=== PATIENT | male | born 1965 | race American Indian/Alaskan Native ===

== ENCOUNTER 2019-05-17 02:42 | Inpatient (IN) | payer BC ==
[2019-05-17 03:37] LABS: Basophils % (Auto) 0.1 % (0.0-1.8); Hematocrit 25.5 % (35.5-45.6); Hemoglobin 7.9 gm/dl (11.8-15.2); Lymphocytes # (Auto) 1.7 K/mm3 (1.2-5.4); Lymphocytes % (Auto) 15.5 % (13.4-35.0); Mean Corpuscular HGB Conc 31 % (32-34); Mean Corpuscular Volume 71 fl (84-94); Monocytes # (Auto) 1.3 K/mm3 (0.0-0.8); Monocytes % (Auto) 11.9 % (0.0-7.3); Platelet Count 409 K/mm3 (140-440); Red Blood Count 3.61 M/mm3 (3.65-5.03); Red Cell Distribution Width 24.9 % (13.2-15.2)
[2019-05-17 03:46] LABS: Bilirubin,Urine NEG (Negative); Blood,Urine NEG (Negative); Color,Urine Yellow (Yellow); Mucus,Urine 1+ /HPF; Protein,Urine <15 mg/dL mg/dL (Negative); Urobilinogen,Urine < 2.0 mg/dL (<2.0)
[2019-05-17 04:12] LABS: Alanine Aminotransferase 5 units/L (7-56); Albumin 3.3 g/dL (3.9-5); BUN/Creatinine Ratio 9; Blood Urea Nitrogen 9 mg/dL (9-20); Calcium 9.6 mg/dL (8.4-10.2); Hemolysis Index 0
[2019-05-17] MEDS ORDERED: MORPHINE IV ONE (04:22)
--- NOTE | 2019-05-17 04:34 | XRay Report ---
PROCEDURE: XR ABDOMEN 2V TECHNIQUE: Supine and upright radiographs of the abdomen and pelvis were obtained. HISTORY: abd pain COMPARISONS: None FINDINGS: There are multiple small air-fluid levels on the upright view. There is mild distention of small mary lou l loops in the mid abdomen. Free air is not seen. The lung bases are clear. The bones and soft tissue s are unremarkable. IMPRESSION: Multiple small air-fluid levels with mild distention of small bowel loops. Partial mechanical small b owel obstruction cannot entirely be excluded.. This document is electronically signed by Orestes Guerrero MD., May 17 2019 04:32:41 AM ET
--- NOTE | 2019-05-17 05:50 | Cat Scan Report ---
PROCEDURE: CT ABDOMEN PELVIS W CON TECHNIQUE: Computerized axial tomography of the abdomen and pelvis was performed after the administr ation of IV iodinated nonionic contrast. CT DOSE LENGTH PRODUCT: mGycm HISTORY: Abd pain COMPARISONS: Abdominal series 05/17/2019 . FINDINGS: The lung bases reveal interstitial changes which appear to be a chronic basis. There are no localized infiltrates or effusions. There is mild atelectatic changes in the lingula. The liver is normal in size and reveals several low density foci, one in the right hepatic lobe measu ring 8.7 mm in diameter. The other one is in the left hepatic lobe measuring 1.8 cm in diameter. Thes e may represent small cysts or hemangiomas. The gallbladder and biliary tree appear normal. The appen kait, spleen and adrenal glands appear normal. The kidneys enhance normally. There is no evidence of h ydronephrosis. There is mild right-sided perinephric stranding. The bowel loops reveal irregular circumferential mucosal thickening in the ascending colon ending at approximately the level of the ileocecal valve and extending cephalad 7 cm. The maximum transverse di ameter with marked luminal narrowing is 6.5 cm x 5.5 cm. There is associated pericolonic stranding an d small lymph nodes in the pericolonic area. The findings are suspicious for a malignancy rather than a colitis. There is proximal dilatation of small bowel loops with air-fluid levels suggesting partia l obstruction. The appendix is not seen with certainty. There is trace free fluid in the pelvis. The prostate gland and bladder appear normal. There are bilateral small inguinal hernias containing oment al fat. The skeletal structures otherwise reveal moderate lytic changes in the lumbar spine. IMPRESSION: Diffuse irregular mucosal thickening in the ascending colon extending from the level of the ileocecal valve and extending 7.1 cm cephalocaudally. There is associated pericolonic stranding and adjacent m ildly enlarged lymph nodes. The finding is suspicious for a malignancy rather than a colitis. Endosco pic evaluation is strongly recommended. Mild to moderate distention of ileal bowel loops with air-fluid levels suggesting partial mechanical small bowel obstruction most likely related to this lesion. Low density foci in both hepatic lobes with measurements as described. These may represent small cyst s. Adenocarcinoma may also present with cystic metastases. Ultrasound of the liver is recommended for follow-up confirmation. Pericolonic stranding in the right perinephric space without abnormal nephrogram or hydronephrosis. T his may be related to the inflammatory process in the ascending colon. Pyelonephritis would be a less likely consideration. Appendix not definitely identified. Trace free fluid in the pelvis. Bilateral small inguinal hernias containing omental fat. This document is electronically signed by Orestes Guerrero MD., May 17 2019 05:48:18 AM ET
[2019-05-17] MEDS ORDERED: ZOSYN/NS 4.5GM/100ML 4.5 GM/100 ML VIAL IV ONE (06:06)
--- NOTE | 2019-05-17 06:10 | Emergency Department Report ---
HPI - General Chief Complaint: Abdominal Pain Time Seen by Provider: 05/17/19 03:31 - HPI HPI: 53 year-old male presents to the emergency department with complaint of generalized abdominal pain that has been going on for the past month but worsened over the past few days. He was seen by his primary care physician 2 weeks ago and had some blood work done and was told that he needs to follow-up with gastroenterology. I was able to see the lab results that showed a reactivity to hepatitis A and B, and elevated CRP level of greater than 90 and a high cancer antigen marker. He was unable to get an appointment for gastroenterology for another month. The patient says that he had increased generalized abdominal pain. He presents with a low-grade fever but denies feeling feverish. The patient has a history of diabetes, GERD, hypertension, anemia and high cholesterol. No recent travel or sick contacts at home. ED Past Medical Hx - Past Medical History Previous Medical History?: Yes Hx Hypertension: Yes Hx Diabetes: Yes Hx GERD: Yes Additional medical history: Anenia. High Cholesterol - Surgical History Past Surgical History?: No - Social History Smoking Status: Never Smoker Substance Use Type: None ED Review of Systems ROS: Stated complaint: STOMACH PAIN Other details as noted in HPI Comment: All other systems reviewed and negative Constitutional: denies: malaise, weakness Eyes: denies: eye pain, vision change ENT: denies: ear pain, throat pain Respiratory: denies: cough, shortness of breath Cardiovascular: denies: chest pain, palpitations Gastrointestinal: abdominal pain. denies: vomiting Genitourinary: denies: dysuria, discharge Musculoskeletal: back pain. denies: arthralgia Skin: denies: rash, lesions Neurological: denies: headache, weakness Physical Exam - Physical Exam Vital Signs: Vital Signs 05/17/19 05/17/19 05/17/19 03:02 03:30 04:40 Temperature 100.6 F H 99.7 F H Pulse Rate 101 H 99 H Respiratory 18 18 18 Rate Blood Pressure 186/76 Blood Pressure 163/84 [Left] O2 Sat by Pulse 92 97 Oximetry 05/17/19 05:10 Temperature Pulse Rate Respiratory 18 Rate Blood Pressure Blood Pressure [Left] O2 Sat by Pulse Oximetry Physical Exam: GENERAL: The patient is well-developed well-nourished. HENT: Normocephalic. Atraumatic. Patient has moist mucous membranes. EYES: Extraocular motions are intact. Pupils equal reactive to light bilaterally. NECK: Supple. Trachea is midline. CHEST/LUNGS: Clear to auscultation. There is no respiratory distress noted. HEART/CARDIOVASCULAR: Regular. There is no tachycardia. There is no murmur. ABDOMEN: Abdomen is soft. There is generalized tenderness to palpation of the abdomen with the lower quadrants pain worse. No guarding. Patient has normal bowel sounds. There is mild abdominal distention. SKIN: Skin is warm and dry. NEURO: The patient is awake, alert, and oriented. The patient is cooperative. The patient has no focal neurologic deficits. The patient has normal speech. MUSCULOSKELETAL: There is no tenderness or deformity. There is no evidence of acute injury. ED Course Vital Signs 05/17/19 05/17/19 05/17/19 03:02 03:30 04:40 Temperature 100.6 F H 99.7 F H Pulse Rate 101 H 99 H Respiratory 18 18 18 Rate Blood Pressure 186/76 Blood Pressure 163/84 [Left] O2 Sat by Pulse 92 97 Oximetry 05/17/19 05:10 Temperature Pulse Rate Respiratory 18 Rate Blood Pressure Blood Pressure [Left] O2 Sat by Pulse Oximetry - Consultations Consultation #1: 05/17/19 06:14 I spoke with the general surgeon on-call, Dr. Em, who will consult on this patient regarding his partial small bowel obstruction and has asked for an NG tube to be placed. ED Medical Decision Making - Lab Data Result diagrams: 05/17/19 03:19 05/17/19 03:19 - Radiology Data Radiology results: report reviewed, image reviewed interpreted by me: Abdominal x-ray shows some air-fluid levels and concern for some intestinal dilation concerning for obstruction. PROCEDURE: CT ABDOMEN PELVIS W CON TECHNIQUE: Computerized axial tomography of the abdomen and pelvis was performed after the administration of IV iodinated nonionic contrast. CT DOSE LENGTH PRODUCT: mGycm HISTORY: Abd pain COMPARISONS: Abdominal series 05/17/2019 . FINDINGS: The lung bases reveal interstitial changes which appear to be a chronic basis. There are no localized infiltrates or effusions. There is mild atelectatic changes in the lingula. The liver is normal in size and reveals several low density foci, one in the r ight hepatic lobe measuring 8.7 mm in diameter. The other one is in the left hepatic lobe measuring 1.8 cm in diameter. These may represent small cysts or hemangiomas. The gallbladder and biliary tree appear normal. The appendix, spleen and adrenal glands appear normal. The kidneys enhance normally. There is no evidence of hydronephrosis. There is mild right-sided perinephric stranding. The bowel loops reveal irregular circumferential mucosal thickening in the ascending colon ending at approximately the level of the ileocecal valve and extending cephalad 7 cm. The maximum transverse diameter with marked luminal narrowing is 6.5 cm x 5.5 cm. There is associated pericolonic stranding and small lymph nodes in the pericolonic area. The findings are suspicious for a malignancy rather than a colitis. There is proximal dilatation of small bowel loops with air-fluid levels suggesting partial obstruction. The appendix is not seen with certainty. There is trace free fluid in the pelvis. The prostate gland and bladder appear normal. There are bilateral small inguinal hernias containing omental fat. The skeletal structures otherwise reveal moderate lytic changes in the lumbar spine. IMPRESSION: Diffuse irregular mucosal thickening in the ascending colon extending from the level of the ileocecal valve and extending 7.1 cm cephalocaudally. There is associated pericolonic stranding and adjacent mildly enlarged lymph nodes. The finding is suspicious for a malignancy rather than a colitis. Endoscopic evaluation is strongly recommended. Mild to moderate distention of ileal bowel loops with air-fluid levels suggesting partial mechanical small bowel obstruction most likely related to this lesion. Low density foci in both hepatic lobes with measurements as described. These may represent small cysts. Adenocarcinoma may also present with cystic metastases. Ultrasound of the liver is recommen ded for follow-up confirmation. Pericolonic stranding in the right perinephric space without abnormal nephrogram or hydronephrosis. This may be related to the inflammatory process in the ascending colon. Pyelonephritis would be a less likely consideration. Appendix not definitely identified. Trace free fluid in the pelvis. Bilateral small inguinal hernias containing omental fat. This document is electronically signed by Orestes Guerrero MD., May 17 2019 05:48:18 AM ET Transcribed By: DOMENIC Dictated By: ORESTES GUERRERO MD Electronically Authenticated By: ORESTES GURERERO MD Signed Date/Time: 05/17/19 0550 - Medical Decision Making This patient presents with some acute on chronic abdominal pain. Patient has some laboratory results with him that show an elevated CRP, positive/reactive to hepatitis A and B, and elevated cancer antigen marker. Labs in the emergency department today show some anemia with hemoglobin 7.9. Abdominal x-rays show some concern for possible obstruction. A CT scan of the abdomen and pelvis was done that shows a partial small bowel obstruction of the ileus, some hepatic foci concerning for adenocarcinoma versus other malignancy, and mucosal thickening of the descending colon up with the ileocecal valve, along with lymph nodes, that are concerning for malignancy. Patient was given some pain medication and empirically treated with some antibiotics. Gen. surgery has been contacted and consulted and an NG tube will be placed. The patient will be admitted to the hospitalist service and I have given permission to place bridging orders to the medical surgical floor under Dr Miller. - Differential Diagnosis colitis, SBO, malignancy, Diverticulitis Critical Care Time: No Critical care attestation.: If time is entered above; I have spent that time in minutes in the direct care of this critically ill patient, excluding procedure time. ED Disposition Clinical Impression: Partial small bowel obstruction, Suspected malignant neoplasm, Colitis, Intractable abdominal pain Hypertension Qualifiers: Hypertension type: essential hypertension Qualified Code(s): I10 - Essential (primary) hypertension Disposition: OP ADMIT IP TO THIS HOSP Is pt being admited?: Yes Condition: Serious Instructions: Hypertension (ED) Referrals: ESTEFANÍA INFANTE MD [Primary Care Provider] - 3-5 Days Time of Disposition: 06:21
[2019-05-17] MEDS ORDERED: APRESOLINE IV ONE (06:20)
[2019-05-17] MEDS ORDERED: MORPHINE IV PRN (07:27)
--- NOTE | 2019-05-17 07:27 | History and Physical Report ---
History of Present Illness Date of examination: 05/17/19 Chief complaint: Abdominal pains History of present illness: Patient is a 53 yo man with a history of hypertension, DM type 2, GERD, Anemia and Dyslipidemia who presents to [facility] ED with severe constant generalize sharp diffusely radiating abdominal pains for 1 month now unbearable last night without aggravating or relieving factors. He saw his PCP about 2 weeks ago and presents with lab results showing reactivity to hepatitis A and B, and elevated CRP level of greater than 90 and a high cancer antigen marker. In ED he was found to have temp of 100.6F HR 101, WBC 11.2, hgb 7.9 with MCV 71, normal plt and potassium of 5.1 with normal Cr of 1.0. PMH: as hpi PSH: left inguinal hernia repair SH: no smoker, no etoh or drug abuse FH: no colon cancer, +hypertension and DM ROS: Constitutional: denies: fever ENT: denies: throat or neck pain Respiratory: denies: cough, shortness of breath Cardiovascular: denies: chest pain Endocrine: +unexplained weight loss Gastrointestinal: + abdominal pain, denies nausea Genitourinary: denies: dysuria Rectal: denies no incontinence, no bleeding, no itching, no discharge Musculoskeletal: denies swelling, myaglia, muscle weakness Skin: denies: rash Neurological: denies: headache Hematological/Lymphatic: denies: easy bleeding or easy bruising Allergic/Immunologic: no urticaria, no allergic rhinitis, no anaphylaxis Psych: denies sadness or hopelessness, SI/HI Medications and Allergies Allergies Allergy/AdvReac Type Severity Reaction Status Date / Time No Known Allergies Allergy Verified 09/19/16 15:05 Home Medications Medication Instructions Recorded Confirmed Last Taken Type Dicyclomine [Bentyl] 20 mg PO TID 05/17/19 05/17/19 Unknown History Ferrous Sulfate [Iron 325 MG] 325 mg PO BID 05/17/19 05/17/19 Unknown History Lisinopril/Hydrochlorothiazide 1 each PO DAILY 05/17/19 05/17/19 Unknown History [Zestoretic 20-12.5 mg] Pantoprazole [Protonix] 40 mg PO DAILY 05/17/19 05/17/19 Unknown History Simvastatin 40 mg PO QPM 05/17/19 05/17/19 Unknown History Sucralfate [Carafate] 1 gm PO BID 05/17/19 05/17/19 Unknown History hydrALAZINE [Apresoline TAB] 100 mg PO QPM 05/17/19 05/17/19 Unknown History metFORMIN XR [Glucophage XR] 500 mg PO DAILY 05/17/19 05/17/19 Unknown History Exam - Physical Exam Narrative exam: Gen: WDWN, NAD, Awake, Alert, Orientated HEENT: NCAT, EOMI, PERRL, OP Clear Neck: supple, no adenopathy, no thyromegaly, no JVD CVS/Heart: reg tachy, normal S1S2, pulses present bilaterally Chest/Lungs: CTA B, Symmetrical chest expansion, good air entry bilaterally GI/Abdomen: soft, diffuse tenderness good bowel sounds, no guarding or rebound /Bladder: no suprapubic tenderness, no CVA or paraspinal tenderness Extermity/Skin: no c/c/e, no obvious rash MSK: FROM x 4 Neuro: CN 2-12 grossly intact, no new focal deficits Psych: calm - Constitutional Vitals: Temp Pulse Resp BP Pulse Ox 98.6 F 95 H 22 206/101 97 05/17/19 06:00 05/17/19 06:50 05/17/19 06:00 05/17/19 06:50 05/17/19 06:00 Results - Labs CBC & Chem 7: 05/17/19 03:19 05/17/19 03:19 Labs: Abnormal lab results 05/17/19 05/17/19 Range/Units 03:19 03:19 WBC 11.2 H (4.5-11.0) K/mm3 RBC 3.61 L (3.65-5.03) M/mm3 Hgb 7.9 L (11.8-15.2) gm/dl Hct 25.5 L (35.5-45.6) % MCV 71 L (84-94) fl MCH 22 L (28-32) pg MCHC 31 L (32-34) % RDW 24.9 H (13.2-15.2) % [place] % (Auto) 11.9 H (0.0-7.3) % [place] # 1.3 H (0.0-0.8) K/mm3 Seg Neutrophils % 72.5 H (40.0-70.0) % Seg Neutrophils # 8.1 H (1.8-7.7) K/mm3 Potassium 5.1 H (3.6-5.0) mmol/L Glucose 140 H (75-100) mg/dL ALT 5 L (7-56) units/L Albumin 3.3 L (3.9-5) g/dL Assessment and Plan Patient is a 53 yo man with a history of hypertension, DM type 2, GERD, Anemia and Dyslipidemia who presents to [facility] ED with severe constant generalize sharp diffusely radiating abdominal pains for 1 month now unbearable last night without aggravating or relieving factors. He saw his PCP about 2 weeks ago and presents with lab results showing reactivity to hepatitis A and B, and elevated CRP level of greater than 90 and a high cancer antigen marker. In ED he was found to have temp of 100.6F HR 101, WBC 11.2, hgb 7.9 with MCV 71, normal plt and potassium of 5.1 with normal Cr of 1.0. * CT abd/pelvis with contrast IMPRESSION: Diffuse irregular mucosal thickening in the ascending colon extending from the level of the ileocecal valve and extending 7.1 cm cephalocaudally. There is associated pericolonic stranding and adjacent mildly enlarged lymph nodes. The finding is suspicious for a malignancy rather than a colitis. Endoscopic evaluation is strongly recommended. Mild to moderate distention of ileal bowel loops with air-fluid levels suggesting partial mechanical small bowel obstruction most likely related to this lesion. Low density foci in both hepatic lobes with measurements as described. These may represent small cysts. Adenocarcinoma may also present with cystic metastases. Ultrasound of the liver is recommen ded for follow-up confirmation. Pericolonic stranding in the right perinephric space without abnormal nephrogram or hydronephrosis. This may be related to the inflammatory process in the ascending colon. Pyelonephritis would be a less likely consideration. Appendix not definitely identified. Trace free fluid in the pelvis. Bilateral small inguinal hernias containing omental fat * 2v ABD Xray IMPRESSION: Multiple small air-fluid levels with mild distention of small bowel loops. Partial mechanical small bowel obstruction cannot entirely be excluded.. Abdominal pains with suspected pSBO: treat with bowel rest, iv pain meds, Gen. Surgery already consulted by ED physician and asked NGT to be placed. Suspected Colon mass: consult Surgery Sepsis due to Colitis: treat with IV abx and IVF, prn tylenol pr for fevers, get blood cultures, get CXR, EKG baseline Accelerated hypertension with Urgency: treat with iv antihypertensives Hyperkalemia, mild: supportive care, monitor levels closely Microcytic anemia: consult GI DM type 2: ssi for now GERD: iv ppi DVT prophylaxis: sq heparin full code No objection for surgery, Class II revised [facility] Cardiac Risk CCT 32 minutes
[2019-05-17] MEDS ORDERED: D50W (25GM) Syringe IV PRN (07:28)
[2019-05-17] MEDS ORDERED: TYLENOL PR PRN (07:30)
--- NOTE | 2019-05-17 07:31 | XRay Report ---
PROCEDURE: XR ABDOMEN 1V AP TECHNIQUE: Abdominal radiograph, single view. HISTORY: NG placement COMPARISONS: 05/17/2019 . FINDINGS: Bowel gas pattern: Multiple distended loops of small bowel with air-fluid levels suspicious for part ial mechanical small bowel obstruction. . Masses or calcifications: None . Bony structures: No significant abnormality . Other: The tip of the NG tube is in the upper stomach. . Excreted IV contrast is seen in the bladder . IMPRESSION: Tip of NG tube is in the upper stomach. Bowel gas pattern suspicious for partial mechani reyna small bowel obstruction.. This document is electronically signed by Orestes Guerrero MD., May 17 2019 07:29:22 AM ET
[2019-05-17] MEDS: NACL 0.45% 1000 ML 1,000 ML IV SCH (08:20)
[2019-05-17] MEDS: ZOFRAN IV PRN (08:21)
--- NOTE | 2019-05-17 08:29 | XRay Report ---
AP CHEST: HISTORY: Sepsis, fever AP view of the chest demonstrates a normal mediastinal and cardiac contour with clear lungs and normal bony and soft tissue structures. A nasogastric tube terminates in the fundus of the stomach. IMPRESSION: Unremarkable AP chest.
[2019-05-17] MEDS ORDERED: PROTONIX IV ONE (10:04)
[2019-05-17] MEDS: PROTONIX IV SCH (10:12)
--- NOTE | 2019-05-17 10:22 | Gastroenterology Consultation ---
<JOANA SANCHEZ - Last Filed: 05/17/19 10:31> History of Present Illness - Reason for Consult Consult date: 05/17/[address] Requesting physician: BRIGID CANDELARIA - History of Present Illness Patient is a 53 y/o male with PMH of HTN, DM, GERD, anemia, and dyslipidemia who presented to ED with c/o diffuse abdominal pain x ~1-2 months. Upon admission, he underwent an abd CT that showed a colon mass suspicious for malignancy with associated partial SBO to which GI has been consulted. Surgery consult pending. This morning patient was resting in bed w/o acute distress. NGT to LIS noted to be in place with no output. Reports abd pain improved with pain medication. Admits to associated recent wt loss (unable to given me estimated amount). Denies N/V or signs of bleeding. States he has had no change in bowel habits with last BM within the last couple of days but then states he was given "something" from his doctor to help him go. No prior colonoscopy. No known Fhx of colon CA. Past History Past Medical History: other (see HPI) Past Surgical History: hernia repair Social history: denies: smoking, alcohol abuse Medications and Allergies Allergies Allergy/AdvReac Type Severity Reaction Status Date / Time No Known Allergies Allergy Verified 09/19/16 15:05 Active Meds: Active Medications Acetaminophen (Tylenol) 650 mg PA Q4H PRN PRN Reason: Non Cardiac Pain or Temp>100.5 Dextrose (D50w (25gm) Syringe) 50 ml IV PRN PRN PRN Reason: Hypoglycemia Heparin Sodium (Porcine) (Heparin) 5,000 unit SUB-Q Q12HR YURIY Hydralazine HCl (Apresoline) 10 mg IV Q4HR PRN PRN Reason: Blood Pressure Sodium Chloride (Nacl 0.45% 1000 Ml) 1,000 mls @ 100 mls/hr IV DIRECT YURIY Last Admin: 05/17/19 08:20 Dose: 100 mls/hr Documented by: Piperacillin Sod/Tazobactam Sod (Zosyn/Ns 4.5gm/100ml) 4.5 gm in 100 mls @ 200 mls/hr IV Q8HR YURIY; Protocol Insulin Human Lispro (Humalog) 0 unit SUB-Q Q6HR YURIY; Protocol Morphine Sulfate (Morphine) 2 mg IV Q4H PRN PRN Reason: Pain , Severe (7-10) Last Admin: 05/17/19 08:20 Dose: 2 mg Documented by: Ondansetron HCl (Zofran) 4 mg IV Q4H PRN PRN Reason: Nausea And Vomiting Last Admin: 05/17/19 08:21 Dose: 4 mg Documented by: Pantoprazole Sodium (Protonix) 40 mg IV QDAY YURIY Last Admin: 05/17/19 10:12 Dose: 40 mg Documented by: medications reviewed/updated as required Review of Systems - Review of Systems All systems: negative Constitutional: weight loss Gastrointestinal: abdominal pain (with distention) Exam - Constitutional Vital Signs: Temp Pulse Resp BP Pulse Ox 98.6 F 95 H 22 206/101 97 05/17/19 06:00 05/17/19 06:50 05/17/19 06:00 05/17/19 06:50 05/17/19 06:00 General appearance: no acute distress - EENT ENT: other (+NGT) - Respiratory Respiratory effort: normal - Cardiovascular Rhythm: regular - Gastrointestinal General gastrointestinal: Present: soft, non-tender, distended (slightly ), hypoactive bowel sounds - Neurologic Neurological: alert and oriented x3 - Labs CBC & Chem 7: 05/17/19 03:19 05/17/19 03:19 Lab Results: Laboratory Results - last 24 hr 05/17/19 05/17/19 05/17/19 03:19 03:19 03:52 WBC 11.2 H RBC 3.61 L Hgb 7.9 L Hct 25.5 L MCV 71 L MCH 22 L MCHC 31 L RDW 24.9 H Plt Count 409 Lymph % (Auto) 15.5 Preston % (Auto) 11.9 H Eos % (Auto) 0.0 Baso % (Auto) 0.1 Lymph # 1.7 Preston # 1.3 H Eos # 0.0 Baso # 0.0 Seg Neutrophils % 72.5 H Seg Neutrophils # 8.1 H Sodium 139 Potassium 5.1 H Chloride 98.9 Carbon Dioxide 29 Anion Gap 16 BUN 9 Creatinine 1.0 Estimated GFR > 60 BUN/Creatinine Ratio 9 Glucose 140 H Calcium 9.6 Total Bilirubin 0.20 AST 17 ALT 5 L Alkaline Phosphatase 77 Total Protein 7.2 Albumin 3.3 L Albumin/Globulin Ratio 0.8 Lipase 28 Urine Color Urine Turbidity Urine pH Ur Specific [place] Urine Protein Urine Glucose (UA) Urine Ketones Urine Blood Urine Nitrite Urine Bilirubin Urine Urobilinogen Ur Leukocyte Esterase Urine WBC (Auto) Urine RBC (Auto) Urine Mucus 05/17/19 Unknown WBC RBC Hgb Hct MCV MCH MCHC RDW Plt Count Lymph % (Auto) Preston % (Auto) Eos % (Auto) Baso % (Auto) Lymph # Preston # Eos # Baso # Seg Neutrophils % Seg Neutrophils # Sodium Potassium Chloride Carbon Dioxide Anion Gap BUN Creatinine Estimated GFR BUN/Creatinine Ratio Glucose Calcium Total Bilirubin AST ALT Alkaline Phosphatase Total Protein Albumin Albumin/Globulin Ratio Lipase Urine Color Yellow Urine Turbidity Clear Urine pH 5.0 Ur Specific [place] 1.021 Urine Protein <15 mg/dl Urine Glucose (UA) Neg Urine Ketones Neg Urine Blood Neg Urine Nitrite Neg Urine Bilirubin Neg Urine Urobilinogen < 2.0 Ur Leukocyte Esterase Neg Urine WBC (Auto) 2.0 Urine RBC (Auto) 3.0 Urine Mucus 1+ Assessment and Plan 1.colon mass with pSBO seen on CT (suspicious for malignancy) 2.abdominal pain 3.anemia -WBC 11.2 -H/H 7.9/25.5-no active signs of bleeding -LFTs WNL -surgery consult and abdominal series pending for further evaluation -will have Dr. Mccullough assess patient and reviewe imaging to determine if a colonoscopy would be recommended -CEA level -Keep NPO -NGT to LIS -continue supportive care -further recommendations to follow <IVONNE MCCULLOUGH - Last Filed: 05/17/19 23:25> History of Present Illness - History of Present Illness Patient seen and examined. I agree with the advanced practitioner's assessment and plan with the following additions: patient with physical exam concerning for at least partial SBO, therefore cannot perform colonoscopy safely, he will undergo surgery first. (of note his NGT appeared to be out of position with the tip in the posterior oropharynx, I asked the nurse to reposition and get an xray to confirm correct placement) After recovery from surgery he will require outpatient colonoscopy to rule out any other lesions in the colon. As the remainder of management will be per surgery, we will sign off at this time. Please feel free to call back for any questions or concerns Medications and Allergies Active Meds: Active Medications Acetaminophen (Tylenol) 650 mg PA Q4H PRN PRN Reason: Non Cardiac Pain or Temp>100.5 Last Admin: 05/17/19 16:53 Dose: 650 mg Documented by: Cefazolin Sodium (Ancef/Sterile Water 2 Gm/20 Ml) 2 gm IV PREOP NR Stop: 05/18/19 23:00 Dextrose (D50w (25gm) Syringe) 50 ml IV PRN PRN PRN Reason: Hypoglycemia Heparin Sodium (Porcine) (Heparin) 5,000 unit SUB-Q Q12HR YURIY Hydralazine HCl (Apresoline) 10 mg IV Q4HR PRN PRN Reason: Blood Pressure Last Admin: 05/17/19 16:53 Dose: 10 mg Documented by: Sodium Chloride (Nacl 0.45% 1000 Ml) 1,000 mls @ 100 mls/hr IV DIRECT YURIY Last Admin: 05/17/19 08:20 Dose: 100 mls/hr Documented by: Piperacillin Sod/Tazobactam Sod (Zosyn/Ns 4.5gm/100ml) 4.5 gm in 100 mls @ 200 mls/hr IV Q8HR YURIY; Protocol Last Admin: 05/17/19 15:50 Dose: 200 mls/hr Documented by: Sodium Chloride (Nacl 0.9% 500 Ml) 500 mls @ 0 mls/hr IV ONCE NR Stop: 05/18/19 11:38 Last Admin: 05/17/19 16:32 Dose: 50 mls/hr Documented by: Metronidazole (Flagyl 500 Mg/100 Ml) 500 mg in 100 mls @ 200 mls/hr IV PREOP NR; Protocol Stop: 05/18/19 23:00 Insulin Human Lispro (Humalog) 0 unit SUB-Q Q6HR YURIY; Protocol Last Admin: 05/17/19 20:17 Dose: Not Given Documented by: Morphine Sulfate (Morphine) 2 mg IV Q4H PRN PRN Reason: Pain , Severe (7-10) Last Admin: 05/17/19 08:20 Dose: 2 mg Documented by: Ondansetron HCl (Zofran) 4 mg IV Q4H PRN PRN Reason: Nausea And Vomiting Last Admin: 05/17/19 08:21 Dose: 4 mg Documented by: Pantoprazole Sodium (Protonix) 40 mg IV QDAY YURIY Last Admin: 05/17/19 10:12 Dose: 40 mg Documented by: Exam - Constitutional Vital Signs: Temp Pulse Resp BP Pulse Ox 98.3 F 82 20 189/94 100 05/17/19 22:31 05/17/19 23:06 05/17/19 23:06 05/17/19 23:06 05/17/19 23:06 - Labs CBC & Chem 7: 05/17/19 03:19 05/17/19 03:19 Lab Results: Laboratory Results - last 24 hr 05/17/19 05/17/19 05/17/19 03:19 03:19 03:52 WBC 11.2 H RBC 3.61 L Hgb 7.9 L Hct 25.5 L MCV 71 L MCH 22 L MCHC 31 L RDW 24.9 H Plt Count 409 Lymph % (Auto) 15.5 Preston % (Auto) 11.9 H Eos % (Auto) 0.0 Baso % (Auto) 0.1 Lymph # 1.7 Preston # 1.3 H Eos # 0.0 Baso # 0.0 Seg Neutrophils % 72.5 H Seg Neutrophils # 8.1 H Sodium 139 Potassium 5.1 H Chloride 98.9 Carbon Dioxide 29 Anion Gap 16 BUN 9 Creatinine 1.0 Estimated GFR > 60 BUN/Creatinine Ratio 9 Glucose 140 H POC Glucose Calcium 9.6 Total Bilirubin 0.20 AST 17 ALT 5 L Alkaline Phosphatase 77 Total Protein 7.2 Albumin 3.3 L Albumin/Globulin Ratio 0.8 Lipase 28 Urine Color Urine Turbidity Urine pH Ur Specific [place] Urine Protein Urine Glucose (UA) Urine Ketones Urine Blood Urine Nitrite Urine Bilirubin Urine Urobilinogen Ur Leukocyte Esterase Urine WBC (Auto) Urine RBC (Auto) Urine Mucus Blood Type Antibody Screen Crossmatch 05/17/19 05/17/19 05/17/19 12:45 14:13 20:22 WBC RBC Hgb Hct MCV MCH MCHC RDW Plt Count Lymph % (Auto) Preston % (Auto) Eos % (Auto) Baso % (Auto) Lymph # [place] # Eos # Baso # Seg Neutrophils % Seg Neutrophils # Sodium Potassium Chloride Carbon Dioxide Anion Gap BUN Creatinine Estimated GFR BUN/Creatinine Ratio Glucose POC Glucose 159 H 105 Calcium Total Bilirubin AST ALT Alkaline Phosphatase Total Protein Albumin Albumin/Globulin Ratio Lipase Urine Color Urine Turbidity Urine pH Ur Specific [place] Urine Protein Urine Glucose (UA) Urine Ketones Urine Blood Urine Nitrite Urine Bilirubin Urine Urobilinogen Ur Leukocyte Esterase Urine WBC (Auto) Urine RBC (Auto) Urine Mucus Blood Type B POSITIVE Antibody Screen Negative Crossmatch See Detail 05/17/19 Unknown WBC RBC Hgb Hct MCV MCH MCHC RDW Plt Count Lymph % (Auto) [place] % (Auto) Eos % (Auto) Baso % (Auto) Lymph # [place] # Eos # Baso # Seg Neutrophils % Seg Neutrophils # Sodium Potassium Chloride Carbon Dioxide Anion Gap BUN Creatinine Estimated GFR BUN/Creatinine Ratio Glucose POC Glucose Calcium Total Bilirubin AST ALT Alkaline Phosphatase Total Protein Albumin Albumin/Globulin Ratio Lipase Urine Color Yellow Urine Turbidity Clear Urine pH 5.0 Ur Specific [place] 1.021 Urine Protein <15 mg/dl Urine Glucose (UA) Neg Urine Ketones Neg Urine Blood Neg Urine Nitrite Neg Urine Bilirubin Neg Urine Urobilinogen < 2.0 Ur Leukocyte Esterase Neg Urine WBC (Auto) 2.0 Urine RBC (Auto) 3.0 Urine Mucus 1+ Blood Type Antibody Screen Crossmatch
[2019-05-17] MEDS ORDERED: NACL 0.9% 500 ML 500 ML IV NR (11:39)
[2019-05-17] MEDS: APRESOLINE IV PRN ×2 (12:15→16:53)
--- NOTE | 2019-05-17 12:52 | Progress Note ---
Assessment and Plan Full consult dictated 53 y/o males large obstructing ascending colon mass with surrounding lymphadenopathy. 20 lbs wt loss over last 2 months. hemoglobin of 7.9 imp r/o obstructing malignant mass transfuse 2 units prbc's for expl lap colon resection in am risks, indications and complications reviewed with pt discussed with hosptialist and GI consent signed. Chief complaint: Abdominal pains History of present illness: Patient is a 53 yo man with a history of hypertension, DM type 2, GERD, Anemia and Dyslipidemia who presents to [facility] ED with severe constant generalize sharp diffusely radiating abdominal pains for 1 month now unbearable last night without aggravating or relieving factors. He saw his PCP about 2 weeks ago and presents with lab results showing reactivity to hepatitis A and B, and elevated CRP level of greater than 90 and a high cancer antigen marker. In ED he was found to have temp of 100.6F HR 101, WBC 11.2, hgb 7.9 with MCV 71, normal plt and potassium of 5.1 with normal Cr of 1.0. PMH: as hpi PSH: SH: FH: ROS: Constitutional: denies: fever ENT: denies: throat or neck pain Respiratory: denies: cough, shortness of breath Cardiovascular: denies: chest pain Endocrine: +unexplained weight loss Gastrointestinal: + abdominal pain, denies nausea Genitourinary: denies: dysuria Rectal: denies no incontinence, no bleeding, no itching, no discharge Musculoskeletal: denies swelling, myaglia, muscle weakness Skin: denies: rash Neurological: denies: headache Hematological/Lymphatic: denies: easy bleeding or easy bruising Allergic/Immunologic: no urticaria, no allergic rhinitis, no anaphylaxis Psych: denies sadness or hopelessness, SI/HI Laboratory Tests 05/17/19 05/17/19 05/17/19 03:19 03:19 03:52 WBC 11.2 H Hgb 7.9 L Hct 25.5 L Total Bilirubin 0.20 AST 17 ALT 5 L Alkaline Phosphatase 77 Lipase 28 Objective Vital Signs - 12hr 05/17/19 05/17/19 05/17/19 03:02 03:30 04:01 Temperature 100.6 F H 99.7 F H Pulse Rate 101 H 99 H 103 H Respiratory 18 18 21 Rate Blood Pressure 186/76 167/88 Blood Pressure 163/84 [Left] O2 Sat by Pulse 92 97 100 Oximetry 05/17/19 05/17/19 05/17/19 04:40 05:10 05:41 Temperature Pulse Rate Respiratory 18 18 Rate Blood Pressure 165/76 Blood Pressure [Left] O2 Sat by Pulse 96 Oximetry 05/17/19 05/17/19 05/17/19 06:00 06:50 07:00 Temperature 98.6 F Pulse Rate 94 H 95 H 95 H Respiratory 24 15 Rate Blood Pressure 206/101 178/84 Blood Pressure 189/83 [Left] O2 Sat by Pulse 96 94 Oximetry 05/17/19 05/17/19 05/17/19 08:00 09:01 10:00 Temperature Pulse Rate 103 H 102 H 101 H Respiratory 23 19 16 Rate Blood Pressure 165/78 165/78 Blood Pressure [Left] O2 Sat by Pulse 90 84 93 Oximetry 05/17/19 05/17/19 05/17/19 11:12 11:15 12:15 Temperature 99.1 F 99.1 F Pulse Rate 99 H 90 99 H Respiratory 20 20 Rate Blood Pressure 208/93 190/90 Blood Pressure [Left] O2 Sat by Pulse 91 95 Oximetry - Labs 05/17/19 03:19 05/17/19 03:19 Diabetes panel 05/17/19 Range/Units 03:19 Sodium 139 (137-145) mmol/L Potassium 5.1 H (3.6-5.0) mmol/L Chloride 98.9 (98-107) mmol/L Carbon Dioxide 29 (22-30) mmol/L BUN 9 (9-20) mg/dL Creatinine 1.0 (0.8-1.5) mg/dL Glucose 140 H (75-100) mg/dL Calcium 9.6 (8.4-10.2) mg/dL AST 17 (5-40) units/L ALT 5 L (7-56) units/L Alkaline Phosphatase 77 (35-129) units/L Total Protein 7.2 (6.3-8.2) g/dL Albumin 3.3 L (3.9-5) g/dL Calcium panel 05/17/19 Range/Units 03:19 Calcium 9.6 (8.4-10.2) mg/dL Albumin 3.3 L (3.9-5) g/dL Pituitary panel 05/17/19 Range/Units 03:19 Sodium 139 (137-145) mmol/L Potassium 5.1 H (3.6-5.0) mmol/L Chloride 98.9 (98-107) mmol/L Carbon Dioxide 29 (22-30) mmol/L BUN 9 (9-20) mg/dL Creatinine 1.0 (0.8-1.5) mg/dL Glucose 140 H (75-100) mg/dL Calcium 9.6 (8.4-10.2) mg/dL Adrenal panel 05/17/19 Range/Units 03:19 Sodium 139 (137-145) mmol/L Potassium 5.1 H (3.6-5.0) mmol/L Chloride 98.9 (98-107) mmol/L Carbon Dioxide 29 (22-30) mmol/L BUN 9 (9-20) mg/dL Creatinine 1.0 (0.8-1.5) mg/dL Glucose 140 H (75-100) mg/dL Calcium 9.6 (8.4-10.2) mg/dL Total Bilirubin 0.20 (0.1-1.2) mg/dL AST 17 (5-40) units/L ALT 5 L (7-56) units/L Alkaline Phosphatase 77 (35-129) units/L Total Protein 7.2 (6.3-8.2) g/dL Albumin 3.3 L (3.9-5) g/dL
[2019-05-17] MEDS: ZOSYN/NS 4.5GM/100ML 4.5 GM/100 ML VIAL IV SCH ×2 (15:50→23:58)
[2019-05-17] MEDS: HumaLOG SUB-Q SCH ×2 (15:51→20:17)
[2019-05-17] MEDS: ERY-TAB PO SCH ×3 (15:54→23:57)
[2019-05-17] MEDS: NEOMYCIN PO SCH ×3 (15:55→23:56)
--- NOTE | 2019-05-17 16:15 | XRay Report ---
PROCEDURE: XR ABDOMEN 1V AP TECHNIQUE: Abdominal radiograph, single view. HISTORY: check NG tube placement COMPARISONS: Radiographs of the abdomen performed on 05/17/2019 at an earlier time . FINDINGS: Bowel gas pattern: Decreasing distention of mid abdominal bowel loops which are still mildly dilated . Masses or calcifications: None . Bony structures: No significant abnormality . Other: Enteric tube with tip in the stomach . IMPRESSION: Enteric tube with tip in the stomach. Improved appearance of mid abdominal loops with mild residual dilatation. This document is electronically signed by Carol Davis MD., May 17 2019 04:13:15 PM ET
--- NOTE | 2019-05-18 02:29 | Consultation ---
REASON FOR CONSULTATION: Abdominal pain and large colonic mass on CT. HISTORY OF PRESENT ILLNESS: The patient is a pleasant 53-year-old gentleman who was admitted to the hospital with chief complaint of abdominal pain. PAST MEDICAL HISTORY: Pertinent for hypertension, diabetes, GERD and recently noted anemia. The patient also states he has had a 20-pound weight loss over the last 2 months. PHYSICAL EXAMINATION: At this time reveals his abdomen to be 1+ distended, just moderate to minimal tenderness at this time. Bowel sounds are hypoactive. LABORATORY DATA: Lab work at present includes a CBC, which shows a white count of 11.2, H and H is 7.9 and 25.5. Electrolytes are essentially within normal limits. LFTs are also essentially within normal limits. A CT scan of the abdomen has been performed, which I have reviewed with the radiologist. There is a large, approximately 7 cm mass involving the ascending colon. There was also surrounding lymphadenopathy noted. IMPRESSION: At this time is that of a 53-year-old gentleman with a large malignant-appearing mass in the ascending colon causing bowel obstruction, also probable cause for his anemia and weight loss. RECOMMENDATION: At this time is keep the patient. n.p.o. We will proceed with right hemicolectomy in a.m. Risks, indication, and complications have been reviewed with the patient who understands and has signed his consent. 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 JOB# [id number] TERE/LEIF
[2019-05-18] MEDS: HumaLOG SUB-Q SCH ×3 (02:58→13:05)
[2019-05-18] MEDS: ZOSYN/NS 4.5GM/100ML 4.5 GM/100 ML VIAL IV SCH ×2 (05:16→14:50)
[2019-05-18] MEDS: NACL 0.45% 1000 ML 1,000 ML IV SCH (05:21)
[2019-05-18] MEDS: APRESOLINE IV PRN ×2 (05:57→09:43)
[2019-05-18] MEDS ORDERED: ANCEF/STERILE WATER 2 GM/20 ML IV NR (06:00)
[2019-05-18] MEDS ORDERED: FLAGYL 500 MG/100 ML 500 MG/100 ML BAG IV NR (06:00)
[2019-05-18 08:52] LABS: Hematocrit 32.9 % (35.5-45.6); Hemoglobin 10.2 gm/dl (11.8-15.2); Mean Corpuscular HGB Conc 31 % (32-34); Mean Corpuscular Volume 76 fl (84-94); Platelet Count 370 K/mm3 (140-440); Red Blood Count 4.36 M/mm3 (3.65-5.03)
[2019-05-18 08:53] LABS: Red Cell Distribution Width 23.9 % (13.2-15.2)
[2019-05-18 08:54] LABS: INR 1.34 (0.87-1.13)
[2019-05-18 08:55] LABS: Partial Thromboplastin Time 36.6 Sec. (24.2-36.6)
[2019-05-18 09:10] LABS: BUN/Creatinine Ratio 11; Blood Urea Nitrogen 10 mg/dL (9-20); Calcium 8.9 mg/dL (8.4-10.2); Hemolysis Index 0
[2019-05-18] MEDS: PROTONIX IV SCH (09:44)
[2019-05-18] MEDS: HEPARIN SUB-Q SCH (09:51)
--- NOTE | 2019-05-18 14:43 | Progress Note ---
Assessment and Plan Assessment and plan: Patient is a 53 yo man with a history of hypertension, DM type 2, GERD, Anemia and Dyslipidemia who presents to [facility] ED with severe constant generalize sharp diffusely radiating abdominal pains for 1 month now unbearable last night without aggravating or relieving factors. He saw his PCP about 2 weeks ago and presents with lab results showing reactivity to hepatitis A and B, and elevated CRP level of greater than 90 and a high cancer antigen marker. In ED he was found to have temp of 100.6F HR 101, WBC 11.2, hgb 7.9 with MCV 71, normal plt and potassium of 5.1 with normal Cr of 1.0. * CT abd/pelvis with contrast IMPRESSION: Diffuse irregular mucosal thickening in the ascending colon extending from the level of the ileocecal valve and extending 7.1 cm cephalocaudally. There is associated pericolonic stranding and adjacent mildly enlarged lymph nodes. The finding is suspicious for a malignancy rather than a colitis. Endoscopic evaluation is strongly recommended. Mild to moderate distention of ileal bowel loops with air-fluid levels suggesting partial mechanical small bowel obstruction most likely related to this lesion. Low density foci in both hepatic lobes with measurements as described. These may represent small cysts. Adenocarcinoma may also present with cystic metastases. Ultrasound of the liver is recommen ded for follow-up confirmation. Pericolonic stranding in the right perinephric space without abnormal nephrogram or hydronephrosis. This may be related to the inflammatory process in the ascending colon. Pyelonephritis would be a less likely consideration. Appendix not definitely identified. Trace free fluid in the pelvis. Bilateral small inguinal hernias containing omental fat * 2v ABD Xray IMPRESSION: Multiple small air-fluid levels with mild distention of small bowel loops. Partial mechanical small bowel obstruction cannot entirely be excluded.. Abdominal pains with suspected pSBO: treat with bowel rest, iv pain meds, Gen. Surgery already consulted by ED physician and asked NGT to be placed. Suspected Colon mass: consult Surgery Sepsis due to Colitis: treat with IV abx and IVF, prn tylenol pr for fevers, get blood cultures, get CXR, EKG baseline Accelerated hypertension with Urgency: treat with iv antihypertensives Hyperkalemia, mild: supportive care, monitor levels closely Microcytic anemia: consult GI DM type 2: ssi for now GERD: iv ppi DVT prophylaxis: sq heparin full code Going for Surgery today No objection for surgery, Class II revised Cardoza Cardiac Risk History Interval history: Patient was seen and examined. Follow-up on current diagnosis of SBO. No overnight events reported to me. Patient denies any chest pain, shortness breath, nausea/vomiting or severe headaches. Imaging, nursing note, chart, labs and old chart reviewed. Discussed with patient. Hospitalist Physical - Physical exam Narrative exam: Gen: WDWN, NAD, Awake, Alert, Orientated HEENT: NCAT, EOMI, PERRL, OP Clear Neck: supple, no adenopathy, no thyromegaly, no JVD CVS/Heart: reg tachy, normal S1S2, pulses present bilaterally Chest/Lungs: CTA B, Symmetrical chest expansion, good air entry bilaterally GI/Abdomen: soft, diffuse tenderness good bowel sounds, no guarding or rebound /Bladder: no suprapubic tenderness, no CVA or paraspinal tenderness Extermity/Skin: no c/c/e, no obvious rash MSK: FROM x 4 Neuro: CN 2-12 grossly intact, no new focal deficits Psych: calm - Constitutional Vitals: Temp Pulse Resp BP Pulse Ox 98.1 F 80 100 H 182/87 96 05/18/19 07:06 05/18/19 09:43 05/18/19 07:06 05/18/19 09:43 05/18/19 05:18 Results - Labs CBC & Chem 7: 05/18/19 07:22 05/18/19 07:22 Labs: Laboratory Last Values WBC 12.9 K/mm3 (4.5-11.0) H 05/18/19 07:22 RBC 4.36 M/mm3 (3.65-5.03) 05/18/19 07:22 Hgb 10.2 gm/dl (11.8-15.2) L 05/18/19 07:22 Hct 32.9 % (35.5-45.6) L D 05/18/19 07:22 MCV 76 fl (84-94) L 05/18/19 07:22 MCH 24 pg (28-32) L 05/18/19 07:22 MCHC 31 % (32-34) L 05/18/19 07:22 RDW 23.9 % (13.2-15.2) H 05/18/19 07:22 Plt Count 370 K/mm3 (140-440) 05/18/19 07:22 Lymph % (Auto) 15.5 % (13.4-35.0) 05/17/19 03:19 [place] % (Auto) 11.9 % (0.0-7.3) H 05/17/19 03:19 Eos % (Auto) 0.0 % (0.0-4.3) 05/17/19 03:19 Baso % (Auto) 0.1 % (0.0-1.8) 05/17/19 03:19 Lymph # 1.7 K/mm3 (1.2-5.4) 05/17/19 03:19 [place] # 1.3 K/mm3 (0.0-0.8) H 05/17/19 03:19 Eos # 0.0 K/mm3 (0.0-0.4) 05/17/19 03:19 Baso # 0.0 K/mm3 (0.0-0.1) 05/17/19 03:19 Seg Neutrophils % 72.5 % (40.0-70.0) H 05/17/19 03:19 Seg Neutrophils # 8.1 K/mm3 (1.8-7.7) H 05/17/19 03:19 PT 16.2 Sec. (12.2-14.9) H 05/18/19 07:22 INR 1.34 (0.87-1.13) H 05/18/19 07:22 APTT 36.6 Sec. (24.2-36.6) 05/18/19 07:22 Sodium 138 mmol/L (137-145) 05/18/19 07:22 Potassium 4.8 mmol/L (3.6-5.0) 05/18/19 07:22 Chloride 97.8 mmol/L (98-107) L 05/18/19 07:22 Carbon Dioxide 27 mmol/L (22-30) 05/18/19 07:22 18 mmol/L 05/18/19 07:22 BUN 10 mg/dL (9-20) 05/18/19 07:22 0.9 mg/dL (0.8-1.5) 05/18/19 07:22 Estimated GFR > 60 ml/min 05/18/19 07:22 11 % 05/18/19 07:22 Glucose 80 mg/dL (75-100) 05/18/19 07:22 POC Glucose 82 (70-105) 05/18/19 12:05 Calcium 8.9 mg/dL (8.4-10.2) 05/18/19 07:22 0.20 mg/dL (0.1-1.2) 05/17/19 03:19 AST 17 units/L (5-40) 05/17/19 03:19 ALT 5 units/L (7-56) L 05/17/19 03:19 77 units/L (35-129) 05/17/19 03:19 7.2 g/dL (6.3-8.2) 05/17/19 03:19 3.3 g/dL (3.9-5) L 05/17/19 03:19 0.8 % 05/17/19 03:19 28 units/L (13-60) 05/17/19 03:52 Yellow (Yellow) 05/17/19 Unknown Clear (Clear) 05/17/19 Unknown 5.0 (5.0-7.0) 05/17/19 Unknown Ur Specific [place] 1.021 (1.003-1.030) 05/17/19 Unknown <15 mg/dl mg/dL (Negative) 05/17/19 Unknown Neg mg/dL (Negative) 05/17/19 Unknown Neg mg/dL (Negative) 05/17/19 Unknown Neg (Negative) 05/17/19 Unknown Neg (Negative) 05/17/19 Unknown Neg (Negative) 05/17/19 Unknown < 2.0 mg/dL (<2.0) 05/17/19 Unknown Ur Leukocyte Esterase Neg (Negative) 05/17/19 Unknown 2.0 /HPF (0.0-6.0) 05/17/19 Unknown 3.0 /HPF (0.0-6.0) 05/17/19 Unknown 1+ /HPF 05/17/19 Unknown Blood Type B POSITIVE 05/17/19 12:45 Antibody Screen Negative 05/17/19 12:45 Crossmatch See Detail 05/17/19 12:45 Active Medications - Current Medications Current Medications: Generic Name Dose Route Start Last Admin Trade Name Freq PRN Reason Stop Dose Admin Acetaminophen 650 mg 05/17/19 07:30 05/17/19 16:53 Tylenol GA 650 mg Q4H PRN Administration Non Cardiac Pain or Temp>100.5 Cefazolin Sodium 2 gm 05/18/19 06:00 Ancef/Sterile Water 2 Gm/20 Ml IV 05/18/19 23:00 PREOP NR Dextrose 50 ml 05/17/19 07:28 D50w (25gm) Syringe IV PRN PRN Hypoglycemia Heparin Sodium (Porcine) 5,000 unit 05/18/19 07:27 05/18/19 09:51 Heparin SUB-Q Not Given Q12HR YURIY Hydralazine HCl 10 mg 05/17/19 07:28 05/18/19 09:43 Apresoline IV 10 mg Q4HR PRN Administration Blood Pressure Sodium Chloride 1,000 mls @ 100 mls/hr 05/17/19 08:00 05/18/19 05:21 Nacl 0.45% 1000 Ml IV 100 mls/hr DIRECT YURYI Administration Piperacillin Sod/Tazobactam Sod 4.5 gm in 100 mls @ 200 mls/hr 05/17/19 14:00 05/18/19 05:16 Zosyn/Ns 4.5gm/100ml IV 200 mls/hr Q8HR YURIY Administration Protocol Metronidazole 500 mg in 100 mls @ 200 mls/hr 05/18/19 06:00 Flagyl 500 Mg/100 Ml IV 05/18/19 23:00 PREOP NR Protocol Insulin Human Lispro 0 unit 05/17/19 12:00 05/18/19 09:52 Humalog SUB-Q Not Given Q6HR YURIY Protocol Morphine Sulfate 2 mg 05/17/19 07:27 05/17/19 08:20 Morphine IV 2 mg Q4H PRN Administration Pain , Severe (7-10) Ondansetron HCl 4 mg 05/17/19 07:27 05/17/19 08:21 Zofran IV 4 mg Q4H PRN Administration Nausea And Vomiting Pantoprazole Sodium 40 mg 05/17/19 10:00 05/18/19 09:44 Protonix IV 40 mg QDAY YURIY Administration
--- NOTE | 2019-05-18 15:13 | XRay Report ---
AP ABDOMEN: HISTORY: Nasogastric tube placement. The nasogastric tube terminates in the fundus of the stomach. The abdominal gas pattern is unremarkable. No masses or organomegaly is identified and there is no gross evidence of free air or fluid. No significant soft tissue calcifications are noted. IMPRESSION: Unremarkable abdomen.
[2019-05-18] MEDS ORDERED: SUBLIMAZE IV PRN (15:51)
[2019-05-18] MEDS ORDERED: ZOFRAN IV PRN (15:51)
[2019-05-18] MEDS ORDERED: NACL 0.9% 1000 ML 1,000 ML ONE ×4 (15:54→20:15)
[2019-05-18] MEDS ORDERED: NACL 0.9% 1000 ML 1,000 ML IV SCH (16:00)
--- NOTE | 2019-05-18 16:03 | Anesthesia Day of Surgery ---
Anesthesia Day of Surgery - Day of Surgery Patient Examined: Yes Patient H&P Reviewed: Yes Patient is NPO: Yes
--- NOTE | 2019-05-18 16:09 | Anesthesia Consultation ---
Anesthesia Consult and Med Hx Date of service: 05/18/19 - Airway Anesthetic Teeth Evaluation: Good ROM Head & Neck: Adequate Mental/Hyoid Distance: Adequate Mallampati Class: Class II Intubation Access Assessment: Good - Pre-Operative Health Status Proposed Anesthetic Plan: General - Cardiovascular System Hx Hypertension: Yes - Gastrointestinal Hx Gastroesophageal Reflux Disease: Yes - Endocrine Hx Liver Disease: Yes (?HEP A and B; pt denies) - Hematic Hx Anemia: Yes (Rec'd PRBC x 2 units yesterday) - Other Systems Hx Cancer: Yes (? with SBO)
[2019-05-18] MEDS ORDERED: DIPRIVAN 10 MG/ML IV ONE (17:14)
[2019-05-18] MEDS ORDERED: SUBLIMAZE ONE (17:16)
[2019-05-18] MEDS ORDERED: XYLOCAINE CARDIAC IV ONE (17:16)
[2019-05-18] MEDS ORDERED: ZEMURON IV ONE (17:17)
[2019-05-18] MEDS ORDERED: DILAUDID ONE ×2 (18:08→20:30)
[2019-05-18] MEDS ORDERED: QUELICIN ONE (18:08)
[2019-05-18] MEDS ORDERED: ROBINUL ONE (20:02)
[2019-05-18] MEDS ORDERED: BLOXIVERZ ONE (20:02)
[2019-05-18] MEDS ORDERED: ZOFRAN ONE (20:09)
[2019-05-18] MEDS: DILAUDID IV PRN (21:10)
[2019-05-18] MEDS ORDERED: NORMODYNE IV ONE ×2 (21:29→21:31)
--- NOTE | 2019-05-18 22:19 | Post Anesthesia Evaluation ---
- Post Anesthesia Evaluation Patient Participated: Yes Airway Patent: Yes Stable Respiratory Function: Yes Nausea/Vomiting: No Temp > 96.8F: Yes Pain Manageable: Yes Adequeate Hydration: Yes Anesthesia Complications: No Block Receding Appropriately: Not Applicable Patient on Ventilator: No
[2019-05-19] MEDS: DILAUDID IV PRN ×4 (00:10→21:34)
[2019-05-19] MEDS ORDERED: DILAUDID ONE (00:24)
[2019-05-19] MEDS: ceFAZolin 2 GM in NACL 0.9% 100 ML IV SCH ×3 (00:37→17:29)
--- NOTE | 2019-05-19 00:52 | Operative Report ---
PREOPERATIVE DIAGNOSIS: Large right colonic mass highly suspicious for malignancy with subsequent large bowel obstruction. POSTOPERATIVE DIAGNOSIS: Large right colonic mass highly suspicious for malignancy with subsequent large bowel obstruction. FINDINGS: Extensive mass and induration, most likely malignant extending the entire ascending colon as well as extending to the retroperitoneum. The area of the mesenteric vessels and extending past the midline. Also, adherent to the duodenum and also involving the retroperitoneum deep into the pelvis, suspicion also for involvement of the ureter. PROCEDURE: Exploratory laparotomy, extensive right hemicolectomy with dissection through a tumor in the retroperitoneum. SURGEON: Filiberto Em MD MILL LABORER: Dr. Jordan. ANESTHESIA: General. ESTIMATED BLOOD LOSS: Minimal. DRAINS: One 19 Saqib left draining the right colonic gutter in the area of the ureter. COMPLICATIONS: No complications that can be noted at this time. DESCRIPTION OF PROCEDURE: The patient was taken to the operating room, prepped and draped in usual sterile fashion. Midline incision was made and abdomen entered. Upon entrance into the abdomen, a rock hard mass was noted involving the entire right side of the peritoneal cavity involving the entire right colon and extending as previously described into the retroperitoneum and extending past the midline and just adjacent to the duodenum. The entire right colon was slowly and tediously mobilized. We did have to cut through tumor to achieve this. The ureter itself could not be identified after extensive attempts to do so as the whole areas involved with tumor. The colon was able to be mobilized past the hepatic flexure. The CARLOTA were used to transect the distal ileum and the transverse colon just distal to the hepatic flexure. The mesentery was secured with Harmonic scalpel as well as multiple [id number] sutures and large clips as the area was full of tumor and oozing. The area was subsequently inspected and no bleeding or oozing noted and as the area had been packed with laps during the dissection. The ileocolic anastomosis was then performed using a CARLOTA and a TA-[id number]. The mesentery was approximated with interrupted 3-0 Vicryl suture. The laps were then removed and the entire area inspected. No retroperitoneal oozing was noted. Once again, the ureter could not be clearly identified and tumor is noted throughout the retroperitoneum. Some large nodes were also noted in the area of the midline. Some of these nodes had to be transected during our dissection. The duodenum also was carefully inspected as the tumor encroached into the duodenum, but was able to be dissected free of the duodenum. No iatrogenic duodenal injuries were noted. Once again, the entire area was irrigated copiously and dried. Checked for hemostasis and noted to be dry. The liver was palpated. No gross masses noted. The NG tube was also palpated and confirmed to be in the stomach. The entire abdomen was then once again irrigated with warm saline and suctioned dry. Once again checked for hemostasis and noted to be dry. Fascia was then closed with interrupted #1 Vicryl suture. Subcutaneous tissues irrigated and skin closed with olamide. Again, a 19 Saqib was left draining the right colonic gutter. The drain was brought through a separate stab incision and secured to skin with a 2-0 silk suture. The patient tolerated the procedure well and left OR in stable condition. The patient will be transferred over to ICU for further resuscitation and management. CONDITION: Prognosis is poor as this is metastatic and unresectable cancer, pending final pathology. JOB# [id number] TERE/LEIF
[2019-05-19] MEDS: MORPHINE IV PRN ×2 (01:50→05:44)
[2019-05-19] MEDS: HumaLOG SUB-Q SCH ×3 (05:16→19:00)
[2019-05-19] MEDS: NORMODYNE IV PRN ×3 (05:49→19:06)
[2019-05-19] MEDS ORDERED: DILAUDID IV PRN (07:53)
[2019-05-19] MEDS: NACL 0.45% 1000 ML 1,000 ML IV SCH ×2 (08:11→17:36)
--- NOTE | 2019-05-19 08:38 | Progress Note ---
Assessment and Plan POD # 1 RN called that pt c/o abd pain not well controlled with IV Morphine. Abd 1+ distended. mildly tender but no guarding or rebound. dressings dry. urine clear. EROS 60 cc serous drainage. had requested transfer to ICU post op secondary to the magnitude of pts surgery but transfer was denied. ordered CBC and CMP for 4 am today but labs not yet drawn. appears stable again would prefer monitoring in ICU or step down setting change MS to Dilaudid await labs. will order IVP to assure patency of R ureter will need onc eval in next few days. also consider TPN Selected Entries 05/19/19 05/19/19 05/19/19 05:11 05:49 05:55 Temperature 98.4 F Pulse Rate 105 H Respiratory 18 Rate Blood Pressure 159/80 Objective Vital Signs - 12hr 05/18/19 05/18/19 05/18/19 20:35 20:45 20:50 Temperature 98.6 F Pulse Rate 105 H 105 H 107 H Respiratory 15 14 17 Rate Respiratory Rate [Abdomen] Blood Pressure 196/49 178/70 161/78 O2 Sat by Pulse 100 96 98 Oximetry 05/18/19 05/18/19 05/18/19 20:55 21:00 21:10 Temperature Pulse Rate 108 H 108 H Respiratory 16 16 16 Rate Respiratory Rate [Abdomen] Blood Pressure 165/76 165/76 O2 Sat by Pulse 98 100 Oximetry 05/18/19 05/18/19 05/18/19 21:15 21:30 21:40 Temperature 100.2 F H Pulse Rate 108 H 94 H Respiratory 18 13 18 Rate Respiratory Rate [Abdomen] Blood Pressure 166/74 120/58 O2 Sat by Pulse 99 100 Oximetry 05/18/19 05/18/19 05/18/19 21:45 22:00 22:30 Temperature Pulse Rate 93 H 95 H 97 H Respiratory 15 13 16 Rate Respiratory Rate [Abdomen] Blood Pressure 118/63 128/66 124/65 O2 Sat by Pulse 100 100 100 Oximetry 05/18/19 05/19/19 05/19/19 23:00 00:00 00:10 Temperature 98.1 F Pulse Rate 99 H 100 H Respiratory 14 17 18 Rate Respiratory Rate [Abdomen] Blood Pressure 130/71 160/83 O2 Sat by Pulse 100 100 Oximetry 05/19/19 05/19/19 05/19/19 01:00 01:02 01:50 Temperature 99.3 F Pulse Rate 94 H Respiratory 16 20 20 Rate Respiratory Rate [Abdomen] Blood Pressure 145/85 169/73 O2 Sat by Pulse 100 Oximetry 05/19/19 05/19/19 05/19/19 02:00 05:11 05:44 Temperature 98.4 F Pulse Rate 113 H Respiratory 18 24 Rate Respiratory 20 Rate [Abdomen] Blood Pressure 225/110 O2 Sat by Pulse 100 Oximetry 05/19/19 05/19/19 05:49 05:55 Temperature Pulse Rate 105 H 89 Respiratory 18 Rate Respiratory Rate [Abdomen] Blood Pressure 225/110 159/80 O2 Sat by Pulse 100 Oximetry - Labs 05/18/19 07:22 05/18/19 07:22 Diabetes panel 05/18/19 Range/Units 07:22 Sodium 138 (137-145) mmol/L Potassium 4.8 (3.6-5.0) mmol/L Chloride 97.8 L (98-107) mmol/L Carbon Dioxide 27 (22-30) mmol/L BUN 10 (9-20) mg/dL Creatinine 0.9 (0.8-1.5) mg/dL Glucose 80 (75-100) mg/dL Calcium 8.9 (8.4-10.2) mg/dL Calcium panel 05/18/19 Range/Units 07:22 Calcium 8.9 (8.4-10.2) mg/dL Pituitary panel 05/18/19 Range/Units 07:22 Sodium 138 (137-145) mmol/L Potassium 4.8 (3.6-5.0) mmol/L Chloride 97.8 L (98-107) mmol/L Carbon Dioxide 27 (22-30) mmol/L BUN 10 (9-20) mg/dL Creatinine 0.9 (0.8-1.5) mg/dL Glucose 80 (75-100) mg/dL Calcium 8.9 (8.4-10.2) mg/dL Adrenal panel 05/18/19 Range/Units 07:22 Sodium 138 (137-145) mmol/L Potassium 4.8 (3.6-5.0) mmol/L Chloride 97.8 L (98-107) mmol/L Carbon Dioxide 27 (22-30) mmol/L BUN 10 (9-20) mg/dL Creatinine 0.9 (0.8-1.5) mg/dL Glucose 80 (75-100) mg/dL Calcium 8.9 (8.4-10.2) mg/dL
[2019-05-19 08:46] LABS: Alanine Aminotransferase 7 units/L (7-56); Albumin 2.7 g/dL (3.9-5); BUN/Creatinine Ratio 10; Blood Urea Nitrogen 9 mg/dL (9-20); Calcium 8.3 mg/dL (8.4-10.2); Hemolysis Index 0
[2019-05-19 09:26] LABS: Basophils % (Auto) 0.1 % (0.0-1.8); Hematocrit 32.4 % (35.5-45.6); Hemoglobin 10.1 gm/dl (11.8-15.2); Lymphocytes # (Auto) 0.9 K/mm3 (1.2-5.4); Lymphocytes % (Auto) 8.2 % (13.4-35.0); Mean Corpuscular HGB Conc 31 % (32-34); Mean Corpuscular Volume 75 fl (84-94); Monocytes # (Auto) 1.1 K/mm3 (0.0-0.8); Monocytes % (Auto) 9.7 % (0.0-7.3); Platelet Count 395 K/mm3 (140-440)
[2019-05-19 09:28] LABS: Red Cell Distribution Width 24.4 % (13.2-15.2)
[2019-05-19] MEDS: PROTONIX IV SCH (09:42)
--- NOTE | 2019-05-19 14:45 | Progress Note ---
Assessment and Plan Assessment and plan: Patient is a 53 yo man with a history of hypertension, DM type 2, GERD, Anemia and Dyslipidemia who presents to [facility] ED with severe constant generalize sharp diffusely radiating abdominal pains for 1 month now unbearable last night without aggravating or relieving factors. He saw his PCP about 2 weeks ago and presents with lab results showing reactivity to hepatitis A and B, and elevated CRP level of greater than 90 and a high cancer antigen marker. In ED he was found to have temp of 100.6F HR 101, WBC 11.2, hgb 7.9 with MCV 71, normal plt and potassium of 5.1 with normal Cr of 1.0. * CT abd/pelvis with contrast IMPRESSION: Diffuse irregular mucosal thickening in the ascending colon extending from the level of the ileocecal valve and extending 7.1 cm cephalocaudally. There is associated pericolonic stranding and adjacent mildly enlarged lymph nodes. The finding is suspicious for a malignancy rather than a colitis. Endoscopic evaluation is strongly recommended. Mild to moderate distention of ileal bowel loops with air-fluid levels suggesting partial mechanical small bowel obstruction most likely related to this lesion. Low density foci in both hepatic lobes with measurements as described. These may represent small cysts. Adenocarcinoma may also present with cystic metastases. Ultrasound of the liver is recommen ded for follow-up confirmation. Pericolonic stranding in the right perinephric space without abnormal nephrogram or hydronephrosis. This may be related to the inflammatory process in the ascending colon. Pyelonephritis would be a less likely consideration. Appendix not definitely identified. Trace free fluid in the pelvis. Bilateral small inguinal hernias containing omental fat * 2v ABD Xray IMPRESSION: Multiple small air-fluid levels with mild distention of small bowel loops. Partial mechanical small bowel obstruction cannot entirely be excluded.. Abdominal pains with Large bowel obstruction: treat with bowel rest, iv pain meds, Gen. Surgery already consulted by ED physician and asked NGT to be placed. Suspected Colon mass 05/18/19 s/p Exploratory Laparotomy, extensive right hemicolectomy with dissection through a tumor in the retroperitoneum. Colon cancer suspected: await pathology Sepsis due to Colitis: treat with IV abx and IVF, prn tylenol pr for fevers, get blood cultures, get CXR, EKG baseline Accelerated hypertension with Urgency: treat with iv antihypertensives Hyperkalemia, mild: supportive care, monitor levels closely Microcytic anemia: consult GI DM type 2: ssi for now GERD: iv ppi DVT prophylaxis: sq heparin full code IVP move to [facility] d/w Dr. Em History Interval history: Patient was seen and examined. Follow-up on current diagnosis of SBO. No overnight events reported to me. Patient denies any chest pain, shortness breath, nausea/vomiting or severe headaches. Imaging, nursing note, chart, labs and old chart reviewed. Discussed with patient. Hospitalist Physical - Physical exam Narrative exam: Gen: WDWN, NAD, Awake, Alert, Orientated HEENT: NCAT, EOMI, PERRL, OP Clear Neck: supple, no adenopathy, no thyromegaly, no JVD CVS/Heart: reg tachy, normal S1S2, pulses present bilaterally Chest/Lungs: CTA B, Symmetrical chest expansion, good air entry bilaterally GI/Abdomen: soft, diffuse tenderness good bowel sounds, no guarding or rebound /Bladder: no suprapubic tenderness, no CVA or paraspinal tenderness Extermity/Skin: no c/c/e, no obvious rash MSK: FROM x 4 Neuro: CN 2-12 grossly intact, no new focal deficits Psych: calm - Constitutional Vitals: Temp Pulse Resp BP Pulse Ox 98.0 F 81 20 161/116 99 05/19/19 09:25 05/19/19 13:25 05/19/19 12:33 05/19/19 13:25 05/19/19 13:25 Results - Labs CBC & Chem 7: 05/19/19 07:58 05/19/19 07:58 Labs: Laboratory Last Values WBC 11.0 K/mm3 (4.5-11.0) 05/19/19 07:58 RBC 4.30 M/mm3 (3.65-5.03) 05/19/19 07:58 Hgb 10.1 gm/dl (11.8-15.2) L 05/19/19 07:58 Hct 32.4 % (35.5-45.6) L 05/19/19 07:58 MCV 75 fl (84-94) L 05/19/19 07:58 MCH 23 pg (28-32) L 05/19/19 07:58 MCHC 31 % (32-34) L 05/19/19 07:58 RDW 24.4 % (13.2-15.2) H 05/19/19 07:58 Plt Count 395 K/mm3 (140-440) 05/19/19 07:58 Lymph % (Auto) 8.2 % (13.4-35.0) L 05/19/19 07:58 [place] % (Auto) 9.7 % (0.0-7.3) H 05/19/19 07:58 Eos % (Auto) 0.0 % (0.0-4.3) 05/19/19 07:58 Baso % (Auto) 0.1 % (0.0-1.8) 05/19/19 07:58 Lymph # 0.9 K/mm3 (1.2-5.4) L 05/19/19 07:58 [place] # 1.1 K/mm3 (0.0-0.8) H 05/19/19 07:58 Eos # 0.0 K/mm3 (0.0-0.4) 05/19/19 07:58 Baso # 0.0 K/mm3 (0.0-0.1) 05/19/19 07:58 Seg Neutrophils % 82.0 % (40.0-70.0) H 05/19/19 07:58 Seg Neutrophils # 9.0 K/mm3 (1.8-7.7) H 05/19/19 07:58 PT 16.2 Sec. (12.2-14.9) H 05/18/19 07:22 INR 1.34 (0.87-1.13) H 05/18/19 07:22 APTT 36.6 Sec. (24.2-36.6) 05/18/19 07:22 Sodium 140 mmol/L (137-145) 05/19/19 07:58 Potassium 5.2 mmol/L (3.6-5.0) H 05/19/19 07:58 Chloride 102.9 mmol/L (98-107) 05/19/19 07:58 Carbon Dioxide 26 mmol/L (22-30) 05/19/19 07:58 16 mmol/L 05/19/19 07:58 BUN 9 mg/dL (9-20) 05/19/19 07:58 0.9 mg/dL (0.8-1.5) 05/19/19 07:58 Estimated GFR > 60 ml/min 05/19/19 07:58 10 % 05/19/19 07:58 Glucose 133 mg/dL (75-100) H 05/19/19 07:58 POC Glucose 121 (70-105) H 05/19/19 02:26 Calcium 8.3 mg/dL (8.4-10.2) L 05/19/19 07:58 Phosphorus 3.40 mg/dL (2.5-4.5) 05/19/19 07:58 Magnesium 1.80 mg/dL (1.7-2.3) 05/19/19 07:58 0.40 mg/dL (0.1-1.2) 05/19/19 07:58 AST 12 units/L (5-40) 05/19/19 07:58 ALT 7 units/L (7-56) 05/19/19 07:58 62 units/L (35-129) 05/19/19 07:58 6.6 g/dL (6.3-8.2) 05/19/19 07:58 2.7 g/dL (3.9-5) L 05/19/19 07:58 0.7 % 05/19/19 07:58 28 units/L (13-60) 05/17/19 03:52 Yellow (Yellow) 05/17/19 Unknown Clear (Clear) 05/17/19 Unknown 5.0 (5.0-7.0) 05/17/19 Unknown Ur Specific [place] 1.021 (1.003-1.030) 05/17/19 Unknown <15 mg/dl mg/dL (Negative) 05/17/19 Unknown Neg mg/dL (Negative) 05/17/19 Unknown Neg mg/dL (Negative) 05/17/19 Unknown Neg (Negative) 05/17/19 Unknown Neg (Negative) 05/17/19 Unknown Neg (Negative) 05/17/19 Unknown < 2.0 mg/dL (<2.0) 05/17/19 Unknown Ur Leukocyte Esterase Neg (Negative) 05/17/19 Unknown 2.0 /HPF (0.0-6.0) 05/17/19 Unknown 3.0 /HPF (0.0-6.0) 05/17/19 Unknown 1+ /HPF 05/17/19 Unknown Blood Type B POSITIVE 05/17/19 12:45 Antibody Screen Negative 05/17/19 12:45 Crossmatch See Detail 05/17/19 12:45 Active Medications - Current Medications Current Medications: Generic Name Dose Route Start Last Admin Trade Name Freq PRN Reason Stop Dose Admin Acetaminophen 650 mg 05/17/19 07:30 05/17/19 16:53 Tylenol MD 650 mg Q4H PRN Administration Non Cardiac Pain or Temp>100.5 Dextrose 50 ml 05/17/19 07:28 D50w (25gm) Syringe IV PRN PRN Hypoglycemia Hydromorphone HCl 2 mg 05/19/19 07:57 05/19/19 12:33 Dilaudid IV 2 mg Q3H PRN Administration Pain , Severe (7-10) Hydromorphone HCl 1 mg 05/19/19 07:58 Dilaudid IV Q3H PRN Pain, Moderate (4-6) Sodium Chloride 1,000 mls @ 100 mls/hr 05/17/19 08:00 05/19/19 08:11 Nacl 0.45% 1000 Ml IV 05/19/19 19:59 100 mls/hr DIRECT YURIY Administration Cefazolin Sodium 2 gm/ Sodium 100 mls @ 200 mls/hr 05/19/19 09:00 05/19/19 09:42 Chloride IV 05/19/19 23:59 200 mls/hr Q8H YURIY Administration Protocol Amino Acids/Electrolytes/Dextrose 2,400 mls @ 100 mls/hr 05/19/19 20:00 Tpn Adult IV 05/20/19 19:59 DAILY@1999 [facility] Protocol Insulin Human Lispro 0 unit 05/17/19 12:00 05/19/19 12:05 Humalog SUB-Q Not Given Q6HR [facility] Protocol Labetalol HCl 10 mg 05/19/19 05:39 05/19/19 05:49 Normodyne IV 10 mg Q4HR PRN Administration Hypertension Ondansetron HCl 4 mg 05/17/19 07:27 05/17/19 08:21 Zofran IV 4 mg Q4H PRN Administration Nausea And Vomiting Pantoprazole Sodium 40 mg 05/17/19 10:00 05/19/19 09:42 Protonix IV 40 mg QDAY YURIY Administration Nutrition/Malnutrition Assess - Dietary Evaluation Nutrition/Malnutrition Findings: Nutrition Notes Start: 05/18/19 17:02 Freq: Status: Active Protocol: Document 05/19/19 10:38 LP (Rec: 05/19/19 10:53 LP [id number]) Nutrition Notes Need for Assessment generated from: MD Order Initial or Follow up Assessment Current Diagnosis Diabetes,Sepsis,Hypertension Other Pertinent Diagnosis colon mass with paritial SBO S /P exp lap, abdominal wound Current Diet NPO Labs/Tests K 5.2 Pertinent Medications 1/2 NS at 100ml/hr Height 5 ft 8 in Weight 98.3 kg [place] Body Weight (kg) 70.00 BMI 32.9 Weight change and time frame Wt change noted UBW 176 lb. Unable to get wt. PICC line being prepped at time of visit . Subjective/Other Information Consult for TPN. Pt with NGT to LIS. Pt last eating on Tuesday. Burn Absent Trauma Absent #2 Nutrition Diagnosis Inadequate oral intake Etiology altered GI function As Evidenced by Signs and Symptoms Pt states not eating since Tuesday and currently NPO with NGT to LIS #1 Nutrition Diagnosis Predicted suboptimal energy intake As Evidenced by Signs and Symptoms Pt inadquate Diagnosis Progress(for reassessment Resolved documentation) Is patient on ventilator? No Is Patient Ambulatory and/or Out of Bed Yes REE-([facility]-ambulatory/OOB) [ 2336.750 NUTR.MSJOOB] Calculation Used for Recommendations [facility] Additional Notes Protein Needs: 118-147g (1.2-1 .5g/kg) Fluid Needs: 1 ml/kcal Nutrition Intervention Change Diet Order: TPN Nutrition Support: PPN at 100ml/hr: 4.2% amino acid, 4.2% dextrose, 84mEq Na, 0meq K, 10mEq Mg, 12mEq Ca, 10mmol phos, Chloride: Acetate 50:50, MVI, Thiamine Osmolality: 713 Kcal 740 Protein (gm) 100 Carbohydrates (gm) 100 Fat (gm) 0 Fluid (mL) 2,400 Fiber (gm) 0 Add Supplement/Snack (indicate name/kcal D/C /protein ) Goal #1 Meet at least 80% of kcal and protein needs via TPN Anticipated Discharge Needs: Unable to determine at this time Follow-Up By: 05/20/19 Additional Comments Labs in AM: Mg CARL Phos
[2019-05-19] MEDS ORDERED: CHLORASEPTIC MM PRN (16:55)
[2019-05-19] MEDS ORDERED: TPN ADULT 2,400 ML IV SCH (20:00)
[2019-05-19] MEDS ORDERED: APRESOLINE PO SCH (20:00)
[2019-05-19] MEDS ORDERED: NON-FORMULARY (Lisinopril/Hydrochlorothiazide [Zestoretic 20-12.5 Mg] 1 EACH) PO SCH (20:15)
[2019-05-19] MEDS: APRESOLINE IV PRN (20:23)
[2019-05-19] MEDS ORDERED: CARDENE 50 MG in NACL 0.9% 250ML 230 ML IV SCH (21:00)
[2019-05-19] MEDS: ZESTRIL PO SCH (22:51)
[2019-05-19] MEDS: HCTZ PO SCH (22:51)
[2019-05-20] MEDS: HumaLOG SUB-Q SCH ×6 (00:11→18:56)
[2019-05-20] MEDS: APRESOLINE IV PRN ×2 (00:37→20:10)
[2019-05-20] MEDS: DILAUDID IV PRN ×5 (02:29→20:12)
[2019-05-20 06:04] LABS: Hematocrit 31.9 % (35.5-45.6); Hemoglobin 10.1 gm/dl (11.8-15.2); Mean Corpuscular HGB Conc 32 % (32-34); Mean Corpuscular Volume 74 fl (84-94); Platelet Count 358 K/mm3 (140-440); Red Blood Count 4.29 M/mm3 (3.65-5.03)
[2019-05-20 06:08] LABS: Red Cell Distribution Width 25.2 % (13.2-15.2)
[2019-05-20 06:14] LABS: Blood Urea Nitrogen 8 mg/dL (9-20)
[2019-05-20 06:50] LABS: Calcium 8.6 mg/dL (8.4-10.2); Hemolysis Index 0
[2019-05-20 07:00] LABS: BUN/Creatinine Ratio 13
[2019-05-20] MEDS: ZOFRAN IV PRN (08:09)
[2019-05-20] MEDS: HCTZ PO SCH (10:00)
[2019-05-20 10:12] LABS: Anisocytosis 1+; Basophils % (Manual) 0 % (0.0-1.8); Eosinophils % (Manual) 0 % (0.0-4.3); Hypochromasia 1+; Ovalocytes Few; Poikilocytosis Few; Total Cells Counted 100
[2019-05-20 10:13] LABS: Platelet Estimate Consistent w Auto
[2019-05-20] MEDS: ZESTRIL PO SCH (10:49)
[2019-05-20] MEDS: PROTONIX IV SCH (10:50)
--- NOTE | 2019-05-20 12:46 | Progress Note ---
Assessment and Plan Assessment and plan: Patient is a 53 yo man with a history of hypertension, DM type 2, GERD, Anemia and Dyslipidemia who presents to [facility] ED with severe constant generalize sharp diffusely radiating abdominal pains for 1 month now unbearable last night without aggravating or relieving factors. He saw his PCP about 2 weeks ago and presents with lab results showing reactivity to hepatitis A and B, and elevated CRP level of greater than 90 and a high cancer antigen marker. In ED he was found to have temp of 100.6F HR 101, WBC 11.2, hgb 7.9 with MCV 71, normal plt and potassium of 5.1 with normal Cr of 1.0. * CT abd/pelvis with contrast IMPRESSION: Diffuse irregular mucosal thickening in the ascending colon extending from the level of the ileocecal valve and extending 7.1 cm cephalocaudally. There is associated pericolonic stranding and adjacent mildly enlarged lymph nodes. The finding is suspicious for a malignancy rather than a colitis. Endoscopic evaluation is strongly recommended. Mild to moderate distention of ileal bowel loops with air-fluid levels suggesting partial mechanical small bowel obstruction most likely related to this lesion. Low density foci in both hepatic lobes with measurements as described. These may represent small cysts. Adenocarcinoma may also present with cystic metastases. Ultrasound of the liver is recommen ded for follow-up confirmation. Pericolonic stranding in the right perinephric space without abnormal nephrogram or hydronephrosis. This may be related to the inflammatory process in the ascending colon. Pyelonephritis would be a less likely consideration. Appendix not definitely identified. Trace free fluid in the pelvis. Bilateral small inguinal hernias containing omental fat * 2v ABD Xray IMPRESSION: Multiple small air-fluid levels with mild distention of small bowel loops. Partial mechanical small bowel obstruction cannot entirely be excluded.. Abdominal pains with Large bowel obstruction: treat with bowel rest, iv pain meds, Gen. Surgery already consulted by ED physician and asked NGT to be placed. Suspected Colon mass 05/18/19 s/p Exploratory Laparotomy, extensive right hemicolectomy with dissection through a tumor in the retroperitoneum. Colon cancer suspected: await pathology Sepsis due to Colitis: treat with IV abx and IVF, prn tylenol for fevers, get blood cultures, get CXR, EKG baseline Accelerated hypertension with Urgency: treat with iv antihypertensives Hyperkalemia, mild: supportive care, monitor levels closely Microcytic anemia: consult GI DM type 2: ssi for now GERD: iv ppi DVT prophylaxis: sq heparin full code IVP moved to [facility] d/w Dr. Em on 05/20/19 History Interval history: Patient was seen and examined. Follow-up on current diagnosis of SBO. No overnight events reported to me. Patient denies any chest pain, shortness breath, nausea/vomiting or severe headaches. Imaging, nursing note, chart, labs and old chart reviewed. Discussed with patient. Hospitalist Physical - Physical exam Narrative exam: Gen: WDWN, NAD, Awake, Alert, Orientated HEENT: NCAT, EOMI, PERRL, OP Clear Neck: supple, no adenopathy, no thyromegaly, no JVD CVS/Heart: reg tachy, normal S1S2, pulses present bilaterally Chest/Lungs: CTA B, Symmetrical chest expansion, good air entry bilaterally GI/Abdomen: soft, diffuse tenderness good bowel sounds, no guarding or rebound /Bladder: no suprapubic tenderness, no CVA or paraspinal tenderness Extermity/Skin: no c/c/e, no obvious rash MSK: FROM x 4 Neuro: CN 2-12 grossly intact, no new focal deficits Psych: calm - Constitutional Vitals: Temp Pulse Resp BP Pulse Ox 98.7 F 91 H 14 156/81 100 05/20/19 10:57 05/20/19 10:49 05/20/19 06:20 05/20/19 10:49 05/20/19 06:20 Results - Labs CBC & Chem 7: 05/20/19 05:41 05/20/19 05:41 Labs: Laboratory Last Values WBC 8.7 K/mm3 (4.5-11.0) 05/20/19 05:41 RBC 4.29 M/mm3 (3.65-5.03) 05/20/19 05:41 Hgb 10.1 gm/dl (11.8-15.2) L 05/20/19 05:41 Hct 31.9 % (35.5-45.6) L 05/20/19 05:41 MCV 74 fl (84-94) L 05/20/19 05:41 MCH 24 pg (28-32) L 05/20/19 05:41 MCHC 32 % (32-34) 05/20/19 05:41 RDW 25.2 % (13.2-15.2) H 05/20/19 05:41 Plt Count 358 K/mm3 (140-440) 05/20/19 05:41 Lymph % (Auto) [employer] 05/20/19 05:41 [place] % (Auto) [employer] 05/20/19 05:41 Eos % (Auto) [employer] 05/20/19 05:41 Baso % (Auto) [employer] 05/20/19 05:41 Lymph # [employer] 05/20/19 05:41 [place] # [employer] 05/20/19 05:41 Eos # [employer] 05/20/19 05:41 Baso # [employer] 05/20/19 05:41 Add Manual Diff Complete 05/20/19 05:41 Total Counted 100 05/20/19 05:41 Seg Neutrophils % [employer] 05/20/19 05:41 Seg Neuts % (Manual) 84.0 % (40.0-70.0) H 05/20/19 05:41 0 % 05/20/19 05:41 10.0 % (13.4-35.0) L 05/20/19 05:41 Reactive Lymphs % (Man) 0 % 05/20/19 05:41 6.0 % (0.0-7.3) 05/20/19 05:41 0 % (0.0-4.3) 05/20/19 05:41 0 % (0.0-1.8) 05/20/19 05:41 0 % 05/20/19 05:41 0 % 05/20/19 05:41 0 % 05/20/19 05:41 0 % 05/20/19 05:41 Nucleated RBC % Not Reportable 05/20/19 05:41 Seg Neutrophils # [employer] 05/20/19 05:41 Seg Neutrophils # Man 7.3 K/mm3 (1.8-7.7) 05/20/19 05:41 Band Neutrophils # 0.0 K/mm3 05/20/19 05:41 0.9 K/mm3 (1.2-5.4) L 05/20/19 05:41 Abs React Lymphs (Man) 0.0 K/mm3 05/20/19 05:41 0.5 K/mm3 (0.0-0.8) 05/20/19 05:41 0.0 K/mm3 (0.0-0.4) 05/20/19 05:41 0.0 K/mm3 (0.0-0.1) 05/20/19 05:41 0.0 K/mm3 05/20/19 05:41 0.0 K/mm3 05/20/19 05:41 0.0 K/mm3 05/20/19 05:41 Blast Cells # 0.0 K/mm3 05/20/19 05:41 WBC Morphology Not Reportable 05/20/19 05:41 WBC Morphology TNR 05/20/19 05:41 Hypersegmented Neuts Not Reportable 05/20/19 05:41 Hyposegmented Neuts Not Reportable 05/20/19 05:41 Hypogranular Neuts Not Reportable 05/20/19 05:41 Not Reportable 05/20/19 05:41 Not Reportable 05/20/19 05:41 Not Reportable 05/20/19 05:41 Not Reportable 05/20/19 05:41 Not Reportable 05/20/19 05:41 Not Reportable 05/20/19 05:41 Consistent w auto 05/20/19 05:41 Not Reportable 05/20/19 05:41 Plt Clumps, EDTA Not Reportable 05/20/19 05:41 Not Reportable 05/20/19 05:41 Not Reportable 05/20/19 05:41 Not Reportable 05/20/19 05:41 Plt Morphology Comment Not Reportable 05/20/19 05:41 RBC Morphology Not Reportable 05/20/19 05:41 Dimorphic RBCs Not Reportable 05/20/19 05:41 Not Reportable 05/20/19 05:41 1+ 05/20/19 05:41 Few 05/20/19 05:41 1+ 05/20/19 05:41 1+ 05/20/19 05:41 Not Reportable 05/20/19 05:41 Not Reportable 05/20/19 05:41 Not Reportable 05/20/19 05:41 Not Reportable 05/20/19 05:41 Not Reportable 05/20/19 05:41 Not Reportable 05/20/19 05:41 Few 05/20/19 05:41 Not Reportable 05/20/19 05:41 Not Reportable 05/20/19 05:41 Not Reportable 05/20/19 05:41 Not Reportable 05/20/19 05:41 Not Reportable 05/20/19 05:41 Not Reportable 05/20/19 05:41 Few 05/20/19 05:41 Acanthocytes (Spur) Not Reportable 05/20/19 05:41 Rouleaux Not Reportable 05/20/19 05:41 Not Reportable 05/20/19 05:41 Not Reportable 05/20/19 05:41 Not Reportable 05/20/19 05:41 Not Reportable 05/20/19 05:41 Hem Pathologist Commnt No 05/20/19 05:41 PT 16.2 Sec. (12.2-14.9) H 05/18/19 07:22 INR 1.34 (0.87-1.13) H 05/18/19 07:22 APTT 36.6 Sec. (24.2-36.6) 05/18/19 07:22 Sodium 138 mmol/L (137-145) 05/20/19 05:41 Potassium 4.5 mmol/L (3.6-5.0) 05/20/19 05:41 Chloride 98.7 mmol/L (98-107) 05/20/19 05:41 Carbon Dioxide 29 mmol/L (22-30) 05/20/19 05:41 15 mmol/L 05/20/19 05:41 BUN 8 mg/dL (9-20) L 05/20/19 05:41 0.6 mg/dL (0.8-1.5) L 05/20/19 05:41 Estimated GFR > 60 ml/min 05/20/19 05:41 13 % 05/20/19 05:41 Glucose 148 mg/dL (75-100) H 05/20/19 05:41 POC Glucose 149 (70-105) H 05/20/19 12:16 Calcium 8.6 mg/dL (8.4-10.2) 05/20/19 05:41 Phosphorus 1.90 mg/dL (2.5-4.5) L D 05/20/19 05:41 Magnesium 2.00 mg/dL (1.7-2.3) 05/20/19 05:41 0.40 mg/dL (0.1-1.2) 05/19/19 07:58 AST 12 units/L (5-40) 05/19/19 07:58 ALT 7 units/L (7-56) 05/19/19 07:58 62 units/L (35-129) 05/19/19 07:58 6.6 g/dL (6.3-8.2) 05/19/19 07:58 2.7 g/dL (3.9-5) L 05/19/19 07:58 0.7 % 05/19/19 07:58 28 units/L (13-60) 05/17/19 03:52 Yellow (Yellow) 05/17/19 Unknown Clear (Clear) 05/17/19 Unknown 5.0 (5.0-7.0) 05/17/19 Unknown Ur Specific [place] 1.021 (1.003-1.030) 05/17/19 Unknown <15 mg/dl mg/dL (Negative) 05/17/19 Unknown Neg mg/dL (Negative) 05/17/19 Unknown Neg mg/dL (Negative) 05/17/19 Unknown Neg (Negative) 05/17/19 Unknown Neg (Negative) 05/17/19 Unknown Neg (Negative) 05/17/19 Unknown < 2.0 mg/dL (<2.0) 05/17/19 Unknown Ur Leukocyte Esterase Neg (Negative) 05/17/19 Unknown 2.0 /HPF (0.0-6.0) 05/17/19 Unknown 3.0 /HPF (0.0-6.0) 05/17/19 Unknown 1+ /HPF 05/17/19 Unknown Blood Type B POSITIVE 05/17/19 12:45 Antibody Screen Negative 05/17/19 12:45 Crossmatch See Detail 05/17/19 12:45 Active Medications - Current Medications Current Medications: Generic Name Dose Route Start Last Admin Trade Name Freq PRN Reason Stop Dose Admin Acetaminophen 650 mg 05/17/19 07:30 05/17/19 16:53 Tylenol [place] 650 mg Q4H PRN Administration Non Cardiac Pain or Temp>100.5 Dextrose 50 ml 05/17/19 07:28 D50w (25gm) Syringe IV PRN PRN Hypoglycemia Hydralazine HCl 10 mg 05/19/19 20:10 05/20/19 00:37 Apresoline IV 10 mg Q4HR PRN Administration Blood Pressure Hydrochlorothiazide 12.5 mg 05/19/19 21:00 05/20/19 10:00 Hctz PO 12.5 mg QDAY YURIY Administration Hydromorphone HCl 2 mg 05/19/19 07:57 05/20/19 08:08 Dilaudid IV 2 mg Q3H PRN Administration Pain , Severe (7-10) Hydromorphone HCl 1 mg 05/19/19 07:58 05/20/19 11:52 Dilaudid IV 1 mg Q3H PRN Administration Pain, Moderate (4-6) Amino Acids/Electrolytes/Dextrose 2,400 mls @ 100 mls/hr 05/19/19 20:00 05/19/19 22:26 Tpn Adult IV 05/20/19 19:59 100 mls/hr DAILY@1999 [facility] Administration Protocol Amino Acids/Electrolytes/Dextrose 2,400 mls @ 100 mls/hr 05/20/19 20:00 Tpn Adult IV 05/21/19 19:59 DAILY@1999 [facility] Protocol Insulin Human Lispro 0 unit 05/17/19 12:00 05/20/19 06:12 Humalog SUB-Q 1 unit Q6HR [facility] Administration Protocol Labetalol HCl 10 mg 05/19/19 05:39 05/19/19 19:06 Normodyne IV 10 mg Q4HR PRN Administration Hypertension Lisinopril 20 mg 05/19/19 21:00 05/20/19 10:49 Zestril PO 20 mg QDAY YURIY Administration Ondansetron HCl 4 mg 05/17/19 07:27 05/20/19 08:09 Zofran IV 4 mg Q4H PRN Administration Nausea And Vomiting Pantoprazole Sodium 40 mg 05/17/19 10:00 05/20/19 10:50 Protonix IV 40 mg QDAY YURIY Administration Phenol 1 spray 05/19/19 16:55 05/19/19 19:09 Chloraseptic MM 1 spray PRN PRN Administration Sore Throat Nutrition/Malnutrition Assess - Dietary Evaluation Nutrition/Malnutrition Findings: Nutrition Notes Start: 05/18/19 17:02 Freq: Status: Active Protocol: Document 05/20/19 10:09 LP (Rec: 05/20/19 10:16 LP [id number]) Nutrition Notes Initial or Follow up Reassessment Current Diagnosis Diabetes,Sepsis,Hypertension Other Pertinent Diagnosis colon mass with paritial SBO S /P exp lap, abdominal wound Current Diet NPO Labs/Tests Phos 1.9 Pertinent Medications Reviewed Height 5 ft 8 in Weight 76.3 kg [place] Body Weight (kg) 70.00 BMI 25.5 Weight change and time frame Wt correct Subjective/Other Information Day 2 PPN. Pt continues with NGT to LIS. Percent of energy/protein needs met: 36%/100% Burn Absent Trauma Absent #2 Nutrition Diagnosis Inadequate oral intake Diagnosis Progress(for reassessment Continues documentation) Is patient on ventilator? No Is Patient Ambulatory and/or Out of Bed Yes REE-([facility]-ambulatory/OOB) [ NUTR.MSJOOB] Calculation Used for Recommendations [facility] Additional Notes Protein needs are 92-115g (1.2 -1.5g/kg) Fluid needs are 1ml/kcal Nutrition Intervention Change Diet Order: TPN Nutrition Support: PPN at 100ml/hr: 4.6% amino acid, 24mmol phos, Thiamine Osmolality: 755 Kcal 780 Protein (gm) 110 Carbohydrates (gm) 100 Fat (gm) 0 Fluid (mL) 2,400 Fiber (gm) 0 Goal #1 Meet at least 80% of kcal and protein needs via TPN Anticipated Discharge Needs: Unable to determine at this time Follow-Up By: 05/21/19 Additional Comments Labs in AM: BMP, Mg, Phos, TG
--- NOTE | 2019-05-20 13:16 | Progress Note ---
Assessment and Plan POD # 2 Pt feeling better. pain better controlled. good urine output Abd soft. dressings dry. urine clear (IVP not yet done) h/h's stable TPN begun surgically stable d/c powell OOB as daphney Selected Entries 05/20/19 05/20/19 05/20/19 06:20 10:49 10:57 Temperature 98.7 F Pulse Rate 91 H Respiratory 14 Rate Blood Pressure 156/81 Laboratory Tests 05/19/19 05/20/19 05/20/19 07:58 05:41 05:41 WBC 8.7 Hgb 10.1 L 10.1 L Hct 32.4 L 31.9 L Potassium 4.5 Glucose 148 H Objective Vital Signs - 12hr 05/20/19 05/20/19 05/20/19 01:20 01:30 01:40 Temperature Pulse Rate 98 H 102 H 105 H Pulse Rate [ From Monitor] Respiratory 16 16 15 Rate Blood Pressure 170/82 170/82 170/82 O2 Sat by Pulse 100 98 96 Oximetry 05/20/19 05/20/19 05/20/19 01:50 02:00 02:04 Temperature Pulse Rate 103 H 102 H 101 H Pulse Rate [ 100 H From Monitor] Respiratory 18 15 Rate Blood Pressure 170/82 153/77 O2 Sat by Pulse 98 99 Oximetry 05/20/19 05/20/19 05/20/19 02:10 02:20 02:30 Temperature Pulse Rate 101 H 101 H 103 H Pulse Rate [ From Monitor] Respiratory 15 18 18 Rate Blood Pressure 182/80 153/77 153/77 O2 Sat by Pulse 97 97 94 Oximetry 05/20/19 05/20/19 05/20/19 02:40 02:50 03:00 Temperature Pulse Rate 114 H 111 H 108 H Pulse Rate [ From Monitor] Respiratory 10 L 9 L 10 L Rate Blood Pressure 192/85 192/85 192/85 O2 Sat by Pulse 96 98 97 Oximetry 05/20/19 05/20/19 05/20/19 03:10 03:20 03:30 Temperature Pulse Rate 110 H 106 H 105 H Pulse Rate [ From Monitor] Respiratory 9 L 10 L 11 L Rate Blood Pressure 130/73 192/85 192/85 O2 Sat by Pulse 97 96 98 Oximetry 05/20/19 05/20/19 05/20/19 03:40 03:50 04:00 Temperature 99.3 F Pulse Rate 103 H 102 H 100 H Pulse Rate [ From Monitor] Respiratory 11 L 9 L 10 L Rate Blood Pressure 192/85 192/85 141/73 O2 Sat by Pulse 99 99 99 Oximetry 05/20/19 05/20/19 05/20/19 04:10 04:20 04:30 Temperature Pulse Rate 104 H 102 H 102 H Pulse Rate [ From Monitor] Respiratory 16 12 11 L Rate Blood Pressure 141/73 141/73 141/73 O2 Sat by Pulse 99 98 100 Oximetry 05/20/19 05/20/19 05/20/19 04:40 04:50 05:00 Temperature Pulse Rate 107 H 102 H 104 H Pulse Rate [ From Monitor] Respiratory 16 10 L 17 Rate Blood Pressure 141/73 141/73 165/90 O2 Sat by Pulse 100 100 99 Oximetry 05/20/19 05/20/19 05/20/19 05:10 05:20 05:30 Temperature Pulse Rate 105 H 104 H 105 H Pulse Rate [ From Monitor] Respiratory 13 14 11 L Rate Blood Pressure 165/90 141/73 141/73 O2 Sat by Pulse 98 100 99 Oximetry 05/20/19 05/20/19 05/20/19 05:40 05:50 06:00 Temperature Pulse Rate 105 H 104 H 105 H Pulse Rate [ 104 H From Monitor] Respiratory 14 17 14 Rate Blood Pressure 141/73 165/90 160/87 O2 Sat by Pulse 100 100 99 Oximetry 05/20/19 05/20/19 05/20/19 06:10 06:20 08:04 Temperature 97.8 F Pulse Rate 104 H 105 H Pulse Rate [ From Monitor] Respiratory 14 14 Rate Blood Pressure 160/87 160/87 O2 Sat by Pulse 100 100 Oximetry 05/20/19 05/20/19 10:49 10:57 Temperature 98.7 F Pulse Rate 91 H Pulse Rate [ From Monitor] Respiratory Rate Blood Pressure 156/81 O2 Sat by Pulse Oximetry - Labs 05/20/19 05:41 05/20/19 05:41 Diabetes panel 05/20/19 Range/Units 05:41 Sodium 138 (137-145) mmol/L Potassium 4.5 (3.6-5.0) mmol/L Chloride 98.7 (98-107) mmol/L Carbon Dioxide 29 (22-30) mmol/L BUN 8 L (9-20) mg/dL Creatinine 0.6 L (0.8-1.5) mg/dL Glucose 148 H (75-100) mg/dL Calcium 8.6 (8.4-10.2) mg/dL Calcium panel 05/20/19 Range/Units 05:41 Calcium 8.6 (8.4-10.2) mg/dL Phosphorus 1.90 L D (2.5-4.5) mg/dL Pituitary panel 05/20/19 Range/Units 05:41 Sodium 138 (137-145) mmol/L Potassium 4.5 (3.6-5.0) mmol/L Chloride 98.7 (98-107) mmol/L Carbon Dioxide 29 (22-30) mmol/L BUN 8 L (9-20) mg/dL Creatinine 0.6 L (0.8-1.5) mg/dL Glucose 148 H (75-100) mg/dL Calcium 8.6 (8.4-10.2) mg/dL Adrenal panel 05/20/19 Range/Units 05:41 Sodium 138 (137-145) mmol/L Potassium 4.5 (3.6-5.0) mmol/L Chloride 98.7 (98-107) mmol/L Carbon Dioxide 29 (22-30) mmol/L BUN 8 L (9-20) mg/dL Creatinine 0.6 L (0.8-1.5) mg/dL Glucose 148 H (75-100) mg/dL Calcium 8.6 (8.4-10.2) mg/dL
[2019-05-20] MEDS: ZOSYN/NS 4.5GM/100ML 4.5 GM/100 ML VIAL IV SCH (15:05)
[2019-05-20] MEDS: HEPARIN SUB-Q SCH (15:05)
[2019-05-20] MEDS: ceFAZolin 2 GM in NACL 0.9% 100 ML IV SCH (15:05)
[2019-05-20] MEDS ORDERED: TPN ADULT 2,400 ML IV SCH (20:00)
[2019-05-21] MEDS: HumaLOG SUB-Q SCH
[2019-05-21] MEDS: NORMODYNE IV PRN (03:10)
[2019-05-21 05:08] LABS: Hemoglobin 9.6 gm/dl (11.8-15.2); Mean Corpuscular HGB Conc 31 % (32-34); Mean Corpuscular Volume 74 fl (84-94); Platelet Count 369 K/mm3 (140-440); Red Blood Count 4.16 M/mm3 (3.65-5.03)
[2019-05-21 05:11] LABS: Red Cell Distribution Width 25.5 % (13.2-15.2)
[2019-05-21 05:25] LABS: BUN/Creatinine Ratio 18; Blood Urea Nitrogen 11 mg/dL (9-20); Calcium 9.4 mg/dL (8.4-10.2); Hemolysis Index 1
--- NOTE | 2019-05-21 06:59 | Progress Note ---
Assessment and Plan Assessment and plan: Patient is a 53 yo man with a history of hypertension, DM type 2, GERD, Anemia and Dyslipidemia who presented to [facility] ED with severe abdominal pains. He saw his PCP about 2 weeks ago and brings his outside lab showing reactivity to hepatitis A and B, and elevated CRP level of greater than 90 and a high cancer antigen marker. In ED he was found to have temp of 100.6F HR 101, WBC 11.2, hgb 7.9 with MCV 71, normal plt and potassium of 5.1 with normal Cr of 1.0. * CT abd/pelvis with contrast IMPRESSION: Diffuse irregular mucosal thickening in the ascending colon extending from the level of the ileocecal valve and extending 7.1 cm cephalocaudally. There is associated pericolonic stranding and adjacent mildly enlarged lymph nodes. The finding is suspicious for a malignancy rather than a colitis. Endoscopic evaluation is strongly recommended. Mild to moderate distention of ileal bowel loops with air-fluid levels suggesting partial mechanical small bowel obstruction most likely related to this lesion. Low density foci in both hepatic lobes with measurements as described. These may represent small cysts. Adenocarcinoma may also present with cystic metastases. Ultrasound of the liver is recommen ded for follow-up confirmation. Pericolonic stranding in the right perinephric space without abnormal nephrogram or hydronephrosis. This may be related to the inflammatory process in the ascending colon. Pyelonephritis would be a less likely consideration. Appendix not definitely identified. Trace free fluid in the pelvis. Bilateral small inguinal hernias containing omental fat * 2v ABD Xray IMPRESSION: Multiple small air-fluid levels with mild distention of small bowel loops. Partial mechanical small bowel obstruction cannot entirely be excluded.. Abdominal pains with Large bowel obstruction s/p ex lap: treated with bowel rest, iv pain meds, Gen. Surgery following. 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 Colon cancer suspected: await pathology Sepsis due to Colitis, poa: treat with IV abx and IVF, prn tylenol for fevers, get blood cultures, CXR, EKG baseline Accelerated hypertension with Urgency: treat with iv antihypertensives Hyperkalemia, mild: supportive care, monitor levels closely Hepatitis A and B per outside lab: GI was consulted Microcytic anemia: GI was consulted DM type 2: ssi for now GERD: iv ppi DVT prophylaxis: sq heparin full code moved to [facility] d/w Dr. Em on 05/20/19 TPN started IVP pending check for ureter damage Awaiting Pathology THIS MORNING AT approx. 7:01AM MADISYN ROBERTS WAS CALLED DUE TO UNRESPONSIVE, ED PHYSICIAN, DR. CREWS, AT BEDSIDE. WE ARE TOLD that PATIENT JUST RECEIVED 0.5MG IV Dilaudid x 1 PRIOR TO PATIENT BECOMING UNRESPONSIVE WITH RESPIRATORY DEPRESSION. I ASKED DR. CREWS TO INTUBATE PATIENT UNRESPONSIVE, AGONAL BREATHING, DROOLING EVEN AFTER NARCAN GIVE. PATIENT NEVER LOST PULSE AND BP STABLE, HEART RATE 130s Patient moved to ICU. I ordered Narcan drip, CXR pending for ETT placement, Son, Rick showed up after patient moved to the ICU. Consulted Quarry Supervisor. CCT 34 minutes History Interval history: Patient was seen and examined. Follow-up on current diagnosis of SBO. No overnight events reported to me. Low grade temp overnight. Patient denies any chest pain, shortness breath, nausea/vomiting or severe headaches. Imaging, nursing note, chart, labs and old chart reviewed. Discussed with patient. THIS MORNING AT 7:01AM MADISYN ROBERTS WAS CALLED DUE TO UNRESPONSIVE, ED PHYSICIAN, DR. CREWS, AT BEDSIDE. WHEN ARE TOLD PATIENT JUST RECEIVED 0.5MG PRIOR TO PATIENT BECOMING UNRESPONSIVE. I ASKED DR. CREWS TO INTUBATE PATIENT UNRESPONSIVE, AGONAL BREATHING, DROOLING EVEN AFTER NARCAN GIVE. PATIENT NEVER LOST PULSE AND BP STABLE, HEART RATE 130s Hospitalist Physical - Physical exam Narrative exam: Gen: WDWN, NAD, Awake, Alert, Orientated HEENT: NCAT, EOMI, PERRL, OP Clear Neck: supple, no adenopathy, no thyromegaly, no JVD CVS/Heart: reg tachy, normal S1S2, pulses present bilaterally Chest/Lungs: CTA B, Symmetrical chest expansion, good air entry bilaterally GI/Abdomen: soft, diffuse tenderness good bowel sounds, no guarding or rebound /Bladder: no suprapubic tenderness, no CVA or paraspinal tenderness Extermity/Skin: no c/c/e, no obvious rash MSK: FROM x 4 Neuro: CN 2-12 grossly intact, no new focal deficits Psych: calm - Constitutional Vitals: Temp Pulse Resp BP Pulse Ox 100.3 F H 122 H 16 152/74 91 05/21/19 03:00 05/21/19 03:10 05/21/19 02:31 05/21/19 03:10 05/20/19 23:11 Results - Labs CBC & Chem 7: 05/21/19 04:51 05/21/19 04:51 Labs: Laboratory Last Values WBC 10.0 K/mm3 (4.5-11.0) 05/21/19 04:51 RBC 4.16 M/mm3 (3.65-5.03) 05/21/19 04:51 Hgb 9.6 gm/dl (11.8-15.2) L 05/21/19 04:51 Hct 31.0 % (35.5-45.6) L 05/21/19 04:51 MCV 74 fl (84-94) L 05/21/19 04:51 MCH 23 pg (28-32) L 05/21/19 04:51 MCHC 31 % (32-34) L 05/21/19 04:51 RDW 25.5 % (13.2-15.2) H 05/21/19 04:51 Plt Count 369 K/mm3 (140-440) 05/21/19 04:51 Lymph % (Auto) [employer] Supervisor 05/20/19 05:41 [place] % (Auto) [employer] Supervisor 05/20/19 05:41 Eos % (Auto) [employer] Supervisor 05/20/19 05:41 Baso % (Auto) [employer] Supervisor 05/20/19 05:41 Lymph # [employer] Supervisor 05/20/19 05:41 [place] # [employer] Supervisor 05/20/19 05:41 Eos # [employer] Supervisor 05/20/19 05:41 Baso # [employer] Supervisor 05/20/19 05:41 Add Manual Diff Complete 05/20/19 05:41 Total Counted 100 05/20/19 05:41 Seg Neutrophils % [employer] Supervisor 05/20/19 05:41 Seg Neuts % (Manual) 84.0 % (40.0-70.0) H 05/20/19 05:41 0 % 05/20/19 05:41 10.0 % (13.4-35.0) L 05/20/19 05:41 Reactive Lymphs % (Man) 0 % 05/20/19 05:41 6.0 % (0.0-7.3) 05/20/19 05:41 0 % (0.0-4.3) 05/20/19 05:41 0 % (0.0-1.8) 05/20/19 05:41 0 % 05/20/19 05:41 0 % 05/20/19 05:41 0 % 05/20/19 05:41 0 % 05/20/19 05:41 Nucleated RBC % Not Reportable 05/20/19 05:41 Seg Neutrophils # [employer] Supervisor 05/20/19 05:41 Seg Neutrophils # Man 7.3 K/mm3 (1.8-7.7) 05/20/19 05:41 Band Neutrophils # 0.0 K/mm3 05/20/19 05:41 0.9 K/mm3 (1.2-5.4) L 05/20/19 05:41 Abs React Lymphs (Man) 0.0 K/mm3 05/20/19 05:41 0.5 K/mm3 (0.0-0.8) 05/20/19 05:41 0.0 K/mm3 (0.0-0.4) 05/20/19 05:41 0.0 K/mm3 (0.0-0.1) 05/20/19 05:41 0.0 K/mm3 05/20/19 05:41 0.0 K/mm3 05/20/19 05:41 0.0 K/mm3 05/20/19 05:41 Blast Cells # 0.0 K/mm3 05/20/19 05:41 WBC Morphology Not Reportable 05/20/19 05:41 WBC Morphology TNR 05/20/19 05:41 Hypersegmented Neuts Not Reportable 05/20/19 05:41 Hyposegmented Neuts Not Reportable 05/20/19 05:41 Hypogranular Neuts Not Reportable 05/20/19 05:41 Not Reportable 05/20/19 05:41 Not Reportable 05/20/19 05:41 Not Reportable 05/20/19 05:41 Not Reportable 05/20/19 05:41 Not Reportable 05/20/19 05:41 Not Reportable 05/20/19 05:41 Consistent w auto 05/20/19 05:41 Not Reportable 05/20/19 05:41 Plt Clumps, EDTA Not Reportable 05/20/19 05:41 Not Reportable 05/20/19 05:41 Not Reportable 05/20/19 05:41 Not Reportable 05/20/19 05:41 Plt Morphology Comment Not Reportable 05/20/19 05:41 RBC Morphology Not Reportable 05/20/19 05:41 Dimorphic RBCs Not Reportable 05/20/19 05:41 Not Reportable 05/20/19 05:41 1+ 05/20/19 05:41 Few 05/20/19 05:41 1+ 05/20/19 05:41 1+ 05/20/19 05:41 Not Reportable 05/20/19 05:41 Not Reportable 05/20/19 05:41 Not Reportable 05/20/19 05:41 Not Reportable 05/20/19 05:41 Not Reportable 05/20/19 05:41 Not Reportable 05/20/19 05:41 Few 05/20/19 05:41 Not Reportable 05/20/19 05:41 Not Reportable 05/20/19 05:41 Not Reportable 05/20/19 05:41 Not Reportable 05/20/19 05:41 Not Reportable 05/20/19 05:41 Not Reportable 05/20/19 05:41 Few 05/20/19 05:41 Acanthocytes (Spur) Not Reportable 05/20/19 05:41 Rouleaux Not Reportable 05/20/19 05:41 Not Reportable 05/20/19 05:41 Not Reportable 05/20/19 05:41 Not Reportable 05/20/19 05:41 Not Reportable 05/20/19 05:41 Hem Pathologist Commnt No 05/20/19 05:41 PT 16.2 Sec. (12.2-14.9) H 05/18/19 07:22 INR 1.34 (0.87-1.13) H 05/18/19 07:22 APTT 36.6 Sec. (24.2-36.6) 05/18/19 07:22 Sodium 137 mmol/L (137-145) 05/21/19 04:51 Potassium 4.2 mmol/L (3.6-5.0) 05/21/19 04:51 Chloride 95.2 mmol/L (98-107) L 05/21/19 04:51 Carbon Dioxide 35 mmol/L (22-30) H 05/21/19 04:51 11 mmol/L 05/21/19 04:51 BUN 11 mg/dL (9-20) 05/21/19 04:51 0.6 mg/dL (0.8-1.5) L 05/21/19 04:51 Estimated GFR > 60 ml/min 05/21/19 04:51 18 % 05/21/19 04:51 Glucose 161 mg/dL (75-100) H 05/21/19 04:51 POC Glucose 176 (70-105) H 05/21/19 05:42 Calcium 9.4 mg/dL (8.4-10.2) 05/21/19 04:51 Phosphorus 2.00 mg/dL (2.5-4.5) L 05/21/19 04:51 Magnesium 2.00 mg/dL (1.7-2.3) 05/20/19 05:41 0.40 mg/dL (0.1-1.2) 05/19/19 07:58 AST 12 units/L (5-40) 05/19/19 07:58 ALT 7 units/L (7-56) 05/19/19 07:58 62 units/L (35-129) 05/19/19 07:58 6.6 g/dL (6.3-8.2) 05/19/19 07:58 2.7 g/dL (3.9-5) L 05/19/19 07:58 0.7 % 05/19/19 07:58 Triglycerides 108 mg/dL (2-149) 05/21/19 04:51 28 units/L (13-60) 05/17/19 03:52 Carcinoembryonic Ag 4.5 ng/mL (0.0-2.4) H 05/17/19 11:28 Yellow (Yellow) 05/17/19 Unknown Clear (Clear) 05/17/19 Unknown 5.0 (5.0-7.0) 05/17/19 Unknown Ur Specific [place] 1.021 (1.003-1.030) 05/17/19 Unknown <15 mg/dl mg/dL (Negative) 05/17/19 Unknown Neg mg/dL (Negative) 05/17/19 Unknown Neg mg/dL (Negative) 05/17/19 Unknown Neg (Negative) 05/17/19 Unknown Neg (Negative) 05/17/19 Unknown Neg (Negative) 05/17/19 Unknown < 2.0 mg/dL (<2.0) 05/17/19 Unknown Ur Leukocyte Esterase Neg (Negative) 05/17/19 Unknown 2.0 /HPF (0.0-6.0) 05/17/19 Unknown 3.0 /HPF (0.0-6.0) 05/17/19 Unknown 1+ /HPF 05/17/19 Unknown Blood Type B POSITIVE 05/17/19 12:45 Antibody Screen Negative 05/17/19 12:45 Crossmatch See Detail 05/17/19 12:45 Active Medications - Current Medications Current Medications: Generic Name Dose Route Start Last Admin Trade Name Freq PRN Reason Stop Dose Admin Acetaminophen 650 mg 05/17/19 07:30 05/17/19 16:53 Tylenol KS 650 mg Q4H PRN Administration Non Cardiac Pain or Temp>100.5 Dextrose 50 ml 05/17/19 07:28 D50w (25gm) Syringe IV PRN PRN Hypoglycemia Hydralazine HCl 10 mg 05/19/19 20:10 05/20/19 20:10 Apresoline IV 10 mg Q4HR PRN Administration Blood Pressure Hydrochlorothiazide 12.5 mg 05/19/19 21:00 05/20/19 10:00 Hctz PO 12.5 mg QDAY YURIY Administration Hydromorphone HCl 2 mg 05/19/19 07:57 05/20/19 20:12 Dilaudid IV 2 mg Q3H PRN Administration Pain , Severe (7-10) Hydromorphone HCl 1 mg 05/19/19 07:58 05/20/19 11:52 Dilaudid IV 1 mg Q3H PRN Administration Pain, Moderate (4-6) Amino Acids/Electrolytes/Dextrose 2,400 mls @ 100 mls/hr 05/20/19 20:00 05/20/19 20:08 Tpn Adult IV 05/21/19 19:59 100 mls/hr DAILY@2000 COUNTS INCLUDE 234 BEDS AT THE [facility] Administration Protocol Insulin Human Lispro 0 unit 05/17/19 12:00 05/21/19 00:00 Humalog SUB-Q Not Given Q6HR COUNTS INCLUDE 234 BEDS AT THE [facility] Protocol Labetalol HCl 10 mg 05/19/19 05:39 05/21/19 03:10 Normodyne IV 10 mg Q4HR PRN Administration Hypertension Lisinopril 20 mg 05/19/19 21:00 05/20/19 10:49 Zestril PO 20 mg QDAY YURIY Administration Ondansetron HCl 4 mg 05/17/19 07:27 05/20/19 08:09 Zofran IV 4 mg Q4H PRN Administration Nausea And Vomiting Pantoprazole Sodium 40 mg 05/17/19 10:00 05/20/19 10:50 Protonix IV 40 mg QDAY YURIY Administration Phenol 1 spray 05/19/19 16:55 05/19/19 19:09 Chloraseptic MM 1 spray PRN PRN Administration Sore Throat Nutrition/Malnutrition Assess - Dietary Evaluation Nutrition/Malnutrition Findings: Nutrition Notes Start: 05/18/19 17:02 Freq: Status: Active Protocol: Document 05/20/19 10:09 LP (Rec: 05/20/19 10:16 LP [id number]) Nutrition Notes Initial or Follow up Reassessment Current Diagnosis Diabetes,Sepsis,Hypertension Other Pertinent Diagnosis colon mass with paritial SBO S /P exp lap, abdominal wound Current Diet NPO Labs/Tests Phos 1.9 Pertinent Medications Reviewed Height 5 ft 8 in Weight 76.3 kg [place] Body Weight (kg) 70.00 BMI 25.5 Weight change and time frame Wt correct Subjective/Other Information Day 2 PPN. Pt continues with NGT to LIS. Percent of energy/protein needs met: 36%/100% Burn Absent Trauma Absent #2 Nutrition Diagnosis Inadequate oral intake Diagnosis Progress(for reassessment Continues documentation) Is patient on ventilator? No Is Patient Ambulatory and/or Out of Bed Yes REE-([facility]-ambulatory/OOB) [ [id number]] Calculation Used for Recommendations [facility] Additional Notes Protein needs are 92-115g (1.2 -1.5g/kg) Fluid needs are 1ml/kcal Nutrition Intervention Change Diet Order: TPN Nutrition Support: PPN at 100ml/hr: 4.6% amino acid, 24mmol phos, Thiamine Osmolality: 755 Kcal 780 Protein (gm) 110 Carbohydrates (gm) 100 Fat (gm) 0 Fluid (mL) 2,400 Fiber (gm) 0 Goal #1 Meet at least 80% of kcal and protein needs via TPN Anticipated Discharge Needs: Unable to determine at this time Follow-Up By: 05/21/19 Additional Comments Labs in AM: BMP, Mg, Phos, TG
--- NOTE | 2019-05-21 07:17 | Event Note ---
EDMD intubation note I was called to the ICU under a CODE BLUE. Upon my arrival the patient was being bag via BVM. Nursing reports the patient had just received Dilaudid 0.5 mg IV and went unresponsive but never lost his pulse. Patient was administered Narcan 2 mg IV but remained unresponsive. Subsequently the decision to intubate using RSI was made. The patient was intubated via orotracheal route using a 8.0 mm endotracheal tube. Rapid sequence induction was performed utilizing etomidate 20 mg IV and succinylcholine 100 mg IV. Positioning was confirmed using auscultation and CO2 detector. Patient left in a care of hospitalist Dr. Miller at bedside
[2019-05-21] MEDS ORDERED: DIPRIVAN 10 MG/ML 1,000 MG/100 ML BOTTLE IV ONE (07:32)
[2019-05-21] MEDS ORDERED: SUBLIMAZE ONE (07:36)
[2019-05-21] MEDS ORDERED: fentaNYL DRIP Premix 2,000 MCG/100 ML BAG IV SCH (08:00)
[2019-05-21] MEDS ORDERED: NARCAN 2 MG/2 ML 2 MG in NACL 0.9% 500 ML 500 ML IV SCH (08:00)
--- NOTE | 2019-05-21 08:08 | XRay Report ---
AP CHEST: HISTORY: Endotracheal tube placement The endotracheal tube terminates 2.4 cm superior to the rahul. The right arm PICC and nasogastric tube remain in adequate position. There is poor inspiratory effort. The lungs are grossly clear. Heart size and pulmonary vascularity are within normal limits. IMPRESSION: Endotracheal tube placement as described. Grossly negative expiratory chest x-ray.
[2019-05-21] MEDS ORDERED: ARTIFICIAL TEARS OPHTH OINT OU PRN (08:15)
[2019-05-21] MEDS ORDERED: VASELINE LIP THERAPY TP PRN (08:15)
[2019-05-21] MEDS ORDERED: NACL 0.9% 500 ML 500 ML ONE ×2 (08:17→08:30)
[2019-05-21] MEDS ORDERED: SUBLIMAZE IV ONE (08:19)
--- NOTE | 2019-05-21 08:29 | Consultation ---
History of Present Illness Consult date: 05/21/19 Requesting physician: BRIGID CANDELARIA History of present illness: Patient is a 53 yo man with a history of hypertension, DM type 2, GERD, Anemia and Dyslipidemia who presented to [facility] ED with severe abdominal pains. He saw his PCP about 2 weeks ago and brings his outside lab showing reactivity to hepatitis A and B, and elevated CRP level of greater than 90 and a high cancer antigen marker. In ED he was found to have temp of 100.6F HR 101, WBC 11.2, hgb 7.9 with MCV 71, normal plt and potassium of 5.1 with normal Cr of 1.0. * CT abd/pelvis with contrast IMPRESSION: Diffuse irregular mucosal thickening in the ascending colon extending from the level of the ileocecal valve and extending 7.1 cm cephalocaudally. There is associated pericolonic stranding and adjacent mildly enlarged lymph nodes. The finding is suspicious for a malignancy rather than a colitis. Endoscopic evaluation is strongly recommended. Mild to moderate distention of ileal bowel loops with air-fluid levels suggesting partial mechanical small bowel obstruction most likely related to this lesion. Low density foci in both hepatic lobes with measurements as described. These may represent small cysts. Adenocarcinoma may also present with cystic metastases. Ultrasound of the liver is recommen ded for follow-up confirmation. Pericolonic stranding in the right perinephric space without abnormal nephrogram or hydronephrosis. This may be related to the inflammatory process in the ascending colon. Pyelonephritis would be a less likely consideration. Appendix not definitely identified. Trace free fluid in the pelvis. Bilateral small inguinal hernias containing omental fat * 2v ABD Xray IMPRESSION: Multiple small air-fluid levels with mild distention of small bowel loops. Partial mechanical small bowel obstruction cannot entirely be excluded.. * s/p abdominal surgery for bowel obstruction and probable adenocarcinoma, pathology pending. This morning, brittany blue was called. He apparently received a dose of dilaudid, became unresponsive with agonal breathing. He never needed CPR. Was orally intubated and transferred to the ICU. Became agitated and propofol infusion was initiated. I have been consulted for critical care management. At the time of my evaluation, orally intubated to [facility] He is hypotensive, unresponsive Vent settings AC/PRVC 18/450/8/80% On TPN, SBP 66 Past History Past Medical History: other (see HPI) Past Surgical History: hernia repair Social history: denies: smoking, alcohol abuse Medications and Allergies Allergies Allergy/AdvReac Type Severity Reaction Status Date / Time No Known Allergies Allergy Verified 09/19/16 15:05 Home Medications Medication Instructions Recorded Confirmed Last Taken Type Dicyclomine [Bentyl] 20 mg PO TID 05/17/19 05/17/19 Unknown History Ferrous Sulfate [Iron 325 MG] 325 mg PO BID 05/17/19 05/17/19 Unknown History Lisinopril/Hydrochlorothiazide 1 each PO DAILY 05/17/19 05/17/19 Unknown History [Zestoretic 20-12.5 mg] Pantoprazole [Protonix] 40 mg PO DAILY 05/17/19 05/17/19 Unknown History Simvastatin 40 mg PO QPM 05/17/19 05/17/19 Unknown History Sucralfate [Carafate] 1 gm PO BID 05/17/19 05/17/19 Unknown History hydrALAZINE [Apresoline TAB] 100 mg PO QPM 05/17/19 05/17/19 Unknown History metFORMIN XR [Glucophage XR] 500 mg PO DAILY 05/17/19 05/17/19 Unknown History Active Meds: Active Medications Acetaminophen (Tylenol) 650 mg TN Q4H PRN PRN Reason: Non Cardiac Pain or Temp>100.5 Last Admin: 05/17/19 16:53 Dose: 650 mg Documented by: Dextrose (D50w (25gm) Syringe) 50 ml IV PRN PRN PRN Reason: Hypoglycemia Fentanyl (Sublimaze) 100 mcg IV ONCE ONE Stop: 05/21/19 08:20 Hydralazine HCl (Apresoline) 10 mg IV Q4HR PRN PRN Reason: Blood Pressure Last Admin: 05/20/19 20:10 Dose: 10 mg Documented by: Hydrochlorothiazide (Hctz) 12.5 mg PO QDAY YURIY Last Admin: 05/20/19 10:00 Dose: 12.5 mg Documented by: Hydromorphone HCl (Dilaudid) 2 mg IV Q3H PRN PRN Reason: Pain , Severe (7-10) Last Admin: 05/20/19 20:12 Dose: 2 mg Documented by: Hydromorphone HCl (Dilaudid) 1 mg IV Q3H PRN PRN Reason: Pain, Moderate (4-6) Last Admin: 05/20/19 11:52 Dose: 1 mg Documented by: Hydrophilic Ointment (Vaseline Lip Therapy) 1 applic TP Q2HR PRN PRN Reason: Dry Lips Amino Acids/Electrolytes/Dextrose (Tpn Adult) 2,400 mls @ 100 mls/hr IV DAILY@2000 [facility]; Protocol Stop: 05/21/19 19:59 Last Admin: 05/20/19 20:08 Dose: 100 mls/hr Documented by: Naloxone HCl 2 mg/ Sodium (Chloride) 502 mls @ 100.4 mls/hr IV DIRECT YURIY Fentanyl Citrate (Fentanyl Drip Premix) 2,000 mcg in 100 mls @ 3.815 mls/hr IV TITR YURIY; Protocol Stop: 05/21/19 12:00 Propofol (Diprivan 10 Mg/Ml) 1,000 mg in 100 mls @ 2.289 mls/hr IV TITR YURIY; Protocol Insulin Human Lispro (Humalog) 0 unit SUB-Q Q6HR YURIY; Protocol Last Admin: 05/21/19 00:00 Dose: Not Given Documented by: Labetalol HCl (Normodyne) 10 mg IV Q4HR PRN PRN Reason: Hypertension Last Admin: 05/21/19 03:10 Dose: 10 mg Documented by: Lisinopril (Zestril) 20 mg PO QDAY [facility] Last Admin: 05/20/19 10:49 Dose: 20 mg Documented by: Multi-Ingred Cream/Lotion/Oil/Oint (Artificial Tears Ophth Oint) 1 applic OU Q4HR PRN PRN Reason: Dry Eye(s) Ondansetron HCl (Zofran) 4 mg IV Q4H PRN PRN Reason: Nausea And Vomiting Last Admin: 05/20/19 08:09 Dose: 4 mg Documented by: Pantoprazole Sodium (Protonix) 40 mg IV QDAY [facility] Last Admin: 05/20/19 10:50 Dose: 40 mg Documented by: Phenol (Chloraseptic) 1 spray MM PRN PRN PRN Reason: Sore Throat Last Admin: 05/19/19 19:09 Dose: 1 spray Documented by: Review of Systems ROS unobtainable: due to endotracheal tube, due to mental status Physical Examination Vital signs: Vital Signs Temp Pulse Resp BP Pulse Ox 100.6 F H 101 H 18 186/76 92 05/17/19 03:02 05/17/19 03:02 05/17/19 03:02 05/17/19 03:02 05/17/19 03:02 General appearance: no acute distress, other (unresponsive, ETT to MVS, no dys- sunchrony) Eyes: non-icteric ENT: oropharynx moist Neck: supple, no lymphadenopathy, no JVD Effort: normal Ascultation: Bilateral: diminished breath sounds Gastrointestinal: hypoactive bowel sounds, other (abdominal dressings midline, distended) Integumentary: normal Extremities: no cyanosis, no edema, pulses normal, no ischemia or petechiae unable to assess other (unable to assess) Results - Laboratory Findings CBC and BMP: 05/21/19 04:51 05/21/19 04:51 PT/INR, D-dimer PT 16.2 Sec. (12.2-14.9) H 05/18/19 07:22 INR 1.34 (0.87-1.13) H 05/18/19 07:22 Abnormal lab findings: Abnormal Labs 05/17/19 05/17/19 05/17/19 03:19 03:19 11:28 WBC 11.2 H RBC 3.61 L Hgb 7.9 L Hct 25.5 L MCV 71 L MCH 22 L MCHC 31 L RDW 24.9 H Lymph % (Auto) Falls % (Auto) 11.9 H Lymph # Falls # 1.3 H Seg Neutrophils % 72.5 H Seg Neuts % (Manual) Lymphocytes % (Manual) Seg Neutrophils # 8.1 H Lymphocytes # (Manual) PT INR Potassium 5.1 H Chloride Carbon Dioxide BUN Creatinine Glucose 140 H POC Glucose Calcium Phosphorus ALT 5 L Albumin 3.3 L Carcinoembryonic Ag 4.5 H Crossmatch 05/17/19 05/17/19 05/18/19 12:45 14:13 07:22 WBC 12.9 H RBC Hgb 10.2 L Hct 32.9 L D MCV 76 L MCH 24 L MCHC 31 L RDW 23.9 H Lymph % (Auto) Falls % (Auto) Lymph # Falls # Seg Neutrophils % Seg Neuts % (Manual) Lymphocytes % (Manual) Seg Neutrophils # Lymphocytes # (Manual) PT INR Potassium Chloride Carbon Dioxide BUN Creatinine Glucose POC Glucose 159 H Calcium Phosphorus ALT Albumin Carcinoembryonic Ag Crossmatch See Detail 05/18/19 05/18/19 05/19/19 07:22 07:22 02:26 WBC RBC Hgb Hct MCV MCH MCHC RDW Lymph % (Auto) Falls % (Auto) Lymph # Falls # Seg Neutrophils % Seg Neuts % (Manual) Lymphocytes % (Manual) Seg Neutrophils # Lymphocytes # (Manual) PT 16.2 H INR 1.34 H Potassium Chloride 97.8 L Carbon Dioxide BUN Creatinine Glucose POC Glucose 121 H Calcium Phosphorus ALT Albumin Carcinoembryonic Ag Crossmatch 05/19/19 05/19/19 05/19/19 07:58 07:58 19:08 WBC RBC Hgb 10.1 L Hct 32.4 L MCV 75 L MCH 23 L MCHC 31 L RDW 24.4 H Lymph % (Auto) 8.2 L Falls % (Auto) 9.7 H Lymph # 0.9 L Falls # 1.1 H Seg Neutrophils % 82.0 H Seg Neuts % (Manual) Lymphocytes % (Manual) Seg Neutrophils # 9.0 H Lymphocytes # (Manual) PT INR Potassium 5.2 H Chloride Carbon Dioxide BUN Creatinine Glucose 133 H POC Glucose 116 H Calcium 8.3 L Phosphorus ALT Albumin 2.7 L Carcinoembryonic Ag Crossmatch 05/19/19 05/20/19 05/20/19 23:12 05:41 05:41 WBC RBC Hgb 10.1 L Hct 31.9 L MCV 74 L MCH 24 L MCHC RDW 25.2 H Lymph % (Auto) Falls % (Auto) Lymph # Falls # Seg Neutrophils % Seg Neuts % (Manual) 84.0 H Lymphocytes % (Manual) 10.0 L Seg Neutrophils # Lymphocytes # (Manual) 0.9 L PT INR Potassium Chloride Carbon Dioxide BUN 8 L Creatinine 0.6 L Glucose 148 H POC Glucose 122 H Calcium Phosphorus 1.90 L D ALT Albumin Carcinoembryonic Ag Crossmatch 05/20/19 05/20/19 05/20/19 05:57 12:16 18:50 WBC RBC Hgb Hct MCV MCH MCHC RDW Lymph % (Auto) Falls % (Auto) Lymph # Falls # Seg Neutrophils % Seg Neuts % (Manual) Lymphocytes % (Manual) Seg Neutrophils # Lymphocytes # (Manual) PT INR Potassium Chloride Carbon Dioxide BUN Creatinine Glucose POC Glucose 151 H 149 H 170 H Calcium Phosphorus ALT Albumin Carcinoembryonic Ag Crossmatch 05/20/19 05/21/19 05/21/19 23:19 04:51 04:51 WBC RBC Hgb 9.6 L Hct 31.0 L MCV 74 L MCH 23 L MCHC 31 L RDW 25.5 H Lymph % (Auto) Falls % (Auto) Lymph # Falls # Seg Neutrophils % Seg Neuts % (Manual) Lymphocytes % (Manual) Seg Neutrophils # Lymphocytes # (Manual) PT INR Potassium Chloride 95.2 L Carbon Dioxide 35 H BUN Creatinine 0.6 L Glucose 161 H POC Glucose 145 H Calcium Phosphorus 2.00 L ALT Albumin Carcinoembryonic Ag Crossmatch 05/21/19 05/21/19 05:42 07:49 WBC RBC Hgb Hct MCV MCH MCHC RDW Lymph % (Auto) Falls % (Auto) Lymph # Falls # Seg Neutrophils % Seg Neuts % (Manual) Lymphocytes % (Manual) Seg Neutrophils # Lymphocytes # (Manual) PT INR Potassium Chloride Carbon Dioxide BUN Creatinine Glucose POC Glucose 176 H 199 H Calcium Phosphorus ALT Albumin Carcinoembryonic Ag Crossmatch - Diagnostic Findings Chest x-ray: image reviewed (ETT in position, developing right upper lobe infiltrate, low lung volumes) Assessment and Plan -Respiratory arrest on MVS -EKG changes on telemetry -Abdominal pains with Large bowel obstruction s/p ex lap -Suspected Colon mass 05/18/19 s/p Exploratory laparotomy, extensive right hemicolectomy with dissection through a tumor in the retroperitoneum. Colon cancer suspected -Sepsis due to Colitis, poa -Accelerated hypertension with Urgency, currently hypotensive -Hepatitis A and B -Microcytic anemia -DM type 2 -GERD -VAP bundle addressed -Wean FIO2 for O2 sats>90% -12 lead EKG, get 2D echocardiogram -Serial enzymes -Continue antibiotics -Stop propofol, use fentanyl for sedation/ agitation management -Cardiology consult -VTE prophylaxis -ABG now and daily for 3 days -CXR in am -Bronchodilators per protocol -Continue NPO status, nutritional support with TPN -Accucchecks with glycemic control -Stress ulcer prophylaxis -Supportive transfusions per protocol -Will keep on MVS today until evaluated by cardiology -Start SBTs and SATs in am, with plan to liberate from MVS Discussed with Cardiology Discussed with RN/RT Updated his at the bedside CONDITION: CRITICAL PROGNOSIS: GUARDED CODE STATUS; FULL CODE The high probability of a clinically significant, sudden or life-threatening deterioration of the [cardiac, neurology] system(s) required my full and direct attention, intervention and personal management. The aggregate critical care time was [65] minutes without overlap. Time includes spent on; [x] Data Review and interpretation [x] Patient assessment and monitoring of vital signs [x] Documentation [x] Medication orders and management
[2019-05-21] MEDS ORDERED: DIPRIVAN 10 MG/ML 1,000 MG/100 ML BOTTLE IV SCH (09:00)
[2019-05-21] MEDS ORDERED: QUELICIN ONE (09:43)
[2019-05-21] MEDS ORDERED: AMIDATE IV ONE (09:43)
[2019-05-21 10:27] LABS: Creatine Kinase MB 5.7 ng/mL (0.0-4.0)
--- NOTE | 2019-05-21 12:12 | Progress Note ---
Assessment and Plan POD # 3 Pt apparently suffered a respiratory arrest. Intubated and transferred to ICU Currently awake and alert. appears comfortable. raised and shook my hand. Abd soft, non tender surgically stable awaiting path extubation as per pulmonary Selected Entries 05/21/19 05/21/19 05/21/19 11:20 11:30 12:00 Temperature 99.4 F Pulse Rate 85 Respiratory 16 Rate Blood Pressure 151/77 Laboratory Tests 05/21/19 05/21/19 05/21/19 04:51 04:51 10:38 WBC 10.0 Hgb 9.6 L Hct 31.0 L POC ABG pH 7.498 H POC ABG pCO2 41.1 POC ABG pO2 230 H POC ABG HCO3 31.9 Sodium 137 Potassium 4.2 Chloride 95.2 L BUN 11 Creatinine 0.6 L Objective Vital Signs - 12hr 05/21/19 05/21/19 05/21/19 00:11 00:21 00:31 Temperature Pulse Rate 100 H 96 H 96 H Pulse Rate [ From Monitor] Respiratory 9 L 10 L 11 L Rate Blood Pressure 147/81 147/81 147/81 O2 Sat by Pulse Oximetry 05/21/19 05/21/19 05/21/19 00:41 00:51 01:00 Temperature Pulse Rate 98 H 110 H 103 H Pulse Rate [ From Monitor] Respiratory 12 18 11 L Rate Blood Pressure 147/81 147/81 187/99 O2 Sat by Pulse Oximetry 05/21/19 05/21/19 05/21/19 01:11 01:20 01:31 Temperature Pulse Rate 98 H 99 H 97 H Pulse Rate [ From Monitor] Respiratory 11 L 11 L 13 Rate Blood Pressure 147/81 187/99 147/81 O2 Sat by Pulse Oximetry 05/21/19 05/21/19 05/21/19 01:41 01:51 02:00 Temperature Pulse Rate 108 H 110 H 110 H Pulse Rate [ From Monitor] Respiratory 16 15 16 Rate Blood Pressure 187/99 187/99 219/100 O2 Sat by Pulse Oximetry 05/21/19 05/21/19 05/21/19 02:11 02:21 02:31 Temperature Pulse Rate 115 H 112 H 116 H Pulse Rate [ From Monitor] Respiratory 20 19 16 Rate Blood Pressure 219/100 219/100 219/100 O2 Sat by Pulse Oximetry 05/21/19 05/21/1919 03:00 03:10 03:21 Temperature 100.3 F H Pulse Rate 122 H 103 H Pulse Rate [ From Monitor] Respiratory 17 Rate Blood Pressure 152/74 152/74 O2 Sat by Pulse Oximetry 05/21/19 05/21/19 05/21/19 03:31 03:41 03:51 Temperature Pulse Rate 104 H 105 H 108 H Pulse Rate [ From Monitor] Respiratory 16 16 15 Rate Blood Pressure 152/74 152/74 152/74 O2 Sat by Pulse Oximetry 05/21/19 05/21/19 05/21/19 04:00 04:11 04:21 Temperature Pulse Rate 110 H 112 H 113 H Pulse Rate [ From Monitor] Respiratory 19 19 22 Rate Blood Pressure 152/82 152/82 152/74 O2 Sat by Pulse Oximetry 05/21/19 05/21/19 05/21/19 04:31 04:41 04:51 Temperature Pulse Rate 115 H 119 H 121 H Pulse Rate [ From Monitor] Respiratory 18 22 25 H Rate Blood Pressure 152/74 152/74 152/74 O2 Sat by Pulse 94 Oximetry 05/21/19 05/21/19 05/21/19 05:00 05:11 05:21 Temperature Pulse Rate 118 H 118 H 120 H Pulse Rate [ From Monitor] Respiratory 23 24 17 Rate Blood Pressure 110/73 110/73 152/82 O2 Sat by Pulse Oximetry 05/21/19 05/21/19 05/21/19 05:31 05:41 05:51 Temperature Pulse Rate 124 H 121 H 126 H Pulse Rate [ From Monitor] Respiratory 21 24 23 Rate Blood Pressure 152/82 152/82 152/82 O2 Sat by Pulse Oximetry 05/21/19 05/21/19 05/21/19 06:00 06:11 06:21 Temperature Pulse Rate 128 H 127 H 128 H Pulse Rate [ From Monitor] Respiratory 23 25 H 22 Rate Blood Pressure 126/76 126/76 126/76 O2 Sat by Pulse Oximetry 05/21/19 05/21/19 05/21/19 06:31 06:41 06:51 Temperature Pulse Rate 129 H 130 H 128 H Pulse Rate [ From Monitor] Respiratory 26 H 20 21 Rate Blood Pressure 126/76 126/76 126/76 O2 Sat by Pulse Oximetry 05/21/19 05/21/19 05/21/19 07:00 07:11 07:15 Temperature Pulse Rate 88 149 H 103 H Pulse Rate [ From Monitor] Respiratory 12 32 H Rate Blood Pressure 140/110 230/124 70/38 O2 Sat by Pulse 82 L 97 Oximetry 05/21/19 05/21/19 05/21/19 07:24 07:31 07:41 Temperature Pulse Rate 118 H 142 H 125 H Pulse Rate [ From Monitor] Respiratory 17 20 18 Rate Blood Pressure 148/80 O2 Sat by Pulse 93 100 Oximetry 05/21/19 05/21/19 05/21/19 07:51 08:01 08:11 Temperature Pulse Rate 117 H 108 H 101 H Pulse Rate [ From Monitor] Respiratory 18 18 17 Rate Blood Pressure 135/70 135/70 135/70 O2 Sat by Pulse 93 90 97 Oximetry 05/21/19 05/21/19 05/21/19 08:21 08:24 08:30 Temperature Pulse Rate 99 H 94 H 96 H Pulse Rate [ From Monitor] Respiratory 18 18 Rate Blood Pressure 70/38 78/42 83/44 O2 Sat by Pulse 92 97 98 Oximetry 05/21/19 05/21/19 05/21/19 08:41 08:51 09:00 Temperature Pulse Rate 98 H 87 91 H Pulse Rate [ From Monitor] Respiratory 21 18 19 Rate Blood Pressure 120/68 117/60 135/77 O2 Sat by Pulse 100 100 100 Oximetry 05/21/19 05/21/19 05/21/19 09:11 09:21 09:30 Temperature Pulse Rate 85 84 85 Pulse Rate [ From Monitor] Respiratory 18 18 18 Rate Blood Pressure 135/77 127/69 134/64 O2 Sat by Pulse 100 100 100 Oximetry 05/21/19 05/21/19 05/21/19 09:41 09:51 10:00 Temperature Pulse Rate 91 H 89 89 Pulse Rate [ 89 From Monitor] Respiratory 19 18 18 Rate Blood Pressure 134/64 134/64 155/81 O2 Sat by Pulse 100 100 100 Oximetry 05/21/19 05/21/19 05/21/19 10:11 10:21 10:30 Temperature Pulse Rate 84 88 84 Pulse Rate [ From Monitor] Respiratory 18 18 18 Rate Blood Pressure 155/81 155/81 161/80 O2 Sat by Pulse 100 100 100 Oximetry 05/21/19 05/21/19 05/21/19 10:41 10:42 10:51 Temperature Pulse Rate 89 90 88 Pulse Rate [ From Monitor] Respiratory 19 18 Rate Blood Pressure 161/80 161/80 161/80 O2 Sat by Pulse 100 100 100 Oximetry 05/21/19 05/21/19 05/21/19 11:00 11:10 11:11 Temperature Pulse Rate 99 H 94 H 91 H Pulse Rate [ From Monitor] Respiratory 23 18 Rate Blood Pressure 190/87 151/77 190/87 O2 Sat by Pulse 100 100 100 Oximetry 05/21/19 05/21/19 05/21/19 11:20 11:30 12:00 Temperature 99.4 F Pulse Rate 85 91 H Pulse Rate [ From Monitor] Respiratory 18 16 Rate Blood Pressure 157/71 151/77 O2 Sat by Pulse 100 100 Oximetry - Labs 05/21/19 04:51 05/21/19 04:51 Diabetes panel 05/21/19 Range/Units 04:51 Sodium 137 (137-145) mmol/L Potassium 4.2 (3.6-5.0) mmol/L Chloride 95.2 L (98-107) mmol/L Carbon Dioxide 35 H (22-30) mmol/L BUN 11 (9-20) mg/dL Creatinine 0.6 L (0.8-1.5) mg/dL Glucose 161 H (75-100) mg/dL Calcium 9.4 (8.4-10.2) mg/dL Triglycerides 108 (2-149) mg/dL Calcium panel 05/21/19 Range/Units 04:51 Calcium 9.4 (8.4-10.2) mg/dL Phosphorus 2.00 L (2.5-4.5) mg/dL Pituitary panel 05/21/19 Range/Units 04:51 Sodium 137 (137-145) mmol/L Potassium 4.2 (3.6-5.0) mmol/L Chloride 95.2 L (98-107) mmol/L Carbon Dioxide 35 H (22-30) mmol/L BUN 11 (9-20) mg/dL Creatinine 0.6 L (0.8-1.5) mg/dL Glucose 161 H (75-100) mg/dL Calcium 9.4 (8.4-10.2) mg/dL Adrenal panel 05/21/19 Range/Units 04:51 Sodium 137 (137-145) mmol/L Potassium 4.2 (3.6-5.0) mmol/L Chloride 95.2 L (98-107) mmol/L Carbon Dioxide 35 H (22-30) mmol/L BUN 11 (9-20) mg/dL Creatinine 0.6 L (0.8-1.5) mg/dL Glucose 161 H (75-100) mg/dL Calcium 9.4 (8.4-10.2) mg/dL
[2019-05-21 12:49] LABS: Chol/HDL Ratio 6.23 %
--- NOTE | 2019-05-21 14:21 | Consultation ---
History of Present Illness Consult date: 05/21/19 Consult reason: other (Abnormal ECG) History of present illness: This is a 53-year old man with a history of hypertension, diabetes who was admit krish with diffuse abdominal pain found with colon mass suspicious for malignancy with associated large bowel obstruction. Patient has been evaluated and GI and Surgery and has undergone exploratory, extensive right hemicolectomy with dissection thought a tumor in the retroperitoneum. This morning, a code BLUE was called after the patient became less responsive with agonal breathing thought secondary to intravenous Dilaudid. Patient maintained a pulse. Subsequently, he was intubated and placed on mechanical ventilation. An ECG done showed sinus rhythm with LVH. No acute ischemic changes. Past History Past Medical History: other (see HPI) Past Surgical History: hernia repair Social history: denies: smoking, alcohol abuse Medications and Allergies Allergies Allergy/AdvReac Type Severity Reaction Status Date / Time No Known Allergies Allergy Verified 09/19/16 15:05 Home Medications Medication Instructions Recorded Confirmed Last Taken Type Dicyclomine [Bentyl] 20 mg PO TID 05/17/19 05/17/19 Unknown History Ferrous Sulfate [Iron 325 MG] 325 mg PO BID 05/17/19 05/17/19 Unknown History Lisinopril/Hydrochlorothiazide 1 each PO DAILY 05/17/19 05/17/19 Unknown History [Zestoretic 20-12.5 mg] Pantoprazole [Protonix] 40 mg PO DAILY 05/17/19 05/17/19 Unknown History Simvastatin 40 mg PO QPM 05/17/19 05/17/19 Unknown History Sucralfate [Carafate] 1 gm PO BID 05/17/19 05/17/19 Unknown History hydrALAZINE [Apresoline TAB] 100 mg PO QPM 05/17/19 05/17/19 Unknown History metFORMIN XR [Glucophage XR] 500 mg PO DAILY 05/17/19 05/17/19 Unknown History Active Meds: Active Medications Acetaminophen (Tylenol) 650 mg IA Q4H PRN PRN Reason: Non Cardiac Pain or Temp>100.5 Last Admin: 05/17/19 16:53 Dose: 650 mg Documented by: Dextrose (D50w (25gm) Syringe) 50 ml IV PRN PRN PRN Reason: Hypoglycemia Hydralazine HCl (Apresoline) 10 mg IV Q4HR PRN PRN Reason: Blood Pressure Last Admin: 05/20/19 20:10 Dose: 10 mg Documented by: Hydrochlorothiazide (Hctz) 12.5 mg PO QDAY [facility] Last Admin: 05/20/19 10:00 Dose: 12.5 mg Documented by: Hydromorphone HCl (Dilaudid) 2 mg IV Q3H PRN PRN Reason: Pain , Severe (7-10) Last Admin: 05/20/19 20:12 Dose: 2 mg Documented by: Hydromorphone HCl (Dilaudid) 1 mg IV Q3H PRN PRN Reason: Pain, Moderate (4-6) Last Admin: 05/20/19 11:52 Dose: 1 mg Documented by: Hydrophilic Ointment (Vaseline Lip Therapy) 1 applic TP Q2HR PRN PRN Reason: Dry Lips Amino Acids/Electrolytes/Dextrose (Tpn Adult) 2,400 mls @ 100 mls/hr IV DAILY@1999 [facility]; Protocol Stop: 05/21/19 19:59 Last Admin: 05/20/19 20:08 Dose: 100 mls/hr Documented by: Naloxone HCl 2 mg/ Sodium (Chloride) 502 mls @ 100.4 mls/hr IV DIRECT YURIY Amino Acids/Electrolytes/Dextrose (Tpn Adult) 2,400 mls @ 100 mls/hr IV DAILY@1999 [facility]; Protocol Stop: 05/22/19 19:59 Insulin Human Lispro (Humalog) 0 unit SUB-Q Q6HR [facility]; Protocol Last Admin: 05/21/19 00:00 Dose: Not Given Documented by: Labetalol HCl (Normodyne) 10 mg IV Q4HR PRN PRN Reason: Hypertension Last Admin: 05/21/19 03:10 Dose: 10 mg Documented by: Lisinopril (Zestril) 20 mg PO QDAY [facility] Last Admin: 05/20/19 10:49 Dose: 20 mg Documented by: Multi-Ingred Cream/Lotion/Oil/Oint (Artificial Tears Ophth Oint) 1 applic OU Q4HR PRN PRN Reason: Dry Eye(s) Ondansetron HCl (Zofran) 4 mg IV Q4H PRN PRN Reason: Nausea And Vomiting Last Admin: 05/20/19 08:09 Dose: 4 mg Documented by: Pantoprazole Sodium (Protonix) 40 mg IV QDAY [facility] Last Admin: 05/20/19 10:50 Dose: 40 mg Documented by: Phenol (Chloraseptic) 1 spray MM PRN PRN PRN Reason: Sore Throat Last Admin: 05/19/19 19:09 Dose: 1 spray Documented by: Physical Examination Vital Signs Temp Pulse Resp BP Pulse Ox 100.6 F H 101 H 18 186/76 92 05/17/19 03:02 05/17/19 03:02 05/17/19 03:02 05/17/19 03:02 05/17/19 03:02 General appearance: other (intubated on the vent) Cardiac: Positive: Reg Rate and Rhythm Extremities: Absent: edema Results 05/21/19 04:51 05/21/19 04:51 Cardiac Enzymes 05/21/19 Range/Units 04:51 CK-MB (CK-2) 5.7 H (0.0-4.0) ng/mL Lipids 05/21/19 05/21/19 Range/Units 04:51 11:17 Triglycerides 108 116 (2-149) mg/dL Cholesterol 131 (50-199) mg/dL HDL Cholesterol 21 L (40-59) mg/dL Cholesterol/HDL Ratio 6.23 % CBC 05/21/19 Range/Units 04:51 WBC 10.0 (4.5-11.0) K/mm3 RBC 4.16 (3.65-5.03) M/mm3 Hgb 9.6 L (11.8-15.2) gm/dl Hct 31.0 L (35.5-45.6) % Plt Count 369 (140-440) K/mm3 Comprehensive Metabolic Panel 05/21/19 Range/Units 04:51 Sodium 137 (137-145) mmol/L Potassium 4.2 (3.6-5.0) mmol/L Chloride 95.2 L (98-107) mmol/L Carbon Dioxide 35 H (22-30) mmol/L BUN 11 (9-20) mg/dL Creatinine 0.6 L (0.8-1.5) mg/dL Glucose 161 H (75-100) mg/dL Calcium 9.4 (8.4-10.2) mg/dL Assessment and Plan Respiratory failure s/t to Dilaudid intubated on the vent Abdominal pain CT reports colon mass suspicious for malignancy with associated large bowel obstruction. s/p exploratory, extensive right hemicolectomy with dissection throught a americo or in the retroperitoneum. Anemia s/p transfusion of PRBCs Hypertension Diabetes Recommend: Echocardiogram for LVEF assessment.
[2019-05-21] MEDS: APRESOLINE IV PRN ×2 (19:12→23:54)
[2019-05-21] MEDS: DILAUDID IV PRN (19:15)
[2019-05-21] MEDS ORDERED: SUBLIMAZE IV PRN (19:56)
[2019-05-21] MEDS ORDERED: TPN ADULT 2,400 ML IV SCH (20:00)
[2019-05-21] MEDS ORDERED: INTRALIPID 20% 250 ML IV SCH (20:00)
[2019-05-21] MEDS: fentaNYL DRIP Premix 2,000 MCG/100 ML BAG IV SCH (20:11)
[2019-05-22] MEDS: HumaLOG SUB-Q SCH ×4 (00:08→17:30)
[2019-05-22] MEDS: DILAUDID IV PRN ×2 (01:24→12:41)
[2019-05-22] MEDS: APRESOLINE IV PRN ×3 (03:01→18:05)
[2019-05-22] MEDS: fentaNYL DRIP Premix 2,000 MCG/100 ML BAG IV SCH (03:56)
[2019-05-22] MEDS: NORMODYNE IV PRN ×3 (05:52→20:45)
[2019-05-22 05:53] LABS: BUN/Creatinine Ratio 22; Blood Urea Nitrogen 11 mg/dL (9-20); Calcium 9.3 mg/dL (8.4-10.2); Hemolysis Index 2
--- NOTE | 2019-05-22 07:06 | Progress Note ---
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 Colon cancer suspected -Sepsis due to Colitis, poa -Accelerated hypertension with Urgency, currently hypotensive -Hepatitis A and B -Microcytic anemia -DM type 2 -GERD -VAP bundle addressed -Wean FIO2 for O2 sats>90% -Aspiration precautions HOB >40 -Continue antibiotics -Stop propofol, and fentanyl , SBT today -VTE prophylaxis -ABG prn -CXR in am -Bronchodilators per protocol -Continue NPO status, nutritional support with TPN -Accucchecks with glycemic control -Stress ulcer prophylaxis -Supportive transfusions per protocol -Will keep on MVS today until evaluated by cardiology -SBTs and SATs today with plan to liberate from MVS if he meets liberation criteria -Replace potassium, keep at 4 and Magnesium at 2 to optimize respiratory muscle function Discussed with RN/RT Updated his son at the bedside CONDITION: CRITICAL PROGNOSIS: GUARDED CODE STATUS; FULL CODE The high probability of a clinically significant, sudden or life-threatening deterioration of the [cardiac, neurology] system(s) required my full and direct attention, intervention and personal management. The aggregate critical care time was [35] minutes without overlap. Time includes spent on; [x] Data Review and interpretation [x] Patient assessment and monitoring of vital signs [x] Documentation [x] Medication orders and management Subjective Date of service: 05/22/19 Interval history: Patient is seen today for: acute hypoxemic respiraotry failure, s/p respiratory arrest, bowel obstruction, acute toxic-metabolic encephaloapthy Seen and examined at bedside; 24hour events reviewed; nursing and respiratory care staff consulted; no adverse overnight events reported to me; No fevers overnight, no vomiting. Elevated blood pressure which was difficult to control. On fentanyl infusion. Vitals, albs,medications, cahrt and imaging reviewed. Discussed in ICU-IDT rounds. Son at the bedside Objective Vital Signs - 12hr 05/21/19 05/21/19 05/21/19 19:10 19:21 19:31 Temperature Pulse Rate 73 84 86 Respiratory 18 16 16 Rate Blood Pressure 190/98 190/98 134/64 O2 Sat by Pulse 100 100 100 Oximetry 05/21/19 05/21/19 05/21/19 19:41 19:51 19:57 Temperature 98.5 F Pulse Rate 75 79 Respiratory 16 16 Rate Blood Pressure 213/91 213/91 O2 Sat by Pulse 100 100 Oximetry 05/21/19 05/21/19 05/21/19 20:00 20:11 20:15 Temperature Pulse Rate 78 68 64 Respiratory 16 16 Rate Blood Pressure 95/48 95/48 95/48 O2 Sat by Pulse 100 100 100 Oximetry 05/21/19 05/21/19 05/21/19 20:21 20:30 20:41 Temperature Pulse Rate 66 65 63 Respiratory 16 16 16 Rate Blood Pressure 95/48 131/67 95/48 O2 Sat by Pulse 100 100 100 Oximetry 05/21/19 05/21/19 05/21/19 20:51 21:00 21:11 Temperature Pulse Rate 62 65 64 Respiratory 16 16 16 Rate Blood Pressure 95/48 162/71 131/67 O2 Sat by Pulse 100 100 100 Oximetry 05/21/19 05/21/19 05/21/19 21:21 21:30 21:41 Temperature Pulse Rate 57 L 62 69 Respiratory 16 16 17 Rate Blood Pressure 131/67 155/76 162/71 O2 Sat by Pulse 100 100 100 Oximetry 05/21/19 05/21/19 05/21/19 21:51 22:00 22:04 Temperature Pulse Rate 73 74 70 Respiratory 16 16 16 Rate Blood Pressure 162/71 162/79 162/79 O2 Sat by Pulse 98 96 98 Oximetry 05/21/19 05/21/19 05/21/19 22:11 22:21 22:27 Temperature Pulse Rate 69 64 81 Respiratory 16 16 16 Rate Blood Pressure 162/79 162/79 162/79 O2 Sat by Pulse 97 97 98 Oximetry 05/21/19 05/21/19 05/21/19 22:30 22:41 22:51 Temperature Pulse Rate 70 69 64 Respiratory 16 16 16 Rate Blood Pressure 157/72 162/79 162/79 O2 Sat by Pulse 97 97 100 Oximetry 05/21/19 05/21/19 05/21/19 23:00 23:11 23:20 Temperature Pulse Rate 65 61 60 Respiratory 16 16 Rate Blood Pressure 157/74 157/74 157/74 O2 Sat by Pulse 100 100 100 Oximetry 05/21/19 05/21/1919 23:21 23:31 23:41 Temperature Pulse Rate 64 69 93 H Respiratory 16 16 20 Rate Blood Pressure 157/72 195/81 195/81 O2 Sat by Pulse 100 100 98 Oximetry 05/21/19 05/21/19 05/22/19 23:51 23:54 00:00 Temperature 97.6 F Pulse Rate 80 75 82 Respiratory 16 16 Rate Blood Pressure 157/74 191/81 170/77 O2 Sat by Pulse 99 99 Oximetry 05/22/19 05/22/19 05/22/19 00:11 00:21 00:30 Temperature Pulse Rate 79 79 81 Respiratory 16 16 16 Rate Blood Pressure 170/77 170/77 165/70 O2 Sat by Pulse 99 100 100 Oximetry 05/22/19 05/22/19 05/22/19 00:41 00:51 01:00 Temperature Pulse Rate 96 H 80 79 Respiratory 16 16 16 Rate Blood Pressure 165/70 170/77 164/78 O2 Sat by Pulse 100 100 100 Oximetry 05/22/19 05/22/19 05/22/19 01:11 01:21 01:30 Temperature Pulse Rate 72 90 90 Respiratory 16 16 16 Rate Blood Pressure 164/78 164/78 173/78 O2 Sat by Pulse 100 100 100 Oximetry 05/22/19 05/22/19 05/22/19 01:40 01:51 02:00 Temperature Pulse Rate 86 86 83 Respiratory 16 16 16 Rate Blood Pressure 173/78 173/78 181/80 O2 Sat by Pulse 100 100 100 Oximetry 05/22/19 05/22/19 05/22/19 02:11 02:21 02:30 Temperature Pulse Rate 80 76 79 Respiratory 16 16 16 Rate Blood Pressure 166/79 181/80 173/76 O2 Sat by Pulse 100 100 100 Oximetry 05/22/19 05/22/19 05/22/19 02:41 02:51 03:00 Temperature Pulse Rate 75 75 77 Respiratory 16 16 17 Rate Blood Pressure 173/76 173/76 172/78 O2 Sat by Pulse 100 100 100 Oximetry 05/22/19 05/22/19 05/22/19 03:01 03:11 03:21 Temperature Pulse Rate 73 72 77 Respiratory 16 16 Rate Blood Pressure 172/78 172/78 172/78 O2 Sat by Pulse 100 100 Oximetry 05/22/19 05/22/19 05/22/19 03:30 03:41 03:51 Temperature Pulse Rate 78 72 76 Respiratory 16 16 16 Rate Blood Pressure 170/76 170/76 170/76 O2 Sat by Pulse 100 100 100 Oximetry 05/22/19 05/22/19 05/22/19 04:00 04:11 04:21 Temperature 98.8 F Pulse Rate 72 72 72 Respiratory 16 15 16 Rate Blood Pressure 170/76 165/75 165/75 O2 Sat by Pulse 100 100 100 Oximetry 05/22/19 05/22/19 05/22/19 04:26 04:30 04:41 Temperature Pulse Rate 73 74 84 Respiratory 16 15 Rate Blood Pressure 171/72 171/72 171/72 O2 Sat by Pulse 100 100 100 Oximetry 05/22/19 05/22/19 05/22/19 04:51 05:00 05:10 Temperature Pulse Rate 73 78 77 Respiratory 16 16 16 Rate Blood Pressure 171/72 170/83 170/83 O2 Sat by Pulse 99 99 99 Oximetry 05/22/19 05/22/19 05/22/19 05:21 05:30 05:41 Temperature Pulse Rate 79 81 84 Respiratory 16 16 16 Rate Blood Pressure 170/83 186/81 186/81 O2 Sat by Pulse 99 99 99 Oximetry 05/22/19 05/22/19 05/22/19 05:51 05:52 06:00 Temperature Pulse Rate 82 86 63 Respiratory 16 16 Rate Blood Pressure 186/81 186/81 186/81 O2 Sat by Pulse 99 100 Oximetry 05/22/19 05/22/19 06:11 06:21 Temperature Pulse Rate 61 63 Respiratory 16 16 Rate Blood Pressure 137/59 137/59 O2 Sat by Pulse 100 99 Oximetry Constitutional: no acute distress, other (awake and alert, obeying one step commands) Eyes: non-icteric ENT: oropharynx moist Neck: supple, no lymphadenopathy, no JVD Effort: normal Ascultation: Bilateral: diminished breath sounds Cardiovascular: regular rate and rhythm, other (S1,S2, no murmurs, gallops or rubs) Gastrointestinal: hypoactive bowel sounds, other (abdominal dressings midline, distended) Integumentary: normal Extremities: no cyanosis, no edema, pulses normal, no ischemia or petechiae Neurologic: non-focal exam, pupils equal and round, motor strength normal and Psychiatric: mood appropriate, affect normal CBC and BMP: 05/21/19 04:51 05/23/19 04:21 ABG, PT/INR, D-dimer: ABG POC ABG pH 7.426 (7.35-7.45) 05/22/19 04:42 POC ABG pCO2 54.2 (35-45) H 05/22/19 04:42 POC ABG pO2 139 (80-105) H 05/22/19 04:42 POC ABG HCO3 35.6 (22-26 mml/L) 05/22/19 04:42 POC ABG Total CO2 37 (23-27mmol/L) 05/22/19 04:42 POC ABG O2 Sat 99 05/22/19 04:42 PT/INR, D-dimer PT 16.2 Sec. (12.2-14.9) H 05/18/19 07:22 INR 1.34 (0.87-1.13) H 05/18/19 07:22 Abnormal lab findings: Abnormal Labs 05/17/19 05/17/19 05/17/19 03:19 03:19 11:28 WBC 11.2 H RBC 3.61 L Hgb 7.9 L Hct 25.5 L MCV 71 L MCH 22 L MCHC 31 L RDW 24.9 H Lymph % (Auto) [place] % (Auto) 11.9 H Lymph # [place] # 1.3 H Seg Neutrophils % 72.5 H Seg Neuts % (Manual) Lymphocytes % (Manual) Seg Neutrophils # 8.1 H Lymphocytes # (Manual) PT INR POC ABG pH POC ABG pCO2 POC ABG pO2 Potassium 5.1 H Chloride Carbon Dioxide BUN Creatinine Glucose 140 H POC Glucose Calcium Phosphorus ALT 5 L CK-MB (CK-2) CK-MB (CK-2) Rel Index Troponin T Albumin 3.3 L HDL Cholesterol Carcinoembryonic Ag 4.5 H Crossmatch 05/17/19 05/17/19 05/18/19 12:45 14:13 07:22 WBC 12.9 H RBC Hgb 10.2 L Hct 32.9 L D MCV 76 L MCH 24 L MCHC 31 L RDW 23.9 H Lymph % (Auto) [place] % (Auto) Lymph # [place] # Seg Neutrophils % Seg Neuts % (Manual) Lymphocytes % (Manual) Seg Neutrophils # Lymphocytes # (Manual) PT INR POC ABG pH POC ABG pCO2 POC ABG pO2 Potassium Chloride Carbon Dioxide BUN Creatinine Glucose POC Glucose 159 H Calcium Phosphorus ALT CK-MB (CK-2) CK-MB (CK-2) Rel Index Troponin T Albumin HDL Cholesterol Carcinoembryonic Ag Crossmatch See Detail 05/18/19 05/18/19 05/19/19 07:22 07:22 02:26 WBC RBC Hgb Hct MCV MCH MCHC RDW Lymph % (Auto) [place] % (Auto) Lymph # [place] # Seg Neutrophils % Seg Neuts % (Manual) Lymphocytes % (Manual) Seg Neutrophils # Lymphocytes # (Manual) PT 16.2 H INR 1.34 H POC ABG pH POC ABG pCO2 POC ABG pO2 Potassium Chloride 97.8 L Carbon Dioxide BUN Creatinine Glucose POC Glucose 121 H Calcium Phosphorus ALT CK-MB (CK-2) CK-MB (CK-2) Rel Index Troponin T Albumin HDL Cholesterol Carcinoembryonic Ag Crossmatch 05/19/19 05/19/19 05/19/19 07:58 07:58 19:08 WBC RBC Hgb 10.1 L Hct 32.4 L MCV 75 L MCH 23 L MCHC 31 L RDW 24.4 H Lymph % (Auto) 8.2 L [place] % (Auto) 9.7 H Lymph # 0.9 L [place] # 1.1 H Seg Neutrophils % 82.0 H Seg Neuts % (Manual) Lymphocytes % (Manual) Seg Neutrophils # 9.0 H Lymphocytes # (Manual) PT INR POC ABG pH POC ABG pCO2 POC ABG pO2 Potassium 5.2 H Chloride Carbon Dioxide BUN Creatinine Glucose 133 H POC Glucose 116 H Calcium 8.3 L Phosphorus ALT CK-MB (CK-2) CK-MB (CK-2) Rel Index Troponin T Albumin 2.7 L HDL Cholesterol Carcinoembryonic Ag Crossmatch 05/19/19 05/20/19 05/20/19 23:12 05:41 05:41 WBC RBC Hgb 10.1 L Hct 31.9 L MCV 74 L MCH 24 L MCHC RDW 25.2 H Lymph % (Auto) [place] % (Auto) Lymph # [place] # Seg Neutrophils % Seg Neuts % (Manual) 84.0 H Lymphocytes % (Manual) 10.0 L Seg Neutrophils # Lymphocytes # (Manual) 0.9 L PT INR POC ABG pH POC ABG pCO2 POC ABG pO2 Potassium Chloride Carbon Dioxide BUN 8 L Creatinine 0.6 L Glucose 148 H POC Glucose 122 H Calcium Phosphorus 1.90 L D ALT CK-MB (CK-2) CK-MB (CK-2) Rel Index Troponin T Albumin HDL Cholesterol Carcinoembryonic Ag Crossmatch 05/20/19 05/20/19 05/20/19 05:57 12:16 18:50 WBC RBC Hgb Hct MCV MCH MCHC RDW Lymph % (Auto) [place] % (Auto) Lymph # [place] # Seg Neutrophils % Seg Neuts % (Manual) Lymphocytes % (Manual) Seg Neutrophils # Lymphocytes # (Manual) PT INR POC ABG pH POC ABG pCO2 POC ABG pO2 Potassium Chloride Carbon Dioxide BUN Creatinine Glucose POC Glucose 151 H 149 H 170 H Calcium Phosphorus ALT CK-MB (CK-2) CK-MB (CK-2) Rel Index Troponin T Albumin HDL Cholesterol Carcinoembryonic Ag Crossmatch 05/20/19 05/21/19 05/21/19 23:19 04:51 04:51 WBC RBC Hgb 9.6 L Hct 31.0 L MCV 74 L MCH 23 L MCHC 31 L RDW 25.5 H Lymph % (Auto) [place] % (Auto) Lymph # [place] # Seg Neutrophils % Seg Neuts % (Manual) Lymphocytes % (Manual) Seg Neutrophils # Lymphocytes # (Manual) PT INR POC ABG pH POC ABG pCO2 POC ABG pO2 Potassium Chloride 95.2 L Carbon Dioxide 35 H BUN Creatinine 0.6 L Glucose 161 H POC Glucose 145 H Calcium Phosphorus 2.00 L ALT CK-MB (CK-2) CK-MB (CK-2) Rel Index Troponin T Albumin HDL Cholesterol Carcinoembryonic Ag Crossmatch 05/21/19 05/21/19 05/21/19 04:51 05:42 07:49 WBC RBC Hgb Hct MCV MCH MCHC RDW Lymph % (Auto) [place] % (Auto) Lymph # [place] # Seg Neutrophils % Seg Neuts % (Manual) Lymphocytes % (Manual) Seg Neutrophils # Lymphocytes # (Manual) PT INR POC ABG pH POC ABG pCO2 POC ABG pO2 Potassium Chloride Carbon Dioxide BUN Creatinine Glucose POC Glucose 176 H 199 H Calcium Phosphorus ALT CK-MB (CK-2) 5.7 H CK-MB (CK-2) Rel Index 4.3 H Troponin T Albumin HDL Cholesterol Carcinoembryonic Ag Crossmatch 05/21/19 05/21/19 05/21/19 10:38 11:17 17:58 WBC RBC Hgb Hct MCV MCH MCHC RDW Lymph % (Auto) [place] % (Auto) Lymph # [place] # Seg Neutrophils % Seg Neuts % (Manual) Lymphocytes % (Manual) Seg Neutrophils # Lymphocytes # (Manual) PT INR POC ABG pH 7.498 H POC ABG pCO2 POC ABG pO2 230 H Potassium Chloride Carbon Dioxide BUN Creatinine Glucose POC Glucose Calcium Phosphorus ALT CK-MB (CK-2) CK-MB (CK-2) Rel Index Troponin T 0.191 H* 0.133 H* D Albumin HDL Cholesterol 21 L Carcinoembryonic Ag Crossmatch 05/22/19 05/22/19 05/22/19 00:04 04:42 04:55 WBC RBC Hgb Hct MCV MCH MCHC RDW Lymph % (Auto) [place] % (Auto) Lymph # [place] # Seg Neutrophils % Seg Neuts % (Manual) Lymphocytes % (Manual) Seg Neutrophils # Lymphocytes # (Manual) PT INR POC ABG pH POC ABG pCO2 54.2 H POC ABG pO2 139 H Potassium 3.0 L D Chloride 94.8 L Carbon Dioxide 33 H BUN Creatinine 0.5 L Glucose 140 H POC Glucose 155 H Calcium Phosphorus ALT CK-MB (CK-2) CK-MB (CK-2) Rel Index Troponin T Albumin HDL Cholesterol Carcinoembryonic Ag Crossmatch Chest x-ray: image reviewed Allied health notes reviewed: RT
--- NOTE | 2019-05-22 07:15 | XRay Report ---
PROCEDURE: XR CHEST 1V AP TECHNIQUE: Chest radiograph single view. HISTORY: follow up respiratory failure COMPARISONS: None . FINDINGS: Heart: Normal. Mediastinum/Vessels: Normal. Lungs/Pleural space: There are mild atelectatic changes in both lower lobes. Pleural fluid is not se en.. Bony thorax: No acute osseous abnormality. Life support devices: The tip of the ET tube is 2 cm above the rahul. The tip of the right-sided PIC C line is in good position in the SVC. The NG tube is coursing well into the stomach.. IMPRESSION: Mild bibasilar atelectatic changes. Satisfactory position of tubes and lines.. This document is electronically signed by Orestes Guerrero MD., May 22 2019 07:13:34 AM ET
[2019-05-22] MEDS: KCL 20MEQ/100ML 20 MEQ/100 ML BAG IV SCH ×2 (09:33→10:50)
[2019-05-22] MEDS: PROTONIX IV SCH (09:41)
--- NOTE | 2019-05-22 10:17 | Progress Note ---
Assessment and Plan Assessment and plan: Patient is a 53 yo man with a history of hypertension, DM type 2, GERD, Anemia and Dyslipidemia who presented to [facility] ED with severe abdominal pains. He saw his PCP about 2 weeks ago and brings his outside lab showing reactivity to hepatitis A and B, and elevated CRP level of greater than 90 and a high cancer antigen marker. In ED he was found to have temp of 100.6F HR 101, WBC 11.2, hgb 7.9 with MCV 71, normal plt and potassium of 5.1 with normal Cr of 1.0. * CT abd/pelvis with contrast IMPRESSION: Diffuse irregular mucosal thickening in the ascending colon extending from the level of the ileocecal valve and extending 7.1 cm cephalocaudally. There is associated pericolonic stranding and adjacent mildly enlarged lymph nodes. The finding is suspicious for a malignancy rather than a colitis. Endoscopic evaluation is strongly recommended. Mild to moderate distention of ileal bowel loops with air-fluid levels suggesting partial mechanical small bowel obstruction most likely related to this lesion. Low density foci in both hepatic lobes with measurements as described. These may represent small cysts. Adenocarcinoma may also present with cystic metastases. Ultrasound of the liver is recommen ded for follow-up confirmation. Pericolonic stranding in the right perinephric space without abnormal nephrogram or hydronephrosis. This may be related to the inflammatory process in the ascending colon. Pyelonephritis would be a less likely consideration. Appendix not definitely identified. Trace free fluid in the pelvis. Bilateral small inguinal hernias containing omental fat * 2v ABD Xray IMPRESSION: Multiple small air-fluid levels with mild distention of small bowel loops. Partial mechanical small bowel obstruction cannot entirely be excluded.. * 05/21/19-Patient transferred to ICU secondary unresponsiveness and unable to maintain airway requiring intubation Acute Respirotry failure: Currently on mechanical ventilation but improving on CPAP, anticipate extubation shortly. Decrease IV pain meds Acute Metabolic Encephalopathy: Presumed secondary to narcotics, improving Abdominal pains with Large bowel obstruction s/p ex lap: treated with bowel rest, Judicious iv pain meds, Gen. Surgery following. 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 Colon cancer suspected: await pathology Sepsis due to Colitis, poa: treat with IV abx and IVF, prn tylenol for fevers, get blood cultures, CXR, EKG baseline Accelerated hypertension with Urgency: treat with iv antihypertensives Hyperkalemia, mild: supportive care, monitor levels closely Hepatitis A and B per outside lab: GI was consulted Microcytic anemia: GI was consulted DM type 2: ssi for now GERD: iv ppi DVT prophylaxis: sq heparin full code TPN started IVP pending check for ureter damage Awaiting Pathology Hospitalist Physical - Physical exam Narrative exam: Gen: WDWN, NAD, Awake, Alert, ON Mechanical ventilation but following commands HEENT: NCAT, EOMI, PERRL, OP Clear Neck: supple, no adenopathy, no thyromegaly, no JVD CVS/Heart: reg tachy, normal S1S2, pulses present bilaterally Chest/Lungs: CTA B, Symmetrical chest expansion, good air entry bilaterally GI/Abdomen: soft, diffuse tenderness Hypoactive but positive bowel sounds, no guarding or rebound, drain in place /Bladder: no suprapubic tenderness, no CVA or paraspinal tenderness Extermity/Skin: no c/c/e, no obvious rash MSK: FROM x 4 Neuro: CN 2-12 grossly intact, no new focal deficits Psych: calm - Constitutional Vitals: Temp Pulse Resp BP Pulse Ox 98.8 F 84 16 176/84 99 05/22/19 04:00 05/22/19 09:49 05/22/19 07:52 05/22/19 09:49 05/22/19 07:52 General appearance: Present: other (intubated on the vent) Results - Labs CBC & Chem 7: 05/21/19 04:51 05/23/19 04:21 Labs: Laboratory Last Values WBC 10.0 K/mm3 (4.5-11.0) 05/21/19 04:51 RBC 4.16 M/mm3 (3.65-5.03) 05/21/19 04:51 Hgb 9.6 gm/dl (11.8-15.2) L 05/21/19 04:51 Hct 31.0 % (35.5-45.6) L 05/21/19 04:51 MCV 74 fl (84-94) L 05/21/19 04:51 MCH 23 pg (28-32) L 05/21/19 04:51 MCHC 31 % (32-34) L 05/21/19 04:51 RDW 25.5 % (13.2-15.2) H 05/21/19 04:51 Plt Count 369 K/mm3 (140-440) 05/21/19 04:51 Lymph % (Auto) Quality Worker 05/20/19 05:41 [place] % (Auto) Quality Worker 05/20/19 05:41 Eos % (Auto) Quality Worker 05/20/19 05:41 Baso % (Auto) Quality Worker 05/20/19 05:41 Lymph # Quality Worker 05/20/19 05:41 [place] # Quality Worker 05/20/19 05:41 Eos # Quality Worker 05/20/19 05:41 Baso # Quality Worker 05/20/19 05:41 Add Manual Diff Complete 05/20/19 05:41 Total Counted 100 05/20/19 05:41 Seg Neutrophils % Quality Worker 05/20/19 05:41 Seg Neuts % (Manual) 84.0 % (40.0-70.0) H 05/20/19 05:41 0 % 05/20/19 05:41 10.0 % (13.4-35.0) L 05/20/19 05:41 Reactive Lymphs % (Man) 0 % 05/20/19 05:41 6.0 % (0.0-7.3) 05/20/19 05:41 0 % (0.0-4.3) 05/20/19 05:41 0 % (0.0-1.8) 05/20/19 05:41 0 % 05/20/19 05:41 0 % 05/20/19 05:41 0 % 05/20/19 05:41 0 % 05/20/19 05:41 Nucleated RBC % Not Reportable 05/20/19 05:41 Seg Neutrophils # Quality Worker 05/20/19 05:41 Seg Neutrophils # Man 7.3 K/mm3 (1.8-7.7) 05/20/19 05:41 Band Neutrophils # 0.0 K/mm3 05/20/19 05:41 0.9 K/mm3 (1.2-5.4) L 05/20/19 05:41 Abs React Lymphs (Man) 0.0 K/mm3 05/20/19 05:41 0.5 K/mm3 (0.0-0.8) 05/20/19 05:41 0.0 K/mm3 (0.0-0.4) 05/20/19 05:41 0.0 K/mm3 (0.0-0.1) 05/20/19 05:41 0.0 K/mm3 05/20/19 05:41 0.0 K/mm3 05/20/19 05:41 0.0 K/mm3 05/20/19 05:41 Blast Cells # 0.0 K/mm3 05/20/19 05:41 WBC Morphology Not Reportable 05/20/19 05:41 WBC Morphology TNR 05/20/19 05:41 Hypersegmented Neuts Not Reportable 05/20/19 05:41 Hyposegmented Neuts Not Reportable 05/20/19 05:41 Hypogranular Neuts Not Reportable 05/20/19 05:41 Not Reportable 05/20/19 05:41 Not Reportable 05/20/19 05:41 Not Reportable 05/20/19 05:41 Not Reportable 05/20/19 05:41 Not Reportable 05/20/19 05:41 Not Reportable 05/20/19 05:41 Consistent w auto 05/20/19 05:41 Not Reportable 05/20/19 05:41 Plt Clumps, EDTA Not Reportable 05/20/19 05:41 Not Reportable 05/20/19 05:41 Not Reportable 05/20/19 05:41 Not Reportable 05/20/19 05:41 Plt Morphology Comment Not Reportable 05/20/19 05:41 RBC Morphology Not Reportable 05/20/19 05:41 Dimorphic RBCs Not Reportable 05/20/19 05:41 Not Reportable 05/20/19 05:41 1+ 05/20/19 05:41 Few 05/20/19 05:41 1+ 05/20/19 05:41 1+ 05/20/19 05:41 Not Reportable 05/20/19 05:41 Not Reportable 05/20/19 05:41 Not Reportable 05/20/19 05:41 Not Reportable 05/20/19 05:41 Not Reportable 05/20/19 05:41 Not Reportable 05/20/19 05:41 Few 05/20/19 05:41 Not Reportable 05/20/19 05:41 Not Reportable 05/20/19 05:41 Not Reportable 05/20/19 05:41 Not Reportable 05/20/19 05:41 Not Reportable 05/20/19 05:41 Not Reportable 05/20/19 05:41 Few 05/20/19 05:41 Acanthocytes (Spur) Not Reportable 05/20/19 05:41 Rouleaux Not Reportable 05/20/19 05:41 Not Reportable 05/20/19 05:41 Not Reportable 05/20/19 05:41 Not Reportable 05/20/19 05:41 Not Reportable 05/20/19 05:41 Hem Pathologist Commnt No 05/20/19 05:41 PT 16.2 Sec. (12.2-14.9) H 05/18/19 07:22 INR 1.34 (0.87-1.13) H 05/18/19 07:22 APTT 36.6 Sec. (24.2-36.6) 05/18/19 07:22 POC ABG pH 7.426 (7.35-7.45) 05/22/19 04:42 POC ABG pCO2 54.2 (35-45) H 05/22/19 04:42 POC ABG pO2 139 (80-105) H 05/22/19 04:42 POC ABG HCO3 35.6 (22-26 mml/L) 05/22/19 04:42 POC ABG Total CO2 37 (23-27mmol/L) 05/22/19 04:42 POC ABG O2 Sat 99 05/22/19 04:42 POC ABG Base Excess 11 ((-2) - (+3)mmol/L) 05/22/19 04:42 40 % 05/22/19 04:42 Sodium 138 mmol/L (137-145) 05/22/19 04:55 Potassium 3.0 mmol/L (3.6-5.0) L D 05/22/19 04:55 Chloride 94.8 mmol/L (98-107) L 05/22/19 04:55 Carbon Dioxide 33 mmol/L (22-30) H 05/22/19 04:55 13 mmol/L 05/22/19 04:55 BUN 11 mg/dL (9-20) 05/22/19 04:55 0.5 mg/dL (0.8-1.5) L 05/22/19 04:55 Estimated GFR > 60 ml/min 05/22/19 04:55 22 % 05/22/19 04:55 Glucose 140 mg/dL (75-100) H 05/22/19 04:55 POC Glucose 155 (70-105) H 05/22/19 00:04 Calcium 9.3 mg/dL (8.4-10.2) 05/22/19 04:55 Phosphorus 2.80 mg/dL (2.5-4.5) D 05/22/19 04:55 Magnesium 1.90 mg/dL (1.7-2.3) 05/22/19 04:55 0.40 mg/dL (0.1-1.2) 05/19/19 07:58 AST 12 units/L (5-40) 05/19/19 07:58 ALT 7 units/L (7-56) 05/19/19 07:58 62 units/L (35-129) 05/19/19 07:58 132 units/L (55-170) 05/21/19 04:51 CK-MB (CK-2) 5.7 ng/mL (0.0-4.0) H 05/21/19 04:51 CK-MB (CK-2) Rel Index 4.3 (0-4) H 05/21/19 04:51 0.133 ng/mL (0.00-0.029) H* D 05/21/19 17:58 6.6 g/dL (6.3-8.2) 05/19/19 07:58 2.7 g/dL (3.9-5) L 05/19/19 07:58 0.7 % 05/19/19 07:58 Triglycerides 116 mg/dL (2-149) 05/21/19 11:17 Cholesterol 131 mg/dL (50-199) 05/21/19 11:17 89 mg/dL (50-130) 05/21/19 11:17 21 mg/dL (40-59) L 05/21/19 11:17 6.23 % 05/21/19 11:17 28 units/L (13-60) 05/17/19 03:52 Carcinoembryonic Ag 4.5 ng/mL (0.0-2.4) H 05/17/19 11:28 Yellow (Yellow) 05/17/19 Unknown Clear (Clear) 05/17/19 Unknown 5.0 (5.0-7.0) 05/17/19 Unknown Ur Specific [place] 1.021 (1.003-1.030) 05/17/19 Unknown <15 mg/dl mg/dL (Negative) 05/17/19 Unknown Neg mg/dL (Negative) 05/17/19 Unknown Neg mg/dL (Negative) 05/17/19 Unknown Neg (Negative) 05/17/19 Unknown Neg (Negative) 05/17/19 Unknown Neg (Negative) 05/17/19 Unknown < 2.0 mg/dL (<2.0) 05/17/19 Unknown Ur Leukocyte Esterase Neg (Negative) 05/17/19 Unknown 2.0 /HPF (0.0-6.0) 05/17/19 Unknown 3.0 /HPF (0.0-6.0) 05/17/19 Unknown 1+ /HPF 05/17/19 Unknown Blood Type B POSITIVE 05/17/19 12:45 Antibody Screen Negative 05/17/19 12:45 Crossmatch See Detail 05/17/19 12:45 Active Medications - Current Medications Current Medications: Generic Name Dose Route Start Last Admin Trade Name Freq PRN Reason Stop Dose Admin Acetaminophen 650 mg 05/17/19 07:30 05/17/19 16:53 Tylenol IN 650 mg Q4H PRN Administration Non Cardiac Pain or Temp>100.5 Dextrose 50 ml 05/17/19 07:28 D50w (25gm) Syringe IV PRN PRN Hypoglycemia Fentanyl 50 mcg 05/21/19 19:56 Sublimaze IV Q10MIN PRN ANALGESIA Heparin Sodium (Porcine) 5,000 unit 05/22/19 14:00 Heparin SUB-Q Q8HR YURIY Hydralazine HCl 10 mg 05/19/19 20:10 05/22/19 08:21 Apresoline IV 10 mg Q4HR PRN Administration Blood Pressure Hydrochlorothiazide 12.5 mg 05/19/19 21:00 05/20/19 10:00 Hctz PO 12.5 mg QDAY YURIY Administration Hydromorphone HCl 2 mg 05/19/19 07:57 05/22/19 01:24 Dilaudid IV 2 mg Q3H PRN Administration Pain , Severe (7-10) Hydromorphone HCl 1 mg 05/19/19 07:58 05/20/19 11:52 Dilaudid IV 1 mg Q3H PRN Administration Pain, Moderate (4-6) Hydrophilic Ointment 1 applic 05/21/19 08:15 Vaseline Lip Therapy TP Q2HR PRN Dry Lips Amino Acids/Electrolytes/Dextrose 2,400 mls @ 100 mls/hr 05/21/19 20:00 05/21/19 20:12 Tpn Adult IV 05/22/19 19:59 100 mls/hr DAILY@2000 [facility] Administration Protocol Fentanyl Citrate 2,000 mcg in 100 mls @ 3.815 mls/hr 05/21/19 20:00 05/22/19 03:56 Fentanyl Drip Premix IV 2 mcg/kg/hr TITR YURIY 7.63 mls/hr Administration Protocol 1 MCG/KG/HR Potassium Chloride 20 meq in 100 mls @ 100 mls/hr 05/22/19 09:00 05/22/19 09:33 Kcl 20meq/100ml IV 05/22/19 10:59 100 mls/hr Q1H YURIY Administration Insulin Human Lispro 0 unit 05/17/19 12:00 05/22/19 06:06 Humalog SUB-Q 1 unit Q6HR [facility] Administration Protocol Labetalol HCl 10 mg 05/19/19 05:39 05/22/19 09:49 Normodyne IV 10 mg Q4HR PRN Administration Hypertension Labetalol HCl 10 mg 05/22/19 12:00 Normodyne IV Q6HR [facility] Lisinopril 20 mg 05/19/19 21:00 05/20/19 10:49 Zestril PO 20 mg QDAY [facility] Administration Multi-Ingred Cream/Lotion/Oil/Oint 1 applic 05/21/19 08:15 Artificial Tears Ophth Oint OU Q4HR PRN Dry Eye(s) Ondansetron HCl 4 mg 05/17/19 07:27 05/20/19 08:09 Zofran IV 4 mg Q4H PRN Administration Nausea And Vomiting Pantoprazole Sodium 40 mg 05/17/19 10:00 05/22/19 09:41 Protonix IV 40 mg QDAY YURIY Administration Phenol 1 spray 05/19/19 16:55 05/19/19 19:09 Chloraseptic MM 1 spray PRN PRN Administration Sore Throat Nutrition/Malnutrition Assess - Dietary Evaluation Nutrition/Malnutrition Findings: Nutrition Notes Start: 05/18/19 17:02 Freq: Status: Active Protocol: Document 05/21/19 15:12 RM (Rec: 05/21/19 15:27 RM [id number]) Nutrition Notes Initial or Follow up Reassessment Current Diagnosis Diabetes,Sepsis,Hypertension Other Pertinent Diagnosis colon mass with paritial SBO S /P exp lap, abdominal wound Current Diet NPO Labs/Tests Cl 95.2 P 2 Pertinent Medications Hydrochlorothiazide Height 5 ft 8 in Weight 76.3 kg [place] Body Weight (kg) 70.00 BMI 25.5 Subjective/Other Information PPN day 3. Percent of energy/protein needs met: 38%/100% Burn Absent Trauma Absent #2 Nutrition Diagnosis Inadequate oral intake Diagnosis Progress(for reassessment Continues documentation) Is patient on ventilator? No Is Patient Ambulatory and/or Out of Bed Yes REE-([facility]-ambulatory/OOB) [ [id number]] Calculation Used for Recommendations [facility] Additional Notes Protein needs are 92-115g (1.2 -1.5g/kg) Fluid needs are 1ml/kcal Nutrition Intervention Nutrition Support: PPN at 100 ml/hr: Cl:Acetate: 75:25, 30 mmol P, 250 ml 20% lipid Kcal 1,280 Protein (gm) 110 Carbohydrates (gm) 100 Fat (gm) 50 Fluid (mL) 2,650 Fiber (gm) 0 Goal #1 Meet at least 80% of kcal and protein needs via TPN Anticipated Discharge Needs: Unable to determine at this time Follow-Up By: 05/22/19 Additional Comments Follow for labs in AM: BMP, Mg , Phos
[2019-05-22] MEDS ORDERED: CATAPRES-TTS PATCH TD SCH (11:00)
[2019-05-22] MEDS: NORMODYNE IV SCH ×2 (12:21→17:29)
--- NOTE | 2019-05-22 12:43 | Progress Note ---
Assessment and Plan POD # 4 Pt extubated and feeling well. no compl. neg flatus. 260 cc clear serous drainage from EROS drain Abd soft, non tender. dressings dry path pending surgically stable IVP today to assess R ureter Selected Entries 05/22/19 05/22/19 05/22/19 08:00 09:00 12:21 Temperature 97.5 F L Pulse Rate 79 Respiratory 16 Rate Blood Pressure 191/87 Laboratory Tests 05/22/19 04:55 BUN 11 Creatinine 0.5 L Objective Vital Signs - 12hr 05/22/19 05/22/19 05/22/19 00:41 00:51 01:00 Temperature Pulse Rate 96 H 80 79 Respiratory 16 16 16 Rate Blood Pressure 165/70 170/77 164/78 O2 Sat by Pulse 100 100 100 Oximetry 05/22/19 05/22/19 05/22/19 01:11 01:21 01:30 Temperature Pulse Rate 72 90 90 Respiratory 16 16 16 Rate Blood Pressure 164/78 164/78 173/78 O2 Sat by Pulse 100 100 100 Oximetry 05/22/19 05/22/19 05/22/19 01:40 01:51 02:00 Temperature Pulse Rate 86 86 83 Respiratory 16 16 16 Rate Blood Pressure 173/78 173/78 181/80 O2 Sat by Pulse 100 100 100 Oximetry 05/22/19 05/22/19 05/22/19 02:11 02:21 02:30 Temperature Pulse Rate 80 76 79 Respiratory 16 16 16 Rate Blood Pressure 166/79 181/80 173/76 O2 Sat by Pulse 100 100 100 Oximetry 05/22/19 05/22/19 05/22/19 02:41 02:51 03:00 Temperature Pulse Rate 75 75 77 Respiratory 16 16 17 Rate Blood Pressure 173/76 173/76 172/78 O2 Sat by Pulse 100 100 100 Oximetry 05/22/19 05/22/19 05/22/19 03:01 03:11 03:21 Temperature Pulse Rate 73 72 77 Respiratory 16 16 Rate Blood Pressure 172/78 172/78 172/78 O2 Sat by Pulse 100 100 Oximetry 05/22/19 05/22/19 05/22/19 03:30 03:41 03:51 Temperature Pulse Rate 78 72 76 Respiratory 16 16 16 Rate Blood Pressure 170/76 170/76 170/76 O2 Sat by Pulse 100 100 100 Oximetry 0605/22/19 05/22/19 04:00 04:11 04:21 Temperature 98.8 F Pulse Rate 72 72 72 Respiratory 16 15 16 Rate Blood Pressure 170/76 165/75 165/75 O2 Sat by Pulse 100 100 100 Oximetry 05/22/19 05/22/19 05/22/19 04:26 04:30 04:41 Temperature Pulse Rate 73 74 84 Respiratory 16 15 Rate Blood Pressure 171/72 171/72 171/72 O2 Sat by Pulse 100 100 100 Oximetry 05/22/19 05/22/19 05/22/19 04:51 05:00 05:10 Temperature Pulse Rate 73 78 77 Respiratory 16 16 16 Rate Blood Pressure 171/72 170/83 170/83 O2 Sat by Pulse 99 99 99 Oximetry 05/22/19 05/22/19 05/22/19 05:21 05:30 05:41 Temperature Pulse Rate 79 81 84 Respiratory 16 16 16 Rate Blood Pressure 170/83 186/81 186/81 O2 Sat by Pulse 99 99 99 Oximetry 05/22/19 05/22/19 05/22/19 05:51 05:52 06:00 Temperature Pulse Rate 82 86 63 Respiratory 16 16 Rate Blood Pressure 186/81 186/81 186/81 O2 Sat by Pulse 99 100 Oximetry 05/22/19 05/22/19 05/22/19 06:11 06:21 07:00 Temperature Pulse Rate 61 63 65 Respiratory 16 16 17 Rate Blood Pressure 137/59 137/59 162/70 O2 Sat by Pulse 100 99 100 Oximetry 05/22/19 05/22/19 05/22/19 07:52 08:00 08:21 Temperature 97.5 F L Pulse Rate 63 76 74 Respiratory 16 16 Rate Blood Pressure 137/59 203/92 203/92 O2 Sat by Pulse 99 100 Oximetry 05/22/19 05/22/19 05/22/19 09:00 09:49 10:01 Temperature Pulse Rate 89 84 76 Respiratory 16 16 Rate Blood Pressure 191/87 176/84 161/78 O2 Sat by Pulse 99 98 Oximetry 05/22/19 05/22/19 05/22/19 10:25 12:18 12:21 Temperature Pulse Rate 83 79 Respiratory Rate Blood Pressure 196/99 196/99 O2 Sat by Pulse 98 Oximetry - Labs 05/21/19 04:51 05/22/19 04:55 Diabetes panel 05/21/19 05/22/19 Range/Units 11:17 04:55 Sodium 138 (137-145) mmol/L Potassium 3.0 L D (3.6-5.0) mmol/L Chloride 94.8 L (98-107) mmol/L Carbon Dioxide 33 H (22-30) mmol/L BUN 11 (9-20) mg/dL Creatinine 0.5 L (0.8-1.5) mg/dL Glucose 140 H (75-100) mg/dL Calcium 9.3 (8.4-10.2) mg/dL Triglycerides 116 (2-149) mg/dL HDL Cholesterol 21 L (40-59) mg/dL Calcium panel 05/22/19 Range/Units 04:55 Calcium 9.3 (8.4-10.2) mg/dL Phosphorus 2.80 D (2.5-4.5) mg/dL Pituitary panel 05/22/19 Range/Units 04:55 Sodium 138 (137-145) mmol/L Potassium 3.0 L D (3.6-5.0) mmol/L Chloride 94.8 L (98-107) mmol/L Carbon Dioxide 33 H (22-30) mmol/L BUN 11 (9-20) mg/dL Creatinine 0.5 L (0.8-1.5) mg/dL Glucose 140 H (75-100) mg/dL Calcium 9.3 (8.4-10.2) mg/dL Adrenal panel 05/22/19 Range/Units 04:55 Sodium 138 (137-145) mmol/L Potassium 3.0 L D (3.6-5.0) mmol/L Chloride 94.8 L (98-107) mmol/L Carbon Dioxide 33 H (22-30) mmol/L BUN 11 (9-20) mg/dL Creatinine 0.5 L (0.8-1.5) mg/dL Glucose 140 H (75-100) mg/dL Calcium 9.3 (8.4-10.2) mg/dL
[2019-05-22] MEDS ORDERED: HEPARIN SUB-Q SCH (14:00)
--- NOTE | 2019-05-22 15:05 | XRay Report ---
IVP WITHOUT TOMOGRAPHY History: Right ureteral disruption. Findings: A modified IVP was performed on an ICU patient. 100 cc of IV contrast was injected. Delayed KUBs at 5, 10 and 15 minutes were obtained. The images demonstrate adequate opacification of both renal collecting systems. There is no evidence for obstruction, filling defect or extravasation of contrast. The bladder is decompressed with a Soriano catheter. No fluoroscopic images were obtained. Impression: Unremarkable modified IVP. No evidence for right ureteral disruption.
[2019-05-22] MEDS: ZESTRIL PO SCH (17:29)
[2019-05-22] MEDS: HCTZ PO SCH (17:30)
[2019-05-22] MEDS ORDERED: TPN ADULT 2,400 ML IV SCH (20:00)
[2019-05-23] MEDS: NORMODYNE IV SCH ×6 (00:43→21:47)
[2019-05-23 05:50] LABS: BUN/Creatinine Ratio 22; Blood Urea Nitrogen 11 mg/dL (9-20); Calcium 9.3 mg/dL (8.4-10.2); Hemolysis Index 0
[2019-05-23] MEDS: HumaLOG SUB-Q SCH ×3 (06:45→18:29)
--- NOTE | 2019-05-23 08:22 | Progress Note ---
Assessment and Plan -Respiratory arrest s/p MVS -EKG changes on telemetry -Abdominal pains with Large bowel obstruction s/p ex lap -Suspected Colon mass 05/18/19 s/p Exploratory laparotomy, extensive right hemicolectomy with dissection through a tumor in the retroperitoneum. Colon cancer suspected -Sepsis due to Colitis, poa -Accelerated hypertension with Urgency -Hepatitis A and B -Microcytic anemia -DM type 2 -GERD -Hypokalemia -Wean FIO2 for O2 sats>90% -Aspiration precautions HOB >40 -Continue antibiotics -VTE prophylaxis -ABG prn, CXR prn -Bronchodilators per protocol -Continue NPO status, nutritional support with TPN -Accucchecks with glycemic control -Stress ulcer prophylaxis -Supportive transfusions per protocol -Replace potassium, keep at 4 and Magnesium at 2 to optimize respiratory muscle function -PT/OT, increase activity OK to transfer Surgical floor with telemetry Blood pressure control Discussed with RN/RT Updated his son at the bedside CONDITION: FAIR PROGNOSIS: FAIR CODE STATUS; FULL CODE Subjective Date of service: 05/23/19 Interval history: Patient is seen today for: acute hypoxemic respiraotry failure, s/p respiratory arrest, bowel obstruction, acute toxic-metabolic encephaloapthy Seen and examined at bedside; 24hour events reviewed; nursing and respiratory care staff consulted; no adverse overnight events reported to me; Blood pressure control remains challenging No fevers overnight, no vomiting.Extubated and is doing well Sitting up in a chair, at the side of the bed. Denies any chest pain, no shortness of breath, no abdominal pain, NGT to LIS Vitals, labs,medications, chart and imaging reviewed. Discussed in ICU-IDT rounds. Objective Reviewed Vital Signs - 12hr 05/22/19 05/22/19 05/22/19 20:45 21:01 22:00 Temperature Pulse Rate 100 H 90 89 Respiratory 13 15 Rate Blood Pressure 201/87 127/86 202/95 O2 Sat by Pulse 98 100 Oximetry 05/22/19 05/23/19 05/23/19 23:00 00:00 00:43 Temperature 98.8 F Pulse Rate 85 86 81 Respiratory 15 16 Rate Blood Pressure 199/84 200/88 185/79 O2 Sat by Pulse 100 100 Oximetry 05/23/19 05/23/19 05/23/19 01:00 02:00 03:01 Temperature Pulse Rate 75 87 80 Respiratory 17 24 18 Rate Blood Pressure 185/79 163/70 228/103 O2 Sat by Pulse 100 100 99 Oximetry 05/23/19 05/23/19 05/23/19 04:00 04:40 05:00 Temperature 98.4 F 98.9 F Pulse Rate 68 68 Respiratory 14 15 Rate Blood Pressure 126/65 167/77 O2 Sat by Pulse 100 100 Oximetry 05/23/19 06:53 Temperature Pulse Rate 71 Respiratory Rate Blood Pressure 187/86 O2 Sat by Pulse Oximetry Constitutional: no acute distress, other (awake and alert, obeying commands) Eyes: non-icteric ENT: oropharynx moist Neck: supple, no lymphadenopathy, no JVD Effort: normal Ascultation: Bilateral: diminished breath sounds Cardiovascular: regular rate and rhythm, other (S1,S2, no murmurs, gallops or rubs) Gastrointestinal: hypoactive bowel sounds, other (abdominal dressings midline, distended) Integumentary: normal Extremities: no cyanosis, no edema, pulses normal, no ischemia or petechiae Neurologic: normal mental status, non-focal exam, pupils equal and round, CN II- XII normal, motor strength normal and Psychiatric: mood appropriate, affect normal CBC and BMP: 05/21/19 04:51 05/24/19 06:10 ABG, PT/INR, D-dimer: ABG POC ABG pH 7.426 (7.35-7.45) 05/22/19 04:42 POC ABG pCO2 54.2 (35-45) H 05/22/19 04:42 POC ABG pO2 139 (80-105) H 05/22/19 04:42 POC ABG HCO3 35.6 (22-26 mml/L) 05/22/19 04:42 POC ABG Total CO2 37 (23-27mmol/L) 05/22/19 04:42 POC ABG O2 Sat 99 05/22/19 04:42 PT/INR, D-dimer PT 16.2 Sec. (12.2-14.9) H 05/18/19 07:22 INR 1.34 (0.87-1.13) H 05/18/19 07:22 Abnormal lab findings: Abnormal Labs 05/17/19 05/17/19 05/17/19 03:19 03:19 11:28 WBC 11.2 H RBC 3.61 L Hgb 7.9 L Hct 25.5 L MCV 71 L MCH 22 L MCHC 31 L RDW 24.9 H Lymph % (Auto) [place] % (Auto) 11.9 H Lymph # [place] # 1.3 H Seg Neutrophils % 72.5 H Seg Neuts % (Manual) Lymphocytes % (Manual) Seg Neutrophils # 8.1 H Lymphocytes # (Manual) PT INR POC ABG pH POC ABG pCO2 POC ABG pO2 Potassium 5.1 H Chloride Carbon Dioxide BUN Creatinine Glucose 140 H POC Glucose Calcium Phosphorus ALT 5 L CK-MB (CK-2) CK-MB (CK-2) Rel Index Troponin T Albumin 3.3 L HDL Cholesterol Carcinoembryonic Ag 4.5 H Crossmatch 05/17/19 05/17/19 05/18/19 12:45 14:13 07:22 WBC 12.9 H RBC Hgb 10.2 L Hct 32.9 L D MCV 76 L MCH 24 L MCHC 31 L RDW 23.9 H Lymph % (Auto) [place] % (Auto) Lymph # [place] # Seg Neutrophils % Seg Neuts % (Manual) Lymphocytes % (Manual) Seg Neutrophils # Lymphocytes # (Manual) PT INR POC ABG pH POC ABG pCO2 POC ABG pO2 Potassium Chloride Carbon Dioxide BUN Creatinine Glucose POC Glucose 159 H Calcium Phosphorus ALT CK-MB (CK-2) CK-MB (CK-2) Rel Index Troponin T Albumin HDL Cholesterol Carcinoembryonic Ag Crossmatch See Detail 05/18/19 05/18/19 05/19/19 07:22 07:22 02:26 WBC RBC Hgb Hct MCV MCH MCHC RDW Lymph % (Auto) [place] % (Auto) Lymph # [place] # Seg Neutrophils % Seg Neuts % (Manual) Lymphocytes % (Manual) Seg Neutrophils # Lymphocytes # (Manual) PT 16.2 H INR 1.34 H POC ABG pH POC ABG pCO2 POC ABG pO2 Potassium Chloride 97.8 L Carbon Dioxide BUN Creatinine Glucose POC Glucose 121 H Calcium Phosphorus ALT CK-MB (CK-2) CK-MB (CK-2) Rel Index Troponin T Albumin HDL Cholesterol Carcinoembryonic Ag Crossmatch 05/19/19 05/19/19 05/19/19 07:58 07:58 19:08 WBC RBC Hgb 10.1 L Hct 32.4 L MCV 75 L MCH 23 L MCHC 31 L RDW 24.4 H Lymph % (Auto) 8.2 L [place] % (Auto) 9.7 H Lymph # 0.9 L [place] # 1.1 H Seg Neutrophils % 82.0 H Seg Neuts % (Manual) Lymphocytes % (Manual) Seg Neutrophils # 9.0 H Lymphocytes # (Manual) PT INR POC ABG pH POC ABG pCO2 POC ABG pO2 Potassium 5.2 H Chloride Carbon Dioxide BUN Creatinine Glucose 133 H POC Glucose 116 H Calcium 8.3 L Phosphorus ALT CK-MB (CK-2) CK-MB (CK-2) Rel Index Troponin T Albumin 2.7 L HDL Cholesterol Carcinoembryonic Ag Crossmatch 05/19/19 05/20/19 05/20/19 23:12 05:41 05:41 WBC RBC Hgb 10.1 L Hct 31.9 L MCV 74 L MCH 24 L MCHC RDW 25.2 H Lymph % (Auto) [place] % (Auto) Lymph # [place] # Seg Neutrophils % Seg Neuts % (Manual) 84.0 H Lymphocytes % (Manual) 10.0 L Seg Neutrophils # Lymphocytes # (Manual) 0.9 L PT INR POC ABG pH POC ABG pCO2 POC ABG pO2 Potassium Chloride Carbon Dioxide BUN 8 L Creatinine 0.6 L Glucose 148 H POC Glucose 122 H Calcium Phosphorus 1.90 L D ALT CK-MB (CK-2) CK-MB (CK-2) Rel Index Troponin T Albumin HDL Cholesterol Carcinoembryonic Ag Crossmatch 05/20/19 05/20/19 05/20/19 05:57 12:16 18:50 WBC RBC Hgb Hct MCV MCH MCHC RDW Lymph % (Auto) [place] % (Auto) Lymph # [place] # Seg Neutrophils % Seg Neuts % (Manual) Lymphocytes % (Manual) Seg Neutrophils # Lymphocytes # (Manual) PT INR POC ABG pH POC ABG pCO2 POC ABG pO2 Potassium Chloride Carbon Dioxide BUN Creatinine Glucose POC Glucose 151 H 149 H 170 H Calcium Phosphorus ALT CK-MB (CK-2) CK-MB (CK-2) Rel Index Troponin T Albumin HDL Cholesterol Carcinoembryonic Ag Crossmatch 05/20/19 05/21/19 05/21/19 23:19 04:51 04:51 WBC RBC Hgb 9.6 L Hct 31.0 L MCV 74 L MCH 23 L MCHC 31 L RDW 25.5 H Lymph % (Auto) [place] % (Auto) Lymph # [place] # Seg Neutrophils % Seg Neuts % (Manual) Lymphocytes % (Manual) Seg Neutrophils # Lymphocytes # (Manual) PT INR POC ABG pH POC ABG pCO2 POC ABG pO2 Potassium Chloride 95.2 L Carbon Dioxide 35 H BUN Creatinine 0.6 L Glucose 161 H POC Glucose 145 H Calcium Phosphorus 2.00 L ALT CK-MB (CK-2) CK-MB (CK-2) Rel Index Troponin T Albumin HDL Cholesterol Carcinoembryonic Ag Crossmatch 05/21/19 05/21/19 05/21/19 04:51 05:42 07:49 WBC RBC Hgb Hct MCV MCH MCHC RDW Lymph % (Auto) [place] % (Auto) Lymph # [place] # Seg Neutrophils % Seg Neuts % (Manual) Lymphocytes % (Manual) Seg Neutrophils # Lymphocytes # (Manual) PT INR POC ABG pH POC ABG pCO2 POC ABG pO2 Potassium Chloride Carbon Dioxide BUN Creatinine Glucose POC Glucose 176 H 199 H Calcium Phosphorus ALT CK-MB (CK-2) 5.7 H CK-MB (CK-2) Rel Index 4.3 H Troponin T Albumin HDL Cholesterol Carcinoembryonic Ag Crossmatch 05/21/19 05/21/19 05/21/19 10:38 11:17 17:58 WBC RBC Hgb Hct MCV MCH MCHC RDW Lymph % (Auto) [place] % (Auto) Lymph # [place] # Seg Neutrophils % Seg Neuts % (Manual) Lymphocytes % (Manual) Seg Neutrophils # Lymphocytes # (Manual) PT INR POC ABG pH 7.498 H POC ABG pCO2 POC ABG pO2 230 H Potassium Chloride Carbon Dioxide BUN Creatinine Glucose POC Glucose Calcium Phosphorus ALT CK-MB (CK-2) CK-MB (CK-2) Rel Index Troponin T 0.191 H* 0.133 H* D Albumin HDL Cholesterol 21 L Carcinoembryonic Ag Crossmatch 05/22/19 05/22/19 05/22/19 00:04 04:42 04:55 WBC RBC Hgb Hct MCV MCH MCHC RDW Lymph % (Auto) [place] % (Auto) Lymph # [place] # Seg Neutrophils % Seg Neuts % (Manual) Lymphocytes % (Manual) Seg Neutrophils # Lymphocytes # (Manual) PT INR POC ABG pH POC ABG pCO2 54.2 H POC ABG pO2 139 H Potassium 3.0 L D Chloride 94.8 L Carbon Dioxide 33 H BUN Creatinine 0.5 L Glucose 140 H POC Glucose 155 H Calcium Phosphorus ALT CK-MB (CK-2) CK-MB (CK-2) Rel Index Troponin T Albumin HDL Cholesterol Carcinoembryonic Ag Crossmatch 05/22/19 05/22/19 05/22/19 05:49 13:03 17:27 WBC RBC Hgb Hct MCV MCH MCHC RDW Lymph % (Auto) [place] % (Auto) Lymph # [place] # Seg Neutrophils % Seg Neuts % (Manual) Lymphocytes % (Manual) Seg Neutrophils # Lymphocytes # (Manual) PT INR POC ABG pH POC ABG pCO2 POC ABG pO2 Potassium Chloride Carbon Dioxide BUN Creatinine Glucose POC Glucose 162 H 152 H 137 H Calcium Phosphorus ALT CK-MB (CK-2) CK-MB (CK-2) Rel Index Troponin T Albumin HDL Cholesterol Carcinoembryonic Ag Crossmatch 05/23/19 05/23/19 05/23/19 00:43 03:16 04:21 WBC RBC Hgb Hct MCV MCH MCHC RDW Lymph % (Auto) [place] % (Auto) Lymph # [place] # Seg Neutrophils % Seg Neuts % (Manual) Lymphocytes % (Manual) Seg Neutrophils # Lymphocytes # (Manual) PT INR POC ABG pH POC ABG pCO2 POC ABG pO2 Potassium 3.5 L Chloride 96.5 L Carbon Dioxide 33 H BUN Creatinine 0.5 L Glucose 130 H POC Glucose 141 H 140 H Calcium Phosphorus ALT CK-MB (CK-2) CK-MB (CK-2) Rel Index Troponin T Albumin HDL Cholesterol Carcinoembryonic Ag Crossmatch 05/23/19 06:01 WBC RBC Hgb Hct MCV MCH MCHC RDW Lymph % (Auto) [place] % (Auto) Lymph # [place] # Seg Neutrophils % Seg Neuts % (Manual) Lymphocytes % (Manual) Seg Neutrophils # Lymphocytes # (Manual) PT INR POC ABG pH POC ABG pCO2 POC ABG pO2 Potassium Chloride Carbon Dioxide BUN Creatinine Glucose POC Glucose 135 H Calcium Phosphorus ALT CK-MB (CK-2) CK-MB (CK-2) Rel Index Troponin T Albumin HDL Cholesterol Carcinoembryonic Ag Crossmatch Chest x-ray: image reviewed Allied health notes reviewed: nursing
[2019-05-23] MEDS: HCTZ PO SCH (09:10)
[2019-05-23] MEDS: ZESTRIL PO SCH (09:11)
[2019-05-23] MEDS ORDERED: CATAPRES-TTS PATCH TD ONE (09:30)
[2019-05-23] MEDS: NORMODYNE IV PRN (09:34)
[2019-05-23] MEDS: PROTONIX IV SCH (09:36)
[2019-05-23] MEDS: DILAUDID IV PRN ×2 (10:04→20:02)
--- NOTE | 2019-05-23 11:14 | Progress Note ---
Assessment and Plan POD # 5 Pt feeling well. sitting up in chair watching TV Abd soft. hypoactive BS extensive poorly diff CA extending thru all layers. + LN IVP - R ureter intact surgically stable continue present care possible d/c of ng in am if + flatus will need onc eval Dr. Deleon covering me thru Tuesday Selected Entries 05/23/19 05/23/19 08:00 10:12 Temperature 98.7 F Pulse Rate 82 Blood Pressure 187/87 Laboratory Tests 05/23/19 04:21 Potassium 3.5 L Objective Vital Signs - 12hr 05/23/19 05/23/19 05/23/19 00:00 00:43 01:00 Temperature 98.8 F Pulse Rate 86 81 75 Respiratory 16 17 Rate Blood Pressure 200/88 185/79 185/79 O2 Sat by Pulse 100 100 Oximetry 05/23/19 05/23/19 05/23/19 02:00 03:01 04:00 Temperature 98.4 F Pulse Rate 87 80 68 Respiratory 24 18 14 Rate Blood Pressure 163/70 228/103 126/65 O2 Sat by Pulse 100 99 100 Oximetry 05/23/19 05/23/19 05/23/19 04:40 05:00 06:00 Temperature 98.9 F Pulse Rate 68 69 Respiratory 15 17 Rate Blood Pressure 167/77 205/82 O2 Sat by Pulse 100 100 Oximetry 05/23/19 05/23/19 05/23/19 06:53 07:01 08:00 Temperature 98.7 F Pulse Rate 71 72 67 Respiratory 18 15 Rate Blood Pressure 187/86 187/86 181/69 O2 Sat by Pulse 100 100 Oximetry 05/23/19 05/23/19 09:37 10:12 Temperature Pulse Rate 83 82 Respiratory Rate Blood Pressure 187/87 187/87 O2 Sat by Pulse Oximetry - Labs 05/21/19 04:51 05/23/19 04:21 Diabetes panel 05/23/19 Range/Units 04:21 Sodium 140 (137-145) mmol/L Potassium 3.5 L (3.6-5.0) mmol/L Chloride 96.5 L (98-107) mmol/L Carbon Dioxide 33 H (22-30) mmol/L BUN 11 (9-20) mg/dL Creatinine 0.5 L (0.8-1.5) mg/dL Glucose 130 H (75-100) mg/dL Calcium 9.3 (8.4-10.2) mg/dL Calcium panel 05/23/19 Range/Units 04:21 Calcium 9.3 (8.4-10.2) mg/dL Phosphorus 3.60 D (2.5-4.5) mg/dL Pituitary panel 05/23/19 Range/Units 04:21 Sodium 140 (137-145) mmol/L Potassium 3.5 L (3.6-5.0) mmol/L Chloride 96.5 L (98-107) mmol/L Carbon Dioxide 33 H (22-30) mmol/L BUN 11 (9-20) mg/dL Creatinine 0.5 L (0.8-1.5) mg/dL Glucose 130 H (75-100) mg/dL Calcium 9.3 (8.4-10.2) mg/dL Adrenal panel 05/23/19 Range/Units 04:21 Sodium 140 (137-145) mmol/L Potassium 3.5 L (3.6-5.0) mmol/L Chloride 96.5 L (98-107) mmol/L Carbon Dioxide 33 H (22-30) mmol/L BUN 11 (9-20) mg/dL Creatinine 0.5 L (0.8-1.5) mg/dL Glucose 130 H (75-100) mg/dL Calcium 9.3 (8.4-10.2) mg/dL
--- NOTE | 2019-05-23 14:42 | Progress Note ---
Assessment and Plan Assessment and plan: Patient is a 53 yo man with a history of hypertension, DM type 2, GERD, Anemia and Dyslipidemia who presented to [facility] ED with severe abdominal pains. He saw his PCP about 2 weeks ago and brings his outside lab showing reactivity to hepatitis A and B, and elevated CRP level of greater than 90 and a high cancer antigen marker. In ED he was found to have temp of 100.6F HR 101, WBC 11.2, hgb 7.9 with MCV 71, normal plt and potassium of 5.1 with normal Cr of 1.0. * CT abd/pelvis with contrast IMPRESSION: Diffuse irregular mucosal thickening in the ascending colon extending from the level of the ileocecal valve and extending 7.1 cm cephalocaudally. There is associated pericolonic stranding and adjacent mildly enlarged lymph nodes. The finding is suspicious for a malignancy rather than a colitis. Endoscopic evaluation is strongly recommended. Mild to moderate distention of ileal bowel loops with air-fluid levels suggesting partial mechanical small bowel obstruction most likely related to this lesion. Low density foci in both hepatic lobes with measurements as described. These may represent small cysts. Adenocarcinoma may also present with cystic metastases. Ultrasound of the liver is recommen ded for follow-up confirmation. Pericolonic stranding in the right perinephric space without abnormal nephrogram or hydronephrosis. This may be related to the inflammatory process in the ascending colon. Pyelonephritis would be a less likely consideration. Appendix not definitely identified. Trace free fluid in the pelvis. Bilateral small inguinal hernias containing omental fat * 2v ABD Xray IMPRESSION: Multiple small air-fluid levels with mild distention of small bowel loops. Partial mechanical small bowel obstruction cannot entirely be excluded.. * 05/21/19-Patient transferred to ICU secondary unresponsiveness and unable to maintain airway requiring intubation * 05/22- extubated Acute Respirotry failure: secondary to narcotics, now extubated. Can transfer to surgical floor Acute Metabolic Encephalopathy: Presumed secondary to narcotics, improving Abdominal pains with Large bowel obstruction s/p ex lap: treated with bowel rest, Judicious iv pain meds, Gen. Surgery following. 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 Colon cancer suspected: Pathology shows extensive poorly diff CA extending thru all layers. + LN Consult die welder Sepsis due to Colitis, poa: treat with IV abx and IVF, prn tylenol for fevers, get blood cultures, CXR, EKG baseline Accelerated hypertension with Urgency: treat with iv antihypertensives Hyperkalemia, mild: supportive care, monitor levels closely Hepatitis A and B per outside lab: GI was consulted Microcytic anemia: GI was consulted DM type 2: ssi for now GERD: iv ppi DVT prophylaxis: sq heparin full code TPN started R Ureter intact ON IVP DONE History Interval history: Patient seen and examined today, resting comfortable, was extubated yesterday, still no BM today. Pain much improved, rates it a 3/10 in intensity Hospitalist Physical - Physical exam Narrative exam: Gen: WDWN, NAD, Awake, Alert, s HEENT: NCAT, EOMI, PERRL, OP Clear Neck: supple, no adenopathy, no thyromegaly, no JVD CVS/Heart: reg tachy, normal S1S2, pulses present bilaterally Chest/Lungs: CTA B, Symmetrical chest expansion, good air entry bilaterally GI/Abdomen: soft, diffuse tenderness Hypoactive but positive bowel sounds, dressing noted , no guarding or rebound, drain in place /Bladder: no suprapubic tenderness, no CVA or paraspinal tenderness Extermity/Skin: no c/c/e, no obvious rash MSK: FROM x 4 Neuro: CN 2-12 grossly intact, no new focal deficits Psych: calm - Constitutional Vitals: Temp Pulse Resp BP Pulse Ox 98.7 F 76 15 169/96 100 05/23/19 08:00 05/23/19 13:23 05/23/19 12:00 05/23/19 13:23 05/23/19 12:00 General appearance: Present: other (intubated on the vent) Results - Labs CBC & Chem 7: 05/21/19 04:51 05/23/19 04:21 Labs: Laboratory Last Values WBC 10.0 K/mm3 (4.5-11.0) 05/21/19 04:51 RBC 4.16 M/mm3 (3.65-5.03) 05/21/19 04:51 Hgb 9.6 gm/dl (11.8-15.2) L 05/21/19 04:51 Hct 31.0 % (35.5-45.6) L 05/21/19 04:51 MCV 74 fl (84-94) L 05/21/19 04:51 MCH 23 pg (28-32) L 05/21/19 04:51 MCHC 31 % (32-34) L 05/21/19 04:51 RDW 25.5 % (13.2-15.2) H 05/21/19 04:51 Plt Count 369 K/mm3 (140-440) 05/21/19 04:51 Lymph % (Auto) Senior Java Web Developer 05/20/19 05:41 [place] % (Auto) Senior Java Web Developer 05/20/19 05:41 Eos % (Auto) Senior Java Web Developer 05/20/19 05:41 Baso % (Auto) Senior Java Web Developer 05/20/19 05:41 Lymph # Senior Java Web Developer 05/20/19 05:41 [place] # Senior Java Web Developer 05/20/19 05:41 Eos # Senior Java Web Developer 05/20/19 05:41 Baso # Senior Java Web Developer 05/20/19 05:41 Add Manual Diff Complete 05/20/19 05:41 Total Counted 100 05/20/19 05:41 Seg Neutrophils % Senior Java Web Developer 05/20/19 05:41 Seg Neuts % (Manual) 84.0 % (40.0-70.0) H 05/20/19 05:41 0 % 05/20/19 05:41 10.0 % (13.4-35.0) L 05/20/19 05:41 Reactive Lymphs % (Man) 0 % 05/20/19 05:41 6.0 % (0.0-7.3) 05/20/19 05:41 0 % (0.0-4.3) 05/20/19 05:41 0 % (0.0-1.8) 05/20/19 05:41 0 % 05/20/19 05:41 0 % 05/20/19 05:41 0 % 05/20/19 05:41 0 % 05/20/19 05:41 Nucleated RBC % Not Reportable 05/20/19 05:41 Seg Neutrophils # Senior Java Web Developer 05/20/19 05:41 Seg Neutrophils # Man 7.3 K/mm3 (1.8-7.7) 05/20/19 05:41 Band Neutrophils # 0.0 K/mm3 05/20/19 05:41 0.9 K/mm3 (1.2-5.4) L 05/20/19 05:41 Abs React Lymphs (Man) 0.0 K/mm3 05/20/19 05:41 0.5 K/mm3 (0.0-0.8) 05/20/19 05:41 0.0 K/mm3 (0.0-0.4) 05/20/19 05:41 0.0 K/mm3 (0.0-0.1) 05/20/19 05:41 0.0 K/mm3 05/20/19 05:41 0.0 K/mm3 05/20/19 05:41 0.0 K/mm3 05/20/19 05:41 Blast Cells # 0.0 K/mm3 05/20/19 05:41 WBC Morphology Not Reportable 05/20/19 05:41 WBC Morphology TNR 05/20/19 05:41 Hypersegmented Neuts Not Reportable 05/20/19 05:41 Hyposegmented Neuts Not Reportable 05/20/19 05:41 Hypogranular Neuts Not Reportable 05/20/19 05:41 Not Reportable 05/20/19 05:41 Not Reportable 05/20/19 05:41 Not Reportable 05/20/19 05:41 Not Reportable 05/20/19 05:41 Not Reportable 05/20/19 05:41 Not Reportable 05/20/19 05:41 Consistent w auto 05/20/19 05:41 Not Reportable 05/20/19 05:41 Plt Clumps, EDTA Not Reportable 05/20/19 05:41 Not Reportable 05/20/19 05:41 Not Reportable 05/20/19 05:41 Not Reportable 05/20/19 05:41 Plt Morphology Comment Not Reportable 05/20/19 05:41 RBC Morphology Not Reportable 05/20/19 05:41 Dimorphic RBCs Not Reportable 05/20/19 05:41 Not Reportable 05/20/19 05:41 1+ 05/20/19 05:41 Few 05/20/19 05:41 1+ 05/20/19 05:41 1+ 05/20/19 05:41 Not Reportable 05/20/19 05:41 Not Reportable 05/20/19 05:41 Not Reportable 05/20/19 05:41 Not Reportable 05/20/19 05:41 Not Reportable 05/20/19 05:41 Not Reportable 05/20/19 05:41 Few 05/20/19 05:41 Not Reportable 05/20/19 05:41 Not Reportable 05/20/19 05:41 Not Reportable 05/20/19 05:41 Not Reportable 05/20/19 05:41 Not Reportable 05/20/19 05:41 Not Reportable 05/20/19 05:41 Few 05/20/19 05:41 Acanthocytes (Spur) Not Reportable 05/20/19 05:41 Rouleaux Not Reportable 05/20/19 05:41 Not Reportable 05/20/19 05:41 Not Reportable 05/20/19 05:41 Not Reportable 05/20/19 05:41 Not Reportable 05/20/19 05:41 Hem Pathologist Commnt No 05/20/19 05:41 PT 16.2 Sec. (12.2-14.9) H 05/18/19 07:22 INR 1.34 (0.87-1.13) H 05/18/19 07:22 APTT 36.6 Sec. (24.2-36.6) 05/18/19 07:22 POC ABG pH 7.426 (7.35-7.45) 05/22/19 04:42 POC ABG pCO2 54.2 (35-45) H 05/22/19 04:42 POC ABG pO2 139 (80-105) H 05/22/19 04:42 POC ABG HCO3 35.6 (22-26 mml/L) 05/22/19 04:42 POC ABG Total CO2 37 (23-27mmol/L) 05/22/19 04:42 POC ABG O2 Sat 99 05/22/19 04:42 POC ABG Base Excess 11 ((-2) - (+3)mmol/L) 05/22/19 04:42 40 % 05/22/19 04:42 Sodium 140 mmol/L (137-145) 05/23/19 04:21 Potassium 3.5 mmol/L (3.6-5.0) L 05/23/19 04:21 Chloride 96.5 mmol/L (98-107) L 05/23/19 04:21 Carbon Dioxide 33 mmol/L (22-30) H 05/23/19 04:21 14 mmol/L 05/23/19 04:21 BUN 11 mg/dL (9-20) 05/23/19 04:21 0.5 mg/dL (0.8-1.5) L 05/23/19 04:21 Estimated GFR > 60 ml/min 05/23/19 04:21 22 % 05/23/19 04:21 Glucose 130 mg/dL (75-100) H 05/23/19 04:21 POC Glucose 135 (70-105) H 05/23/19 06:01 Calcium 9.3 mg/dL (8.4-10.2) 05/23/19 04:21 Phosphorus 3.60 mg/dL (2.5-4.5) D 05/23/19 04:21 Magnesium 1.90 mg/dL (1.7-2.3) 05/23/19 04:21 0.40 mg/dL (0.1-1.2) 05/19/19 07:58 AST 12 units/L (5-40) 05/19/19 07:58 ALT 7 units/L (7-56) 05/19/19 07:58 62 units/L (35-129) 05/19/19 07:58 132 units/L (55-170) 05/21/19 04:51 CK-MB (CK-2) 5.7 ng/mL (0.0-4.0) H 05/21/19 04:51 CK-MB (CK-2) Rel Index 4.3 (0-4) H 05/21/19 04:51 0.133 ng/mL (0.00-0.029) H* D 05/21/19 17:58 6.6 g/dL (6.3-8.2) 05/19/19 07:58 2.7 g/dL (3.9-5) L 05/19/19 07:58 0.7 % 05/19/19 07:58 Triglycerides 116 mg/dL (2-149) 05/21/19 11:17 Cholesterol 131 mg/dL (50-199) 05/21/19 11:17 89 mg/dL (50-130) 05/21/19 11:17 21 mg/dL (40-59) L 05/21/19 11:17 6.23 % 05/21/19 11:17 28 units/L (13-60) 05/17/19 03:52 Carcinoembryonic Ag 4.5 ng/mL (0.0-2.4) H 05/17/19 11:28 Yellow (Yellow) 05/17/19 Unknown Clear (Clear) 05/17/19 Unknown 5.0 (5.0-7.0) 05/17/19 Unknown Ur Specific [place] 1.021 (1.003-1.030) 05/17/19 Unknown <15 mg/dl mg/dL (Negative) 05/17/19 Unknown Neg mg/dL (Negative) 05/17/19 Unknown Neg mg/dL (Negative) 05/17/19 Unknown Neg (Negative) 05/17/19 Unknown Neg (Negative) 05/17/19 Unknown Neg (Negative) 05/17/19 Unknown < 2.0 mg/dL (<2.0) 05/17/19 Unknown Ur Leukocyte Esterase Neg (Negative) 05/17/19 Unknown 2.0 /HPF (0.0-6.0) 05/17/19 Unknown 3.0 /HPF (0.0-6.0) 05/17/19 Unknown 1+ /HPF 05/17/19 Unknown Blood Type B POSITIVE 05/17/19 12:45 Antibody Screen Negative 05/17/19 12:45 Crossmatch See Detail 05/17/19 12:45 Active Medications - Current Medications Current Medications: Generic Name Dose Route Start Last Admin Trade Name Noris PRN Reason Stop Dose Admin Acetaminophen 650 mg 05/17/19 07:30 05/17/19 16:53 Tylenol MN 650 mg Q4H PRN Administration Non Cardiac Pain or Temp>100.5 Clonidine HCl 0.2 mg 05/30/19 10:00 Catapres-Tts Patch TD We YURIY Dextrose 50 ml 05/17/19 07:28 D50w (25gm) Syringe IV PRN PRN Hypoglycemia Hydralazine HCl 10 mg 05/19/19 20:10 05/22/19 18:05 Apresoline IV 10 mg Q4HR PRN Administration Blood Pressure Hydrochlorothiazide 12.5 mg 05/19/19 21:00 05/23/19 09:10 Hctz PO Not Given [facility] Hydromorphone HCl 1 mg 05/19/19 07:58 05/23/19 10:04 Dilaudid IV 1 mg Q3H PRN Administration Pain, Moderate (4-6) Hydrophilic Ointment 1 applic 05/21/19 08:15 Vaseline Lip Therapy TP Q2HR PRN Dry Lips Amino Acids/Electrolytes/Dextrose 2,400 mls @ 100 mls/hr 05/22/19 20:00 05/22/19 20:39 Tpn Adult IV 05/23/19 19:59 100 mls/hr DAILY@1999 [facility] Administration Protocol Amino Acids/Electrolytes/Dextrose 2,400 mls @ 100 mls/hr 05/23/19 20:00 Tpn Adult IV 05/24/19 19:59 DAILY@1999 [facility] Protocol Insulin Human Lispro 0 unit 05/17/19 12:00 05/23/19 13:00 Humalog SUB-Q 1 unit Q6HR [facility] Administration Protocol Labetalol HCl 10 mg 05/19/19 05:39 05/22/19 20:45 Normodyne IV 10 mg Q4HR PRN Administration Hypertension Labetalol HCl 20 mg 05/23/19 10:00 05/23/19 13:23 Normodyne IV 20 mg Q4HR [facility] Administration Lisinopril 20 mg 05/19/19 21:00 05/23/19 09:11 Zestril PO Not Given [facility] Multi-Ingred Cream/Lotion/Oil/Oint 1 applic 05/21/19 08:15 Artificial Tears Ophth Oint OU Q4HR PRN Dry Eye(s) Ondansetron HCl 4 mg 05/17/19 07:27 05/20/19 08:09 Zofran IV 4 mg Q4H PRN Administration Nausea And Vomiting Pantoprazole Sodium 40 mg 05/17/19 10:00 05/23/19 09:36 Protonix IV 40 mg [facility] Administration Phenol 1 spray 05/19/19 16:55 05/19/19 19:09 Chloraseptic MM 1 spray PRN PRN Administration Sore Throat Nutrition/Malnutrition Assess - Dietary Evaluation Nutrition/Malnutrition Findings: Nutrition Notes Start: 05/18/19 17:02 Freq: Status: Active Protocol: Document 05/23/19 12:19 SIMÓN (Rec: 05/23/19 12:23 NHALL [email or web address]) Nutrition Notes Initial or Follow up Reassessment Other Pertinent Diagnosis colon mass with paritial SBO S /P exp lap, abdominal wound Current Diet PPN at 100ml/hr Labs/Tests K 3.5 Cl 96.5 CO2 - 33 Pertinent Medications Reviewed Height 5 ft 8 in Weight 75.4 kg [place] Body Weight (kg) 70.00 BMI 25.2 Subjective/Other Information Day 5 PPN. Pt extubated yesterday. OOB to chair at time of visit (11:27). NGT to LIS. Percent of energy/protein needs met: 38%/100% Burn Absent Trauma Absent #2 Nutrition Diagnosis Inadequate oral intake Diagnosis Progress(for reassessment Continues documentation) Is patient on ventilator? No Is Patient Ambulatory and/or Out of Bed Yes REE-([facility]-ambulatory/OOB) [ 2038.050 [id number]] Calculation Used for Recommendations [facility] Additional Notes Protein needs are 90-151g (1.2 -2g/kg) Fluid needs are 1ml/kcal Nutrition Intervention Nutrition Support: Continue PPN at 100ml/hr: MVI. Osmolality: 835. Kcal 780 Protein (gm) 110 Carbohydrates (gm) 100 Fat (gm) 0 Fluid (mL) 2,400 Fiber (gm) 0 Goal #1 PN to meet nutrient needs as best possible Follow-Up By: 05/24/19 Additional Comments Labs in am: BMP, Mg, Phos - Attestation Statement I have reviewed and agreed w/ Malnutrition eval & tx plan: Yes
[2019-05-23] MEDS ORDERED: TPN ADULT 2,400 ML IV SCH (20:00)
[2019-05-23] MEDS: APRESOLINE IV PRN (20:01)
[2019-05-24] MEDS: HumaLOG SUB-Q SCH ×4 (01:13→18:30)
[2019-05-24] MEDS: APRESOLINE IV PRN ×2 (02:06→06:00)
[2019-05-24] MEDS: NORMODYNE IV SCH ×6 (02:07→22:58)
[2019-05-24] MEDS: DILAUDID IV PRN ×4 (05:59→22:57)
[2019-05-24 06:55] LABS: BUN/Creatinine Ratio 24; Blood Urea Nitrogen 12 mg/dL (9-20); Calcium 9.1 mg/dL (8.4-10.2); Hemolysis Index 0
--- NOTE | 2019-05-24 08:42 | Progress Note ---
Assessment and Plan Assessment and plan: Patient is a 53 yo man with a history of hypertension, DM type 2, GERD, Anemia and Dyslipidemia who presented to [facility] ED with severe abdominal pains. He saw his PCP about 2 weeks ago and brings his outside lab showing reactivity to hepatitis A and B, and elevated CRP level of greater than 90 and a high cancer antigen marker. In ED he was found to have temp of 100.6F HR 101, WBC 11.2, hgb 7.9 with MCV 71, normal plt and potassium of 5.1 with normal Cr of 1.0. * CT abd/pelvis with contrast IMPRESSION: Diffuse irregular mucosal thickening in the ascending colon extending from the level of the ileocecal valve and extending 7.1 cm cephalocaudally. There is associated pericolonic stranding and adjacent mildly enlarged lymph nodes. The finding is suspicious for a malignancy rather than a colitis. Endoscopic evaluation is strongly recommended. Mild to moderate distention of ileal bowel loops with air-fluid levels suggesting partial mechanical small bowel obstruction most likely related to this lesion. Low density foci in both hepatic lobes with measurements as described. These may represent small cysts. Adenocarcinoma may also present with cystic metastases. Ultrasound of the liver is recommen ded for follow-up confirmation. Pericolonic stranding in the right perinephric space without abnormal nephrogram or hydronephrosis. This may be related to the inflammatory process in the ascending colon. Pyelonephritis would be a less likely consideration. Appendix not definitely identified. Trace free fluid in the pelvis. Bilateral small inguinal hernias containing omental fat * 2v ABD Xray IMPRESSION: Multiple small air-fluid levels with mild distention of small bowel loops. Partial mechanical small bowel obstruction cannot entirely be excluded.. * 05/21/19-Patient transferred to ICU secondary unresponsiveness and unable to maintain airway requiring intubation * 05/22- extubated Acute Respirotry failure: resolvedsecondary to narcotics, now extubated. Acute Metabolic Encephalopathy: resolved Presumed secondary to narcotics, improving Abdominal pains with Large bowel obstruction s/p ex lap: treated with bowel res t, Judicious iv pain meds, Gen. Surgery following. 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 Colon cancer suspected: Pathology shows extensive poorly diff CA extending thru all layers. 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 Sepsis due to Colitis, poa: treat with IV abx and IVF, prn tylenol for fevers, get blood cultures, CXR, EKG baseline Accelerated hypertension with Urgency: treat with iv antihypertensives, add enalapril iv and monitor renal funtion, resume po meds when able to Hyperkalemia, mild: supportive care, monitor levels closely Hepatitis A and B per outside lab: GI was consulted Microcytic anemia: GI was consulted DM type 2: ssi for now GERD: iv ppi DVT prophylaxis: sq heparin full code TPN started R Ureter intact ON IVP DONE History Interval history: Patient seen and examined today, resting comfortable, still no BM today. Pain much improved, rates it a 3/10 in intensity Hospitalist Physical - Physical exam Narrative exam: Gen: WDWN, NAD, Awake, Alert HEENT: NCAT, EOMI, PERRL, OP Clear Neck: supple, no adenopathy, no thyromegaly, no JVD CVS/Heart: reg tachy, normal S1S2, pulses present bilaterally Chest/Lungs: CTA B, Symmetrical chest expansion, good air entry bilaterally GI/Abdomen: soft, diffuse tenderness Hypoactive but positive bowel sounds, dressing noted , no guarding or rebound, drain in place /Bladder: no suprapubic tenderness, no CVA or paraspinal tenderness Extermity/Skin: no c/c/e, no obvious rash MSK: FROM x 4 Neuro: CN 2-12 grossly intact, no new focal deficits Psych: calm - Constitutional Vitals: Temp Pulse Resp BP Pulse Ox 97.4 F L 80 20 181/86 97 05/24/19 04:01 05/24/19 04:01 05/24/19 04:01 05/24/19 04:01 05/24/19 04:01 General appearance: Present: other (intubated on the vent) Results - Labs CBC & Chem 7: 05/21/19 04:51 05/24/19 06:10 Labs: Laboratory Last Values WBC 10.0 K/mm3 (4.5-11.0) 05/21/19 04:51 RBC 4.16 M/mm3 (3.65-5.03) 05/21/19 04:51 Hgb 9.6 gm/dl (11.8-15.2) L 05/21/19 04:51 Hct 31.0 % (35.5-45.6) L 05/21/19 04:51 MCV 74 fl (84-94) L 05/21/19 04:51 MCH 23 pg (28-32) L 05/21/19 04:51 MCHC 31 % (32-34) L 05/21/19 04:51 RDW 25.5 % (13.2-15.2) H 05/21/19 04:51 Plt Count 369 K/mm3 (140-440) 05/21/19 04:51 Lymph % (Auto) Hammer Driver 05/20/19 05:41 Mckean % (Auto) Hammer Driver 05/20/19 05:41 Eos % (Auto) Hammer Driver 05/20/19 05:41 Baso % (Auto) Hammer Driver 05/20/19 05:41 Lymph # Hammer Driver 05/20/19 05:41 Mckean # Hammer Driver 05/20/19 05:41 Eos # Hammer Driver 05/20/19 05:41 Baso # Hammer Driver 05/20/19 05:41 Add Manual Diff Complete 05/20/19 05:41 Total Counted 100 05/20/19 05:41 Seg Neutrophils % Hammer Driver 05/20/19 05:41 Seg Neuts % (Manual) 84.0 % (40.0-70.0) H 05/20/19 05:41 0 % 05/20/19 05:41 10.0 % (13.4-35.0) L 05/20/19 05:41 Reactive Lymphs % (Man) 0 % 05/20/19 05:41 6.0 % (0.0-7.3) 05/20/19 05:41 0 % (0.0-4.3) 05/20/19 05:41 0 % (0.0-1.8) 05/20/19 05:41 0 % 05/20/19 05:41 0 % 05/20/19 05:41 0 % 05/20/19 05:41 0 % 05/20/19 05:41 Nucleated RBC % Not Reportable 05/20/19 05:41 Seg Neutrophils # Hammer Driver 05/20/19 05:41 Seg Neutrophils # Man 7.3 K/mm3 (1.8-7.7) 05/20/19 05:41 Band Neutrophils # 0.0 K/mm3 05/20/19 05:41 0.9 K/mm3 (1.2-5.4) L 05/20/19 05:41 Abs React Lymphs (Man) 0.0 K/mm3 05/20/19 05:41 0.5 K/mm3 (0.0-0.8) 05/20/19 05:41 0.0 K/mm3 (0.0-0.4) 05/20/19 05:41 0.0 K/mm3 (0.0-0.1) 05/20/19 05:41 0.0 K/mm3 05/20/19 05:41 0.0 K/mm3 05/20/19 05:41 0.0 K/mm3 05/20/19 05:41 Blast Cells # 0.0 K/mm3 05/20/19 05:41 WBC Morphology Not Reportable 05/20/19 05:41 WBC Morphology TNR 05/20/19 05:41 Hypersegmented Neuts Not Reportable 05/20/19 05:41 Hyposegmented Neuts Not Reportable 05/20/19 05:41 Hypogranular Neuts Not Reportable 05/20/19 05:41 Not Reportable 05/20/19 05:41 Not Reportable 05/20/19 05:41 Not Reportable 05/20/19 05:41 Not Reportable 05/20/19 05:41 Not Reportable 05/20/19 05:41 Not Reportable 05/20/19 05:41 Consistent w auto 05/20/19 05:41 Not Reportable 05/20/19 05:41 Plt Clumps, EDTA Not Reportable 05/20/19 05:41 Not Reportable 05/20/19 05:41 Not Reportable 05/20/19 05:41 Not Reportable 05/20/19 05:41 Plt Morphology Comment Not Reportable 05/20/19 05:41 RBC Morphology Not Reportable 05/20/19 05:41 Dimorphic RBCs Not Reportable 05/20/19 05:41 Not Reportable 05/20/19 05:41 1+ 05/20/19 05:41 Few 05/20/19 05:41 1+ 05/20/19 05:41 1+ 05/20/19 05:41 Not Reportable 05/20/19 05:41 Not Reportable 05/20/19 05:41 Not Reportable 05/20/19 05:41 Not Reportable 05/20/19 05:41 Not Reportable 05/20/19 05:41 Not Reportable 05/20/19 05:41 Few 05/20/19 05:41 Not Reportable 05/20/19 05:41 Not Reportable 05/20/19 05:41 Not Reportable 05/20/19 05:41 Not Reportable 05/20/19 05:41 Not Reportable 05/20/19 05:41 Not Reportable 05/20/19 05:41 Few 05/20/19 05:41 Acanthocytes (Spur) Not Reportable 05/20/19 05:41 Rouleaux Not Reportable 05/20/19 05:41 Not Reportable 05/20/19 05:41 Not Reportable 05/20/19 05:41 Not Reportable 05/20/19 05:41 Not Reportable 05/20/19 05:41 Hem Pathologist Commnt No 05/20/19 05:41 PT 16.2 Sec. (12.2-14.9) H 05/18/19 07:22 INR 1.34 (0.87-1.13) H 05/18/19 07:22 APTT 36.6 Sec. (24.2-36.6) 05/18/19 07:22 POC ABG pH 7.426 (7.35-7.45) 05/22/19 04:42 POC ABG pCO2 54.2 (35-45) H 05/22/19 04:42 POC ABG pO2 139 (80-105) H 05/22/19 04:42 POC ABG HCO3 35.6 (22-26 mml/L) 05/22/19 04:42 POC ABG Total CO2 37 (23-27mmol/L) 05/22/19 04:42 POC ABG O2 Sat 99 05/22/19 04:42 POC ABG Base Excess 11 ((-2) - (+3)mmol/L) 05/22/19 04:42 40 % 05/22/19 04:42 Sodium 139 mmol/L (137-145) 05/24/19 06:10 Potassium 4.0 mmol/L (3.6-5.0) 05/24/19 06:10 Chloride 97.7 mmol/L (98-107) L 05/24/19 06:10 Carbon Dioxide 32 mmol/L (22-30) H 05/24/19 06:10 13 mmol/L 05/24/19 06:10 BUN 12 mg/dL (9-20) 05/24/19 06:10 0.5 mg/dL (0.8-1.5) L 05/24/19 06:10 Estimated GFR > 60 ml/min 05/24/19 06:10 24 % 05/24/19 06:10 Glucose 125 mg/dL (75-100) H 05/24/19 06:10 POC Glucose 126 (70-105) H 05/24/19 06:04 Calcium 9.1 mg/dL (8.4-10.2) 05/24/19 06:10 Phosphorus 3.70 mg/dL (2.5-4.5) 05/24/19 06:10 Magnesium 1.80 mg/dL (1.7-2.3) 05/24/19 06:10 0.40 mg/dL (0.1-1.2) 05/19/19 07:58 AST 12 units/L (5-40) 05/19/19 07:58 ALT 7 units/L (7-56) 05/19/19 07:58 62 units/L (35-129) 05/19/19 07:58 132 units/L (55-170) 05/21/19 04:51 CK-MB (CK-2) 5.7 ng/mL (0.0-4.0) H 05/21/19 04:51 CK-MB (CK-2) Rel Index 4.3 (0-4) H 05/21/19 04:51 0.133 ng/mL (0.00-0.029) H* D 05/21/19 17:58 6.6 g/dL (6.3-8.2) 05/19/19 07:58 2.7 g/dL (3.9-5) L 05/19/19 07:58 0.7 % 05/19/19 07:58 Triglycerides 116 mg/dL (2-149) 05/21/19 11:17 Cholesterol 131 mg/dL (50-199) 05/21/19 11:17 89 mg/dL (50-130) 05/21/19 11:17 21 mg/dL (40-59) L 05/21/19 11:17 6.23 % 05/21/19 11:17 28 units/L (13-60) 05/17/19 03:52 Carcinoembryonic Ag 4.5 ng/mL (0.0-2.4) H 05/17/19 11:28 Yellow (Yellow) 05/17/19 Unknown Clear (Clear) 05/17/19 Unknown 5.0 (5.0-7.0) 05/17/19 Unknown Ur Specific [place] 1.021 (1.003-1.030) 05/17/19 Unknown <15 mg/dl mg/dL (Negative) 05/17/19 Unknown Neg mg/dL (Negative) 05/17/19 Unknown Neg mg/dL (Negative) 05/17/19 Unknown Neg (Negative) 05/17/19 Unknown Neg (Negative) 05/17/19 Unknown Neg (Negative) 05/17/19 Unknown < 2.0 mg/dL (<2.0) 05/17/19 Unknown Ur Leukocyte Esterase Neg (Negative) 05/17/19 Unknown 2.0 /HPF (0.0-6.0) 05/17/19 Unknown 3.0 /HPF (0.0-6.0) 05/17/19 Unknown 1+ /HPF 05/17/19 Unknown Blood Type B POSITIVE 05/17/19 12:45 Antibody Screen Negative 05/17/19 12:45 Crossmatch See Detail 05/17/19 12:45 Active Medications - Current Medications Current Medications: Generic Name Dose Route Start Last Admin Trade Name Freq PRN Reason Stop Dose Admin Acetaminophen 650 mg 05/17/19 07:30 05/17/19 16:53 Tylenol PA 650 mg Q4H PRN Administration Non Cardiac Pain or Temp>100.5 Clonidine HCl 0.2 mg 05/30/19 10:00 Catapres-Tts Patch TD We YURIY Dextrose 50 ml 05/17/19 07:28 D50w (25gm) Syringe IV PRN PRN Hypoglycemia Hydralazine HCl 10 mg 05/19/19 20:10 05/24/19 06:00 Apresoline IV 10 mg Q4HR PRN Administration Blood Pressure Hydrochlorothiazide 12.5 mg 05/19/19 21:00 06/26/19 09:10 Hctz PO Not Given QDAY [facility] Hydromorphone HCl 1 mg 05/19/19 07:58 05/24/19 05:59 Dilaudid IV 1 mg Q3H PRN Administration Pain, Moderate (4-6) Hydrophilic Ointment 1 applic 05/21/19 08:15 Vaseline Lip Therapy TP Q2HR PRN Dry Lips Amino Acids/Electrolytes/Dextrose 2,400 mls @ 100 mls/hr 05/23/19 20:00 05/23/19 21:51 Tpn Adult IV 05/24/19 19:59 100 mls/hr DAILY@2000 [facility] Administration Protocol Insulin Human Lispro 0 unit 05/17/19 12:00 05/24/19 07:16 Humalog SUB-Q Not Given Q6HR [facility] Protocol Labetalol HCl 10 mg 05/19/19 05:39 05/22/19 20:45 Normodyne IV 10 mg Q4HR PRN Administration Hypertension Labetalol HCl 20 mg 05/23/19 10:00 05/24/19 05:54 Normodyne IV 20 mg Q4HR YURIY Administration Lisinopril 20 mg 05/19/19 21:00 05/23/19 09:11 Zestril PO Not Given QDAY [facility] Multi-Ingred Cream/Lotion/Oil/Oint 1 applic 05/21/19 08:15 Artificial Tears Ophth Oint OU Q4HR PRN Dry Eye(s) Ondansetron HCl 4 mg 05/17/19 07:27 05/20/19 08:09 Zofran IV 4 mg Q4H PRN Administration Nausea And Vomiting Pantoprazole Sodium 40 mg 05/17/19 10:00 05/23/19 09:36 Protonix IV 40 mg QDAY [facility] Administration Phenol 1 spray 05/19/19 16:55 05/19/19 19:09 Chloraseptic MM 1 spray PRN PRN Administration Sore Throat Nutrition/Malnutrition Assess - Dietary Evaluation Nutrition/Malnutrition Findings: Nutrition Notes Start: 05/18/19 17:02 Freq: Status: Active Protocol: Document 05/23/19 12:19 SIMÓN (Rec: 05/23/19 12:23 [id number]) Nutrition Notes Initial or Follow up Reassessment Other Pertinent Diagnosis colon mass with paritial SBO S /P exp lap, abdominal wound Current Diet PPN at 100ml/hr Labs/Tests K 3.5 Cl 96.5 CO2 - 33 Pertinent Medications Reviewed Height 5 ft 8 in Weight 75.4 kg [place] Body Weight (kg) 70.00 BMI 25.2 Subjective/Other Information Day 5 PPN. Pt extubated yesterday. OOB to chair at time of visit (11:27). NGT to LIS. Percent of energy/protein needs met: 38%/100% Burn Absent Trauma Absent #2 Nutrition Diagnosis Inadequate oral intake Diagnosis Progress(for reassessment Continues documentation) Is patient on ventilator? No Is Patient Ambulatory and/or Out of Bed Yes REE-([facility]-ambulatory/OOB) [ 2038.050 [id number]] Calculation Used for Recommendations [facility] Additional Notes Protein needs are 90-151g (1.2 -2g/kg) Fluid needs are 1ml/kcal Nutrition Intervention Nutrition Support: Continue PPN at 100ml/hr: MVI. Osmolality: 835. Kcal 780 Protein (gm) 110 Carbohydrates (gm) 100 Fat (gm) 0 Fluid (mL) 2,400 Fiber (gm) 0 Goal #1 PN to meet nutrient needs as best possible Follow-Up By: 05/24/19 Additional Comments Labs in am: BMP, Mg, Phos
[2019-05-24 10:37] LABS: Iron 14 ug/dL (49-181); Total Iron Binding Capacity 221 mcg/dL (250-450)
[2019-05-24] MEDS: HCTZ PO SCH ×2 (10:52→12:58)
[2019-05-24] MEDS: PROTONIX IV SCH (10:52)
[2019-05-24] MEDS: ZESTRIL PO SCH ×2 (10:52→10:53)
--- NOTE | 2019-05-24 12:54 | Progress Note ---
Assessment and Plan 53 yo M s/p s/p exlap, right hemicolectomy, debulking of tumor, POD # 6 Path: extensive poorly diff CA extending thru all layers. + LN Plan: 1. await bowel function 2. OOB with PT 3. DVT ppx 4. NGT to LIWS until flatus 5. TPN 6. IS/pulm toilet Thank you, please call with questions. Subjective Date of service: 05/24/19 Narrative: Pt seen and examined. States he feels great. No f/c. He has not had a BM or flatus but states he feels like he will soon. He is motivated to get up with PT. He denies f/c, n/v, abd pain. Objective Vital Signs - 12hr 05/24/19 05/24/19 05/24/19 02:06 04:01 08:08 Temperature 97.4 F L 98.2 F Pulse Rate 80 69 Respiratory 20 18 Rate Blood Pressure 176/80 181/86 154/72 O2 Sat by Pulse 97 98 Oximetry 05/24/19 05/24/19 10:52 10:53 Temperature Pulse Rate 69 69 Respiratory Rate Blood Pressure 154/72 154/72 O2 Sat by Pulse Oximetry - General physical appearance Narrative Exam: Gen: AAOx3. NAD ENT: NGT with minimal dark brown drainage in canister CV: s1, S2+ Resp; even and unlabored Abd: soft, NT, ND. Dressing removed, incision c/d/i with olamide in place. Dmitry drain serous Ext; no c/c/e - Labs 05/21/19 04:51 05/24/19 06:10 Diabetes panel 05/24/19 Range/Units 06:10 Sodium 139 (137-145) mmol/L Potassium 4.0 (3.6-5.0) mmol/L Chloride 97.7 L (98-107) mmol/L Carbon Dioxide 32 H (22-30) mmol/L BUN 12 (9-20) mg/dL Creatinine 0.5 L (0.8-1.5) mg/dL Glucose 125 H (75-100) mg/dL Calcium 9.1 (8.4-10.2) mg/dL Calcium panel 05/24/19 Range/Units 06:10 Calcium 9.1 (8.4-10.2) mg/dL Phosphorus 3.70 (2.5-4.5) mg/dL Pituitary panel 05/24/19 Range/Units 06:10 Sodium 139 (137-145) mmol/L Potassium 4.0 (3.6-5.0) mmol/L Chloride 97.7 L (98-107) mmol/L Carbon Dioxide 32 H (22-30) mmol/L BUN 12 (9-20) mg/dL Creatinine 0.5 L (0.8-1.5) mg/dL Glucose 125 H (75-100) mg/dL Calcium 9.1 (8.4-10.2) mg/dL Adrenal panel 05/24/19 Range/Units 06:10 Sodium 139 (137-145) mmol/L Potassium 4.0 (3.6-5.0) mmol/L Chloride 97.7 L (98-107) mmol/L Carbon Dioxide 32 H (22-30) mmol/L BUN 12 (9-20) mg/dL Creatinine 0.5 L (0.8-1.5) mg/dL Glucose 125 H (75-100) mg/dL Calcium 9.1 (8.4-10.2) mg/dL
[2019-05-24] MEDS: VASOTEC IV SCH ×3 (13:50→19:25)
--- NOTE | 2019-05-24 14:42 | Progress Note ---
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 Colon cancer suspected Sepsis due to Colitis, poa Accelerated hypertension with Urgency, currently hypotensive Hepatitis A and B Microcytic anemia DM type 2 GERD - continue prn oxygen for O2 sats>90% - 2D echocardiogram reviewed; +mild pulm HTN - s/p empiric antibiotics - Cardiology evaluation ongoing - VTE prophylaxis - prn ABG's at this point - prn CXR's at this point - continue bronchodilators per protocol with pulmonary hygiene per RT - continue NPO status (advance per surgeon); continue nutritional support with TPN - continue accucchecks with glycemic control per SSI for target BG < 180 mg/dl - Stress ulcer prophylaxis - Supportive transfusions per protocol Discussed with RN/RT CONDITION: IMPROVED PROGNOSIS: GUARDED CODE STATUS; FULL CODE Subjective Date of service: 05/24/19 Principal diagnosis: Ac. Hyopoxemic Resp failure; Bowel obstruction s/p ex lap; Severe Sepsis Interval history: Patient is seen today for: Ac. Hyopoxemic Resp failure s/p MVS; Abdominal pain; Large bowel obstruction s/p ex lap; Sepsis due to Colitis; Accelerated hy pertension with Urgency; Hepatitis A and B; Microcytic anemia; DM type 2; GERD Seen and examined at bedside; 24hour events reviewed; nursing and respiratory care staff consulted; no adverse overnight events reported to me; resting in bed; still with occassional abdominal pain; No N/V/F/C Objective Vital Signs - 12hr 05/24/19 05/24/19 05/24/19 04:01 08:08 10:52 Temperature 97.4 F L 98.2 F Pulse Rate 80 69 69 Respiratory 20 18 Rate Blood Pressure 181/86 154/72 154/72 O2 Sat by Pulse 97 98 Oximetry 05/24/19 05/24/19 10:53 12:53 Temperature Pulse Rate 69 70 Respiratory Rate Blood Pressure 154/72 202/97 O2 Sat by Pulse Oximetry Constitutional: no acute distress, other (awake and alert, obeying commands) Eyes: non-icteric ENT: oropharynx moist Neck: supple, no lymphadenopathy, no JVD Effort: normal Ascultation: Bilateral: diminished breath sounds Percussion: Bilateral: not dull Cardiovascular: regular rate and rhythm, other (S1,S2, no murmurs, gallops or rubs) Gastrointestinal: hypoactive bowel sounds, soft, tender (mild), other (abdominal dressings midline, distended) Integumentary: normal Extremities: no cyanosis, no edema, pulses normal, no ischemia or petechiae Neurologic: normal mental status, non-focal exam, pupils equal and round, CN II- XII normal, motor strength normal and Psychiatric: mood appropriate, affect normal CBC and BMP: 05/21/19 04:51 05/25/19 04:49 ABG, PT/INR, D-dimer: ABG POC ABG pH 7.426 (7.35-7.45) 05/22/19 04:42 POC ABG pCO2 54.2 (35-45) H 05/22/19 04:42 POC ABG pO2 139 (80-105) H 05/22/19 04:42 POC ABG HCO3 35.6 (22-26 mml/L) 05/22/19 04:42 POC ABG Total CO2 37 (23-27mmol/L) 05/22/19 04:42 POC ABG O2 Sat 99 05/22/19 04:42 PT/INR, D-dimer PT 16.2 Sec. (12.2-14.9) H 05/18/19 07:22 INR 1.34 (0.87-1.13) H 05/18/19 07:22 Abnormal lab findings: Abnormal Labs 05/17/19 05/17/19 05/17/19 03:19 03:19 11:28 WBC 11.2 H RBC 3.61 L Hgb 7.9 L Hct 25.5 L MCV 71 L MCH 22 L MCHC 31 L RDW 24.9 H Lymph % (Auto) C[place]ay % (Auto) 11.9 H Lymph # C[place]ay # 1.3 H Seg Neutrophils % 72.5 H Seg Neuts % (Manual) Lymphocytes % (Manual) Seg Neutrophils # 8.1 H Lymphocytes # (Manual) PT INR POC ABG pH POC ABG pCO2 POC ABG pO2 Potassium 5.1 H Chloride Carbon Dioxide BUN Creatinine Glucose 140 H POC Glucose Calcium Phosphorus Iron TIBC ALT 5 L CK-MB (CK-2) CK-MB (CK-2) Rel Index Troponin T Albumin 3.3 L HDL Cholesterol Carcinoembryonic Ag 4.5 H Vitamin B12 Crossmatch 05/17/19 05/17/19 05/18/19 12:45 14:13 07:22 WBC 12.9 H RBC Hgb 10.2 L Hct 32.9 L D MCV 76 L MCH 24 L MCHC 31 L RDW 23.9 H Lymph % (Auto) [place] % (Auto) Lymph # [place] # Seg Neutrophils % Seg Neuts % (Manual) Lymphocytes % (Manual) Seg Neutrophils # Lymphocytes # (Manual) PT INR POC ABG pH POC ABG pCO2 POC ABG pO2 Potassium Chloride Carbon Dioxide BUN Creatinine Glucose POC Glucose 159 H Calcium Phosphorus Iron TIBC ALT CK-MB (CK-2) CK-MB (CK-2) Rel Index Troponin T Albumin HDL Cholesterol Carcinoembryonic Ag Vitamin B12 Crossmatch See Detail 05/18/19 05/18/19 05/19/19 07:22 07:22 02:26 WBC RBC Hgb Hct MCV MCH MCHC RDW Lymph % (Auto) [place] % (Auto) Lymph # [place] # Seg Neutrophils % Seg Neuts % (Manual) Lymphocytes % (Manual) Seg Neutrophils # Lymphocytes # (Manual) PT 16.2 H INR 1.34 H POC ABG pH POC ABG pCO2 POC ABG pO2 Potassium Chloride 97.8 L Carbon Dioxide BUN Creatinine Glucose POC Glucose 121 H Calcium Phosphorus Iron TIBC ALT CK-MB (CK-2) CK-MB (CK-2) Rel Index Troponin T Albumin HDL Cholesterol Carcinoembryonic Ag Vitamin B12 Crossmatch 05/19/19 05/19/19 05/19/19 07:58 07:58 19:08 WBC RBC Hgb 10.1 L Hct 32.4 L MCV 75 L MCH 23 L MCHC 31 L RDW 24.4 H Lymph % (Auto) 8.2 L [place] % (Auto) 9.7 H Lymph # 0.9 L [place]ay # 1.1 H Seg Neutrophils % 82.0 H Seg Neuts % (Manual) Lymphocytes % (Manual) Seg Neutrophils # 9.0 H Lymphocytes # (Manual) PT INR POC ABG pH POC ABG pCO2 POC ABG pO2 Potassium 5.2 H Chloride Carbon Dioxide BUN Creatinine Glucose 133 H POC Glucose 116 H Calcium 8.3 L Phosphorus Iron TIBC ALT CK-MB (CK-2) CK-MB (CK-2) Rel Index Troponin T Albumin 2.7 L HDL Cholesterol Carcinoembryonic Ag Vitamin B12 Crossmatch 05/19/19 05/20/19 05/20/19 23:12 05:41 05:41 WBC RBC Hgb 10.1 L Hct 31.9 L MCV 74 L MCH 24 L MCHC RDW 25.2 H Lymph % (Auto) [place] % (Auto) Lymph # [place] # Seg Neutrophils % Seg Neuts % (Manual) 84.0 H Lymphocytes % (Manual) 10.0 L Seg Neutrophils # Lymphocytes # (Manual) 0.9 L PT INR POC ABG pH POC ABG pCO2 POC ABG pO2 Potassium Chloride Carbon Dioxide BUN 8 L Creatinine 0.6 L Glucose 148 H POC Glucose 122 H Calcium Phosphorus 1.90 L D Iron TIBC ALT CK-MB (CK-2) CK-MB (CK-2) Rel Index Troponin T Albumin HDL Cholesterol Carcinoembryonic Ag Vitamin B12 Crossmatch 05/20/19 05/20/19 05/20/19 05:57 12:16 18:50 WBC RBC Hgb Hct MCV MCH MCHC RDW Lymph % (Auto) [place] % (Auto) Lymph # [place] # Seg Neutrophils % Seg Neuts % (Manual) Lymphocytes % (Manual) Seg Neutrophils # Lymphocytes # (Manual) PT INR POC ABG pH POC ABG pCO2 POC ABG pO2 Potassium Chloride Carbon Dioxide BUN Creatinine Glucose POC Glucose 151 H 149 H 170 H Calcium Phosphorus Iron TIBC ALT CK-MB (CK-2) CK-MB (CK-2) Rel Index Troponin T Albumin HDL Cholesterol Carcinoembryonic Ag Vitamin B12 Crossmatch 05/20/19 05/21/19 05/21/19 23:19 04:51 04:51 WBC RBC Hgb 9.6 L Hct 31.0 L MCV 74 L MCH 23 L MCHC 31 L RDW 25.5 H Lymph % (Auto) [place] % (Auto) Lymph # [place] # Seg Neutrophils % Seg Neuts % (Manual) Lymphocytes % (Manual) Seg Neutrophils # Lymphocytes # (Manual) PT INR POC ABG pH POC ABG pCO2 POC ABG pO2 Potassium Chloride 95.2 L Carbon Dioxide 35 H BUN Creatinine 0.6 L Glucose 161 H POC Glucose 145 H Calcium Phosphorus 2.00 L Iron TIBC ALT CK-MB (CK-2) CK-MB (CK-2) Rel Index Troponin T Albumin HDL Cholesterol Carcinoembryonic Ag Vitamin B12 Crossmatch 05/21/19 05/21/19 05/21/19 04:51 05:42 07:49 WBC RBC Hgb Hct MCV MCH MCHC RDW Lymph % (Auto) [place] % (Auto) Lymph # [place] # Seg Neutrophils % Seg Neuts % (Manual) Lymphocytes % (Manual) Seg Neutrophils # Lymphocytes # (Manual) PT INR POC ABG pH POC ABG pCO2 POC ABG pO2 Potassium Chloride Carbon Dioxide BUN Creatinine Glucose POC Glucose 176 H 199 H Calcium Phosphorus Iron TIBC ALT CK-MB (CK-2) 5.7 H CK-MB (CK-2) Rel Index 4.3 H Troponin T Albumin HDL Cholesterol Carcinoembryonic Ag Vitamin B12 Crossmatch 05/21/19 05/21/19 05/21/19 10:38 11:17 17:58 WBC RBC Hgb Hct MCV MCH MCHC RDW Lymph % (Auto) [place] % (Auto) Lymph # [place] # Seg Neutrophils % Seg Neuts % (Manual) Lymphocytes % (Manual) Seg Neutrophils # Lymphocytes # (Manual) PT INR POC ABG pH 7.498 H POC ABG pCO2 POC ABG pO2 230 H Potassium Chloride Carbon Dioxide BUN Creatinine Glucose POC Glucose Calcium Phosphorus Iron TIBC ALT CK-MB (CK-2) CK-MB (CK-2) Rel Index Troponin T 0.191 H* 0.133 H* D Albumin HDL Cholesterol 21 L Carcinoembryonic Ag Vitamin B12 Crossmatch 05/22/19 05/22/19 05/22/19 00:04 04:42 04:55 WBC RBC Hgb Hct MCV MCH MCHC RDW Lymph % (Auto) [place] % (Auto) Lymph # [place] # Seg Neutrophils % Seg Neuts % (Manual) Lymphocytes % (Manual) Seg Neutrophils # Lymphocytes # (Manual) PT INR POC ABG pH POC ABG pCO2 54.2 H POC ABG pO2 139 H Potassium 3.0 L D Chloride 94.8 L Carbon Dioxide 33 H BUN Creatinine 0.5 L Glucose 140 H POC Glucose 155 H Calcium Phosphorus Iron TIBC ALT CK-MB (CK-2) CK-MB (CK-2) Rel Index Troponin T Albumin HDL Cholesterol Carcinoembryonic Ag Vitamin B12 Crossmatch 05/22/19 05/22/19 05/22/19 05:49 13:03 17:27 WBC RBC Hgb Hct MCV MCH MCHC RDW Lymph % (Auto) [place] % (Auto) Lymph # [place] # Seg Neutrophils % Seg Neuts % (Manual) Lymphocytes % (Manual) Seg Neutrophils # Lymphocytes # (Manual) PT INR POC ABG pH POC ABG pCO2 POC ABG pO2 Potassium Chloride Carbon Dioxide BUN Creatinine Glucose POC Glucose 162 H 152 H 137 H Calcium Phosphorus Iron TIBC ALT CK-MB (CK-2) CK-MB (CK-2) Rel Index Troponin T Albumin HDL Cholesterol Carcinoembryonic Ag Vitamin B12 Crossmatch 05/23/19 05/23/19 05/23/19 00:43 03:16 04:21 WBC RBC Hgb Hct MCV MCH MCHC RDW Lymph % (Auto) [place] % (Auto) Lymph # [place] # Seg Neutrophils % Seg Neuts % (Manual) Lymphocytes % (Manual) Seg Neutrophils # Lymphocytes # (Manual) PT INR POC ABG pH POC ABG pCO2 POC ABG pO2 Potassium 3.5 L Chloride 96.5 L Carbon Dioxide 33 H BUN Creatinine 0.5 L Glucose 130 H POC Glucose 141 H 140 H Calcium Phosphorus Iron TIBC ALT CK-MB (CK-2) CK-MB (CK-2) Rel Index Troponin T Albumin HDL Cholesterol Carcinoembryonic Ag Vitamin B12 Crossmatch 05/23/19 05/23/19 05/23/19 06:01 12:30 18:22 WBC RBC Hgb Hct MCV MCH MCHC RDW Lymph % (Auto) [place] % (Auto) Lymph # [place] # Seg Neutrophils % Seg Neuts % (Manual) Lymphocytes % (Manual) Seg Neutrophils # Lymphocytes # (Manual) PT INR POC ABG pH POC ABG pCO2 POC ABG pO2 Potassium Chloride Carbon Dioxide BUN Creatinine Glucose POC Glucose 135 H 161 H 114 H Calcium Phosphorus Iron TIBC ALT CK-MB (CK-2) CK-MB (CK-2) Rel Index Troponin T Albumin HDL Cholesterol Carcinoembryonic Ag Vitamin B12 Crossmatch 05/24/19 05/24/19 05/24/19 00:24 06:04 06:10 WBC RBC Hgb Hct MCV MCH MCHC RDW Lymph % (Auto) [place] % (Auto) Lymph # [place] # Seg Neutrophils % Seg Neuts % (Manual) Lymphocytes % (Manual) Seg Neutrophils # Lymphocytes # (Manual) PT INR POC ABG pH POC ABG pCO2 POC ABG pO2 Potassium Chloride 97.7 L Carbon Dioxide 32 H BUN Creatinine 0.5 L Glucose 125 H POC Glucose 126 H 126 H Calcium Phosphorus Iron TIBC ALT CK-MB (CK-2) CK-MB (CK-2) Rel Index Troponin T Albumin HDL Cholesterol Carcinoembryonic Ag Vitamin B12 Crossmatch 05/24/19 05/24/19 05/24/19 09:38 09:43 11:48 WBC RBC Hgb Hct MCV MCH MCHC RDW Lymph % (Auto) [place] % (Auto) Lymph # [place] # Seg Neutrophils % Seg Neuts % (Manual) Lymphocytes % (Manual) Seg Neutrophils # Lymphocytes # (Manual) PT INR POC ABG pH POC ABG pCO2 POC ABG pO2 Potassium Chloride Carbon Dioxide BUN Creatinine Glucose POC Glucose 146 H Calcium Phosphorus Iron 14 L TIBC 221 L ALT CK-MB (CK-2) CK-MB (CK-2) Rel Index Troponin T Albumin HDL Cholesterol Carcinoembryonic Ag Vitamin B12 > 2000 H Crossmatch Allied health notes reviewed: nursing
[2019-05-24] MEDS ORDERED: TPN ADULT 2,400 ML IV SCH (20:00)
--- NOTE | 2019-05-24 21:48 | Event Note ---
Date: 05/24/19 [id number]
[2019-05-25] MEDS: VASOTEC IV SCH ×2 (04:13→06:01)
[2019-05-25] MEDS: HumaLOG SUB-Q SCH ×2 (04:14→12:00)
[2019-05-25] MEDS: DILAUDID IV PRN ×4 (04:14→22:57)
[2019-05-25] MEDS: NORMODYNE IV SCH ×3 (04:14→10:45)
[2019-05-25 06:03] LABS: BUN/Creatinine Ratio 25; Blood Urea Nitrogen 15 mg/dL (9-20); Calcium 9.8 mg/dL (8.4-10.2); Hemolysis Index 0
--- NOTE | 2019-05-25 08:13 | Hem/Onc Progress Note ---
Assessment and Plan 1. Colon cancer, 2 different lesions and path. 2. Liver lesions, possible mets. 3. Surprisingly CEA is not elevated at 4.5. 4. Microcytosis, likely secondary to iron deficiency. 5. Anemia. At admission, hemoglobin was 7.9. iron supplement. 6. Status post surgery.. 7. History of unresponsiveness and was in ICU. 8. History of diabetes. 9. History of hepatitis A and B. 10. History of hypertension. 11. History of gastroesophageal reflux disease. path - colon ca - OP follow up for radiology - testing for monoclonal Abx like ROBERTA and chemo he would need port placement, we will do additional pathology testing later. - Patient Problems (1) Colon cancer Status: Acute Subjective Date of service: 05/25/19 Principal diagnosis: colon ca Interval history: ngt removed - flatus + Objective - Exam Narrative Exam: Pain none General appearance no distress Performance status limited activity Eyes no icterus ENT no ear discharge LNs - cervical not palpable Neck normal ROM Respiratory - normal breath sounds CTA CVS S1 S2 + Extremities normal temperature General GI Soft non tender - olamide + Rectal deferred Male - deferred Skin warm Musculoskeletal no edema Neurologically AAOx3 - Constitutional Vitals: Last Vital Signs Temp 98.3 F 05/25/19 04:10 Pulse 68 05/25/19 06:01 Resp 20 05/25/19 05:56 BP 190/86 05/25/19 06:01 Pulse Ox 97 05/25/19 04:10 - Labs Lab Results: Laboratory Results - last 24 hr 05/24/19 05/24/19 05/24/19 09:38 09:38 09:38 Sodium Potassium Chloride Carbon Dioxide Anion Gap BUN Creatinine Estimated GFR BUN/Creatinine Ratio Glucose POC Glucose Calcium Phosphorus Magnesium Iron TIBC Ferritin 50.2 Vitamin B12 > 2000 H Folate 15.31 05/24/19 05/24/19 05/25/19 09:43 11:48 00:33 Sodium Potassium Chloride Carbon Dioxide Anion Gap BUN Creatinine Estimated GFR BUN/Creatinine Ratio Glucose POC Glucose 146 H 141 H Calcium Phosphorus Magnesium Iron 14 L TIBC 221 L Ferritin Vitamin B12 Folate 05/25/19 05/25/19 04:49 07:01 Sodium 139 Potassium 4.5 Chloride 97.2 L Carbon Dioxide 31 H Anion Gap 15 BUN 15 Creatinine 0.6 L Estimated GFR > 60 BUN/Creatinine Ratio 25 Glucose 123 H POC Glucose 151 H Calcium 9.8 Phosphorus 4.40 Magnesium 2.00 Iron TIBC Ferritin Vitamin B12 Folate Medications & Allergies - Medications Allergies/Adverse Reactions: Allergies No Known Allergies Allergy (Verified 09/19/16 15:05) Home Medications: Home Medications Medication Instructions Recorded Confirmed Last Taken Type Dicyclomine [Bentyl] 20 mg PO TID 05/17/19 05/17/19 Unknown History Ferrous Sulfate [Iron 325 MG] 325 mg PO BID 05/17/19 05/17/19 Unknown History Lisinopril/Hydrochlorothiazide 1 each PO DAILY 05/17/19 05/17/19 Unknown History [Zestoretic 20-12.5 mg] Simvastatin 40 mg PO QPM 05/17/19 05/17/19 Unknown History Sucralfate [Carafate] 1 gm PO BID 05/17/19 05/17/19 Unknown History metFORMIN XR [Glucophage XR] 500 mg PO DAILY 05/17/19 05/17/19 Unknown History Lisinopril [Zestril TAB] 20 mg PO QDAY #30 tablet 05/26/19 Unknown Rx Pantoprazole [Protonix TAB] 40 mg PO DAILY #30 tablet 05/26/19 Unknown Rx hydrALAZINE [Apresoline TAB] 100 mg PO Q8H #90 tab 05/26/19 Unknown Rx hydroCHLOROthiazide [HCTZ] 12.5 mg PO QDAY #30 capsule 05/26/19 Unknown Rx oxyCODONE /ACETAMINOPHEN [Percocet 1 tab PO Q6HR PRN #20 tablet 05/26/19 Unknown Rx 5/325] Active Medications: Generic Name Dose Route Start Last Admin Trade Name Noris PRN Reason Stop Dose Admin Acetaminophen 650 mg 05/17/19 07:30 05/17/19 16:53 Tylenol OK 650 mg Q4H PRN Administration Non Cardiac Pain or Temp>100.5 Clonidine HCl 0.2 mg 05/30/19 10:00 Catapres-Tts Patch TD We YURIY Dextrose 50 ml 05/17/19 07:28 D50w (25gm) Syringe IV PRN PRN Hypoglycemia Enalaprilat 1.25 mg 05/24/19 09:00 05/25/19 06:01 Vasotec IV Not Given Q6HR YURIY Hydralazine HCl 10 mg 05/19/19 20:10 05/24/19 06:00 Apresoline IV 10 mg Q4HR PRN Administration Blood Pressure Hydrochlorothiazide 12.5 mg 05/19/19 21:00 05/24/19 12:58 Hctz PO 12.5 mg QDAY YURIY Administration Hydromorphone HCl 1 mg 05/19/19 07:58 05/25/19 04:14 Dilaudid IV 1 mg Q3H PRN Administration Pain, Moderate (4-6) Hydrophilic Ointment 1 applic 05/21/19 08:15 Vaseline Lip Therapy TP Q2HR PRN Dry Lips Amino Acids/Electrolytes/Dextrose 2,400 mls @ 100 mls/hr 05/24/19 20:00 05/24/19 21:29 Tpn Adult IV 05/25/19 19:59 100 mls/hr DAILY@2000 [facility] Administration Protocol Ferric Sodium Gluconate 110 mls @ 100 mls/hr 05/25/19 09:00 Complex 125 mg/ Sodium IV 05/25/19 10:05 Chloride ONCE ONE Insulin Human Lispro 0 unit 05/17/19 12:00 05/25/19 04:14 Humalog SUB-Q Not Given Q6HR [facility] Protocol Labetalol HCl 10 mg 05/19/19 05:39 05/22/19 20:45 Normodyne IV 10 mg Q4HR PRN Administration Hypertension Labetalol HCl 20 mg 05/23/19 10:00 05/25/19 06:01 Normodyne IV 20 mg Q4HR YURIY Administration Lisinopril 20 mg 05/19/19 21:00 05/24/19 10:53 Zestril PO 20 mg QDAY YURIY Administration Multi-Ingred Cream/Lotion/Oil/Oint 1 applic 05/21/19 08:15 Artificial Tears Ophth Oint OU Q4HR PRN Dry Eye(s) Ondansetron HCl 4 mg 05/17/19 07:27 05/20/19 08:09 Zofran IV 4 mg Q4H PRN Administration Nausea And Vomiting Pantoprazole Sodium 40 mg 05/17/19 10:00 05/24/19 10:52 Protonix IV 40 mg QDAY YURIY Administration Phenol 1 spray 05/19/19 16:55 05/19/19 19:09 Chloraseptic MM 1 spray PRN PRN Administration Sore Throat
[2019-05-25] MEDS ORDERED: FERRLECIT 125 MG in NACL 0.9% 100 ML IV ONE (09:00)
--- NOTE | 2019-05-25 10:30 | Progress Note ---
Assessment and Plan 53 yo M s/p s/p exlap, right hemicolectomy, debulking of tumor, POD # 7 Path: extensive poorly diff CA extending thru all layers. + LN Plan: 1. NGT came out overnight, pt passing flatus - start clear liquid diet, will adv to fulls for dinner 2. OOB with PT 3. DVT ppx 4. onc on board 5. TPN 6. IS/pulm toilet 7. Eros drain output is decreasing and is serous - will dc upon discharge to home Thank you, please call with questions. Subjective Date of service: 05/25/19 Narrative: Pt seen and examined. Feels well. Sneezed out NGT this am. No n/v. Tolerating clear liquids. + Flatus, No BM. No f/c. Objective Vital Signs - 12hr 05/24/19 05/24/19 05/25/19 22:57 22:58 00:29 Temperature 98.2 F Pulse Rate 70 62 Respiratory 18 20 Rate Respiratory Rate [Abdomen] Blood Pressure 189/94 139/76 O2 Sat by Pulse 97 Oximetry 05/25/19 05/25/19 05/25/19 02:00 04:10 04:14 Temperature 98.3 F Pulse Rate 68 Respiratory 20 20 Rate Respiratory 18 Rate [Abdomen] Blood Pressure 190/86 O2 Sat by Pulse 97 Oximetry 05/25/19 05/25/19 05/25/19 04:44 05:56 06:01 Temperature Pulse Rate 68 Respiratory 20 Rate Respiratory 20 Rate [Abdomen] Blood Pressure 190/86 O2 Sat by Pulse Oximetry - General physical appearance Narrative Exam: Gen: AAOx3. NAD CV: s1, S2+ resp; even and unlabored Abd: soft, NT, ND. incision c/d/i with olamide in place. EROS drain serous Ext: no c/c/e - Labs 05/21/19 04:51 05/25/19 04:49 Diabetes panel 05/25/19 Range/Units 04:49 Sodium 139 (137-145) mmol/L Potassium 4.5 (3.6-5.0) mmol/L Chloride 97.2 L (98-107) mmol/L Carbon Dioxide 31 H (22-30) mmol/L BUN 15 (9-20) mg/dL Creatinine 0.6 L (0.8-1.5) mg/dL Glucose 123 H (75-100) mg/dL Calcium 9.8 (8.4-10.2) mg/dL Calcium panel 05/25/19 Range/Units 04:49 Calcium 9.8 (8.4-10.2) mg/dL Phosphorus 4.40 (2.5-4.5) mg/dL Pituitary panel 05/25/19 Range/Units 04:49 Sodium 139 (137-145) mmol/L Potassium 4.5 (3.6-5.0) mmol/L Chloride 97.2 L (98-107) mmol/L Carbon Dioxide 31 H (22-30) mmol/L BUN 15 (9-20) mg/dL Creatinine 0.6 L (0.8-1.5) mg/dL Glucose 123 H (75-100) mg/dL Calcium 9.8 (8.4-10.2) mg/dL Adrenal panel 05/25/19 Range/Units 04:49 Sodium 139 (137-145) mmol/L Potassium 4.5 (3.6-5.0) mmol/L Chloride 97.2 L (98-107) mmol/L Carbon Dioxide 31 H (22-30) mmol/L BUN 15 (9-20) mg/dL Creatinine 0.6 L (0.8-1.5) mg/dL Glucose 123 H (75-100) mg/dL Calcium 9.8 (8.4-10.2) mg/dL
[2019-05-25] MEDS: HCTZ PO SCH (10:32)
[2019-05-25] MEDS: ZESTRIL PO SCH (10:33)
[2019-05-25] MEDS: PROTONIX IV SCH (10:34)
--- NOTE | 2019-05-25 14:40 | Progress Note ---
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 Colon cancer suspected Sepsis due to Colitis, poa Accelerated hypertension with Urgency, currently hypotensive Hepatitis A and B Microcytic anemia DM type 2 GERD - continue to wean FIO2 for O2 sats>90% - 12 lead EKG, get 2D echocardiogram - Serial enzymes - Continue antibiotics - Cardiology evaluation ongoing - VTE prophylaxis -ABG now and daily for 3 days - prn CXR's at this point - continue bronchodilators per protocol with pulmonary hygiene per RT - continue NPO status, nutritional support with TPN - continue accucchecks with glycemic control per SSI for target BG < 180 mg/dl - Stress ulcer prophylaxis - Supportive transfusions per protocol Discussed with RN/RT CONDITION: IMPROVED PROGNOSIS: GUARDED CODE STATUS; FULL CODE Subjective Date of service: 05/25/19 Principal diagnosis: Ac. Hyopoxemic Resp failure; Bowel obstruction s/p ex lap; Severe Sepsis Interval history: Ac. Hyopoxemic Resp failure s/p MVS; Abdominal pain; Large bowel obstruction s/p ex lap; Sepsis due to Colitis; Accelerated hypertension with Urgency; Hepatitis A and B; Microcytic anemia; DM type 2; GERD Objective Vital Signs - 12hr 05/25/19 05/25/19 05/25/19 04:10 04:14 04:44 Temperature 98.3 F Pulse Rate 68 Respiratory 20 20 20 Rate Respiratory Rate [Abdomen] Blood Pressure 190/86 O2 Sat by Pulse 97 Oximetry 05/25/19 05/25/19 05/25/19 05:56 06:01 08:11 Temperature 99.4 F Pulse Rate 68 66 Respiratory 18 Rate Respiratory 20 Rate [Abdomen] Blood Pressure 190/86 162/80 O2 Sat by Pulse 93 Oximetry 05/25/19 10:45 Temperature Pulse Rate 66 Respiratory Rate Respiratory Rate [Abdomen] Blood Pressure 162/80 O2 Sat by Pulse Oximetry Constitutional: no acute distress, other (awake and alert, obeying commands) Eyes: non-icteric ENT: oropharynx moist Neck: supple, no lymphadenopathy, no JVD Effort: normal Ascultation: Bilateral: diminished breath sounds Cardiovascular: regular rate and rhythm, other (S1,S2, no murmurs, gallops or rubs) Gastrointestinal: hypoactive bowel sounds, other (abdominal dressings midline, distended) Integumentary: normal Extremities: no cyanosis, no edema, pulses normal, no ischemia or petechiae Neurologic: normal mental status, non-focal exam, pupils equal and round, CN II- XII normal, motor strength normal and Psychiatric: mood appropriate, affect normal CBC and BMP: 05/21/19 04:51 05/25/19 04:49 ABG, PT/INR, D-dimer: ABG POC ABG pH 7.426 (7.35-7.45) 05/22/19 04:42 POC ABG pCO2 54.2 (35-45) H 05/22/19 04:42 POC ABG pO2 139 (80-105) H 05/22/19 04:42 POC ABG HCO3 35.6 (22-26 mml/L) 05/22/19 04:42 POC ABG Total CO2 37 (23-27mmol/L) 05/22/19 04:42 POC ABG O2 Sat 99 05/22/19 04:42 PT/INR, D-dimer PT 16.2 Sec. (12.2-14.9) H 05/18/19 07:22 INR 1.34 (0.87-1.13) H 05/18/19 07:22 Abnormal lab findings: Abnormal Labs 05/17/19 05/17/19 05/17/19 03:19 03:19 11:28 WBC 11.2 H RBC 3.61 L Hgb 7.9 L Hct 25.5 L MCV 71 L MCH 22 L MCHC 31 L RDW 24.9 H Lymph % (Auto) [place] % (Auto) 11.9 H Lymph # [place] # 1.3 H Seg Neutrophils % 72.5 H Seg Neuts % (Manual) Lymphocytes % (Manual) Seg Neutrophils # 8.1 H Lymphocytes # (Manual) PT INR POC ABG pH POC ABG pCO2 POC ABG pO2 Potassium 5.1 H Chloride Carbon Dioxide BUN Creatinine Glucose 140 H POC Glucose Calcium Phosphorus Iron TIBC ALT 5 L CK-MB (CK-2) CK-MB (CK-2) Rel Index Troponin T Albumin 3.3 L HDL Cholesterol Carcinoembryonic Ag 4.5 H Vitamin B12 Crossmatch 06/05/17/19 05/18/19 12:45 14:13 07:22 WBC 12.9 H RBC Hgb 10.2 L Hct 32.9 L D MCV 76 L MCH 24 L MCHC 31 L RDW 23.9 H Lymph % (Auto) [place] % (Auto) Lymph # [place] # Seg Neutrophils % Seg Neuts % (Manual) Lymphocytes % (Manual) Seg Neutrophils # Lymphocytes # (Manual) PT INR POC ABG pH POC ABG pCO2 POC ABG pO2 Potassium Chloride Carbon Dioxide BUN Creatinine Glucose POC Glucose 159 H Calcium Phosphorus Iron TIBC ALT CK-MB (CK-2) CK-MB (CK-2) Rel Index Troponin T Albumin HDL Cholesterol Carcinoembryonic Ag Vitamin B12 Crossmatch See Detail 05/18/19 05/18/19 05/19/19 07:22 07:22 02:26 WBC RBC Hgb Hct MCV MCH MCHC RDW Lymph % (Auto) [place] % (Auto) Lymph # [place] # Seg Neutrophils % Seg Neuts % (Manual) Lymphocytes % (Manual) Seg Neutrophils # Lymphocytes # (Manual) PT 16.2 H INR 1.34 H POC ABG pH POC ABG pCO2 POC ABG pO2 Potassium Chloride 97.8 L Carbon Dioxide BUN Creatinine Glucose POC Glucose 121 H Calcium Phosphorus Iron TIBC ALT CK-MB (CK-2) CK-MB (CK-2) Rel Index Troponin T Albumin HDL Cholesterol Carcinoembryonic Ag Vitamin B12 Crossmatch 05/19/19 05/19/19 05/19/19 07:58 07:58 19:08 WBC RBC Hgb 10.1 L Hct 32.4 L MCV 75 L MCH 23 L MCHC 31 L RDW 24.4 H Lymph % (Auto) 8.2 L [place] % (Auto) 9.7 H Lymph # 0.9 L [place] # 1.1 H Seg Neutrophils % 82.0 H Seg Neuts % (Manual) Lymphocytes % (Manual) Seg Neutrophils # 9.0 H Lymphocytes # (Manual) PT INR POC ABG pH POC ABG pCO2 POC ABG pO2 Potassium 5.2 H Chloride Carbon Dioxide BUN Creatinine Glucose 133 H POC Glucose 116 H Calcium 8.3 L Phosphorus Iron TIBC ALT CK-MB (CK-2) CK-MB (CK-2) Rel Index Troponin T Albumin 2.7 L HDL Cholesterol Carcinoembryonic Ag Vitamin B12 Crossmatch 05/19/19 05/20/19 05/20/19 23:12 05:41 05:41 WBC RBC Hgb 10.1 L Hct 31.9 L MCV 74 L MCH 24 L MCHC RDW 25.2 H Lymph % (Auto) [place] % (Auto) Lymph # [place] # Seg Neutrophils % Seg Neuts % (Manual) 84.0 H Lymphocytes % (Manual) 10.0 L Seg Neutrophils # Lymphocytes # (Manual) 0.9 L PT INR POC ABG pH POC ABG pCO2 POC ABG pO2 Potassium Chloride Carbon Dioxide BUN 8 L Creatinine 0.6 L Glucose 148 H POC Glucose 122 H Calcium Phosphorus 1.90 L D Iron TIBC ALT CK-MB (CK-2) CK-MB (CK-2) Rel Index Troponin T Albumin HDL Cholesterol Carcinoembryonic Ag Vitamin B12 Crossmatch 05/20/19 05/20/19 05/20/19 05:57 12:16 18:50 WBC RBC Hgb Hct MCV MCH MCHC RDW Lymph % (Auto) [place] % (Auto) Lymph # [place] # Seg Neutrophils % Seg Neuts % (Manual) Lymphocytes % (Manual) Seg Neutrophils # Lymphocytes # (Manual) PT INR POC ABG pH POC ABG pCO2 POC ABG pO2 Potassium Chloride Carbon Dioxide BUN Creatinine Glucose POC Glucose 151 H 149 H 170 H Calcium Phosphorus Iron TIBC ALT CK-MB (CK-2) CK-MB (CK-2) Rel Index Troponin T Albumin HDL Cholesterol Carcinoembryonic Ag Vitamin B12 Crossmatch 05/20/19 05/21/19 05/21/19 23:19 04:51 04:51 WBC RBC Hgb 9.6 L Hct 31.0 L MCV 74 L MCH 23 L MCHC 31 L RDW 25.5 H Lymph % (Auto) [place] % (Auto) Lymph # [place] # Seg Neutrophils % Seg Neuts % (Manual) Lymphocytes % (Manual) Seg Neutrophils # Lymphocytes # (Manual) PT INR POC ABG pH POC ABG pCO2 POC ABG pO2 Potassium Chloride 95.2 L Carbon Dioxide 35 H BUN Creatinine 0.6 L Glucose 161 H POC Glucose 145 H Calcium Phosphorus 2.00 L Iron TIBC ALT CK-MB (CK-2) CK-MB (CK-2) Rel Index Troponin T Albumin HDL Cholesterol Carcinoembryonic Ag Vitamin B12 Crossmatch 05/21/19 05/21/19 05/21/19 04:51 05:42 07:49 WBC RBC Hgb Hct MCV MCH MCHC RDW Lymph % (Auto) [place] % (Auto) Lymph # [place] # Seg Neutrophils % Seg Neuts % (Manual) Lymphocytes % (Manual) Seg Neutrophils # Lymphocytes # (Manual) PT INR POC ABG pH POC ABG pCO2 POC ABG pO2 Potassium Chloride Carbon Dioxide BUN Creatinine Glucose POC Glucose 176 H 199 H Calcium Phosphorus Iron TIBC ALT CK-MB (CK-2) 5.7 H CK-MB (CK-2) Rel Index 4.3 H Troponin T Albumin HDL Cholesterol Carcinoembryonic Ag Vitamin B12 Crossmatch 05/21/19 05/21/19 05/21/19 10:38 11:17 17:58 WBC RBC Hgb Hct MCV MCH MCHC RDW Lymph % (Auto) [place] % (Auto) Lymph # [place] # Seg Neutrophils % Seg Neuts % (Manual) Lymphocytes % (Manual) Seg Neutrophils # Lymphocytes # (Manual) PT INR POC ABG pH 7.498 H POC ABG pCO2 POC ABG pO2 230 H Potassium Chloride Carbon Dioxide BUN Creatinine Glucose POC Glucose Calcium Phosphorus Iron TIBC ALT CK-MB (CK-2) CK-MB (CK-2) Rel Index Troponin T 0.191 H* 0.133 H* D Albumin HDL Cholesterol 21 L Carcinoembryonic Ag Vitamin B12 Crossmatch 05/22/19 05/22/19 05/22/19 00:04 04:42 04:55 WBC RBC Hgb Hct MCV MCH MCHC RDW Lymph % (Auto) [place] % (Auto) Lymph # [place] # Seg Neutrophils % Seg Neuts % (Manual) Lymphocytes % (Manual) Seg Neutrophils # Lymphocytes # (Manual) PT INR POC ABG pH POC ABG pCO2 54.2 H POC ABG pO2 139 H Potassium 3.0 L D Chloride 94.8 L Carbon Dioxide 33 H BUN Creatinine 0.5 L Glucose 140 H POC Glucose 155 H Calcium Phosphorus Iron TIBC ALT CK-MB (CK-2) CK-MB (CK-2) Rel Index Troponin T Albumin HDL Cholesterol Carcinoembryonic Ag Vitamin B12 Crossmatch 05/22/19 05/22/19 05/22/19 05:49 13:03 17:27 WBC RBC Hgb Hct MCV MCH MCHC RDW Lymph % (Auto) [place] % (Auto) Lymph # [place] # Seg Neutrophils % Seg Neuts % (Manual) Lymphocytes % (Manual) Seg Neutrophils # Lymphocytes # (Manual) PT INR POC ABG pH POC ABG pCO2 POC ABG pO2 Potassium Chloride Carbon Dioxide BUN Creatinine Glucose POC Glucose 162 H 152 H 137 H Calcium Phosphorus Iron TIBC ALT CK-MB (CK-2) CK-MB (CK-2) Rel Index Troponin T Albumin HDL Cholesterol Carcinoembryonic Ag Vitamin B12 Crossmatch 05/23/19 05/23/19 05/23/19 00:43 03:16 04:21 WBC RBC Hgb Hct MCV MCH MCHC RDW Lymph % (Auto) [place] % (Auto) Lymph # [place] # Seg Neutrophils % Seg Neuts % (Manual) Lymphocytes % (Manual) Seg Neutrophils # Lymphocytes # (Manual) PT INR POC ABG pH POC ABG pCO2 POC ABG pO2 Potassium 3.5 L Chloride 96.5 L Carbon Dioxide 33 H BUN Creatinine 0.5 L Glucose 130 H POC Glucose 141 H 140 H Calcium Phosphorus Iron TIBC ALT CK-MB (CK-2) CK-MB (CK-2) Rel Index Troponin T Albumin HDL Cholesterol Carcinoembryonic Ag Vitamin B12 Crossmatch 05/23/19 05/23/19 05/23/19 06:01 12:30 18:22 WBC RBC Hgb Hct MCV MCH MCHC RDW Lymph % (Auto) [place] % (Auto) Lymph # [place] # Seg Neutrophils % Seg Neuts % (Manual) Lymphocytes % (Manual) Seg Neutrophils # Lymphocytes # (Manual) PT INR POC ABG pH POC ABG pCO2 POC ABG pO2 Potassium Chloride Carbon Dioxide BUN Creatinine Glucose POC Glucose 135 H 161 H 114 H Calcium Phosphorus Iron TIBC ALT CK-MB (CK-2) CK-MB (CK-2) Rel Index Troponin T Albumin HDL Cholesterol Carcinoembryonic Ag Vitamin B12 Crossmatch 05/24/19 05/24/19 05/24/19 00:24 06:04 06:10 WBC RBC Hgb Hct MCV MCH MCHC RDW Lymph % (Auto) [place] % (Auto) Lymph # [place] # Seg Neutrophils % Seg Neuts % (Manual) Lymphocytes % (Manual) Seg Neutrophils # Lymphocytes # (Manual) PT INR POC ABG pH POC ABG pCO2 POC ABG pO2 Potassium Chloride 97.7 L Carbon Dioxide 32 H BUN Creatinine 0.5 L Glucose 125 H POC Glucose 126 H 126 H Calcium Phosphorus Iron TIBC ALT CK-MB (CK-2) CK-MB (CK-2) Rel Index Troponin T Albumin HDL Cholesterol Carcinoembryonic Ag Vitamin B12 Crossmatch 05/24/19 05/24/19 05/24/19 09:38 09:43 11:48 WBC RBC Hgb Hct MCV MCH MCHC RDW Lymph % (Auto) [place] % (Auto) Lymph # [place] # Seg Neutrophils % Seg Neuts % (Manual) Lymphocytes % (Manual) Seg Neutrophils # Lymphocytes # (Manual) PT INR POC ABG pH POC ABG pCO2 POC ABG pO2 Potassium Chloride Carbon Dioxide BUN Creatinine Glucose POC Glucose 146 H Calcium Phosphorus Iron 14 L TIBC 221 L ALT CK-MB (CK-2) CK-MB (CK-2) Rel Index Troponin T Albumin HDL Cholesterol Carcinoembryonic Ag Vitamin B12 > 2000 H Crossmatch 05/25/19 05/25/19 05/25/19 00:33 04:49 07:01 WBC RBC Hgb Hct MCV MCH MCHC RDW Lymph % (Auto) [place] % (Auto) Lymph # [place] # Seg Neutrophils % Seg Neuts % (Manual) Lymphocytes % (Manual) Seg Neutrophils # Lymphocytes # (Manual) PT INR POC ABG pH POC ABG pCO2 POC ABG pO2 Potassium Chloride 97.2 L Carbon Dioxide 31 H BUN Creatinine 0.6 L Glucose 123 H POC Glucose 141 H 151 H Calcium Phosphorus Iron TIBC ALT CK-MB (CK-2) CK-MB (CK-2) Rel Index Troponin T Albumin HDL Cholesterol Carcinoembryonic Ag Vitamin B12 Crossmatch 05/25/19 11:59 WBC RBC Hgb Hct MCV MCH MCHC RDW Lymph % (Auto) [place] % (Auto) Lymph # [place] # Seg Neutrophils % Seg Neuts % (Manual) Lymphocytes % (Manual) Seg Neutrophils # Lymphocytes # (Manual) PT INR POC ABG pH POC ABG pCO2 POC ABG pO2 Potassium Chloride Carbon Dioxide BUN Creatinine Glucose POC Glucose 151 H Calcium Phosphorus Iron TIBC ALT CK-MB (CK-2) CK-MB (CK-2) Rel Index Troponin T Albumin HDL Cholesterol Carcinoembryonic Ag Vitamin B12 Crossmatch Allied health notes reviewed: nursing
--- NOTE | 2019-05-25 15:19 | Progress Note ---
Assessment and Plan Assessment and plan: Patient is a 53 yo man with a history of hypertension, DM type 2, GERD, Anemia and Dyslipidemia who presented to [facility] ED with severe abdominal pains. He saw his PCP about 2 weeks ago and brings his outside lab showing reactivity to hepatitis A and B, and elevated CRP level of greater than 90 and a high cancer antigen marker. In ED he was found to have temp of 100.6F HR 101, WBC 11.2, hgb 7.9 with MCV 71, normal plt and potassium of 5.1 with normal Cr of 1.0. * CT abd/pelvis with contrast IMPRESSION: Diffuse irregular mucosal thickening in the ascending colon extending from the level of the ileocecal valve and extending 7.1 cm cephalocaudally. There is associated pericolonic stranding and adjacent mildly enlarged lymph nodes. The finding is suspicious for a malignancy rather than a colitis. Endoscopic evaluation is strongly recommended. Mild to moderate distention of ileal bowel loops with air-fluid levels suggesting partial mechanical small bowel obstruction most likely related to this lesion. Low density foci in both hepatic lobes with measurements as described. These may represent small cysts. Adenocarcinoma may also present with cystic metastases. Ultrasound of the liver is recommen ded for follow-up confirmation. Pericolonic stranding in the right perinephric space without abnormal nephrogram or hydronephrosis. This may be related to the inflammatory process in the ascending colon. Pyelonephritis would be a less likely consideration. Appendix not definitely identified. Trace free fluid in the pelvis. Bilateral small inguinal hernias containing omental fat * 2v ABD Xray IMPRESSION: Multiple small air-fluid levels with mild distention of small bowel loops. Partial mechanical small bowel obstruction cannot entirely be excluded.. * 05/21/19-Patient transferred to ICU secondary unresponsiveness and unable to maintain airway requiring intubation * 05/22- extubated Acute Respirotry failure: resolvedsecondary to narcotics, now extubated. NGT discontinued Acute Metabolic Encephalopathy: resolved Presumed secondary to narcotics, improving Abdominal pains with Large bowel obstruction s/p ex lap: treated with bowel rest, Judicious iv pain meds, Gen. Surgery following. 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 Colon cancer suspected: Pathology shows extensive poorly diff CA extending thru all layers. 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 Sepsis due to Colitis, poa: treat with IV abx and IVF, prn tylenol for fevers, get blood cultures, CXR, EKG baseline Accelerated hypertension with Urgency: treat with iv antihypertensives, add enalapril iv and monitor renal funtion, resume po meds when able to Hyperkalemia, mild: supportive care, monitor levels closely Hepatitis A and B per outside lab: GI was consulted Microcytic anemia: GI was consulted DM type 2: ssi for now GERD: iv ppi DVT prophylaxis: sq heparin full code TPN started R Ureter intact ON IVP DONE History Interval history: Patient seen and examined today, resting comfortable, now with flatus, NGT rem conrado. Pain much improved, rates it a 3/10 in intensity Hospitalist Physical - Physical exam Narrative exam: Gen: WDWN, NAD, Awake, Alert HEENT: NCAT, EOMI, PERRL, OP Clear Neck: supple, no adenopathy, no thyromegaly, no JVD CVS/Heart: reg tachy, normal S1S2, pulses present bilaterally Chest/Lungs: CTA B, Symmetrical chest expansion, good air entry bilaterally GI/Abdomen: soft, diffuse tenderness Hypoactive but positive bowel sounds, dressing noted , no guarding or rebound, drain in place /Bladder: no suprapubic tenderness, no CVA or paraspinal tenderness Extermity/Skin: no c/c/e, no obvious rash MSK: FROM x 4 Neuro: CN 2-12 grossly intact, no new focal deficits Psych: calm - Constitutional Vitals: Temp Pulse Resp BP Pulse Ox 98.7 F 66 18 201/77 93 05/25/19 14:51 05/25/19 10:45 05/25/19 14:51 05/25/19 14:51 05/25/19 08:11 General appearance: Present: other (intubated on the vent) Results - Labs CBC & Chem 7: 05/21/19 04:51 05/25/19 04:49 Labs: Laboratory Last Values WBC 10.0 K/mm3 (4.5-11.0) 05/21/19 04:51 RBC 4.16 M/mm3 (3.65-5.03) 05/21/19 04:51 Hgb 9.6 gm/dl (11.8-15.2) L 05/21/19 04:51 Hct 31.0 % (35.5-45.6) L 05/21/19 04:51 MCV 74 fl (84-94) L 05/21/19 04:51 MCH 23 pg (28-32) L 05/21/19 04:51 MCHC 31 % (32-34) L 05/21/19 04:51 RDW 25.5 % (13.2-15.2) H 05/21/19 04:51 Plt Count 369 K/mm3 (140-440) 05/21/19 04:51 Lymph % (Auto) Transcription Typist 05/20/19 05:41 [place] % (Auto) Transcription Typist 05/20/19 05:41 Eos % (Auto) Transcription Typist 05/20/19 05:41 Baso % (Auto) Transcription Typist 05/20/19 05:41 Lymph # Transcription Typist 05/20/19 05:41 [place] # Transcription Typist 05/20/19 05:41 Eos # Transcription Typist 05/20/19 05:41 Baso # Transcription Typist 05/20/19 05:41 Add Manual Diff Complete 05/20/19 05:41 Total Counted 100 05/20/19 05:41 Seg Neutrophils % Transcription Typist 05/20/19 05:41 Seg Neuts % (Manual) 84.0 % (40.0-70.0) H 05/20/19 05:41 0 % 05/20/19 05:41 10.0 % (13.4-35.0) L 05/20/19 05:41 Reactive Lymphs % (Man) 0 % 05/20/19 05:41 6.0 % (0.0-7.3) 05/20/19 05:41 0 % (0.0-4.3) 05/20/19 05:41 0 % (0.0-1.8) 05/20/19 05:41 0 % 05/20/19 05:41 0 % 05/20/19 05:41 0 % 05/20/19 05:41 0 % 05/20/19 05:41 Nucleated RBC % Not Reportable 05/20/19 05:41 Seg Neutrophils # Transcription Typist 05/20/19 05:41 Seg Neutrophils # Man 7.3 K/mm3 (1.8-7.7) 05/20/19 05:41 Band Neutrophils # 0.0 K/mm3 05/20/19 05:41 0.9 K/mm3 (1.2-5.4) L 05/20/19 05:41 Abs React Lymphs (Man) 0.0 K/mm3 05/20/19 05:41 0.5 K/mm3 (0.0-0.8) 05/20/19 05:41 0.0 K/mm3 (0.0-0.4) 05/20/19 05:41 0.0 K/mm3 (0.0-0.1) 05/20/19 05:41 0.0 K/mm3 05/20/19 05:41 0.0 K/mm3 05/20/19 05:41 0.0 K/mm3 05/20/19 05:41 Blast Cells # 0.0 K/mm3 05/20/19 05:41 WBC Morphology Not Reportable 05/20/19 05:41 WBC Morphology TNR 05/20/19 05:41 Hypersegmented Neuts Not Reportable 05/20/19 05:41 Hyposegmented Neuts Not Reportable 05/20/19 05:41 Hypogranular Neuts Not Reportable 05/20/19 05:41 Not Reportable 05/20/19 05:41 Not Reportable 05/20/19 05:41 Not Reportable 05/20/19 05:41 Not Reportable 05/20/19 05:41 Not Reportable 05/20/19 05:41 Not Reportable 05/20/19 05:41 Consistent w auto 05/20/19 05:41 Not Reportable 05/20/19 05:41 Plt Clumps, EDTA Not Reportable 05/20/19 05:41 Not Reportable 05/20/19 05:41 Not Reportable 05/20/19 05:41 Not Reportable 05/20/19 05:41 Plt Morphology Comment Not Reportable 05/20/19 05:41 RBC Morphology Not Reportable 05/20/19 05:41 Dimorphic RBCs Not Reportable 05/20/19 05:41 Not Reportable 05/20/19 05:41 1+ 05/20/19 05:41 Few 05/20/19 05:41 1+ 05/20/19 05:41 1+ 05/20/19 05:41 Not Reportable 05/20/19 05:41 Not Reportable 05/20/19 05:41 Not Reportable 05/20/19 05:41 Not Reportable 05/20/19 05:41 Not Reportable 05/20/19 05:41 Not Reportable 05/20/19 05:41 Few 05/20/19 05:41 Not Reportable 05/20/19 05:41 Not Reportable 05/20/19 05:41 Not Reportable 05/20/19 05:41 Not Reportable 05/20/19 05:41 Not Reportable 05/20/19 05:41 Not Reportable 05/20/19 05:41 Few 05/20/19 05:41 Acanthocytes (Spur) Not Reportable 05/20/19 05:41 Rouleaux Not Reportable 05/20/19 05:41 Not Reportable 05/20/19 05:41 Not Reportable 05/20/19 05:41 Not Reportable 05/20/19 05:41 Not Reportable 05/20/19 05:41 Hem Pathologist Commnt No 05/20/19 05:41 PT 16.2 Sec. (12.2-14.9) H 05/18/19 07:22 INR 1.34 (0.87-1.13) H 05/18/19 07:22 APTT 36.6 Sec. (24.2-36.6) 05/18/19 07:22 POC ABG pH 7.426 (7.35-7.45) 05/22/19 04:42 POC ABG pCO2 54.2 (35-45) H 05/22/19 04:42 POC ABG pO2 139 (80-105) H 05/22/19 04:42 POC ABG HCO3 35.6 (22-26 mml/L) 05/22/19 04:42 POC ABG Total CO2 37 (23-27mmol/L) 05/22/19 04:42 POC ABG O2 Sat 99 05/22/19 04:42 POC ABG Base Excess 11 ((-2) - (+3)mmol/L) 05/22/19 04:42 40 % 05/22/19 04:42 Sodium 139 mmol/L (137-145) 05/25/19 04:49 Potassium 4.5 mmol/L (3.6-5.0) 05/25/19 04:49 Chloride 97.2 mmol/L (98-107) L 05/25/19 04:49 Carbon Dioxide 31 mmol/L (22-30) H 05/25/19 04:49 15 mmol/L 05/25/19 04:49 BUN 15 mg/dL (9-20) 05/25/19 04:49 0.6 mg/dL (0.8-1.5) L 05/25/19 04:49 Estimated GFR > 60 ml/min 05/25/19 04:49 25 % 05/25/19 04:49 Glucose 123 mg/dL (75-100) H 05/25/19 04:49 POC Glucose 151 (70-105) H 05/25/19 11:59 Calcium 9.8 mg/dL (8.4-10.2) 05/25/19 04:49 Phosphorus 4.40 mg/dL (2.5-4.5) 05/25/19 04:49 Magnesium 2.00 mg/dL (1.7-2.3) 05/25/19 04:49 Iron 14 ug/dL (49-181) L 05/24/19 09:43 TIBC 221 mcg/dL (250-450) L 05/24/19 09:43 50.2 ng/mL (13.0-400.0) 05/24/19 09:38 0.40 mg/dL (0.1-1.2) 05/19/19 07:58 AST 12 units/L (5-40) 05/19/19 07:58 ALT 7 units/L (7-56) 05/19/19 07:58 62 units/L (35-129) 05/19/19 07:58 132 units/L (55-170) 05/21/19 04:51 CK-MB (CK-2) 5.7 ng/mL (0.0-4.0) H 05/21/19 04:51 CK-MB (CK-2) Rel Index 4.3 (0-4) H 05/21/19 04:51 0.133 ng/mL (0.00-0.029) H* D 05/21/19 17:58 6.6 g/dL (6.3-8.2) 05/19/19 07:58 2.7 g/dL (3.9-5) L 05/19/19 07:58 0.7 % 05/19/19 07:58 Triglycerides 116 mg/dL (2-149) 05/21/19 11:17 Cholesterol 131 mg/dL (50-199) 05/21/19 11:17 89 mg/dL (50-130) 05/21/19 11:17 21 mg/dL (40-59) L 05/21/19 11:17 6.23 % 05/21/19 11:17 28 units/L (13-60) 05/17/19 03:52 Carcinoembryonic Ag 4.5 ng/mL (0.0-2.4) H 05/17/19 11:28 Vitamin B12 > 2000 pg/mL (211-911) H 05/24/19 09:38 15.31 ng/mL (7.3-26.0) 05/24/19 09:38 Yellow (Yellow) 05/17/19 Unknown Clear (Clear) 05/17/19 Unknown 5.0 (5.0-7.0) 05/17/19 Unknown Ur Specific [place] 1.021 (1.003-1.030) 05/17/19 Unknown <15 mg/dl mg/dL (Negative) 05/17/19 Unknown Neg mg/dL (Negative) 05/17/19 Unknown Neg mg/dL (Negative) 05/17/19 Unknown Neg (Negative) 05/17/19 Unknown Neg (Negative) 05/17/19 Unknown Neg (Negative) 05/17/19 Unknown < 2.0 mg/dL (<2.0) 05/17/19 Unknown Ur Leukocyte Esterase Neg (Negative) 05/17/19 Unknown 2.0 /HPF (0.0-6.0) 05/17/19 Unknown 3.0 /HPF (0.0-6.0) 05/17/19 Unknown 1+ /HPF 05/17/19 Unknown Blood Type B POSITIVE 05/17/19 12:45 Antibody Screen Negative 05/17/19 12:45 Crossmatch See Detail 05/17/19 12:45 Active Medications - Current Medications Current Medications: Generic Name Dose Route Start Last Admin Trade Name Freq PRN Reason Stop Dose Admin Acetaminophen 650 mg 05/17/19 07:30 05/17/19 16:53 Tylenol [place] 650 mg Q4H PRN Administration Non Cardiac Pain or Temp>100.5 Dextrose 50 ml 05/17/19 07:28 D50w (25gm) Syringe IV PRN PRN Hypoglycemia Hydralazine HCl 10 mg 05/19/19 20:10 05/24/19 06:00 Apresoline IV 10 mg Q4HR PRN Administration Blood Pressure Hydralazine HCl 50 mg 05/25/19 14:00 Apresoline PO Q8HR [facility] Hydrochlorothiazide 12.5 mg 05/19/19 21:00 05/25/19 10:32 Hctz PO 12.5 mg QDAY [facility] Administration Hydromorphone HCl 1 mg 05/19/19 07:58 05/25/19 10:34 Dilaudid IV 1 mg Q3H PRN Administration Pain, Moderate (4-6) Hydrophilic Ointment 1 applic 05/21/19 08:15 Vaseline Lip Therapy TP Q2HR PRN Dry Lips Amino Acids/Electrolytes/Dextrose 2,400 mls @ 100 mls/hr 05/24/19 20:00 05/24/19 21:29 Tpn Adult IV 05/25/19 19:59 100 mls/hr DAILY@1999 [facility] Administration Protocol Amino Acids/Electrolytes/Dextrose 2,400 mls @ 100 mls/hr 05/25/19 20:00 Tpn Adult IV 05/26/19 19:59 DAILY@1999 [facility] Protocol Insulin Human Lispro 0 unit 05/17/19 12:00 05/25/19 04:14 Humalog SUB-Q Not Given Q6HR [facility] Protocol Lisinopril 20 mg 05/19/19 21:00 05/25/19 10:33 Zestril PO 20 mg QDAY [facility] Administration Multi-Ingred Cream/Lotion/Oil/Oint 1 applic 05/21/19 08:15 Artificial Tears Ophth Oint OU Q4HR PRN Dry Eye(s) Ondansetron HCl 4 mg 05/17/19 07:27 05/20/19 08:09 Zofran IV 4 mg Q4H PRN Administration Nausea And Vomiting Pantoprazole Sodium 40 mg 05/17/19 10:00 05/25/19 10:34 Protonix IV 05/26/19 13:00 40 mg QDAY [facility] Administration Pantoprazole Sodium 40 mg 05/27/19 10:00 Protonix PO DAILY YURIY Phenol 1 spray 05/19/19 16:55 05/19/19 19:09 Chloraseptic MM 1 spray PRN PRN Administration Sore Throat Nutrition/Malnutrition Assess - Dietary Evaluation Nutrition/Malnutrition Findings: Nutrition Notes Start: 05/18/19 17:02 Freq: Status: Active Protocol: Document 05/25/19 14:45 RM (Rec: 05/25/19 14:54 RM [id number]) Nutrition Notes Initial or Follow up Reassessment Current Diagnosis Diabetes,Sepsis,Hypertension Other Pertinent Diagnosis colon mass with paritial SBO S /P exp lap, abdominal wound Current Diet FL+PPN at 100ml/hr Labs/Tests Ca 9.8 (trending up) P 4.4 (trending up) Pertinent Medications Reviewed Height 5 ft 8 in Weight 75.4 kg [place] Body Weight (kg) 70.00 BMI 25.2 Subjective/Other Information Day 7 CPN. Clear liquid diet in place for breakfast. Full liquid diet ordered for dinner. Pt stated that he drank most of his breakfast. Percent of energy/protein needs met: 38%/100% (from PPN) 22%/13% (from diet) Burn Absent Trauma Absent #2 Nutrition Diagnosis Inadequate oral intake As Evidenced by Signs and Symptoms pt Diagnosis Progress(for reassessment Improved documentation) Is patient on ventilator? No Is Patient Ambulatory and/or Out of Bed Yes REE-([facility]-ambulatory/OOB) [ 2038.050 [id number]] Calculation Used for Recommendations [facility] Additional Notes Protein needs are 90-113g (1.2 -1.5g/kg) Fluid needs are 1ml/kcal Nutrition Intervention Nutrition Support: Continue CPN at 100 ml/hr: 6% dextrose,6 mEq Ca, 15 mmol 15 Kcal 950 Protein (gm) 110 Carbohydrates (gm) 150 Fat (gm) 0 Fluid (mL) 2,400 Fiber (gm) 0 Goal #1 PN and diet to meet nutrient needs as best possible Anticipated Discharge Needs: Unable to determine at this time Follow-Up By: 05/26/19 Additional Comments Labs in am: BMP, Mg, Phos
[2019-05-25] MEDS: APRESOLINE PO SCH ×2 (15:23→21:13)
--- NOTE | 2019-05-25 15:23 | Progress Note ---
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 Colon cancer suspected Sepsis due to Colitis, poa Accelerated hypertension with Urgency, currently hypotensive Hepatitis A and B Microcytic anemia DM type 2 GERD - continue prn oxygen for O2 sats>90% - 2D echocardiogram reviewed; +mild pulm HTN - s/p empiric antibiotics - Cardiology evaluation ongoing - VTE prophylaxis - prn ABG's at this point - prn CXR's at this point - continue bronchodilators per protocol with pulmonary hygiene per RT - continue NPO status (advance per surgeon); continue nutritional support with TPN - continue accucchecks with glycemic control per SSI for target BG < 180 mg/dl - Stress ulcer prophylaxis - Supportive transfusions per protocol Discussed with RN/RT CONDITION: IMPROVED PROGNOSIS: GUARDED CODE STATUS; FULL CODE Subjective Date of service: 05/25/19 Principal diagnosis: Ac. Hypoxemic Resp failure; Bowel obstruction s/p ex lap; Severe Sepsis Interval history: Patient is seen today for: Ac. Hyopoxemic Resp failure s/p MVS; Abdominal pain; Large bowel obstruction s/p ex lap; Sepsis due to Colitis; Accelerated hypertension with Urgency; Hepatitis A and B; Microcytic anemia; DM type 2; GERD Seen and examined at bedside; 24hour events reviewed; nursing and respiratory care staff consulted; no adverse overnight events reported to me; resting peacefully in bed; denies abdominal pain; No N/V/F/C; no acute issues respiratory-cortes Objective Vital Signs - 12hr 05/25/19 05/25/19 05/25/19 04:10 04:14 04:44 Temperature 98.3 F Pulse Rate 68 Respiratory 20 20 20 Rate Respiratory Rate [Abdomen] Blood Pressure 190/86 O2 Sat by Pulse 97 Oximetry 05/25/19 05/25/19 05/25/19 05:56 06:01 08:11 Temperature 99.4 F Pulse Rate 68 66 Respiratory 18 Rate Respiratory 20 Rate [Abdomen] Blood Pressure 190/86 162/80 O2 Sat by Pulse 93 Oximetry 05/25/19 05/25/19 10:45 14:51 Temperature 98.7 F Pulse Rate 66 Respiratory 18 Rate Respiratory Rate [Abdomen] Blood Pressure 162/80 201/77 O2 Sat by Pulse Oximetry Constitutional: no acute distress, other (awake and alert, obeying commands) Eyes: non-icteric ENT: oropharynx moist Neck: supple, no lymphadenopathy, no JVD Effort: normal Ascultation: Bilateral: diminished breath sounds Percussion: Bilateral: not dull Cardiovascular: regular rate and rhythm, other (S1,S2, no murmurs, gallops or rubs) Gastrointestinal: hypoactive bowel sounds, soft, tender (mild), other (abdominal dressings midline, distended) Integumentary: normal Extremities: no cyanosis, no edema, pulses normal, no ischemia or petechiae Neurologic: normal mental status, non-focal exam, pupils equal and round, CN II- XII normal, motor strength normal and Psychiatric: mood appropriate, affect normal CBC and BMP: 05/21/19 04:51 05/26/19 06:55 ABG, PT/INR, D-dimer: ABG POC ABG pH 7.426 (7.35-7.45) 05/22/19 04:42 POC ABG pCO2 54.2 (35-45) H 05/22/19 04:42 POC ABG pO2 139 (80-105) H 05/22/19 04:42 POC ABG HCO3 35.6 (22-26 mml/L) 05/22/19 04:42 POC ABG Total CO2 37 (23-27mmol/L) 05/22/19 04:42 POC ABG O2 Sat 99 05/22/19 04:42 PT/INR, D-dimer PT 16.2 Sec. (12.2-14.9) H 05/18/19 07:22 INR 1.34 (0.87-1.13) H 05/18/19 07:22 Abnormal lab findings: Abnormal Labs 05/17/19 05/17/19 05/17/19 03:19 03:19 11:28 WBC 11.2 H RBC 3.61 L Hgb 7.9 L Hct 25.5 L MCV 71 L MCH 22 L MCHC 31 L RDW 24.9 H Lymph % (Auto) [place] % (Auto) 11.9 H Lymph # [place] # 1.3 H Seg Neutrophils % 72.5 H Seg Neuts % (Manual) Lymphocytes % (Manual) Seg Neutrophils # 8.1 H Lymphocytes # (Manual) PT INR POC ABG pH POC ABG pCO2 POC ABG pO2 Potassium 5.1 H Chloride Carbon Dioxide BUN Creatinine Glucose 140 H POC Glucose Calcium Phosphorus Iron TIBC ALT 5 L CK-MB (CK-2) CK-MB (CK-2) Rel Index Troponin T Albumin 3.3 L HDL Cholesterol Carcinoembryonic Ag 4.5 H Vitamin B12 Crossmatch 05/17/19 05/17/19 05/18/19 12:45 14:13 07:22 WBC 12.9 H RBC Hgb 10.2 L Hct 32.9 L D MCV 76 L MCH 24 L MCHC 31 L RDW 23.9 H Lymph % (Auto) [place] % (Auto) Lymph # [place] # Seg Neutrophils % Seg Neuts % (Manual) Lymphocytes % (Manual) Seg Neutrophils # Lymphocytes # (Manual) PT INR POC ABG pH POC ABG pCO2 POC ABG pO2 Potassium Chloride Carbon Dioxide BUN Creatinine Glucose POC Glucose 159 H Calcium Phosphorus Iron TIBC ALT CK-MB (CK-2) CK-MB (CK-2) Rel Index Troponin T Albumin HDL Cholesterol Carcinoembryonic Ag Vitamin B12 Crossmatch See Detail 05/18/19 05/18/19 05/19/19 07:22 07:22 02:26 WBC RBC Hgb Hct MCV MCH MCHC RDW Lymph % (Auto) [place] % (Auto) Lymph # [place] # Seg Neutrophils % Seg Neuts % (Manual) Lymphocytes % (Manual) Seg Neutrophils # Lymphocytes # (Manual) PT 16.2 H INR 1.34 H POC ABG pH POC ABG pCO2 POC ABG pO2 Potassium Chloride 97.8 L Carbon Dioxide BUN Creatinine Glucose POC Glucose 121 H Calcium Phosphorus Iron TIBC ALT CK-MB (CK-2) CK-MB (CK-2) Rel Index Troponin T Albumin HDL Cholesterol Carcinoembryonic Ag Vitamin B12 Crossmatch 05/19/19 05/19/19 05/19/19 07:58 07:58 19:08 WBC RBC Hgb 10.1 L Hct 32.4 L MCV 75 L MCH 23 L MCHC 31 L RDW 24.4 H Lymph % (Auto) 8.2 L [place] % (Auto) 9.7 H Lymph # 0.9 L [place] # 1.1 H Seg Neutrophils % 82.0 H Seg Neuts % (Manual) Lymphocytes % (Manual) Seg Neutrophils # 9.0 H Lymphocytes # (Manual) PT INR POC ABG pH POC ABG pCO2 POC ABG pO2 Potassium 5.2 H Chloride Carbon Dioxide BUN Creatinine Glucose 133 H POC Glucose 116 H Calcium 8.3 L Phosphorus Iron TIBC ALT CK-MB (CK-2) CK-MB (CK-2) Rel Index Troponin T Albumin 2.7 L HDL Cholesterol Carcinoembryonic Ag Vitamin B12 Crossmatch 05/19/19 05/20/19 05/20/19 23:12 05:41 05:41 WBC RBC Hgb 10.1 L Hct 31.9 L MCV 74 L MCH 24 L MCHC RDW 25.2 H Lymph % (Auto) [place] % (Auto) Lymph # [place] # Seg Neutrophils % Seg Neuts % (Manual) 84.0 H Lymphocytes % (Manual) 10.0 L Seg Neutrophils # Lymphocytes # (Manual) 0.9 L PT INR POC ABG pH POC ABG pCO2 POC ABG pO2 Potassium Chloride Carbon Dioxide BUN 8 L Creatinine 0.6 L Glucose 148 H POC Glucose 122 H Calcium Phosphorus 1.90 L D Iron TIBC ALT CK-MB (CK-2) CK-MB (CK-2) Rel Index Troponin T Albumin HDL Cholesterol Carcinoembryonic Ag Vitamin B12 Crossmatch 05/20/19 05/20/19 05/20/19 05:57 12:16 18:50 WBC RBC Hgb Hct MCV MCH MCHC RDW Lymph % (Auto) [place] % (Auto) Lymph # [place] # Seg Neutrophils % Seg Neuts % (Manual) Lymphocytes % (Manual) Seg Neutrophils # Lymphocytes # (Manual) PT INR POC ABG pH POC ABG pCO2 POC ABG pO2 Potassium Chloride Carbon Dioxide BUN Creatinine Glucose POC Glucose 151 H 149 H 170 H Calcium Phosphorus Iron TIBC ALT CK-MB (CK-2) CK-MB (CK-2) Rel Index Troponin T Albumin HDL Cholesterol Carcinoembryonic Ag Vitamin B12 Crossmatch 05/20/19 05/21/19 05/21/19 23:19 04:51 04:51 WBC RBC Hgb 9.6 L Hct 31.0 L MCV 74 L MCH 23 L MCHC 31 L RDW 25.5 H Lymph % (Auto) [place] % (Auto) Lymph # [place] # Seg Neutrophils % Seg Neuts % (Manual) Lymphocytes % (Manual) Seg Neutrophils # Lymphocytes # (Manual) PT INR POC ABG pH POC ABG pCO2 POC ABG pO2 Potassium Chloride 95.2 L Carbon Dioxide 35 H BUN Creatinine 0.6 L Glucose 161 H POC Glucose 145 H Calcium Phosphorus 2.00 L Iron TIBC ALT CK-MB (CK-2) CK-MB (CK-2) Rel Index Troponin T Albumin HDL Cholesterol Carcinoembryonic Ag Vitamin B12 Crossmatch 05/21/19 05/21/19 05/21/19 04:51 05:42 07:49 WBC RBC Hgb Hct MCV MCH MCHC RDW Lymph % (Auto) [place] % (Auto) Lymph # [place] # Seg Neutrophils % Seg Neuts % (Manual) Lymphocytes % (Manual) Seg Neutrophils # Lymphocytes # (Manual) PT INR POC ABG pH POC ABG pCO2 POC ABG pO2 Potassium Chloride Carbon Dioxide BUN Creatinine Glucose POC Glucose 176 H 199 H Calcium Phosphorus Iron TIBC ALT CK-MB (CK-2) 5.7 H CK-MB (CK-2) Rel Index 4.3 H Troponin T Albumin HDL Cholesterol Carcinoembryonic Ag Vitamin B12 Crossmatch 05/21/19 05/21/19 05/21/19 10:38 11:17 17:58 WBC RBC Hgb Hct MCV MCH MCHC RDW Lymph % (Auto) [place] % (Auto) Lymph # [place] # Seg Neutrophils % Seg Neuts % (Manual) Lymphocytes % (Manual) Seg Neutrophils # Lymphocytes # (Manual) PT INR POC ABG pH 7.498 H POC ABG pCO2 POC ABG pO2 230 H Potassium Chloride Carbon Dioxide BUN Creatinine Glucose POC Glucose Calcium Phosphorus Iron TIBC ALT CK-MB (CK-2) CK-MB (CK-2) Rel Index Troponin T 0.191 H* 0.133 H* D Albumin HDL Cholesterol 21 L Carcinoembryonic Ag Vitamin B12 Crossmatch 05/22/19 05/22/19 05/22/19 00:04 04:42 04:55 WBC RBC Hgb Hct MCV MCH MCHC RDW Lymph % (Auto) [place] % (Auto) Lymph # [place] # Seg Neutrophils % Seg Neuts % (Manual) Lymphocytes % (Manual) Seg Neutrophils # Lymphocytes # (Manual) PT INR POC ABG pH POC ABG pCO2 54.2 H POC ABG pO2 139 H Potassium 3.0 L D Chloride 94.8 L Carbon Dioxide 33 H BUN Creatinine 0.5 L Glucose 140 H POC Glucose 155 H Calcium Phosphorus Iron TIBC ALT CK-MB (CK-2) CK-MB (CK-2) Rel Index Troponin T Albumin HDL Cholesterol Carcinoembryonic Ag Vitamin B12 Crossmatch 05/22/19 05/22/19 05/22/19 05:49 13:03 17:27 WBC RBC Hgb Hct MCV MCH MCHC RDW Lymph % (Auto) [place] % (Auto) Lymph # [place] # Seg Neutrophils % Seg Neuts % (Manual) Lymphocytes % (Manual) Seg Neutrophils # Lymphocytes # (Manual) PT INR POC ABG pH POC ABG pCO2 POC ABG pO2 Potassium Chloride Carbon Dioxide BUN Creatinine Glucose POC Glucose 162 H 152 H 137 H Calcium Phosphorus Iron TIBC ALT CK-MB (CK-2) CK-MB (CK-2) Rel Index Troponin T Albumin HDL Cholesterol Carcinoembryonic Ag Vitamin B12 Crossmatch 05/23/19 05/23/19 05/23/19 00:43 03:16 04:21 WBC RBC Hgb Hct MCV MCH MCHC RDW Lymph % (Auto) [place] % (Auto) Lymph # [place] # Seg Neutrophils % Seg Neuts % (Manual) Lymphocytes % (Manual) Seg Neutrophils # Lymphocytes # (Manual) PT INR POC ABG pH POC ABG pCO2 POC ABG pO2 Potassium 3.5 L Chloride 96.5 L Carbon Dioxide 33 H BUN Creatinine 0.5 L Glucose 130 H POC Glucose 141 H 140 H Calcium Phosphorus Iron TIBC ALT CK-MB (CK-2) CK-MB (CK-2) Rel Index Troponin T Albumin HDL Cholesterol Carcinoembryonic Ag Vitamin B12 Crossmatch 05/23/19 05/23/19 05/23/19 06:01 12:30 18:22 WBC RBC Hgb Hct MCV MCH MCHC RDW Lymph % (Auto) [place] % (Auto) Lymph # [place] # Seg Neutrophils % Seg Neuts % (Manual) Lymphocytes % (Manual) Seg Neutrophils # Lymphocytes # (Manual) PT INR POC ABG pH POC ABG pCO2 POC ABG pO2 Potassium Chloride Carbon Dioxide BUN Creatinine Glucose POC Glucose 135 H 161 H 114 H Calcium Phosphorus Iron TIBC ALT CK-MB (CK-2) CK-MB (CK-2) Rel Index Troponin T Albumin HDL Cholesterol Carcinoembryonic Ag Vitamin B12 Crossmatch 05/24/19 05/24/19 05/24/19 00:24 06:04 06:10 WBC RBC Hgb Hct MCV MCH MCHC RDW Lymph % (Auto) [place] % (Auto) Lymph # [place] # Seg Neutrophils % Seg Neuts % (Manual) Lymphocytes % (Manual) Seg Neutrophils # Lymphocytes # (Manual) PT INR POC ABG pH POC ABG pCO2 POC ABG pO2 Potassium Chloride 97.7 L Carbon Dioxide 32 H BUN Creatinine 0.5 L Glucose 125 H POC Glucose 126 H 126 H Calcium Phosphorus Iron TIBC ALT CK-MB (CK-2) CK-MB (CK-2) Rel Index Troponin T Albumin HDL Cholesterol Carcinoembryonic Ag Vitamin B12 Crossmatch 05/24/19 05/24/19 05/24/19 09:38 09:43 11:48 WBC RBC Hgb Hct MCV MCH MCHC RDW Lymph % (Auto) [place] % (Auto) Lymph # [place] # Seg Neutrophils % Seg Neuts % (Manual) Lymphocytes % (Manual) Seg Neutrophils # Lymphocytes # (Manual) PT INR POC ABG pH POC ABG pCO2 POC ABG pO2 Potassium Chloride Carbon Dioxide BUN Creatinine Glucose POC Glucose 146 H Calcium Phosphorus Iron 14 L TIBC 221 L ALT CK-MB (CK-2) CK-MB (CK-2) Rel Index Troponin T Albumin HDL Cholesterol Carcinoembryonic Ag Vitamin B12 > 2000 H Crossmatch 05/25/19 05/25/19 05/25/19 00:33 04:49 07:01 WBC RBC Hgb Hct MCV MCH MCHC RDW Lymph % (Auto) [place] % (Auto) Lymph # [place] # Seg Neutrophils % Seg Neuts % (Manual) Lymphocytes % (Manual) Seg Neutrophils # Lymphocytes # (Manual) PT INR POC ABG pH POC ABG pCO2 POC ABG pO2 Potassium Chloride 97.2 L Carbon Dioxide 31 H BUN Creatinine 0.6 L Glucose 123 H POC Glucose 141 H 151 H Calcium Phosphorus Iron TIBC ALT CK-MB (CK-2) CK-MB (CK-2) Rel Index Troponin T Albumin HDL Cholesterol Carcinoembryonic Ag Vitamin B12 Crossmatch 05/25/19 11:59 WBC RBC Hgb Hct MCV MCH MCHC RDW Lymph % (Auto) [place] % (Auto) Lymph # [place] # Seg Neutrophils % Seg Neuts % (Manual) Lymphocytes % (Manual) Seg Neutrophils # Lymphocytes # (Manual) PT INR POC ABG pH POC ABG pCO2 POC ABG pO2 Potassium Chloride Carbon Dioxide BUN Creatinine Glucose POC Glucose 151 H Calcium Phosphorus Iron TIBC ALT CK-MB (CK-2) CK-MB (CK-2) Rel Index Troponin T Albumin HDL Cholesterol Carcinoembryonic Ag Vitamin B12 Crossmatch Allied health notes reviewed: nursing
[2019-05-25] MEDS ORDERED: TPN ADULT 2,400 ML IV SCH (20:00)
--- NOTE | 2019-05-25 20:01 | Consultation ---
REFERRED BY: Dr. Remy. REASON FOR CONSULTATION: Colon cancer. HISTORY OF PRESENT ILLNESS: I saw the patient, a 53-year-old male with past history of diabetes, hypertension, GERD, anemia, dyslipidemia, came to the hospital because of abdominal pain for 1 month. He saw his primary care a few weeks ago and it was positive for hepatitis A and B and cancer marker was high. Because of abdominal pain, he came to the hospital. He was found to have a fever at admission. During this admission, the patient has been seen by Surgical team, Cardiology team and Pulmonary team. During this admission, CT abdomen shows thickening of the ascending colon from the level of the ileocecal valve. There were lesions in the liver. The patient underwent surgery, later was intubated and then extubated. The patient had an unresponsive event after a question of Dilaudid and was in the ICU. Pathology shows poorly differentiated extensive cancer. Surgery was done on 05/18. There were 2 histologically different carcinomas; one poorly different, one moderately differentiated 8 cm in size and the tumor invaded through muscularis propria. Proximal margin was involved with tumor. Lymphovascular and perineural invasion was present. Four out of five lymph nodes were positive. Based on the pathology, it is T3 N2 Mx but one margin is positive. Final pathology staging is pending. I have been asked to evaluate the patient. The patient still has NG tube placed on suction. At this time, no headache, no visual disturbances, no ear discharge, no chest pain, no shortness of breath at rest. Has abdominal discomfort. He is able to move extremities. ALLERGIES: None. PRESENT MEDICATIONS: Zofran, Tylenol, Protonix, insulin, Dilaudid. PAST MEDICAL HISTORY: As above, diabetes, hypertension, GERD, anemia, dyslipidemia. PAST SURGICAL HISTORY: Left inguinal hernia surgery. SOCIAL HISTORY: Nonsmoker. FAMILY HISTORY: Hypertension, diabetes. No family history of colon cancer. ASSESSMENT: 1. Colon cancer, 2 different etiology. 2. Liver lesions, possible mets. 3. Surprisingly CEA is not elevated at 4.5. 4. Microcytosis, likely secondary to iron deficiency. 5. Anemia. At admission, hemoglobin was 7.9. We will look into iron supplement. 6. Status post surgery, has NG tube. 7. History of unresponsiveness and was in ICU. 8. History of diabetes. 9. History of hepatitis A and B. 10. History of hypertension. 11. History of gastroesophageal reflux disease. 12. We will await for final pathology to a staging. Based on the information available, the patient would need chemotherapy. Once the wound heals, for that he would need port placement, we will do additional pathology testing later. JOB# [id number] NM/NTS
[2019-05-26] MEDS: HumaLOG SUB-Q SCH ×2 (01:20→05:05)
[2019-05-26] MEDS: DILAUDID IV PRN ×2 (04:51→09:22)
[2019-05-26] MEDS: APRESOLINE PO SCH (04:59)
[2019-05-26] MEDS ORDERED: APRESOLINE PO SCH ×2 (07:50→12:00)
--- NOTE | 2019-05-26 08:12 | Progress Note ---
Assessment and Plan -Respiratory arrest s/p MVS -EKG changes on telemetry -Abdominal pains with Large bowel obstruction s/p ex lap -Suspected Colon mass 05/18/19 s/p Exploratory laparotomy, extensive right hemicolectomy with dissection through a tumor in the retroperitoneum. Colon cancer suspected -Sepsis due to Colitis, poa -Accelerated hypertension with Urgency -Hepatitis A and B -Microcytic anemia -DM type 2 -GERD -Hypokalemia -Wean FIO2 for O2 sats>90% -Aspiration precautions HOB >40 -VTE prophylaxis -ABG prn, CXR prn -Bronchodilators per protocol -Accucchecks with glycemic control -Stress ulcer prophylaxis -Supportive transfusions per protocol -Replace potassium, keep at 4 and Magnesium at 2 to optimize respiratory muscle function -PT/OT, increase activity Discharge planning. Discussed with Dr. Remy, re: d/c EROS drain Out patient Oncology follow up CONDITION: FAIR PROGNOSIS: FAIR CODE STATUS: FULL CODE Subjective Date of service: 05/26/19 Principal diagnosis: Ac. Hyopoxemic Resp failure; Bowel obstruction s/p ex lap; Severe Sepsis Interval history: Patient is seen today for: acute hypoxemic respiraotry failure, s/p respiratory arrest, bowel obstruction, acute toxic-metabolic encephaloapthy Seen and examined at bedside; 24hour events reviewed; nursing and respiratory care staff consulted; no adverse overnight events reported to me; No fevers overnight, no vomiting Sitting up in a chair, at the side of the bed. Denies any chest pain, no shortness of breath, no abdominal pain Tolerating a diet Vitals, labs,medications, chart and imaging reviewed. Objective Vital Signs - 12hr 05/25/19 05/25/19 05/25/19 20:15 21:13 22:57 Temperature 98.2 F Pulse Rate 79 79 Respiratory 20 18 Rate Respiratory Rate [Abdomen] Blood Pressure 158/78 Blood Pressure 158/78 [Left] O2 Sat by Pulse 91 Oximetry 05/26/19 05/26/19 05/26/19 00:29 04:00 04:16 Temperature 97.9 F 98.2 F Pulse Rate 80 72 Respiratory 20 20 Rate Respiratory 20 Rate [Abdomen] Blood Pressure 127/55 181/86 Blood Pressure [Left] O2 Sat by Pulse 94 94 Oximetry 05/26/19 05/26/19 05/26/19 04:51 04:59 08:00 Temperature Pulse Rate 71 Respiratory 18 Rate Respiratory 20 Rate [Abdomen] Blood Pressure 181/86 Blood Pressure [Left] O2 Sat by Pulse Oximetry Constitutional: no acute distress, other (awake and alert, obeying commands) Eyes: non-icteric ENT: oropharynx moist Neck: supple, no lymphadenopathy, no JVD Effort: normal Ascultation: Bilateral: diminished breath sounds Percussion: Bilateral: not dull Cardiovascular: regular rate and rhythm, other (S1,S2, no murmurs, gallops or rubs) Gastrointestinal: hypoactive bowel sounds, soft, non-distended, other (abdominal dressings midline, EROS drain, medline olamide) Integumentary: normal Extremities: no cyanosis, no edema, pulses normal, no ischemia or petechiae, other (RUExt PICC with TPN) Neurologic: normal mental status, non-focal exam, pupils equal and round, CN II- XII normal, motor strength normal and Psychiatric: mood appropriate, affect normal CBC and BMP: 05/21/19 04:51 05/26/19 06:55 ABG, PT/INR, D-dimer: ABG POC ABG pH 7.426 (7.35-7.45) 05/22/19 04:42 POC ABG pCO2 54.2 (35-45) H 05/22/19 04:42 POC ABG pO2 139 (80-105) H 05/22/19 04:42 POC ABG HCO3 35.6 (22-26 mml/L) 05/22/19 04:42 POC ABG Total CO2 37 (23-27mmol/L) 05/22/19 04:42 POC ABG O2 Sat 99 05/22/19 04:42 PT/INR, D-dimer PT 16.2 Sec. (12.2-14.9) H 05/18/19 07:22 INR 1.34 (0.87-1.13) H 05/18/19 07:22 Abnormal lab findings: Abnormal Labs 05/17/19 05/17/19 05/17/19 03:19 03:19 11:28 WBC 11.2 H RBC 3.61 L Hgb 7.9 L Hct 25.5 L MCV 71 L MCH 22 L MCHC 31 L RDW 24.9 H Lymph % (Auto) [place] % (Auto) 11.9 H Lymph # [place] # 1.3 H Seg Neutrophils % 72.5 H Seg Neuts % (Manual) Lymphocytes % (Manual) Seg Neutrophils # 8.1 H Lymphocytes # (Manual) PT INR POC ABG pH POC ABG pCO2 POC ABG pO2 Potassium 5.1 H Chloride Carbon Dioxide BUN Creatinine Glucose 140 H POC Glucose Calcium Phosphorus Iron TIBC ALT 5 L CK-MB (CK-2) CK-MB (CK-2) Rel Index Troponin T Albumin 3.3 L HDL Cholesterol Carcinoembryonic Ag 4.5 H Vitamin B12 Crossmatch 05/17/19 05/17/19 05/18/19 12:45 14:13 07:22 WBC 12.9 H RBC Hgb 10.2 L Hct 32.9 L D MCV 76 L MCH 24 L MCHC 31 L RDW 23.9 H Lymph % (Auto) [place] % (Auto) Lymph # [place] # Seg Neutrophils % Seg Neuts % (Manual) Lymphocytes % (Manual) Seg Neutrophils # Lymphocytes # (Manual) PT INR POC ABG pH POC ABG pCO2 POC ABG pO2 Potassium Chloride Carbon Dioxide BUN Creatinine Glucose POC Glucose 159 H Calcium Phosphorus Iron TIBC ALT CK-MB (CK-2) CK-MB (CK-2) Rel Index Troponin T Albumin HDL Cholesterol Carcinoembryonic Ag Vitamin B12 Crossmatch See Detail 05/18/19 05/18/19 05/19/19 07:22 07:22 02:26 WBC RBC Hgb Hct MCV MCH MCHC RDW Lymph % (Auto) [place] % (Auto) Lymph # [place] # Seg Neutrophils % Seg Neuts % (Manual) Lymphocytes % (Manual) Seg Neutrophils # Lymphocytes # (Manual) PT 16.2 H INR 1.34 H POC ABG pH POC ABG pCO2 POC ABG pO2 Potassium Chloride 97.8 L Carbon Dioxide BUN Creatinine Glucose POC Glucose 121 H Calcium Phosphorus Iron TIBC ALT CK-MB (CK-2) CK-MB (CK-2) Rel Index Troponin T Albumin HDL Cholesterol Carcinoembryonic Ag Vitamin B12 Crossmatch 05/19/19 05/19/19 05/19/19 07:58 07:58 19:08 WBC RBC Hgb 10.1 L Hct 32.4 L MCV 75 L MCH 23 L MCHC 31 L RDW 24.4 H Lymph % (Auto) 8.2 L [place] % (Auto) 9.7 H Lymph # 0.9 L [place] # 1.1 H Seg Neutrophils % 82.0 H Seg Neuts % (Manual) Lymphocytes % (Manual) Seg Neutrophils # 9.0 H Lymphocytes # (Manual) PT INR POC ABG pH POC ABG pCO2 POC ABG pO2 Potassium 5.2 H Chloride Carbon Dioxide BUN Creatinine Glucose 133 H POC Glucose 116 H Calcium 8.3 L Phosphorus Iron TIBC ALT CK-MB (CK-2) CK-MB (CK-2) Rel Index Troponin T Albumin 2.7 L HDL Cholesterol Carcinoembryonic Ag Vitamin B12 Crossmatch 05/19/19 05/20/19 05/20/19 23:12 05:41 05:41 WBC RBC Hgb 10.1 L Hct 31.9 L MCV 74 L MCH 24 L MCHC RDW 25.2 H Lymph % (Auto) [place] % (Auto) Lymph # [place] # Seg Neutrophils % Seg Neuts % (Manual) 84.0 H Lymphocytes % (Manual) 10.0 L Seg Neutrophils # Lymphocytes # (Manual) 0.9 L PT INR POC ABG pH POC ABG pCO2 POC ABG pO2 Potassium Chloride Carbon Dioxide BUN 8 L Creatinine 0.6 L Glucose 148 H POC Glucose 122 H Calcium Phosphorus 1.90 L D Iron TIBC ALT CK-MB (CK-2) CK-MB (CK-2) Rel Index Troponin T Albumin HDL Cholesterol Carcinoembryonic Ag Vitamin B12 Crossmatch 05/20/19 05/20/19 05/20/19 05:57 12:16 18:50 WBC RBC Hgb Hct MCV MCH MCHC RDW Lymph % (Auto) [place] % (Auto) Lymph # [place] # Seg Neutrophils % Seg Neuts % (Manual) Lymphocytes % (Manual) Seg Neutrophils # Lymphocytes # (Manual) PT INR POC ABG pH POC ABG pCO2 POC ABG pO2 Potassium Chloride Carbon Dioxide BUN Creatinine Glucose POC Glucose 151 H 149 H 170 H Calcium Phosphorus Iron TIBC ALT CK-MB (CK-2) CK-MB (CK-2) Rel Index Troponin T Albumin HDL Cholesterol Carcinoembryonic Ag Vitamin B12 Crossmatch 05/20/19 05/21/19 05/21/19 23:19 04:51 04:51 WBC RBC Hgb 9.6 L Hct 31.0 L MCV 74 L MCH 23 L MCHC 31 L RDW 25.5 H Lymph % (Auto) [place] % (Auto) Lymph # [place] # Seg Neutrophils % Seg Neuts % (Manual) Lymphocytes % (Manual) Seg Neutrophils # Lymphocytes # (Manual) PT INR POC ABG pH POC ABG pCO2 POC ABG pO2 Potassium Chloride 95.2 L Carbon Dioxide 35 H BUN Creatinine 0.6 L Glucose 161 H POC Glucose 145 H Calcium Phosphorus 2.00 L Iron TIBC ALT CK-MB (CK-2) CK-MB (CK-2) Rel Index Troponin T Albumin HDL Cholesterol Carcinoembryonic Ag Vitamin B12 Crossmatch 05/21/19 05/21/19 05/21/19 04:51 05:42 07:49 WBC RBC Hgb Hct MCV MCH MCHC RDW Lymph % (Auto) [place] % (Auto) Lymph # [place] # Seg Neutrophils % Seg Neuts % (Manual) Lymphocytes % (Manual) Seg Neutrophils # Lymphocytes # (Manual) PT INR POC ABG pH POC ABG pCO2 POC ABG pO2 Potassium Chloride Carbon Dioxide BUN Creatinine Glucose POC Glucose 176 H 199 H Calcium Phosphorus Iron TIBC ALT CK-MB (CK-2) 5.7 H CK-MB (CK-2) Rel Index 4.3 H Troponin T Albumin HDL Cholesterol Carcinoembryonic Ag Vitamin B12 Crossmatch 05/21/19 05/21/19 05/21/19 10:38 11:17 17:58 WBC RBC Hgb Hct MCV MCH MCHC RDW Lymph % (Auto) [place] % (Auto) Lymph # [place] # Seg Neutrophils % Seg Neuts % (Manual) Lymphocytes % (Manual) Seg Neutrophils # Lymphocytes # (Manual) PT INR POC ABG pH 7.498 H POC ABG pCO2 POC ABG pO2 230 H Potassium Chloride Carbon Dioxide BUN Creatinine Glucose POC Glucose Calcium Phosphorus Iron TIBC ALT CK-MB (CK-2) CK-MB (CK-2) Rel Index Troponin T 0.191 H* 0.133 H* D Albumin HDL Cholesterol 21 L Carcinoembryonic Ag Vitamin B12 Crossmatch 05/22/19 05/22/19 05/22/19 00:04 04:42 04:55 WBC RBC Hgb Hct MCV MCH MCHC RDW Lymph % (Auto) [place] % (Auto) Lymph # [place] # Seg Neutrophils % Seg Neuts % (Manual) Lymphocytes % (Manual) Seg Neutrophils # Lymphocytes # (Manual) PT INR POC ABG pH POC ABG pCO2 54.2 H POC ABG pO2 139 H Potassium 3.0 L D Chloride 94.8 L Carbon Dioxide 33 H BUN Creatinine 0.5 L Glucose 140 H POC Glucose 155 H Calcium Phosphorus Iron TIBC ALT CK-MB (CK-2) CK-MB (CK-2) Rel Index Troponin T Albumin HDL Cholesterol Carcinoembryonic Ag Vitamin B12 Crossmatch 05/22/19 05/22/19 05/22/19 05:49 13:03 17:27 WBC RBC Hgb Hct MCV MCH MCHC RDW Lymph % (Auto) [place] % (Auto) Lymph # [place] # Seg Neutrophils % Seg Neuts % (Manual) Lymphocytes % (Manual) Seg Neutrophils # Lymphocytes # (Manual) PT INR POC ABG pH POC ABG pCO2 POC ABG pO2 Potassium Chloride Carbon Dioxide BUN Creatinine Glucose POC Glucose 162 H 152 H 137 H Calcium Phosphorus Iron TIBC ALT CK-MB (CK-2) CK-MB (CK-2) Rel Index Troponin T Albumin HDL Cholesterol Carcinoembryonic Ag Vitamin B12 Crossmatch 05/23/19 05/23/19 05/23/19 00:43 03:16 04:21 WBC RBC Hgb Hct MCV MCH MCHC RDW Lymph % (Auto) [place] % (Auto) Lymph # [place] # Seg Neutrophils % Seg Neuts % (Manual) Lymphocytes % (Manual) Seg Neutrophils # Lymphocytes # (Manual) PT INR POC ABG pH POC ABG pCO2 POC ABG pO2 Potassium 3.5 L Chloride 96.5 L Carbon Dioxide 33 H BUN Creatinine 0.5 L Glucose 130 H POC Glucose 141 H 140 H Calcium Phosphorus Iron TIBC ALT CK-MB (CK-2) CK-MB (CK-2) Rel Index Troponin T Albumin HDL Cholesterol Carcinoembryonic Ag Vitamin B12 Crossmatch 05/23/19 05/23/19 05/23/19 06:01 12:30 18:22 WBC RBC Hgb Hct MCV MCH MCHC RDW Lymph % (Auto) [place] % (Auto) Lymph # [place] # Seg Neutrophils % Seg Neuts % (Manual) Lymphocytes % (Manual) Seg Neutrophils # Lymphocytes # (Manual) PT INR POC ABG pH POC ABG pCO2 POC ABG pO2 Potassium Chloride Carbon Dioxide BUN Creatinine Glucose POC Glucose 135 H 161 H 114 H Calcium Phosphorus Iron TIBC ALT CK-MB (CK-2) CK-MB (CK-2) Rel Index Troponin T Albumin HDL Cholesterol Carcinoembryonic Ag Vitamin B12 Crossmatch 05/24/19 05/24/19 05/24/19 00:24 06:04 06:10 WBC RBC Hgb Hct MCV MCH MCHC RDW Lymph % (Auto) [place] % (Auto) Lymph # [place] # Seg Neutrophils % Seg Neuts % (Manual) Lymphocytes % (Manual) Seg Neutrophils # Lymphocytes # (Manual) PT INR POC ABG pH POC ABG pCO2 POC ABG pO2 Potassium Chloride 97.7 L Carbon Dioxide 32 H BUN Creatinine 0.5 L Glucose 125 H POC Glucose 126 H 126 H Calcium Phosphorus Iron TIBC ALT CK-MB (CK-2) CK-MB (CK-2) Rel Index Troponin T Albumin HDL Cholesterol Carcinoembryonic Ag Vitamin B12 Crossmatch 05/24/19 05/24/19 05/24/19 09:38 09:43 11:48 WBC RBC Hgb Hct MCV MCH MCHC RDW Lymph % (Auto) [place] % (Auto) Lymph # [place] # Seg Neutrophils % Seg Neuts % (Manual) Lymphocytes % (Manual) Seg Neutrophils # Lymphocytes # (Manual) PT INR POC ABG pH POC ABG pCO2 POC ABG pO2 Potassium Chloride Carbon Dioxide BUN Creatinine Glucose POC Glucose 146 H Calcium Phosphorus Iron 14 L TIBC 221 L ALT CK-MB (CK-2) CK-MB (CK-2) Rel Index Troponin T Albumin HDL Cholesterol Carcinoembryonic Ag Vitamin B12 > 2000 H Crossmatch 05/25/19 05/25/19 05/25/19 00:33 04:49 07:01 WBC RBC Hgb Hct MCV MCH MCHC RDW Lymph % (Auto) [place] % (Auto) Lymph # [place] # Seg Neutrophils % Seg Neuts % (Manual) Lymphocytes % (Manual) Seg Neutrophils # Lymphocytes # (Manual) PT INR POC ABG pH POC ABG pCO2 POC ABG pO2 Potassium Chloride 97.2 L Carbon Dioxide 31 H BUN Creatinine 0.6 L Glucose 123 H POC Glucose 141 H 151 H Calcium Phosphorus Iron TIBC ALT CK-MB (CK-2) CK-MB (CK-2) Rel Index Troponin T Albumin HDL Cholesterol Carcinoembryonic Ag Vitamin B12 Crossmatch 05/25/19 05/25/19 05/26/19 11:59 17:50 00:33 WBC RBC Hgb Hct MCV MCH MCHC RDW Lymph % (Auto) [place] % (Auto) Lymph # [place] # Seg Neutrophils % Seg Neuts % (Manual) Lymphocytes % (Manual) Seg Neutrophils # Lymphocytes # (Manual) PT INR POC ABG pH POC ABG pCO2 POC ABG pO2 Potassium Chloride Carbon Dioxide BUN Creatinine Glucose POC Glucose 151 H 118 H 208 H Calcium Phosphorus Iron TIBC ALT CK-MB (CK-2) CK-MB (CK-2) Rel Index Troponin T Albumin HDL Cholesterol Carcinoembryonic Ag Vitamin B12 Crossmatch Additional Studies: Pathology of colon - invasive tumor with lymphovascular invasion. Poorly differentiated adenocarcinoma Allied health notes reviewed: nursing
[2019-05-26 08:16] LABS: BUN/Creatinine Ratio 27; Blood Urea Nitrogen 16 mg/dL (9-20); Calcium 9.2 mg/dL (8.4-10.2); Hemolysis Index 0
[2019-05-26] MEDS: ZESTRIL PO SCH (09:10)
[2019-05-26] MEDS: PROTONIX IV SCH (09:10)
[2019-05-26] MEDS: HCTZ PO SCH (09:10)
--- NOTE | 2019-05-26 10:19 | Discharge Summary ---
Providers - Providers Date of Admission: 05/17/19 06:22 Attending physician: SARAH HEMPHILL MD 05/17/19 06:15 Consult to Physician [CONS] Routine Comment: Dr. Pichardo spoke with Dr. Em @ [phone] Consulting Provider: JACI EM Physician Instructions: Reason For Exam: partial SBO 05/17/19 07:30 Consult to Physician [CONS] Routine Comment: Consulting Provider: SHYAM WRAY Physician Instructions: Reason For Exam: microcytic anemia, ?colon mass on CT 05/19/19 08:39 Consult to Dietitian/Nutrition [CONS] Routine Physician Instructions: Reason For Exam: for TPN Reason for Consult: Malnutrition 05/19/19 08:40 Consult to PICC Line RN [CONS] Routine Reason For Exam: tpn Type Line:: PICC 05/21/19 07:25 Consult to Physician [CONS] Routine Comment: Consulting Provider: MARY JANE RODRIGUEZ Physician Instructions: Reason For Exam: CCM, MV management 05/22/19 15:57 Occupational Therapy Evaluate and Treat [CONS] Routine Comment: Reason For Exam: Deconditioning Physical Therapy Evaluation and Treat [CONS] Routine Comment: Reason For Exam: Deconditioning 05/23/19 11:14 Consult to Physician [CONS] Routine Comment: Consulting Provider: NESHA WARNER Physician Instructions: Reason For Exam: coverage 05/23/19 14:43 Consult to Physician [CONS] Routine Comment: Consulting Provider: DAVID CHU Physician Instructions: Reason For Exam: COLON CANCER Primary care physician: [facility], Hospitalization Reason for admission: abdominal pain Condition: Good Hospital course: Patient is a 53 yo man with a history of hypertension, DM type 2, GERD, Anemia and Dyslipidemia who presented to [facility] ED with severe abdominal pains. He saw his PCP about 2 weeks ago and brings his outside lab showing reactivity to hepatitis A and B, and elevated CRP level of greater than 90 and a high cancer antigen marker. In ED he was found to have temp of 100.6F HR 101, WBC 11.2, hgb 7.9 with MCV 71, normal plt and potassium of 5.1 with normal Cr of 1.0. * CT abd/pelvis with contrast IMPRESSION: Diffuse irregular mucosal thickening in the ascending colon extending from the level of the ileocecal valve and extending 7.1 cm cephalocaudally. There is associated pericolonic stranding and adjacent mildly enlarged lymph nodes. The finding is suspicious for a malignancy rather than a colitis. Endoscopic evaluation is strongly recommended. Mild to moderate distention of ileal bowel loops with air-fluid levels suggesting partial mechanical small bowel obstruction most likely related to this lesion. Low density foci in both hepatic lobes with measurements as described. These may represent small cysts. Adenocarcinoma may also present with cystic metastases. Ultrasound of the liver is recommen ded for follow-up confirmation. Pericolonic stranding in the right perinephric space without abnormal nephrogram or hydronephrosis. This may be related to the inflammatory process in the ascending colon. Pyelonephritis would be a less likely consideration. Appendix not definitely identified. Trace free fluid in the pelvis. Bilateral small inguinal hernias containing omental fat * 2v ABD Xray IMPRESSION: Multiple small air-fluid levels with mild distention of small bowel loops. Partial mechanical small bowel obstruction cannot entirely be excluded.. * 05/21/19-Patient transferred to ICU secondary unresponsiveness and unable to maintain airway requiring intubation * 05/22- extubated * R Ureter intact ON IVP DONE During the course of hospitalization the patient the patient underwent E xploratory Laparotomy with extensive right hemicolectomy with dissection through a tumor in the retroperitoneum, pathology showed poorly diff ca extending thru all layers. This was advised to the patient, during the hospitalization the patient was noted to have acute respiratory failure and subsequently resolved with narcan. He will follow with Oncology out patient, information provided to patient and family. Acute Respiratory failure: Acute Metabolic Encephalopathy: Abdominal pains with Large bowel obstruction s/p ex lap Suspected Colon mass 05/18/19 s/p Exploratory Laparotomy, extensive right hemicolectomy with dissection through a tumor in the retroperitoneum. Extensive poorly diff CA extending thru all layers. + LN Sepsis due to Colitis, poa Accelerated hypertension with Urgency Hyperkalemia, mild Hepatitis A and B Microcytic anemia DM type 2: GERD: Disposition: [id number]-06 HOME UNDER HOME [facility] Time spent for discharge: 35 MINS Core Measure Documentation - Palliative Care Palliative Care/ Comfort Measures: Not Applicable - Core Measures Any of the following diagnoses?: none Exam - Physical Exam Narrative exam: Gen: WDWN, NAD, Awake, Alert HEENT: NCAT, EOMI, PERRL, OP Clear Neck: supple, no adenopathy, no thyromegaly, no JVD CVS/Heart: reg tachy, normal S1S2, pulses present bilaterally Chest/Lungs: CTA B, Symmetrical chest expansion, good air entry bilaterally GI/Abdomen: soft, diffuse tenderness Hypoactive but positive bowel sounds, dressing noted , no guarding or rebound, drain in place /Bladder: no suprapubic tenderness, no CVA or paraspinal tenderness Extermity/Skin: no c/c/e, no obvious rash MSK: FROM x 4 Neuro: CN 2-12 grossly intact, no new focal deficits Psych: calm - Constitutional Vitals: Temp Pulse Resp BP Pulse Ox 98.3 F 66 20 175/75 94 05/26/19 07:38 05/26/19 09:10 05/26/19 08:00 05/26/19 09:10 05/26/19 07:38 Plan Activity: advance as tolerated, fall precautions Diet: low fat, diabetic, clear liquids (ADVANCE TOLERATED) Wound: keep clean and dry, per your surgeon's advice Special Instructions: record daily weights, record daily BP diary, record blood sugar diary Follow up with: [facility] MD ROBERT [Primary Care Provider] - 3-5 Days DAVID CHU MD [Staff Physician] - 7 Days JACI EM MD [Staff Physician] - 7 Days Prescriptions: hydrALAZINE [Apresoline TAB] 100 mg PO Q8H #90 tab hydroCHLOROthiazide [HCTZ] 12.5 mg PO QDAY #30 capsule oxyCODONE /ACETAMINOPHEN [Percocet 5/325] 1 tab PO Q6HR PRN #20 tablet PRN Reason: Pain Pantoprazole [Protonix TAB] 40 mg PO DAILY #30 tablet Lisinopril [Zestril TAB] 20 mg PO QDAY #30 tablet
[2019-05-26 11:45] VITALS: BP 176/84
--- NOTE | 2019-05-26 12:03 | Progress Note ---
Assessment and Plan 53 yo M s/p s/p exlap, right hemicolectomy, debulking of tumor, POD # 8 Path: extensive poorly diff CA extending thru all layers. + LN Plan: 1. adv to soft diet - pt advised to continue on soft diet at home 2. OOB with PT 3. DVT ppx 4. onc on board 5. dc TPN 6. IS/pulm toilet 7. EROS drain and olamide removed Patient ok for dc from surgery standpoint. Spoke with Dr. Em. Pt will follow up with Dr. Em in 1 week. Thank you, please call with questions. Subjective Date of service: 05/26/19 Objective Vital Signs - 12hr 05/26/19 05/26/19 05/26/19 00:29 04:00 04:16 Temperature 97.9 F 98.2 F Pulse Rate 80 72 Respiratory 20 20 Rate Respiratory 20 Rate [Abdomen] Blood Pressure 127/55 181/86 O2 Sat by Pulse 94 94 Oximetry 05/26/19 05/26/19 05/26/19 04:51 04:59 07:38 Temperature 98.3 F Pulse Rate 71 66 Respiratory 18 18 Rate Respiratory Rate [Abdomen] Blood Pressure 181/86 175/75 O2 Sat by Pulse 94 Oximetry 05/26/19 05/26/19 05/26/19 08:00 09:10 11:34 Temperature 97.9 F Pulse Rate 66 81 Respiratory 18 Rate Respiratory 20 Rate [Abdomen] Blood Pressure 175/75 176/84 O2 Sat by Pulse 94 Oximetry - General physical appearance Narrative Exam: Gen: AAOx3. NAD CV: s1, S2+ resp; even and unlabored Abd: soft, NT, ND. EROS drain serous - drain stitch cut and drain removed complete ly, foam dressing applied. All olamide removed. Incision healed well. Steristrips applied. Ext; no c/c/e - Labs 05/21/19 04:51 05/26/19 06:55 Diabetes panel 05/26/19 Range/Units 06:55 Sodium 138 (137-145) mmol/L Potassium 4.8 (3.6-5.0) mmol/L Chloride 98.0 (98-107) mmol/L Carbon Dioxide 32 H (22-30) mmol/L BUN 16 (9-20) mg/dL Creatinine 0.6 L (0.8-1.5) mg/dL Glucose 132 H (75-100) mg/dL Calcium 9.2 (8.4-10.2) mg/dL Calcium panel 05/26/19 Range/Units 06:55 Calcium 9.2 (8.4-10.2) mg/dL Phosphorus 4.10 (2.5-4.5) mg/dL Pituitary panel 05/26/19 Range/Units 06:55 Sodium 138 (137-145) mmol/L Potassium 4.8 (3.6-5.0) mmol/L Chloride 98.0 (98-107) mmol/L Carbon Dioxide 32 H (22-30) mmol/L BUN 16 (9-20) mg/dL Creatinine 0.6 L (0.8-1.5) mg/dL Glucose 132 H (75-100) mg/dL Calcium 9.2 (8.4-10.2) mg/dL Adrenal panel 05/26/19 Range/Units 06:55 Sodium 138 (137-145) mmol/L Potassium 4.8 (3.6-5.0) mmol/L Chloride 98.0 (98-107) mmol/L Carbon Dioxide 32 H (22-30) mmol/L BUN 16 (9-20) mg/dL Creatinine 0.6 L (0.8-1.5) mg/dL Glucose 132 H (75-100) mg/dL Calcium 9.2 (8.4-10.2) mg/dL
[2019-05-26] MEDS ORDERED: TPN ADULT 1,999.9 ML IV SCH (20:00)
[2019-05-27] MEDS ORDERED: PROTONIX PO SCH (10:00)
[2019-05-30] MEDS ORDERED: CATAPRES-TTS PATCH TD SCH (10:00)
== END 2019-05-26 13:00 | disposition home health service (06) | DRG 853 ==
LOC: ED 02:42 → 3A 06:22 → CC1 05-18 20:14 → 4A 05-19 00:12 → IMCU 05-19 17:49 → CC1 05-19 21:03 → IMCU 05-19 22:14 → CC1 05-21 07:27 → 3B-SURG 05-23 14:13
PROVIDERS: ADMIT Internal Medicine; ATTEND Internal Medicine
PROC: 30233N1 Transfusion of Nonautologous Red Blood Cells into Peripheral Vein, Percutaneous Approach (ICD-10-PCS; 2019-05-17)
PROC: 0DTF0ZZ Resection of Right Large Intestine, Open Approach (ICD-10-PCS; 2019-05-18)
PROC: 0WBH0ZZ Excision of Retroperitoneum, Open Approach (ICD-10-PCS; 2019-05-18)
PROC: 02HV33Z Insertion of Infusion Device into Superior Vena Cava, Percutaneous Approach (ICD-10-PCS; 2019-05-19)
PROC: 5A1945Z Respiratory Ventilation, 24-96 Consecutive Hours (ICD-10-PCS; principal; 2019-05-21)
PROC: 0BH17EZ Insertion of Endotracheal Airway into Trachea, Via Natural or Artificial Opening (ICD-10-PCS; 2019-05-21)
PROC: 4A033R1 Measurement of Arterial Saturation, Peripheral, Percutaneous Approach (ICD-10-PCS; 2019-05-22)
DX: A41.9 Sepsis, unspecified organism (principal); J96.00 Acute respiratory failure, unspecified whether with hypoxia or hypercapnia; G92 Toxic encephalopathy; A09 Infectious gastroenteritis and colitis, unspecified; B19.10 Unspecified viral hepatitis B without hepatic coma; C18.9 Malignant neoplasm of colon, unspecified; I10 Essential (primary) hypertension; E11.9 Type 2 diabetes mellitus without complications; K21.9 Gastro-esophageal reflux disease without esophagitis; T40.605A Adverse effect of unspecified narcotics, initial encounter; I16.0 Hypertensive urgency; E87.5 Hyperkalemia; D50.9 Iron deficiency anemia, unspecified; K76.9 Liver disease, unspecified; R59.1 Generalized enlarged lymph nodes; Y92.89 Other specified places as the place of occurrence of the external cause; Z79.899 Other long term (current) drug therapy
CPT/HCPCS: 36415; 36430; 36600; 71045; 74018; 74019; 74177; 74400; 80048; 80053; 80061; 81001; 82378; 82550; 82553; 82607; 82728; 82747; 82803; 82962; 83550; 83690; 83735; 84100; 84478; 84484; 85007; 85025; 85027; 85610; 85730; 86850; 86900; 86901; 86920; 87040; 87070; 87205; 88309; 88341; 88342; 93005; 93010; 93306; 94002; 94003; 94760; 96374; G0378; C9113; J0330; J0360; J0690; J1170; J1815; J2001; J2270; J2310; J2405; J2543; J2704; J2710; J2916; J3010; J3480; J7030; J7040; J7050; P9016; Q9967

== ENCOUNTER 2019-06-19 07:29 | Day surgery (SDC) | payer BC ==
[~2019-06-19 07:29] MED LIST: ANCEF/STERILE WATER 2 GM/20 ML 2 GM/20 ML SYRINGE IV NR; LACTATED RINGERS 1,000 ML IV SCH; NEURONTIN PO SCH; TYLENOL PO NR
[2019-06-19] MEDS ORDERED: VERSED IV NR (09:00)
--- NOTE | 2019-06-19 12:53 | Short Stay Summary ---
Short Stay Documentation Date of service: 06/19/19 - History H&P: obtained from office - Allergies and Medications Current Medications: Allergies No Known Allergies Allergy (Verified 09/19/16 15:05) Home Medications Medication Instructions Recorded Confirmed Last Taken Type Dicyclomine [Bentyl] 20 mg PO TID 05/17/19 06/19/19 06/18/19 History Ferrous Sulfate [Iron 325 MG] 325 mg PO BID 05/17/19 06/19/19 06/18/19 History Lisinopril/Hydrochlorothiazide 1 each PO DAILY 05/17/19 06/19/19 06/18/19 History [Zestoretic 20-12.5 mg] Simvastatin 40 mg PO QPM 05/17/19 06/19/19 06/18/19 History Sucralfate [Carafate] 1 gm PO BID 05/17/19 06/19/19 06/18/19 History metFORMIN XR [Glucophage XR] 500 mg PO DAILY 05/17/19 06/19/19 06/18/19 History Lisinopril [Zestril TAB] 20 mg PO QDAY #30 tablet 05/26/19 06/19/19 06/18/19 Rx Pantoprazole [Protonix TAB] 40 mg PO DAILY #30 tablet 05/26/19 06/19/19 06/18/19 Rx hydrALAZINE [Apresoline TAB] 100 mg PO Q8H #90 tab 05/26/19 06/19/19 06/18/19 Rx hydroCHLOROthiazide [HCTZ] 12.5 mg PO QDAY #30 capsule 05/26/19 06/19/19 06/18/19 Rx oxyCODONE /ACETAMINOPHEN [Percocet 1 tab PO Q6HR PRN #20 tablet 05/26/19 06/19/19 06/18/19 Rx 5/325] Active Medications Acetaminophen (Tylenol) 1,000 mg PO PREOP NR Stop: 06/19/19 23:59 Last Admin: 06/19/19 07:57 Dose: 1,000 mg Documented by: Celecoxib (Celebrex) 200 mg PO PREOP NR Stop: 06/19/19 23:59 Last Admin: 06/19/19 07:56 Dose: 200 mg Documented by: Gabapentin (Neurontin) 600 mg PO PREOP YURIY Stop: 06/19/19 23:59 Last Admin: 06/19/19 07:56 Dose: 600 mg Documented by: Lactated Ringer's (Lactated Ringers) 1,000 mls @ 42 mls/hr IV DIRECT YURIY Last Admin: 06/19/19 07:56 Dose: 42 mls/hr Documented by: Cefazolin Sodium (Ancef/Sterile Water 2 Gm/20 Ml) 2 gm in 20 mls @ 80 mls/hr IV PREOP NR; Protocol Stop: 06/19/19 23:59 Midazolam HCl (Versed) 2 mg IV PREOP NR Stop: 06/19/19 23:59 Last Admin: 06/19/19 09:02 Dose: 2 mg Documented by: - Physical exam General appearance: no acute distress Integumentary: no rash, no abnormal pigmentation Lungs: Normal air movement - Brief post op/procedure progress note Date of procedure: 06/19/19 (dictation:[id number]) Pre-op diagnosis: colon cancer Post-op diagnosis: same Procedure: US guided Port Placement IVF 1L EBL min Anesthesia: GETA Findings: normal anatomy Surgeon: ADAM SUE Estimated blood loss: minimal Pathology: none Condition: stable - Hospital course Hospital course: uneventful - Disposition Condition at discharge: Stable Disposition: DC-01 TO HOME OR SELFCARE Short Stay Discharge Plan Wound: open to air, keep clean and dry, other (May use Port at any time) Additional Instructions: Post Operative Instructions No driving today . WOUND: May shower tomorrow. KEEP CLEAN AND DRY. Pat dry the wound or wounds. MAY USE PORT SOON NEEDED. After surgery, start with a light diet. Consider having a liquid diet first. If you do well, you can advance to a regular diet as you feel comfortable. WOUND: Apply an ice pack to the wound or wounds for 10-20 minutes at a time. Do this at least 4-5 times a day. You can do it more if he would like. Alternate the use of ibuprofen and Tylenol for the first 2 days. I want you to take these on a scheduled basis. Take 600 mg of ibuprofen every 6 hours. Take 500 mg of Tylenol every 6 hours. You should alternate these 2 medicines. In other words, beginning with the ibuprofen. After 3 hours, take the Tylenol. Keep alternating the 2 drugs every 3 hours. Do this on a scheduled basis for the first 2 days. After that, you can take them as needed. PRESCRIPTION - PERCOCET A NARCOTIC FOR PAIN It is very important that you use the prescription pain medicine only for very severe pain. Do not take the prescription medicine before you try using the ibuprofen and Tylenol. We will call you in a couple of days to see how youre doing. If you have any questions or concerns, always feel free to call the clinic at any time. WOUND:OPEN TO AIR.KEEP CLEAN AND DRY. DO NOT RUB OR SCRUB INCISION SITE. NO POOLS, LAKES OR TUB BATH. NO HEAVY LIFTING. FOLLOW UP WITH [facility] IN 7 DAYS. CALL FOR APPOINTMENT Follow up with: THERESA COYNECICERO MD ROBERT [Primary Care Provider] - 7 Days Forms: Outpatient Surgery DC Inst. Prescriptions: oxyCODONE /ACETAMINOPHEN [Percocet 5/325 mg] 1 tab PO Q6HR PRN #10 tablet PRN Reason: Pain
[2019-06-19] MEDS ORDERED: DIPRIVAN 10 MG/ML IV ONE (13:10)
[2019-06-19] MEDS ORDERED: SUBLIMAZE ONE (13:10)
[2019-06-19] MEDS ORDERED: XYLOCAINE MPF 2% ONE (13:10)
[2019-06-19] MEDS ORDERED: MARCAINE 0.5% INFILTRATI ONE ×2 (13:28→14:08)
[2019-06-19] MEDS ORDERED: NACL 0.9% 250ML 250 ML ONE (13:29)
[2019-06-19] MEDS ORDERED: XYLOCAINE 1% 20 mL ONE (13:29)
[2019-06-19] MEDS ORDERED: HEPARIN 10,000 UNITS/10 ML ONE (13:29)
[2019-06-19] MEDS ORDERED: APRESOLINE ONE (13:44)
[2019-06-19] MEDS ORDERED: ZOFRAN ONE (13:44)
[2019-06-19] MEDS ORDERED: HEPARIN 10,000 UNITS/10 ML IV ONE (14:06)
[2019-06-19] MEDS ORDERED: NACL 0.9% 250ML IV ONE (14:08)
[2019-06-19] MEDS ORDERED: XYLOCAINE 1% 20 mL INFILTRATI ONE (14:10)
[2019-06-19] MEDS ORDERED: NACL 0.9% IR ONE (14:11)
[2019-06-19] MEDS: APRESOLINE IV PRN ×2 (15:42→16:06)
--- NOTE | 2019-06-19 16:26 | Fluoroscopy Report ---
Fluoroscopy central venous device placement INDICATION / CLINICAL INFORMATION: COLON CA. COMPARISON: Port placement. FINDINGS: A chest radiograph was performed after Port-A-Cath placement in the operating room. There is a left j ugular Port-A-Cath with the tip overlying the mid SVC. There is no evidence of pneumothorax or other complication of catheter placement. The right PICC in the endotracheal tube have been removed since 05/22/2019. Bilateral patchy perihilar and bibasilar atelectasis is again identified. Fluoroscopy time: 19 seconds. Fluoroscopic images: 0. Signer Name: Orestes Prater MD Signed: 06/19/2019 4:22 PM Workstation Name: [id number]
[2019-06-19 16:57] VITALS: BP 151/82
--- NOTE | 2019-06-19 22:05 | Operative Report ---
PREOPERATIVE DIAGNOSIS: Colon cancer. POSTOPERATIVE DIAGNOSIS: Colon cancer. PROCEDURES: 1. Tunneled central venous catheter with subcutaneous port. 2. Ultrasound guidance for vascular access. ATTENDING PHYSICIAN: Hasmukh Rivera MD ANESTHESIA: General. ESTIMATED BLOOD LOSS: Minimal. FLUIDS: 1 liter. FINDINGS: Normal vascular anatomy. IMPLANT: Smart port. COMPLICATIONS: None. DISPOSITION: Stable, transferred to Recovery Room. INDICATIONS: This is a 54-year-old gentleman who recently had a right hemicolectomy for an aggressive colon cancer. The patient was assessed to be need for chemotherapy. Procedure, risks and benefits were explained to the patient. Risks included but were not limited to infection, bleeding, pain, injury to surrounding structures, possible need for further procedures in the future. The patient understood and consented. OPERATIVE NOTE: The patient was brought to the operating room. After adequate general anesthesia was established, I examined the vascular anatomy with ultrasound. The best target appeared to be the left internal jugular vein. We tried to go on the left side as the patient is right handed. It was easily compressible throughout its entire length. I did not see anything to suggest a clot or any narrowing. We chose this is our best target. A roll was placed underneath the shoulder blades. Head was padded. The patient was placed in Trendelenburg position. Sterile prep and drape was performed. Antibiotics had been given. SCDs were in place. Time-out was called. Under ultrasound guidance, I anesthetized the planned insertion site in the left neck with 0.5% Marcaine and 1% lidocaine. A small incision was made. Using the ultrasound probe, I watched the needle go directly into the vein. I had a good aspiration of blood. On two occasions, we had difficulty passing the wire. It appeared as though we eventually figured out that the wire was getting hung up in the needle itself. I changed the needle out and then tried again. At this time we also tried a heavier guidewire. Now we were able to get the guidewire to pass down towards the heart. We checked with fluoroscopy. It was on the right side of the heart. We then secured the wire and proceeded to make a subcutaneous pocket, additional local was injected. Transverse incision was made. Dissection was carried out in the subcutaneous space and created a big enough pocket such that the port would easily fit. We did check. Thereafter, we injected the planned tunneling path with additional local. Using the tunneler, I passed the catheter up towards the neck. The tissue in the neck was a little bit difficult. I tried redirecting a few times, but it was very difficult, very tough to pass the trocar through it; however, we eventually did without any injury to the surrounding structures. Dilator and sheath were passed over the guidewire and passed easily. The dilator and wire were removed and then catheter was inserted. We checked its position at about 20 cm. It was sitting at the SVC atrial junction. We then trimmed the end, attached to the port, placed in the pocket. We had easy aspiration and flushing with heparinized saline. We checked the position again. We removed the sheath in the neck. Everything appeared to be lying very well. We then locked the solution. We irrigated out the pocket and then I closed the deep layer with interrupted 3-0 Vicryl sutures. Skin was closed with a running 4-0 Monocryl subcuticular stitch. Skin was cleaned and dried. Dermabond was placed on both wounds. We shot a chest x-ray at the end of the case in an upright position. The position of the catheter appeared to be adequate near the distal aspect of the SVC, I think it retracted slightly; however, there were no obvious complications. Official report showed no complications. The patient tolerated the procedure well and there were no complications. All counts were correct at the end of the case. JOB# [id number] SANTOS/LEIF
== END 2019-06-19 07:30 | disposition home or self-care (01) ==
LOC: OR 07:29
PROVIDERS: ATTEND Surgery
DX: C18.9 Malignant neoplasm of colon, unspecified (principal); I10 Essential (primary) hypertension; E78.00 Pure hypercholesterolemia, unspecified; K21.9 Gastro-esophageal reflux disease without esophagitis; E11.9 Type 2 diabetes mellitus without complications; D64.9 Anemia, unspecified; Z98.890 Other specified postprocedural states; Z79.899 Other long term (current) drug therapy; Z79.84 Long term (current) use of oral hypoglycemic drugs
CPT/HCPCS: 36561; 77001; 82962; C1769; C1788; J0360; J0690; J1644; J2250; J2405; J2704; J3010; J7050; J7120

== ENCOUNTER 2019-06-28 09:34 | Outpatient (CLI) | payer BC ==
--- NOTE | 2019-06-28 17:04 | PET Report ---
PET/CT Scan06/28/2019 Indication: C18.9 Staging Technique: 13.9 mCi of F18-FDG is administered intravenously. Imaging is performed at 1216 hours. Glucose lev el is 139 mg/dl just prior to the exam. Imaging is performed from the skull base to the proximal thi ghs. CT imaging is obtained for attenuation correction and anatomic localization. Comparison: CT scan dated 05/17/2019 Findings: There is been interval right colectomy. There is retroperitoneal adenopathy in the aortocaval location which measures approximately 2.8 cm. T his measures 26.7 impression the. No lesion in the central mesentery measures 17.3 SUV. Abnormal soft tissue along right retroperitoneum inferior to the right kidney measures up to 21.9 SUV. The peri l esion in the mesentery measures approximately 3.7 x 2 cm. There are multifocal nodular soft tissue de nsities along the right retroperitoneum inferior to the right kidney and posterior to the colonic apolinar stomosis and index site within this abnormal soft tissue, series 2 image 158 measures 2.9 x 1.9 cm. No pathologic uptake of tracer seen in the neck or chest. No pathologic uptake is seen in the liver. No pathologic osseous uptake is seen. On review of the accompanying CT, no pulmonary nodules or masses are seen. The pleura is unremarkable . Incidental note is made of a small mucous retention cyst in the right maxillary sinus. Impression: There is hypermetabolic adenopathy in the aortocaval location and in the root of the mesentery. There is abnormal soft tissue density in the right inferior retroperitoneum which is hypermetabolic. This is characteristic of metastatic disease. No hepatic metastatic disease is seen. No metastatic disease is seen above the diaphragm. Signer Name: Ross Gupta MD Signed: 06/28/2019 5:00 PM Workstation Name: [id number]
== END 2019-06-28 09:35 | disposition home or self-care (01) ==
LOC: PET 09:34
PROVIDERS: ATTEND Internal Medicine Hematology & Oncology
DX: C18.9 Malignant neoplasm of colon, unspecified (principal); I10 Essential (primary) hypertension; E78.00 Pure hypercholesterolemia, unspecified; K21.9 Gastro-esophageal reflux disease without esophagitis; E11.9 Type 2 diabetes mellitus without complications
CPT/HCPCS: 78815; 82962; A9552

== ENCOUNTER 2019-10-11 09:26 | Outpatient (CLI) | payer BC ==
[2019-10-11 10:11] LABS: Blood Urea Nitrogen 10 mg/dL (9-20)
--- NOTE | 2019-10-11 12:36 | Cat Scan Report ---
CT CHEST WITH CONTRAST INDICATION / CLINICAL INFORMATION: C18.9 COLON CANCER. TECHNIQUE: Axial CT images were obtained through the chest after 100 cc Omnipaque 300 IV contrast. Sagittal and coronal reformatted images. All CT scans at this location are performed using CT dose reduction for A ZHENG by means of automated exposure control. COMPARISON: PET/CT dated 06/28/2019 FINDINGS: HEART: No significant abnormality. THORACIC AORTA: No significant abnormality. MEDIASTINUM and AVIS: No significant abnormality. LUNGS: No acute air space or interstitial disease. No pulmonary nodule or mass is identified. PLEURA: No significant pleural effusion. No pneumothorax. SKELETAL SYSTEM: No significant abnormality. IMPRESSION: No significant abnormality. No evidence for metastatic disease to the chest. Signer Name: Sunil Cortez Jr, MD Signed: 10/11/2019 12:32 PM Workstation Name: [id number]
--- NOTE | 2019-10-11 13:49 | Cat Scan Report ---
CT ABDOMEN AND PELVIS WITH CONTRAST HISTORY: C18.9 COLON CANCER COMPARISON: PET/CT dated 06/28/2019. CT abdomen and pelvis dated 05/17/2019 TECHNIQUE: Axial CT images were obtained through the abdomen and pelvis after 100 cc of Omnipaque 300 intravenously. Sagittal and coronal reformatted images. All CT scans at this location are performed using CT dose reduction for ALARA by means of automated exposure control. FINDINGS: CT ABDOMEN: Liver: The liver remains normal size and contour. Scattered subcentimeter hypodensities are unchanged and consistent with cysts. No suspicious liver mass is appreciated. Biliary: No significant abnormality. Spleen: No significant abnormality. Unenlarged. Pancreas: No significant abnormality. Adrenals: No significant abnormality. Kidneys: No significant abnormality. Lymphatics: Multiple enlarged lymph nodes are again identified near the base of the mesentery and ret roperitoneum which overall appear increased in size and number since the previous PET/CT. A celiac ax is lymph node has increased from 2.0 x 1.5 cm to 2.5 x 1.9 cm. A retrocaval lymph node has increased from 2.0 x 1.3 cm to 3.6 x 1.7 cm. A lymph node at the base of the mesentery has decreased in size fr om 2.8 x 2.3 cm to 1.9 x 1.6 cm. A few new suspicious retroperitoneal lymph nodes are noted. Vasculature: No significant abnormality. Bowel/Peritoneum: Surgical changes in the proximal colon are again noted. There is no evidence for yunior wel obstruction or focal inflammation. There are multiple mesenteric nodules which have increased in size and number. 3 or 4 nodules in the retroperitoneal fat adjacent to the surgical site are again id entified. The largest nodule has increased from 2.4 x 1.4 cm to 2.7 x 2.1 cm. A mesenteric nodule in the left abdomen at the level of the mid left kidney has increased from 1.1 cm to 2.5 cm in diameter. An anterior mesenteric nodule near midline has increased from 0.8 cm to 2.2 cm. There is a new 1.1 c m nodule in the left lateral mesentery near the peritoneum. CT PELVIS: : No significant abnormality. Osseous Structures: No significant abnormality. Additional Findings: None IMPRESSION: Overall, mild progression of disease is demonstrated in the abdomen since 06/28/2019 PET/CT. Retroperit chance adenopathy has increased in size and number as described. 1 or 2 lymph nodes at the base of the mesentery have decreased in size. Multiple mesenteric nodules are identified on today's exam which a re new or larger than on the previous PET/CT. Signer Name: Sunil Cortez Jr, MD Signed: 10/11/2019 1:45 PM Workstation Name: [id number]
== END 2019-10-11 09:27 | disposition home or self-care (01) ==
LOC: CT 09:26
PROVIDERS: ATTEND Internal Medicine Hematology & Oncology
DX: C18.9 Malignant neoplasm of colon, unspecified (principal); I10 Essential (primary) hypertension
CPT/HCPCS: 36415; 71260; 74177; 82565; 84520; Q9967

== ENCOUNTER 2019-12-14 04:28 | Emergency (ER) | payer BC ==
[2019-12-14 05:16] LABS: Hematocrit 44.2 % (35.5-45.6); Hemoglobin 14.7 gm/dl (11.8-15.2); Mean Corpuscular HGB Conc 33 % (32-34); Mean Corpuscular Volume 91 fl (84-94); Platelet Count 147 K/mm3 (140-440); Red Blood Count 4.83 M/mm3 (3.65-5.03)
[2019-12-14 05:26] LABS: Red Cell Distribution Width 21.1 % (13.2-15.2)
[2019-12-14 05:39] LABS: Alanine Aminotransferase 20 units/L (7-56); Albumin 4.1 g/dL (3.9-5); BUN/Creatinine Ratio 11; Blood Urea Nitrogen 10 mg/dL (9-20); Calcium 10.3 mg/dL (8.4-10.2); Hemolysis Index 6
[2019-12-14 06:50] LABS: Bilirubin,Urine NEG (Negative); Blood,Urine NEG (Negative); Color,Urine Amber (Yellow); Mucus,Urine FEW /HPF; Urobilinogen,Urine < 2.0 mg/dL (<2.0)
[2019-12-14 06:57] LABS: Band Neutrophils # (Manual) 0.1 K/mm3; Basophils % (Manual) 0 % (0.0-1.8); Eosinophils % (Manual) 0 % (0.0-4.3); Total Cells Counted 100
[2019-12-14 06:58] LABS: Tear Drop Cells Rare
[2019-12-14 06:59] LABS: Anisocytosis Few; Platelet Estimate Consistent w Auto
--- NOTE | 2019-12-14 09:57 | Emergency Department Report ---
ED Abdominal Pain HPI - General Chief Complaint: Abdominal Pain Stated Complaint: LOWER BACK PAIN STOMACH PAIN Time Seen by Provider: 12/14/19 09:34 Source: patient Mode of arrival: Ambulatory Limitations: No Limitations - History of Present Illness Initial Comments: 54-year-old male with history of colon cancer, status post resection, recently finished course of chemotherapy 2 weeks ago, presents to ED with lower abdominal pain radiating to the back 4 days. Patient reports pain is worse in the left lower quadrant. The patient denies fever, nausea, vomiting, diarrhea, constipation, dysuria, hematuria. MD Complaint: abdominal pain -: days(s) (4) Location: LLQ, RLQ, suprapubic Radiation: back Migration to: no migration Severity: moderate Quality: cramping Consistency: constant Improves With: nothing Worsens With: nothing Associated Symptoms: denies: nausea, vomiting, diarrhea, fever, constipation, dysuria, hematuria - Related Data Home Medications Medication Instructions Recorded Confirmed Last Taken Dicyclomine [Bentyl] 20 mg PO TID 05/17/19 06/19/19 06/18/19 Ferrous Sulfate [Iron 325 MG] 325 mg PO BID 05/17/19 06/19/19 06/18/19 Lisinopril/Hydrochlorothiazide 1 each PO DAILY 05/17/19 06/19/19 06/18/19 [Zestoretic 20-12.5 mg] Simvastatin 40 mg PO QPM 05/17/19 06/19/19 06/18/19 Sucralfate [Carafate] 1 gm PO BID 05/17/19 06/19/19 06/18/19 metFORMIN XR [Glucophage XR] 500 mg PO DAILY 05/17/19 06/19/19 06/18/19 Previous Rx's Medication Instructions Recorded Last Taken Type Pantoprazole [Protonix TAB] 40 mg PO DAILY #30 tablet 05/26/19 06/18/19 Rx hydrALAZINE [Apresoline TAB] 100 mg PO Q8H #90 tab 05/26/19 06/18/19 Rx hydroCHLOROthiazide [HCTZ] 12.5 mg PO QDAY #30 capsule 05/26/19 06/18/19 Rx lisinopriL [Zestril TAB] 20 mg PO QDAY #30 tablet 05/26/19 06/18/19 Rx oxyCODONE /ACETAMINOPHEN [Percocet 1 tab PO Q6HR PRN #10 tablet 06/19/19 Unknown Rx 5/325 mg] Dicyclomine [Bentyl] 20 mg PO QID PRN #20 tablet 12/14/19 Unknown Rx traMADoL [Ultram] 50 mg PO Q6HR PRN #7 tablet 12/14/19 Unknown Rx Allergies Allergy/AdvReac Type Severity Reaction Status Date / Time No Known Allergies Allergy Verified 09/19/16 15:05 ED Review of Systems ROS: Stated complaint: LOWER BACK PAIN STOMACH PAIN Other details as noted in HPI Comment: All other systems reviewed and negative Constitutional: denies: chills, fever Gastrointestinal: abdominal pain. denies: nausea, vomiting, diarrhea, constipation ED Past Medical Hx - Past Medical History Previous Medical History?: Yes Hx Hypertension: Yes Hx Diabetes: Yes (no according to patient) Hx Deep Vein Thrombosis: No Hx GERD: Yes Hx Liver Disease: Yes (?HEP A and B; pt denies LESIONS ON LIVER) Hx of Cancer: Yes (Abdominal) Additional medical history: Anemia. High Cholesterol. - Surgical History Past Surgical History?: Yes Hx Pacemaker: No Hx Internal Defibrillator: No Additional Surgical History: Abdominal tumor to remove Cancerous Tumor. Port a cath - Social History Smoking Status: Never Smoker Substance Use Type: None - Medications Home Medications: Home Medications Medication Instructions Recorded Confirmed Last Taken Type Dicyclomine [Bentyl] 20 mg PO TID 05/17/19 06/19/19 06/18/19 History Ferrous Sulfate [Iron 325 MG] 325 mg PO BID 05/17/19 06/19/19 06/18/19 History Lisinopril/Hydrochlorothiazide 1 each PO DAILY 05/17/19 06/19/19 06/18/19 History [Zestoretic 20-12.5 mg] Simvastatin 40 mg PO QPM 05/17/19 06/19/19 06/18/19 History Sucralfate [Carafate] 1 gm PO BID 05/17/19 06/19/19 06/18/19 History metFORMIN XR [Glucophage XR] 500 mg PO DAILY 05/17/19 06/19/19 06/18/19 History Pantoprazole [Protonix TAB] 40 mg PO DAILY #30 tablet 05/26/19 06/19/19 06/18/19 Rx hydrALAZINE [Apresoline TAB] 100 mg PO Q8H #90 tab 05/26/19 06/19/19 06/18/19 Rx hydroCHLOROthiazide [HCTZ] 12.5 mg PO QDAY #30 capsule 05/26/19 06/19/19 06/18/19 Rx lisinopriL [Zestril TAB] 20 mg PO QDAY #30 tablet 05/26/19 06/19/19 06/18/19 Rx oxyCODONE /ACETAMINOPHEN [Percocet 1 tab PO Q6HR PRN #10 tablet 06/19/19 Unknown Rx 5/325 mg] Dicyclomine [Bentyl] 20 mg PO QID PRN #20 tablet 12/14/19 Unknown Rx traMADoL [Ultram] 50 mg PO Q6HR PRN #7 tablet 12/14/19 Unknown Rx ED Physical Exam - General Limitations: No Limitations General appearance: alert, in no apparent distress - Head Head exam: Present: atraumatic, normocephalic - Eye Eye exam: Present: normal appearance, EOMI - ENT ENT exam: Present: mucous membranes moist - Neck Neck exam: Present: normal inspection - Respiratory Respiratory exam: Present: normal lung sounds bilaterally. Absent: respiratory distress - Cardiovascular Cardiovascular Exam: Present: regular rate, normal rhythm - GI/Abdominal GI/Abdominal exam: Present: soft, tenderness (mild suprapubic and LLQ tenderness). Absent: distended - Extremities Exam Extremities exam: Present: normal inspection - Neurological Exam Neurological exam: Present: alert, oriented X3 - Psychiatric Psychiatric exam: Present: normal affect, normal mood - Skin Skin exam: Present: warm, dry, intact, normal color ED Course Vital Signs 12/14/19 12/14/19 12/14/19 04:47 11:38 11:45 Temperature 98.5 F Pulse Rate 68 99 H 98 H Respiratory 18 13 29 H Rate Blood Pressure 153/89 203/114 Blood Pressure [Left] O2 Sat by Pulse 84 97 97 Oximetry 12/14/19 12/14/19 12/14/19 12:00 12:15 13:38 Temperature Pulse Rate 101 H 100 H 100 H Respiratory 23 20 18 Rate Blood Pressure 172/94 153/90 Blood Pressure 119/83 [Left] O2 Sat by Pulse 92 94 96 Oximetry ED Medical Decision Making - Lab Data Result diagrams: 12/14/19 05:04 12/14/19 05:04 - Radiology Data Radiology results: report reviewed, image reviewed - Medical Decision Making - initially hypertensive, but BP improved, vitals normal - labs unremarkable - CT shows no acute findings other than increase in size of mesenteric nodes - pt advised to f/u w/ Dr Palafox - prescriotions given for pain meds - return precautions given - Differential Diagnosis malignancy, bowel obstruction, UTI Critical care attestation.: If time is entered above; I have spent that time in minutes in the direct care of this critically ill patient, excluding procedure time. ED Disposition Clinical Impression: Acute abdominal pain Disposition: - TO HOME OR SELFCARE Is pt being admited?: No Condition: Stable Instructions: Abdominal Pain (ED) Prescriptions: Dicyclomine [Bentyl] 20 mg PO QID PRN #20 tablet PRN Reason: abdominal pain traMADoL [Ultram] 50 mg PO Q6HR PRN #7 tablet PRN Reason: Pain Referrals: DAVID PALAFOX MD [Staff Physician] - 2-3 Days Time of Disposition: 13:26
[2019-12-14] MEDS ORDERED: MORPHINE 2 MG/1 ML INJ IV ONE (11:53)
[2019-12-14] MEDS ORDERED: MORPHINE 4 MG/1 ML INJ ONE (11:56)
--- NOTE | 2019-12-14 12:47 | Cat Scan Report ---
CT ABDOMEN AND PELVIS WITH CONTRAST HISTORY: lower abd pain; hx colon CA w/ resection COMPARISON: 10/11/2019 TECHNIQUE: Axial CT images were obtained through the abdomen and pelvis after 100 cc of Omnipaque 300 intravenously. Sagittal and coronal reformatted images. All CT scans at this location are performed using CT dose reduction for ALARA by means of automated exposure control. FINDINGS: CT ABDOMEN: Lung Bases: Clear. Liver: No significant abnormality. Tiny right hepatic lobe cyst and hemangioma are unchanged. No susp icious mass. Biliary: No significant abnormality. Spleen: No significant abnormality. Unenlarged. Pancreas: No significant abnormality. Adrenals: No significant abnormality. Kidneys: No significant abnormality. Lymphatics: Enlarged retroperitoneal lymph nodes have increased in size since the previous exam. A le ft periaortic lymph node has increased from 2.3 cm to 3.0 cm in greatest dimension. A retrocaval lymp h node has increased from 1.9 to 2.9 cm in greatest dimension. Vasculature: Stable mild atherosclerotic plaques throughout the aorta. Bowel/Peritoneum: Surgical changes in the proximal colon are again noted. No evidence for bowel obstr uction or focal inflammation. Multiple peritoneal deposits have also increased in size. For instance a mass in the right paracolic gutter has increased from 1.7 cm to 3.8 cm. A mesenteric deposit in the anterior mesentery has increased from 2.1 to 2.9 cm. The overall number of mesenteric deposits appea r stable. CT PELVIS: : The bladder is empty and grossly unremarkable. Osseous Structures: No significant abnormality. Additional Findings: None IMPRESSION: Mild progression of disease is demonstrated since 10/11/2019. Retroperitoneal adenopathy and mesenter ic deposits appear stable in number but increased in size by 20-30%. No new areas of disease are iden tified. No acute inflammatory process is identified. Signer Name: Sunil Cortez Jr, MD Signed: 12/14/2019 12:43 PM Workstation Name: [id number]
[2019-12-14 13:40] VITALS: BP 119/83
== END 2019-12-14 13:38 | disposition home or self-care (01) ==
LOC: ED 04:28
DX: R10.30 Lower abdominal pain, unspecified (principal); I10 Essential (primary) hypertension; E11.9 Type 2 diabetes mellitus without complications; K21.9 Gastro-esophageal reflux disease without esophagitis; E78.5 Hyperlipidemia, unspecified
CPT/HCPCS: 36415; 74177; 80053; 81001; 83690; 85007; 85025; 96374; 99284; J2270; Q9967

== ENCOUNTER 2019-12-27 09:51 | Outpatient (CLI) | payer BC ==
--- NOTE | 2019-12-27 14:39 | PET Report ---
PET/CT CLINICAL: History of colon cancer status post resection, known metastatic disease. RADIOPHARMACEUTICAL: 13.23 mCi F-18-FDG COMPARISON: 12/14/2018, 10/11/2019, 06/28/2019. TECHNIQUE: Following the intravenous injection of F-18-FDG and an approximately 60 minute uptake period, CT and PET images from the mid skull to the upper thighs were acquired with the patient in the fasted state. No contrast was administered. The CT protocol used for this PET CT study is designed for attenuation correction and anatomic localization of PET abnormalities. This nursing home director CT is not desired to produ ce and cannot replace evecp-oq-[id number]-art diagnostic CT scans with specific imaging protocols for differ ent body parts and indications. Plasma glucose at the time of this test: 116g/dl The standardized uptake values (SUV) are normalized to patient body weight and indicate the highest a ctivity concentration (SUV max) in a given disease state. FINDINGS: CHEST: There is a new hypermetabolic wedge-shaped 2 x 0.8 cm density within the posterior lateral rig ht lung apex. This demonstrates maximum SUV of 9.32. There is a new 8 mm round area of hypermetabolic activity in left hilum. This demonstrates maximum GAY V of 15.8. The appearance is concerning for new site of metastatic disease. The heart is enlarged, but is not significantly changed. No pericardial effusion. A left chest Port-A -Cath is noted with tip within the SVC. ABDOMEN/PELVIS: Extensive retroperitoneal lymphadenopathy is increased from prior PET/CT with left periaortic lymph n ode currently measuring up to 3 cm (max SUV 16.3 (and retrocaval lymph node currently measuring up to 3 cm (max SUV 12.9). Additional sites of peritoneal metastases are overall increased these include: -New 1.6 cm deposit in the left upper abdomen, anterior to the spleen (max SUV 23). -Increased size of large conglomerate collection of peritoneal deposits inferior to the right kidney in the right paracolic gutter measures up to 3.9 x 3.5 cm (max SUV 19.6). -New 1 x 1.4 cm deposit within the anterior lower pelvis. This demonstrates max SUV of 17.3. Liver shows no discrete focal radiotracer activity or evidence of lesion. Post surgical changes in the right colon are again noted. No distended loops of intestines to suggest the presence of obstruction. No free intraperitoneal gas or fluid. Osseous structures show no eviden ce of acute osseous abnormality or aggressive osseous destructive lesion. No focal radiotracer activi ty within the skeleton to suggest the presence of osseous metastases. IMPRESSION: Compared to prior PET CT 06/28/2019, there is interval worsening of known metastatic disease with incre ased retroperitoneal lymphadenopathy and scattered areas of peritoneal deposits throughout the abdome n and pelvis. Additionally, there are new areas of hypermetabolic activity within the chest (right makenna ng apex and left hilum) which are concerning for additional sites of metastatic disease. Signer Name: Ede Rodrigez MD Signed: 12/27/2019 2:34 PM Workstation Name: [id number]
== END 2019-12-27 09:52 | disposition home or self-care (01) ==
LOC: PET 09:51
PROVIDERS: ATTEND Internal Medicine Hematology & Oncology
DX: C18.9 Malignant neoplasm of colon, unspecified (principal); I51.7 Cardiomegaly; J98.4 Other disorders of lung
CPT/HCPCS: 78815; 82962; A9552

== ENCOUNTER 2020-06-11 08:02 | Outpatient (CLI) | payer BC ==
[2020-06-11 09:08] LABS: Blood Urea Nitrogen 16 mg/dL (9-20)
--- NOTE | 2020-06-11 10:43 | Cat Scan Report ---
CT abdomen pelvis w con INDICATION: Colon cancer, follow-up. TECHNIQUE: All CT scans at this location are performed using the following dose modulation technique: Automated exposure control. Helical slices were obtained through the abdomen and pelvis following the administr ation of 100 cc of Omnipaque 350 COMPARISON: PET/CT scan dated 12/27/[address] scan dated 12/14/2019 FINDINGS: There is an enlarged lymph node in the right hilum which is only partially imaged on today's study th is measures 1.8 cm. This was not present on prior chest CT from 10/11/2019. There is a new 2.9 cm lesion in the left lobe the liver and a new 1 cm lesion in the right lobe of th e liver both on series 2 image 42 area previously noted hypodensities in the liver are unchanged. Spl een, pancreas, right adrenal gland, and bowel appear similar to the prior study. Postoperative change s are noted in the abdomen characteristic partial colectomy on the right. A mass lesion in the anterior mesentery noted on the prior study has decreased in size. On today's ex amination this measures 1.2 cm and previously measured 2.9 cm. There is retroperitoneal adenopathy on the right which has shown interval worsening. [place] disease in the pericaval location medial and inferior to the left kidney has increased. Paracaval adenopathy me asures up to 3.7 cm currently and encases the IVC and right renal artery and right renal vein. Note i n this location measured approximately 2.5 cm previously. No lung right colic gutter have increased a s well. Mesenteric nodes in the right midabdomen have enlarged. There is a 1.9 cm left adrenal nodule which measured approximately 2.4 cm previously. There has been interval development of right hydronephrosis caused obstruction appears to be the retr operitoneal nodes on the right. There is dilatation of the distal small bowel which has developed in the interval. The appearance is characteristic of partial obstruction. The point of obstruction is mass lesion in the right lower stacy drant near adjacent to the anastomosis which is increased in size. This is an irregular lesion which is difficult to get accurate measurements of overall this measures approximately 6.7 x 3.7 cm current ly and measured 5.5 x 3 cm previously. Pelvis: Dilated small bowel is noted. Inflammatory changes seen. There is some mild abnormal soft tis casandra density in the anterior left pelvis near the inguinal canal. On review of bone windows, no acute osseous abnormalities are seen. IMPRESSION: 1. Overall there is significant worsening in neoplastic disease. There is new metastatic disease in t he liver. Several of the peritoneal implants and the retroperitoneal nodes have increased in size and number. There are a few nodes and peritoneal implants which have improved. The left adrenal lesion has mildly decreased in size as well. But overall there is increased neoplastic disease. There is new right hydronephrosis caused by retroperitoneal nodes which are enlarged. There is a partial small bowel obstruction caused by an enlarging mass lesion in the right lower quad rant There is a new lymph node in the right hilum which is enlarged Signer Name: Ross Gupta MD Signed: 06/11/2020 10:39 AM Workstation Name: [id number]
== END 2020-06-11 08:03 | disposition home or self-care (01) ==
LOC: CT 08:02
DX: C78.7 Secondary malignant neoplasm of liver and intrahepatic bile duct (principal); C18.2 Malignant neoplasm of ascending colon; K76.9 Liver disease, unspecified; N20.2 Calculus of kidney with calculus of ureter; N13.39 Other hydronephrosis; R59.0 Localized enlarged lymph nodes
CPT/HCPCS: 36415; 74177; 82565; 84520; Q9967

== ENCOUNTER 2020-08-11 08:35 | Outpatient (CLI) | payer BC ==
[2020-08-11 09:44] LABS: Blood Urea Nitrogen 11 mg/dL (9-20)
--- NOTE | 2020-08-11 10:36 | Cat Scan Report ---
CT abdomen pelvis w con INDICATION / CLINICAL INFORMATION: Colon cancer restaging TECHNIQUE: Routine CT of the abdomen and pelvis with IV contrast All CT scans at this location are performed usi ng CT dose reduction for DAGO by means of automated exposure control. COMPARISON: 06/11/2020 FINDINGS: Abdomen and pelvis: When compared to the prior exam there has been some improvement involving the hep atic metastatic lesions. For instance one of the largest hepatic metastatic lesions is located within the left hepatic lobe within the lateral hepatic segment now measuring 1.2 cm in diameter, previousl y 2.7 cm in diameter. No new hepatic metastatic lesions identified. The remaining hepatic metastatic lesions have also slig htly decreased in size. The pancreas and right adrenal gland appear unremarkable. Previously seen lef t adrenal gland metastatic lesion is no longer well identified. The spleen and kidneys are unremarkab le aside from mild right-sided hydronephrosis which may be slightly improved from the interim. Extensive peritoneal carcinomatosis is also slightly decreased in overall burden when compared to the prior exam extensive retroperitoneal adenopathy has minimally changed to perhaps slightly improved w ithin the upper abdomen. There is evidence of right-sided colectomy. Urinary bladder is partially fluid distended. No free pelvic fluid or pelvic adenopathy is identified . Review of the lower lungs demonstrates no acute findings. Review of bone windows demonstrates mild thoracolumbar type degenerative changes. IMPRESSION: 1. Overall improved metastatic disease burden when compared to 06/11/2020, as outlined above. 2. Slight improvement in right-sided hydronephrosis compared to the prior exam. Signer Name: Justin Brennan MD Signed: 08/11/2020 10:31 AM Workstation Name: [id number]
== END 2020-08-11 08:36 | disposition home or self-care (01) ==
LOC: CT 08:35
PROVIDERS: ATTEND Nurse Practitioner Family
DX: C78.7 Secondary malignant neoplasm of liver and intrahepatic bile duct (principal); C18.2 Malignant neoplasm of ascending colon; N13.30 Unspecified hydronephrosis
CPT/HCPCS: 36415; 74177; 82565; 84520; Q9967

== ENCOUNTER 2020-11-06 09:32 | Outpatient (CLI) | payer BC ==
[2020-11-06 11:12] LABS: Blood Urea Nitrogen 8 mg/dL (9-20)
--- NOTE | 2020-11-06 13:48 | Cat Scan Report ---
CT CHEST, ABDOMEN, AND PELVIS WITH IV CONTRAST INDICATION: MALIGNANT NEOPLASM OF ASCENDING COLON. COMPARISON: CT chest 10/11/2019. CT abdomen/pelvis 08/11/2020. TECHNIQUE: All CT scans at this location are performed using CT dose reduction for ALARA by means of automated e xposure control. Axial CT images were obtained through the chest, abdomen, and pelvis after IV contrast. FINDINGS: Skeletal System: No acute abnormality. CHEST: Heart: Normal. Thoracic Aorta: No acute abnormality. Mediastinum & Mary Ann: No significant abnormality. Lungs: In addition to dependent atelectatic changes in the bases, there are a few punctate subpleural noncalcified nodular densities in both lungs (as seen in the lateral right lung along the fissure on series 2 image 50/100 and in the lateral left upper lobe on image 48 of the same series). These are not clearly seen on the prior. Pleura: No significant pleural effusion. No pneumothorax. Airways: No significant abnormality. Additional Findings: Port is in satisfactory position. ABDOMEN: Liver: Previously seen ill-defined hypodense lesion within the superior left hepatic lobe measures 6 mm on series 3 image 25 (previously 1.2 cm). Vague, ill-defined hypodensity in the posterior inferior right hepatic lobe is unchanged. Punctate cyst in the lateral right hepatic lobe is unchanged. No ne w hepatic abnormalities. Gallbladder: No significant abnormality. Bile Ducts: No significant abnormality. Pancreas: No significant abnormality. Spleen: There is a 1.2 cm hypodense lesion at the splenic hilum on series 3 image 48 (previously 1.6 cm by my measurement). Adrenals: No significant abnormality. Right Kidney and Proximal Ureter: Mild dilatation of the right renal collecting system is again noted . Stranding and nodularity in the inferior perinephric region and medial to the right kidney is sligh tly improved. Left Kidney and Proximal Ureter: No significant abnormality. Stomach and Bowel: No significant abnormality. Lymph Nodes: Retroperitoneal adenopathy has slightly improved. Mesenteric root adenopathy is slightly improved. Aorta: No significant abnormality. IVC: No significant abnormality. Additional Findings: Mesenteric carcinomatosis is stable. PELVIS: Urinary Bladder and Distal Ureters: No significant abnormality. Appendix: Removed. Colon: Partial right colectomy changes are again noted. Nodularity and soft tissue thickening at the ileocolonic anastomosis in the right abdomen is again noted, this is similar to the prior. Free Fluid: None. Lymph Nodes: No iliac chain or groin adenopathy. Additional Findings: None. IMPRESSION: 1. No acute findings in the abdomen or pelvis. Hepatic and peritoneal/lymphatic metastatic disease garcia s slightly improved. There is persistent nodularity and soft tissue thickening at the ileocolonic apolinar stomosis in the right abdomen which is concerning for persistent local recurrence. Degree of soft tis casandra density has slightly improved. 2. There are a few new punctate (3 mm or less) pulmonary nodules. These may be postinflammatory but a re nonspecific and too small to characterize. Continued follow-up CT chest is recommended. Signer Name: Sam Mirza MD Signed: 11/06/2020 1:44 PM Workstation Name: [id number]
== END 2020-11-06 09:33 | disposition home or self-care (01) ==
LOC: CT 09:32
PROVIDERS: ATTEND Nurse Practitioner Family
DX: C18.2 Malignant neoplasm of ascending colon (principal); K76.9 Liver disease, unspecified; K76.89 Other specified diseases of liver; D73.89 Other diseases of spleen; N28.89 Other specified disorders of kidney and ureter; R59.0 Localized enlarged lymph nodes; C80.0 Disseminated malignant neoplasm, unspecified; R91.8 Other nonspecific abnormal finding of lung field
CPT/HCPCS: 36415; 71260; 74177; 82565; 84520; Q9967